=== PATIENT | female | born 1960 | race Caucasian/White ===

== ENCOUNTER → 2016-05-16 | Outpatient (CLI) | payer OTHER ==
[~2016-05-16] MED LIST: /ONDA4TA PO; /QUET25TA PO; /RISE30TA PO; /SENOSTA PO; AMBI12.52 PO; AMBIEN PO; ASPI325T PO; ATEN25TA PO; ATEN50TA2 PO; ATIV0.5T PO; CALC500T49 PO; CETI10TA PO; CLON-412 PO; CLON1PA PO; COLA100C2 PO; COMBINATION CREAM TOP; CYCL10TA PO; DICY20TA11 PO; ESTR0.5T PO; FENT25DI22 TD; FEXO180T58 PO; FLUTISP; FOSA70TA PO; GABA100C PO; HYDR500C PO; HYDREA PO; LINZ290C PO; METH5TAB76 PO; MULTIVIT PO; NABUPOW PO; OMEP20TA7 PO; PERCTAB PO; QUET30TA PO; SAVE50TA PO; SENN15TA2 PO; SERO200T PO; SERO50TA PO; VENL100T PO; [UNRECOGNIZED DRUG - CODE] PO; [UNRECOGNIZED DRUG - CODE] PO; [UNRECOGNIZED DRUG - OTHER] PO
--- NOTE | 2016-05-19 23:32 | ECWPNPC ---
PATIENT NAME: MOO PEDROZA : 1960 GENDER: FEMALE VISIT DATE: 05/16/2016 DISCHARGE DATE: 05/16/16 1005 VISIT LOCKED DATE TIME: PHYSICIAN: CONTRERAS UNGER RESOURCE: CONTRERAS UNGER REASON FOR APPOINTMENT 1. BACK HISTORY OF PRESENT ILLNESS HISTORY OF PRESENT ILLNESS: PAIN THE PATIENT DESCRIBES THE PAIN... 55 YEAR OLD FEMALE PATIENT WITH HISTORY OF CHRONIC BACK PAIN. PATIENT DESCRIBES THE PAIN SHARP, STABBING, SORE AND SHOOTING WITH A PAIN SCORE OF 7-8/10. 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 MRS. PEDROZA HAS TRIED PHYSICAL THERAPY, ICE, HEAT, AND A TENNS UNIT AND HAS NOT FOUND LONG LASTING RELIEF AT THIS TIME. CURRENTLY THE PATIENT IS USING FENTANYL AND NORCO AND REPORTS THAT IT DOES HELP TO TAKE THE EDGE OFF. PATIENT STATES THAT SITTING OR STANDING TOO LONG INCREASES THE PAIN IN HER BACK AND RESTING HELPS TO RELIEVE IT. MRS. PEDROZA WILL RECEIVE A SACROILIAC JOINT INJECTION IN THE NEAR FUTURE DUE TO HAVING APPROVAL. PATIENT DENIES UNEXPLAINABLE WEIGHT LOSS, FEVER, CHILLS, NEW CHANGES ON HER URINARY OR BOWEL CONTROL. FALL RISK SCREENING: SCREENING :NO FALLS IN THE PAST YEAR CURRENT MEDICATIONS TAKING ALENDRONATE SODIUM 70 MG TABLET 1 TABLET ORALLY WEEKLY TAKING ASPIRIN 325 MG TABLET 1 TABLET ORALLY ONCE A DAY TAKING ATENOLOL 25 MG 1 TAB ORAL BID TAKING CALCIUM 500 MG TABLET 1 TABLET WITH MEALS ORALLY DAILY TAKING ZYRTEC 10 MG TABLET 1 TABLET NEEDED ORALLY ONCE A DAY TAKING DOCUSATE SODIUM 100 MG CAPSULE ORALLY BID TAKING ESTRADIOL 0.5 MG TABLET 1 TABLET ORALLY DAILY TAKING FLONASE 1 SPRAY IN EACH NOSTRIL NASALLY DIRECTED TAKING HYDREA 500 MG CAPSULE ORALLY EVERY OTHER DAY TAKING HYDREA 1000 MG CAPSULE ORALLY EVERY 2 DAYS TAKING LINZESS 290 MCG CAPSULE ONE P.O. DAILY TAKING ATIVAN 0.5 0.5MG TABLET BID ORAL DIRECTED TAKING METHYLPHENIDATE HCL 20 MG TABLET ORALLY DAILY IN THE AM TAKING MULTIVITAMIN TABLETS ORALLY DAILY TAKING ZOFRAN 8 MG TABLET 1 TABLET ORALLY EVERY 4 HOURS NEEDED TAKING SEROQUEL 100 100 MG TABLET 250 MGS ORAL AT HS TAKING EFFEXOR 150 MG TABLET 1 TABLET WITH FOOD ORALLY NIGHTLY TAKING FENTANYL 50 MCG/HR PATCH 72 HOUR 1 PATCH TO SKIN TRANSDERMAL 1 PATCH [id number]=KUB TAKING ENDOCET 10-325 MG TABLET 1 TABLET NEEDED ORALLY EVERY 6 HRS PRN MDD4 TAKING CLONIDINE HCL 0.1 MG TABLET 1 ORALLY Q8H PRN NOT-TAKING METHYLPHENIDATE 10 MG TABLET ORALLY ONCE A DAY AFTERNOONS MEDICATION LIST REVIEWED AND RECONCILED WITH THE PATIENT PAST MEDICAL HISTORY BLOOD CANCER BIPOLAR/SOCIAL ANXIETY PTSD BACK PAIN SVT ALLERGIES CODEINE SULFATE: NAUSEA/VOMITING: SIDE EFFECTS STADOL: ITCH: ALLERGY TRAMADOL: EXCESSIVE YAWNING: SIDE EFFECTS NUBAIN: REACTION AT SITE: SIDE EFFECTS HYDROXYZINE HCL: EXCESSIVE YAWNING: SIDE EFFECTS KETOROLAC TROMETHAMINE: EXCESSIVE YAWNING: SIDE EFFECTS LATEX (FOR ALLERGY USE ONLY): RASH: ALLERGY SURGICAL HISTORY PARTIAL HYSTERECTOMY RIGHT ELBOW FX WITH SURGICAL REPAIR SA NODE ABLATION GALL BLADDER REMOVAL BLADDER SUSPENSION HEMORRHOIDECTOMY FAMILY HISTORY NO FAMILY HISTORY DOCUMENTED. SOCIAL HISTORY GENERAL: TOBACCO USE ARE YOU A:NONSMOKER LEARNING BARRIERS / SPECIAL NEEDS ORIENTED TO PLAN OF CARE: PATIENT, PAIN MANAGEMENT PATIENT, ORIENTED TO PLAN OF CARE: PATIENT, PAIN MANAGEMENT PATIENT. NEW PATIENT PAIN DIARY TODAY'S VISITNOTES FROM 0-10, WHAT LEVEL IS YOUR PAIN TODAY?0 PAIN CLINIC PFS, CLERGY, PUBLIC HEALTH REFERRALS PFS REFERRAL NEEDED?NO CLERGY REFERRAL NEEDED?NO PUBLIC HEALTH REFERRAL NEEDED?NO WAS THE PROVIDER NOTIFIED OF ANY PERTINENT INFO?NO PFS REFERRAL NEEDED?NO CLERGY REFERRAL NEEDED?NO PUBLIC HEALTH REFERRAL NEEDED?NO WAS THE PROVIDER NOTIFIED OF ANY PERTINENT INFO?NO HOSPITALIZATION/MAJOR DIAGNOSTIC PROCEDURE KIDNEY STONES REVIEW OF SYSTEMS CONSTITUTIONAL: ANY CHANGE IN YOUR MEDICAL CONDITION? NO . CHILLS NO . FEVER NO . INFECTION: DO YOU HAVE NEW INFECTIONS? NO . DO YOU HAVE HISTORY OF MRSA? NO . MUSCULOSKELETAL: ANY NEW PATTERNS OF PAIN OR NUMBNESS? YES, 1 WEEK AGO SHE HAD EXCUTIATING PAIN IN HER CO[place]YX REGION--LASTED A COUPLE OF DAYS. RESOLVED NOW . GASTROENTEROLOGY: ANY NEW CHANGE IN BOWEL CONTROL? NO . GENITOURINARY: ANY NEW CHANGE IN BLADDER CONTROL? NO . IS THERE A CHANCE YOU COULD BE ? NO . HEMATOLOGY/LYMPH: DO YOU TAKE ANY BLOOD THINNERS? (FOR EXAMPLE- COUMADIN, PLAVIX, AGGRENOX, PLATEL, PRADAXA, OR XARELTO) NO . WHEN WAS YOUR LAST DOSE? DATE: TIME: . NEUROLOGY: HAVE YOU FALLEN IN THE PAST 6 MONTHS? NO . ANY NEW EXTREMITY NUMBNESS OR WEAKNESS? NO . CARDIOLOGY: DO YOU HAVE A PACEMAKER OR DEFIBRILLATOR? NO . RESPIRATORY: HAVE YOU BEEN SICK IN THE PAST WEEK? NO . FEVER NO . FLU LIKE SYMPTOMS? NO . COUGH NO . INTEGUMENTARY: DO YOU HAVE ANY RASHES OR OPEN SORES? NO . ALLERGIC/IMMUNO: ARE YOU ALLERGIC TO SHELLFISH OR IV DYE? NO . ANY NEW ALLERGIES? NO . PSYCHIATRIC: DO YOU HAVE THOUGHTS OF HURTING YOURSELF OR SOMEONE ELSE? NO . ARE YOU ABUSED, NEGLECTED, OR IN AN UNSAFE ENVIRONMENT? NO . ENDOCRINOLOGY: ARE YOU DIABETIC? NO . OTHER: DO YOU NEED ANY PRESCRIPTIONS? NO . IF YES, PLEASE LIST: ____ . ANY NEW PROBLEMS WITH YOUR MEDICATIONS? NO . WHEN DID YOU LAST EAT? ____ . WHEN DID YOU LAST DRINK? ____ . WHAT DID YOU LAST DRINK? ____ . NAME OF PERSON DRIVING YOU HOME? ____ . DO YOU HAVE ANY OTHER QUESTIONS OR CONCERNS YES, HAS 5 FENTANYL PATCHES LEFT . REVIEWED BY: PROVIDER: CONTRERAS UNGER MD . VITAL SIGNS WT 153 LBS, HT 69 IN, BMI 22.59 INDEX, BP 124/83 MM HG, HR 76 /MIN, RR 16 /MIN, TEMP 97.5 F, OXYGEN SAT % 100, REVIEWED BY: [facility]WT. [facility] 05/16/16. EXAMINATION : PATIENT IS ALERT O X 3 AND COOPERATIVE. TENDERNESS IN THE LOWER BACK AND THORACIC AREA. ANTALGIC WALK. RIGHT LEG WEAKER THEN THE LEFT AT EXTENSION AND FLEXION. PENDING LUMBAR AND THORACIC MRI. ASSESSMENTS INTERVERTEBRAL DISC DISORDERS WITH RADICULOPATHY, LUMBAR REGION - M51.16 (PRIMARY) INTERVERTEBRAL DISC DISORDERS WITH RADICULOPATHY, LUMBOSACRAL REGION - M51.17 TREATMENT INTERVERTEBRAL DISC DISORDERS WITH RADICULOPATHY, LUMBAR REGION REFILL FENTANYL PATCH 72 HOUR, 50 MCG/HR, 1 PATCH TO SKIN, TRANSDERMAL, 1 PATCH [id number]=TSP, 30 DAY(S), 10, REFILLS 0 REFILL ENDOCET TABLET, 10-325 MG, 1 TABLET NEEDED, ORALLY, EVERY 6 HRS PRN MDD4, 30 DAY(S), 120, REFILLS 0 NOTES: WE DISCUSSED SEVERAL ISSUES WITH MRS. PEDROZA'S PAIN MANAGEMENT CASE. AT THIS TIME THE PATIENT WILL CONTINUE WITH THE SAME MEDICATION REGIME BEFORE. URINE TOXICOLOGY DONE ON DECEMBER 2015 SHOWS CONSISTENT RESULTS WITH THE PATIENTS MEDICATION LIST. PATIENT DENIES ABUSE OF ANY MEDICATION, DENIES USE OF ILLEGAL SUBSTANCES, AND STATES THAT SHE IS ONLY USING THE MEDICATION FOR PAIN MANAGEMENT. WE DISCUSSED MOVING FORWARD WITH THE DCS BUT I WILL NEED TO SPEAK WITH DR. SIDDIQUI THE PATIENT'S PULLEY MAINTAINER FIRST. I WILL ALSO NEED TO SPEAK WITH DR. BUCK ABOUT THE ABDOMINAL PAIN THE PATIENT HAS BEEN HAVING. I WOULD ALSO LIKE TO SPEAK WITH THE PATIENT'S PROJECT LEADER TO DISCUSS WHY THE PATIENT IS UNABLE TO GET APPROVAL FOR MRI'S. WE ALSO DISCUSSED MOVING FORWARD WITH A SACROILIAC JOINT BLOCK THE PATIENT STATES SHE GETS SIGNIFICANT RELIEF FROM THE INJECTION. WE DISCUSSED THE RISKS, BENEFITS, AND ALTERNATIVES WITH THE INJECTION AND THE PATIENT WOULD LIKE TO PROCEED. INSTRUCTIONS WERE GIVEN, QUESTIONS WERE ANSWERED, PATIENT REPORTS UNDERSTANDING AND AGREES WITH THE PLAN. I, NICOLAS BRYANT, DOCUMENTED THE ABOVE INFORMATION ACTING A SCRIBE FOR DR. UNGER. I HAVE REVIEWED THE ABOVE DOCUMENT, WRITTEN BY NICOLAS REAGAN AND I VERIFY THAT IT IS ACCURATE. PROCEDURES PN WORKMANS' COMP OPINION IN YOUR OPINION, WAS THE INCIDENT THAT THE PATIENT DESCRIBED THE COMPETENT MEDICAL CAUSE OF THIS INJURY/ILLNESS? YES ARE THE PATIENT'S COMPLAINTS CONSISTENT WITH HIS/HER HISTORY OF THE INJURY/ILLNESS? YES IS THE PATIENT'S HISTORY OF THE INJURY/ILLNESS CONSISTENT WITH YOUR OBJECTIVE FINDING? YES WHAT IS THE PERCENTAGE OF TEMPORARY IMPAIRMENT? MODERATE TO MARKED = 66.7% IS THE PATIENT WORKING? NO DOCTOR ON SITE: CONTRERAS PATEL MD PREVENTIVE MEDICINE PAIN CLINIC TEACHING: PROCEDURE TEACHING PRINTED PRE-PROCEDURE INSTRUCTIONS FOR SIJ GIVEN TO PT PER HER REQUEST. PER DR. UNGER PT DID NOT NEED TO STOP HYDREA PRIOR TO THE PROCEDURE.. PROCEDURE CODES FA211 ESTABILISHED PATIENT [facility] FACILITY CHARGE G8427 DOC MEDS VERIFIED W/PT OR RE G8730 PAIN ASSESS POS TOOL F/U PLAN DOC DISPOSITION & COMMUNICATION FOLLOW UP SIJ ELECTRONICALLY SIGNED BY CONTRERAS UNGER MD ON 05/19/2016 AT 09:22 PM EST DISCLAIMER : THIS IS A VISIT SUMMARY EXTRACTED FROM THE [employer] CHART. IT IS NOT A COPY OF THE [employer] PROGRESS NOTE. MTDD
== END ==
LOC: M PAIN 09:00
PROVIDERS: ATTEND Anesthesiology
DX: Z09 Encounter for follow-up examination after completed treatment for conditions other than malignant neoplasm (principal); G89.29 Other chronic pain; M51.16 Intervertebral disc disorders with radiculopathy, lumbar region; M51.17 Intervertebral disc disorders with radiculopathy, lumbosacral region; F43.10 Post-traumatic stress disorder, unspecified; F31.9 Bipolar disorder, unspecified; R26.9 Unspecified abnormalities of gait and mobility; I47.2 Ventricular tachycardia; F40.10 Social phobia, unspecified; Z88.6 Allergy status to analgesic agent; Z88.5 Allergy status to narcotic agent; Z91.040 Latex allergy status; Z88.8 Allergy status to other drugs, medicaments and biological substances; Z79.82 Long term (current) use of aspirin; Z79.899 Other long term (current) drug therapy; Z79.891 Long term (current) use of opiate analgesic; Z85.79 Personal history of other malignant neoplasms of lymphoid, hematopoietic and related tissues

== ENCOUNTER → 2016-06-06 | Outpatient (CLI) | payer OTHER ==
[~2016-06-06] MED LIST changes: +BUPIVACAINE HCL 0.25% 30 ML VIAL As Ordered ONE; +ISOVUE-M 300 61% 15ML VIAL (Q9967) As Ordered ONE; +LIDOCAINE 1% SDV INJ 30 ML VIAL As Ordered ONE; +TRIAMCINOLONE ACETONIDE SUSP 40 MG/ML VIAL (J3301) As Ordered ONE; +diazePAM 5 MG TAB As Ordered ONE; +oxyCODONE 5MG TAB As Ordered ONE
--- NOTE | 2016-06-06 15:07 | REP ---
Partial SI joint series: Five views. History: Sacral iliac joint injection for pain. 14 seconds of fluoroscopy time is reported. Findings: A sequence of five fluoroscopically obtained intraprocedural spot radiographs of the right SI joint document various needle positions and contrast injections associated with right SI joint injection procedures. Signed by Ravinder Uriarte MD 06/06/2016 05:45 P
--- NOTE | 2016-06-13 01:49 | ECWPNPC ---
PATIENT NAME: MOO PEDROZA : 1960 GENDER: FEMALE VISIT DATE: 06/06/2016 DISCHARGE DATE: 06/06/16 1213 VISIT LOCKED DATE TIME: PHYSICIAN: CONTRERAS UNGER RESOURCE: CONTRERAS UNGER REASON FOR APPOINTMENT 1. SIJ HISTORY OF PRESENT ILLNESS HISTORY OF PRESENT ILLNESS: PAIN THE PATIENT DESCRIBES THE PAIN... FALL RISK SCREENING: SCREENING :NO FALLS IN THE PAST YEAR CURRENT MEDICATIONS TAKING ALENDRONATE SODIUM 70 MG TABLET 1 TABLET ORALLY WEEKLY, NOTES: 9 DAYS AGO TAKING ASPIRIN 325 MG TABLET 1 TABLET ORALLY ONCE A DAY, NOTES: 06/05/16 09 TAKING ATENOLOL 25 MG 1 TAB ORAL BID, NOTES: 06/05/16899 TAKING CALCIUM 500 MG TABLET 1 TABLET WITH MEALS ORALLY DAILY, NOTES: 06/05/16899 TAKING ZYRTEC 10 MG TABLET 1 TABLET NEEDED ORALLY ONCE A DAY, NOTES: 06/05/16899 TAKING DOCUSATE SODIUM 100 MG CAPSULE ORALLY BID, NOTES: 06/04/162099 TAKING ESTRADIOL 0.5 MG TABLET 1 TABLET ORALLY DAILY, NOTES: 06/05/162099 TAKING FLONASE 1 SPRAY IN EACH NOSTRIL NASALLY DIRECTED, NOTES: 06/05/16 1300 TAKING HYDREA 500 MG CAPSULE ORALLY EVERY OTHER DAY, NOTES: 06/05/162099 TAKING HYDREA 1000 MG CAPSULE ORALLY EVERY 2 DAYS, NOTES: 06/04/162099 TAKING LINZESS 290 MCG CAPSULE ONE P.O. DAILY, NOTES: 06/05/16 09 TAKING ATIVAN 0.5 0.5MG TABLET BID ORAL DIRECTED, NOTES: 06/05/16 1400 TAKING METHYLPHENIDATE HCL 20 MG TABLET ORALLY DAILY IN THE AM, NOTES: 06/06/16 09 TAKING MULTIVITAMIN TABLETS ORALLY DAILY, NOTES: 06/06/16 0900 TAKING ZOFRAN 8 MG TABLET 1 TABLET ORALLY EVERY 4 HOURS NEEDED, NOTES: 06/05/16 1600 TAKING SEROQUEL 100 100 MG TABLET 250 MGS ORAL AT HS, NOTES: 06/05/16 2100 TAKING EFFEXOR 150 MG TABLET 1 TABLET WITH FOOD ORALLY NIGHTLY, NOTES: 06/05/16 2100 TAKING CLONIDINE HCL 0.1 MG TABLET 1 ORALLY Q8H PRN, NOTES: NONE RECENTLY TAKING ENDOCET 10-325 MG TABLET 1 TABLET NEEDED ORALLY EVERY 6 HRS PRN MDD4, NOTES: 06/05/16 2100 TAKING FENTANYL 50 MCG/HR PATCH 72 HOUR 1 PATCH TO SKIN TRANSDERMAL 1 PATCH [id number]=NPI, NOTES: 06/06/16 0900 NOT-TAKING METHYLPHENIDATE 10 MG TABLET ORALLY ONCE A DAY AFTERNOONS MEDICATION LIST REVIEWED AND RECONCILED WITH THE PATIENT PAST MEDICAL HISTORY BLOOD CANCER BIPOLAR/SOCIAL ANXIETY PTSD BACK PAIN SVT ALLERGIES CODEINE SULFATE: NAUSEA/VOMITING: SIDE EFFECTS STADOL: ITCH: ALLERGY TRAMADOL: EXCESSIVE YAWNING: SIDE EFFECTS NUBAIN: REACTION AT SITE: SIDE EFFECTS HYDROXYZINE HCL: EXCESSIVE YAWNING: SIDE EFFECTS KETOROLAC TROMETHAMINE: EXCESSIVE YAWNING: SIDE EFFECTS LATEX (FOR ALLERGY USE ONLY): RASH: ALLERGY SURGICAL HISTORY PARTIAL HYSTERECTOMY RIGHT ELBOW FX WITH SURGICAL REPAIR SA NODE ABLATION GALL BLADDER REMOVAL BLADDER SUSPENSION HEMORRHOIDECTOMY SOCIAL HISTORY GENERAL: TOBACCO USE ARE YOU A:NONSMOKER LEARNING BARRIERS / SPECIAL NEEDS ORIENTED TO PLAN OF CARE: PATIENT, PAIN MANAGEMENT PATIENT, ORIENTED TO PLAN OF CARE: PATIENT, PAIN MANAGEMENT PATIENT. NEW PATIENT PAIN DIARY TODAY'S VISITNOTES FROM 0-10, WHAT LEVEL IS YOUR PAIN TODAY?0 PAIN CLINIC PFS, CLERGY, PUBLIC HEALTH REFERRALS PFS REFERRAL NEEDED?NO CLERGY REFERRAL NEEDED?NO PUBLIC HEALTH REFERRAL NEEDED?NO WAS THE PROVIDER NOTIFIED OF ANY PERTINENT INFO?NO PFS REFERRAL NEEDED?NO CLERGY REFERRAL NEEDED?NO PUBLIC HEALTH REFERRAL NEEDED?NO WAS THE PROVIDER NOTIFIED OF ANY PERTINENT INFO?NO HOSPITALIZATION/MAJOR DIAGNOSTIC PROCEDURE KIDNEY STONES REVIEW OF SYSTEMS CONSTITUTIONAL: ANY CHANGE IN YOUR MEDICAL CONDITION? NO . CHILLS NO . FEVER NO . INFECTION: DO YOU HAVE NEW INFECTIONS? NO . DO YOU HAVE HISTORY OF MRSA? NO . MUSCULOSKELETAL: ANY NEW PATTERNS OF PAIN OR NUMBNESS? NO . GASTROENTEROLOGY: ANY NEW CHANGE IN BOWEL CONTROL? NO . GENITOURINARY: ANY NEW CHANGE IN BLADDER CONTROL? NO . IS THERE A CHANCE YOU COULD BE ? NO . HEMATOLOGY/LYMPH: DO YOU TAKE ANY BLOOD THINNERS? (FOR EXAMPLE- COUMADIN, PLAVIX, AGGRENOX, PLATEL, PRADAXA, OR XARELTO) NO . WHEN WAS YOUR LAST DOSE? DATE: TIME: . NEUROLOGY: HAVE YOU FALLEN IN THE PAST 6 MONTHS? NO . ANY NEW EXTREMITY NUMBNESS OR WEAKNESS? NO . CARDIOLOGY: DO YOU HAVE A PACEMAKER OR DEFIBRILLATOR? NO . RESPIRATORY: HAVE YOU BEEN SICK IN THE PAST WEEK? NO . FEVER NO . FLU LIKE SYMPTOMS? NO . COUGH NO . INTEGUMENTARY: DO YOU HAVE ANY RASHES OR OPEN SORES? NO . ALLERGIC/IMMUNO: ARE YOU ALLERGIC TO SHELLFISH OR IV DYE? NO . ANY NEW ALLERGIES? NO . PSYCHIATRIC: DO YOU HAVE THOUGHTS OF HURTING YOURSELF OR SOMEONE ELSE? NO . ARE YOU ABUSED, NEGLECTED, OR IN AN UNSAFE ENVIRONMENT? NO . ENDOCRINOLOGY: ARE YOU DIABETIC? NO . OTHER: DO YOU NEED ANY PRESCRIPTIONS? NO . IF YES, PLEASE LIST: ____ . ANY NEW PROBLEMS WITH YOUR MEDICATIONS? NO . WHEN DID YOU LAST EAT? 2099 . WHEN DID YOU LAST DRINK? 2099 . WHAT DID YOU LAST DRINK? CLEAR JUICE . NAME OF PERSON DRIVING YOU HOME? BANDAR BECKWITH . DO YOU HAVE ANY OTHER QUESTIONS OR CONCERNS NO . REVIEWED BY: PROVIDER: . VITAL SIGNS WT 153 LBS, HT 69 IN, BMI 22.59 INDEX, BP 104/62 MM HG, HR 69 /MIN, RR 16 /MIN, TEMP 96 F,6 F, OXYGEN SAT % 100%, NA INITIALS SC 10:20, REVIEWED BY: LS. ASSESSMENTS SACROILIITIS, NOT ELSEWHERE CLASSIFIED - M46.1 (PRIMARY) PROCEDURES PN SI PRE PROCEDURE DIAGNOSIS SACROILIITIS, SACROILIAC JOINT DYSFUNCTION POST PROCEDURE DIAGNOSIS SACROILIITIS, SACROILIAC JOINT DYSFUNCTION PROCEDURE RIGHT SACROILIAC JOINT BLOCK SURGEON DR. CONTRERAS UNGER STEAM DRIER OPERATOR NONE ANESTHESIA LOCAL PRE PROCEDURE NOTE PATIENT WITH HISTORY OF CHRONIC LOW BACK PAIN. I EVALUATED THE PATIENT AND REVIEWED THE CHART. I WENT OVER THE RISKS, ALTERNATIVES, AND BENEFITS ASSOCIATED WITH THIS PROCEDURE. THE PATIENT WOULD LIKE TO PROCEED AND GAVE CONSENT TO PERFORM THE PROCEDURE. THE PATIENT DENIES UNEXPLAINABLE WEIGHT LOSS, FEVER, CHILLS, OR NEW CHANGES IN URINARY OR BOWEL CONTROL DESCRIPTION OF PROCEDURE THE PATIENT WAS BROUGHT TO THE PROCEDURE ROOM AND PLACED IN THE PRONE POSITION. THE LUMBOSACRAL AREA WAS CLEANED WITH CHLORAPREP SOLUTION AND DRAPED ASEPTICALLY. THE PROCEDURE WAS DONE UNDER STERILE CONDITIONS. I CHECKED LATERALITY AND THE LEVEL WHERE THE PROCEDURE WAS GOING TO BE PERFORMED WITH THE PATIENT AND THE SUPPORTING STAFF AT THE MOMENT OF THE TIME OUT IN THE PROCEDURE ROOM. UNDER FLUOROSCOPIC GUIDANCE, TARGET POINT WAS SELECTED AT THE LOWER BORDER OF THE RIGHT SACROILIAC JOINT. TARGET POINT WAS SELECTED AFTER MEDIAL ROTATION AND TILT OF THE MAGNIFIER OF THE C-ARM. LIDOCAINE WAS USED TO NUMB THE SKIN AND SUBCUTANEOUS TISSUE BELOW IT. A SPINAL NEEDLE, 22-GAUGE, WAS ADVANCED UNDER FLUOROSCOPIC GUIDANCE AND FOLLOWING PATIENT FEEDBACK UNTIL THE TARGET AREA WAS TOUCHED. THE POSITION OF THE NEEDLE WAS VERIFIED WITH AP AND LATERAL VIEWS. AFTER PROPER POSITION OF THE NEEDLE WAS ACHIEVED, ISOVUE M DYE 30%, 0.25 ML, WAS INJECTED SHOWING SPREAD OF THE DYE. THEN, A SOLUTION OF 20 MG OF KENALOG WAS INJECTED IN RIGHT JOINT WITH 3 ML OF BUPIVACAINE 0.125%. THERE WAS NO EVIDENCE OF BLOOD, PARESTHESIA OR CEREBROSPINAL FLUID DURING THE PROCEDURE. THE PATIENT WAS SENT TO THE RECOVERY ROOM. THE PATIENT WAS MOVING THE EXTREMITIES AND DOING WELL. THERE WAS NO COMPLICATION DURING THE PROCEDURE. FLUOROSCOPY TIME WAS 14 SECONDS POST PROCEDURE NOTE THE PATIENT WILL BE SEEN IN A FOLLOW UP IN THE NEXT FEW WEEKS. INSTRUCTIONS WERE GIVEN, QUESTIONS WERE ANSWERED, AND THE PATIENT EXPRESSED UNDERSTANDING AND AGREED WITH THE PLAN. I, NICOLAS BRYANT, DOCUMENTED THE ABOVE INFORMATION ACTING A SCRIBE FOR DR. UNGER. I, DR. UNGER, HAVE REVIEWED THE ABOVE DOCUMENT, SCRIBED BY NICOLAS BRYANT, AND I VERIFY THAT IT IS ACCURATE PN WORKMANS' COMP OPINION IN YOUR OPINION, WAS THE INCIDENT THAT THE PATIENT DESCRIBED THE COMPETENT MEDICAL CAUSE OF THIS INJURY/ILLNESS? YES ARE THE PATIENT'S COMPLAINTS CONSISTENT WITH HIS/HER HISTORY OF THE INJURY/ILLNESS? YES IS THE PATIENT'S HISTORY OF THE INJURY/ILLNESS CONSISTENT WITH YOUR OBJECTIVE FINDING? YES WHAT IS THE PERCENTAGE OF TEMPORARY IMPAIRMENT? MODERATE TO MARKED = 66.7% IS THE PATIENT WORKING? NO DOCTOR ON SITE: CONTRERAS PATEL MD DIAGNOSTIC IMAGING [facility] FLUORO GUIDANCE (PAIN)[id number] PROCEDURE CODES 98124 INJECT SACROILIAC JOINT 6045F RADXPS IN END [id number] PXD DISPOSITION & COMMUNICATION FOLLOW UP 3 WEEKS ELECTRONICALLY SIGNED BY CONTRERAS UNGER MD ON 06/10/2016 AT 11:08 AM EDT DISCLAIMER : THIS IS A VISIT SUMMARY EXTRACTED FROM THE [employer] CHART. IT IS NOT A COPY OF THE [employer] PROGRESS NOTE. TALIA
== END ==
LOC: M PAIN 10:10
PROVIDERS: ATTEND Anesthesiology
DX: G89.29 Other chronic pain (principal); M46.1 Sacroiliitis, not elsewhere classified; M53.88 Other specified dorsopathies, sacral and sacrococcygeal region; Z88.5 Allergy status to narcotic agent; Z88.8 Allergy status to other drugs, medicaments and biological substances; Z91.040 Latex allergy status; Z79.82 Long term (current) use of aspirin; Z79.01 Long term (current) use of anticoagulants; Z79.891 Long term (current) use of opiate analgesic; Z79.899 Other long term (current) drug therapy; Z87.81 Personal history of (healed) traumatic fracture
CPT/HCPCS: G0260; J3301; Q9967

== ENCOUNTER → 2016-06-20 | Outpatient (CLI) | payer OTHER ==
[~2016-06-20] MED LIST changes: -BUPIVACAINE HCL 0.25% 30 ML VIAL As Ordered ONE; -ISOVUE-M 300 61% 15ML VIAL (Q9967) As Ordered ONE; -LIDOCAINE 1% SDV INJ 30 ML VIAL As Ordered ONE; -TRIAMCINOLONE ACETONIDE SUSP 40 MG/ML VIAL (J3301) As Ordered ONE; -diazePAM 5 MG TAB As Ordered ONE; -oxyCODONE 5MG TAB As Ordered ONE
--- NOTE | 2016-06-28 01:24 | ECWPNPC ---
PATIENT NAME: MOO PEDROZA : 1960 GENDER: FEMALE VISIT DATE: 06/20/2016 DISCHARGE DATE: 06/20/16 1553 VISIT LOCKED DATE TIME: PHYSICIAN: CONTRERAS UNGER RESOURCE: CONTRERAS UNGER REASON FOR APPOINTMENT 1. W/C BACK PAIN HISTORY OF PRESENT ILLNESS HISTORY OF PRESENT ILLNESS: PAIN THE PATIENT DESCRIBES THE PAIN... 55 YEAR OLD FEMALE PATIENT WITH HISTORY OF CHRONIC BACK PAIN. PATIENT DESCRIBES THE PAIN SHARP, STABBING, SORE AND SHOOTING WITH A PAIN SCORE OF 7-8/10. 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 PATIENT RECEIVED A SACROILIAC JOINT INJECTION ON 06/06/16 AND REPORTS ONLY HAVING ABOUT 3 DAYS OF PAIN RELIEF, MRS. PEDROZA HAS TRIED PHYSICAL THERAPY, ICE, HEAT, AND A TENNS UNIT AND HAS NOT FOUND LONG LASTING RELIEF AT THIS TIME. CURRENTLY THE PATIENT IS USING FENTANYL AND NORCO AND REPORTS THAT IT DOES HELP TO TAKE THE EDGE OFF. PATIENT STATES THAT SITTING OR STANDING TOO LONG INCREASES THE PAIN IN HER BACK AND RESTING HELPS TO RELIEVE IT. MRS. PEDROZA WILL RECEIVE A SACROILIAC JOINT INJECTION IN THE NEAR FUTURE DUE TO HAVING APPROVAL. PATIENT DENIES UNEXPLAINABLE WEIGHT LOSS, FEVER, CHILLS, NEW CHANGES ON HER URINARY OR BOWEL CONTROL. FALL RISK SCREENING: SCREENING :NO FALLS IN THE PAST YEAR CURRENT MEDICATIONS TAKING ALENDRONATE SODIUM 70 MG TABLET 1 TABLET ORALLY WEEKLY, NOTES: 9 DAYS AGO TAKING ASPIRIN 325 MG TABLET 1 TABLET ORALLY ONCE A DAY, NOTES: 06/05/16 09 TAKING ATENOLOL 25 MG 1 TAB ORAL BID, NOTES: 06/05/16 09 TAKING CALCIUM 500 MG TABLET 1 TABLET WITH MEALS ORALLY DAILY, NOTES: 06/05/16 09 TAKING ZYRTEC 10 MG TABLET 1 TABLET NEEDED ORALLY ONCE A DAY, NOTES: 06/05/16 09 TAKING DOCUSATE SODIUM 100 MG CAPSULE ORALLY BID, NOTES: 06/04/16 2100 TAKING ESTRADIOL 0.5 MG TABLET 1 TABLET ORALLY DAILY, NOTES: 06/05/16 2100 TAKING FLONASE 1 SPRAY IN EACH NOSTRIL NASALLY DIRECTED, NOTES: 06/05/16 1300 TAKING HYDREA 500 MG CAPSULE ORALLY EVERY OTHER DAY, NOTES: 06/05/162099 TAKING HYDREA 1000 MG CAPSULE ORALLY EVERY 2 DAYS, NOTES: 06/04/162099 TAKING LINZESS 290 MCG CAPSULE ONE P.O. DAILY, NOTES: 06/05/16 0900 TAKING ATIVAN 0.5 0.5MG TABLET BID ORAL DIRECTED, NOTES: 06/05/16 1400 TAKING METHYLPHENIDATE HCL 20 MG TABLET ORALLY DAILY IN THE AM, NOTES: 06/06/16 0900 TAKING MULTIVITAMIN TABLETS ORALLY DAILY, NOTES: 06/06/16 0900 TAKING ZOFRAN 8 MG TABLET 1 TABLET ORALLY EVERY 4 HOURS NEEDED, NOTES: 06/05/16 1600 TAKING SEROQUEL 100 100 MG TABLET 250 MGS ORAL AT HS, NOTES: 06/05/162099 TAKING EFFEXOR 150 MG TABLET 1 TABLET WITH FOOD ORALLY NIGHTLY, NOTES: 06/05/162099 TAKING CLONIDINE HCL 0.1 MG TABLET 1 ORALLY Q8H PRN, NOTES: NONE RECENTLY TAKING ENDOCET 10-325 MG TABLET 1 TABLET NEEDED ORALLY EVERY 6 HRS PRN MDD4, NOTES: 06/05/162099 TAKING FENTANYL 50 MCG/HR PATCH 72 HOUR 1 PATCH TO SKIN TRANSDERMAL 1 PATCH [id number]=ZQW, NOTES: 06/06/16 0900 NOT-TAKING METHYLPHENIDATE 10 MG TABLET ORALLY ONCE A DAY AFTERNOONS MEDICATION LIST REVIEWED AND RECONCILED WITH THE PATIENT PAST MEDICAL HISTORY BLOOD CANCER BIPOLAR/SOCIAL ANXIETY PTSD BACK PAIN SVT ALLERGIES CODEINE SULFATE: NAUSEA/VOMITING: SIDE EFFECTS STADOL: ITCH: ALLERGY TRAMADOL: EXCESSIVE YAWNING: SIDE EFFECTS NUBAIN: REACTION AT SITE: SIDE EFFECTS HYDROXYZINE HCL: EXCESSIVE YAWNING: SIDE EFFECTS KETOROLAC TROMETHAMINE: EXCESSIVE YAWNING: SIDE EFFECTS LATEX (FOR ALLERGY USE ONLY): RASH: ALLERGY SURGICAL HISTORY PARTIAL HYSTERECTOMY RIGHT ELBOW FX WITH SURGICAL REPAIR SA NODE ABLATION GALL BLADDER REMOVAL BLADDER SUSPENSION HEMORRHOIDECTOMY FAMILY HISTORY NO FAMILY HISTORY DOCUMENTED. SOCIAL HISTORY GENERAL: TOBACCO USE ARE YOU A:NONSMOKER LEARNING BARRIERS / SPECIAL NEEDS ORIENTED TO PLAN OF CARE: PATIENT, PAIN MANAGEMENT PATIENT, ORIENTED TO PLAN OF CARE: PATIENT, PAIN MANAGEMENT PATIENT. NEW PATIENT PAIN DIARY TODAY'S VISITNOTES FROM 0-10, WHAT LEVEL IS YOUR PAIN TODAY?0 PAIN CLINIC PFS, CLERGY, PUBLIC HEALTH REFERRALS PFS REFERRAL NEEDED?NO CLERGY REFERRAL NEEDED?NO PUBLIC HEALTH REFERRAL NEEDED?NO WAS THE PROVIDER NOTIFIED OF ANY PERTINENT INFO?NO PFS REFERRAL NEEDED?NO CLERGY REFERRAL NEEDED?NO PUBLIC HEALTH REFERRAL NEEDED?NO WAS THE PROVIDER NOTIFIED OF ANY PERTINENT INFO?NO HOSPITALIZATION/MAJOR DIAGNOSTIC PROCEDURE KIDNEY STONES REVIEW OF SYSTEMS CONSTITUTIONAL: ANY CHANGE IN YOUR MEDICAL CONDITION? NO . CHILLS NO . FEVER NO . INFECTION: DO YOU HAVE NEW INFECTIONS? NO . DO YOU HAVE HISTORY OF MRSA? NO . MUSCULOSKELETAL: ANY NEW PATTERNS OF PAIN OR NUMBNESS? NO . GASTROENTEROLOGY: ANY NEW CHANGE IN BOWEL CONTROL? NO . GENITOURINARY: ANY NEW CHANGE IN BLADDER CONTROL? NO . IS THERE A CHANCE YOU COULD BE ? NO . HEMATOLOGY/LYMPH: DO YOU TAKE ANY BLOOD THINNERS? (FOR EXAMPLE- COUMADIN, PLAVIX, AGGRENOX, PLATEL, PRADAXA, OR XARELTO) NO . WHEN WAS YOUR LAST DOSE? DATE: TIME: . NEUROLOGY: HAVE YOU FALLEN IN THE PAST 6 MONTHS? NO . ANY NEW EXTREMITY NUMBNESS OR WEAKNESS? NO . CARDIOLOGY: DO YOU HAVE A PACEMAKER OR DEFIBRILLATOR? NO . RESPIRATORY: HAVE YOU BEEN SICK IN THE PAST WEEK? NO . FEVER NO . FLU LIKE SYMPTOMS? NO . COUGH NO . INTEGUMENTARY: DO YOU HAVE ANY RASHES OR OPEN SORES? NO . ALLERGIC/IMMUNO: ARE YOU ALLERGIC TO SHELLFISH OR IV DYE? NO . ANY NEW ALLERGIES? NO . PSYCHIATRIC: DO YOU HAVE THOUGHTS OF HURTING YOURSELF OR SOMEONE ELSE? NO . ARE YOU ABUSED, NEGLECTED, OR IN AN UNSAFE ENVIRONMENT? NO . ENDOCRINOLOGY: ARE YOU DIABETIC? NO . OTHER: DO YOU NEED ANY PRESCRIPTIONS? NO . IF YES, PLEASE LIST: ____ . ANY NEW PROBLEMS WITH YOUR MEDICATIONS? NO . WHEN DID YOU LAST EAT? ____ . WHEN DID YOU LAST DRINK? ____ . WHAT DID YOU LAST DRINK? ____ . NAME OF PERSON DRIVING YOU HOME? ____ . DO YOU HAVE ANY OTHER QUESTIONS OR CONCERNS NO . REVIEWED BY: PROVIDER: CONTRERAS UNGER MD . VITAL SIGNS WT 157.6 LBS, HT 69 IN, BMI 23.27 INDEX, BP 133/91 MM HG, HR 77 /MIN, RR 16 /MIN, TEMP 99.2 F, OXYGEN SAT % 98%, NA INITIALS [id number], REVIEWED BY: HECTOR. EXAMINATION : PATIENT IS ALERT O X 3 AND COOPERATIVE. TENDERNESS IN THE LOWER BACK AND THORACIC AREA. ANTALGIC WALK. RIGHT LEG WEAKER THEN THE LEFT AT EXTENSION AND FLEXION. PENDING LUMBAR AND THORACIC MRI. ASSESSMENTS INTERVERTEBRAL DISC DISORDERS WITH RADICULOPATHY, LUMBAR REGION - M51.16 (PRIMARY) ILIO-LUMBAR LIGAMENT PAIN. TREATMENT INTERVERTEBRAL DISC DISORDERS WITH RADICULOPATHY, LUMBAR REGION REFILL FENTANYL PATCH 72 HOUR, 50 MCG/HR, 1 PATCH TO SKIN, TRANSDERMAL (CODE D CHRONIC PAIN ), 1 PATCH [id number]=OAF, 60 DAYS, 20, REFILLS 0, NOTES: 06/06/16 0900 REFILL ENDOCET TABLET, 10-325 MG, 1 TABLET NEEDED, ORALLY (CHRONIC PAIN CODE D), EVERY 6 HRS PRN MDD4, 60 DAYS, 240, REFILLS 0, NOTES: 06/05/16 2100 START VALIUM TABLET, 10 MG, 1 TABLET NEEDED, ORALLY, PRIOR PROCEDURE, 1 DOSE(S), 1, REFILLS 0 NOTES: WE DISCUSSED SEVERAL ISSUES WITH MRS. PEDROZA'S PAIN MANAGEMENT CASE. AT THIS TIME THE PATIENT WILL CONTINUE WITH THE SAME MEDICATION REGIME BEFORE. PATIENT WILL RECEIVE A VALIUM DUE TO THE ANXIETY AND CLAUSTROPHOBIA WHILE GETTING THE MRI'S DONE. PATIENT DENIES ABUSE OF ANY MEDICATION, DENIES USE OF ILLEGAL SUBSTANCES, AND STATES THAT SHE IS ONLY USING THE MEDICATION FOR PAIN MANAGEMENT. URINE TOXICOLOGY REPORT DONE ON 01/26/16 SHOWS CONSISTENT RESULTS WITH THE PATIENTS MEDICATION LIST. PATIENT WAS ADVISED TO BRING ALL MEDICATIONS TO EVERY VISIT. DUE TO WHERE THE PATIENTS STATES SHE HAS PAIN I WOULD LIKE TO TRY A ILIOLUMBAR LIGAMENT INJECTIONS. WE DISCUSSED THE RISKS, BENENFITS, AND ALTERNATIVES OF THE INJECTION AND THE PATIENT WOULD LIKE TO PROCEED AT THIS TIME. INSTRUCTIONS WERE GIVEN, QUESTIONS WERE ANSWERED, PATIENT REPORTS UNDERSTANDING AND AGREES WITH THE PLAN. I, NICOLAS BRYANT, DOCUMENTED THE ABOVE INFORMATION ACTING A SCRIBE FOR DR. UNGER. I HAVE REVIEWED THE ABOVE DOCUMENT, WRITTEN BY NICOLAS REAGAN AND I VERIFY THAT IT IS ACCURATE. PROCEDURES PN WORKMANS' COMP OPINION IN YOUR OPINION, WAS THE INCIDENT THAT THE PATIENT DESCRIBED THE COMPETENT MEDICAL CAUSE OF THIS INJURY/ILLNESS? YES ARE THE PATIENT'S COMPLAINTS CONSISTENT WITH HIS/HER HISTORY OF THE INJURY/ILLNESS? YES IS THE PATIENT'S HISTORY OF THE INJURY/ILLNESS CONSISTENT WITH YOUR OBJECTIVE FINDING? YES WHAT IS THE PERCENTAGE OF TEMPORARY IMPAIRMENT? MODERATE TO MARKED = 66.7% IS THE PATIENT WORKING? NO DOCTOR ON SITE: CONTRERAS PATEL MD PROCEDURE CODES FA211 ESTABILISHED PATIENT [facility] FACILITY CHARGE G8427 DOC MEDS VERIFIED W/PT OR RE G8730 PAIN ASSESS POS TOOL F/U PLAN DOC DISPOSITION & COMMUNICATION FOLLOW UP 3 WEEKS ELECTRONICALLY SIGNED BY CONTRERAS UNGER MD ON 06/25/2016 AT 06:11 PM EDT DISCLAIMER : THIS IS A VISIT SUMMARY EXTRACTED FROM THE [employer] CHART. IT IS NOT A COPY OF THE [employer] PROGRESS NOTE. MTDD
== END ==
LOC: M PAIN 14:20
PROVIDERS: ATTEND Anesthesiology
DX: Z09 Encounter for follow-up examination after completed treatment for conditions other than malignant neoplasm (principal); G89.29 Other chronic pain; M51.16 Intervertebral disc disorders with radiculopathy, lumbar region; I47.1 Supraventricular tachycardia; F31.9 Bipolar disorder, unspecified; F40.10 Social phobia, unspecified; F43.10 Post-traumatic stress disorder, unspecified; Z88.5 Allergy status to narcotic agent; Z88.8 Allergy status to other drugs, medicaments and biological substances; Z91.040 Latex allergy status; Z79.82 Long term (current) use of aspirin; Z79.891 Long term (current) use of opiate analgesic; Z79.899 Other long term (current) drug therapy; Z85.6 Personal history of leukemia

== ENCOUNTER → 2016-07-10 | Outpatient (CLI) | payer OTHER ==
[~2016-07-10] MED LIST changes: +BUPIVACAINE HCL 0.25% 30 ML VIAL As Ordered ONE; +ISOVUE-M 300 61% 15ML VIAL (Q9967) As Ordered ONE; +LIDOCAINE 1% SDV INJ 30 ML VIAL As Ordered ONE; +MIDAZOLAM INJ 2 MG/2 ML VIAL (J2250) As Ordered ONE; +TRIAMCINOLONE ACETONIDE SUSP 40 MG/ML VIAL (J3301) As Ordered ONE; +fentaNYL 100 MCG/2 ML INJECTION (J3010) As Ordered ONE
--- NOTE | 2016-07-10 15:16 | REP ---
Partial pelvis series: Six views. History: Iliac lumbar ligament injection for pain. 13 seconds of fluoroscopy time is reported. Findings: A sequence of six fluoroscopically obtained procedural spot radiographs of one of the iliac crests documents needle position and contrast injection associated with injection procedure. No laterality markers are seen. Signed by Ravinder Uriarte MD 07/10/2016 03:53 P
--- NOTE | 2016-07-25 02:00 | ECWPNPC ---
PATIENT NAME: MOO PEDRZOA : 1960 GENDER: FEMALE VISIT DATE: 07/10/2016 DISCHARGE DATE: 07/10/16 1207 VISIT LOCKED DATE TIME: PHYSICIAN: CONTRERAS UNGER RESOURCE: CONTRERAS UNGER REASON FOR APPOINTMENT 1. ILIO-LUMBAR LIGAMENT HISTORY OF PRESENT ILLNESS HISTORY OF PRESENT ILLNESS: PAIN THE PATIENT DESCRIBES THE PAIN... FALL RISK SCREENING: SCREENING :NO FALLS IN THE PAST YEAR CURRENT MEDICATIONS TAKING ALENDRONATE SODIUM 70 MG TABLET 1 TABLET ORALLY WEEKLY, NOTES: 07/09/16899 TAKING ASPIRIN 325 MG TABLET 1 TABLET ORALLY ONCE A DAY, NOTES: 07/09/16899 TAKING ATENOLOL 25 MG 1 TAB ORAL BID, NOTES: 07/09/16899 TAKING CALCIUM 500 MG TABLET 1 TABLET WITH MEALS ORALLY DAILY, NOTES: 07/09/16899 TAKING ZYRTEC 10 MG TABLET 1 TABLET NEEDED ORALLY ONCE A DAY, NOTES: 07/09/16899 TAKING DOCUSATE SODIUM 100 MG CAPSULE ORALLY BID, NOTES: 07/09/162099 TAKING ESTRADIOL 0.5 MG TABLET 1 TABLET ORALLY DAILY, NOTES: 07/09/162099 TAKING FLONASE 1 SPRAY IN EACH NOSTRIL NASALLY DIRECTED, NOTES: 07/08/16 1300 TAKING HYDREA 500 MG CAPSULE ORALLY EVERY OTHER DAY, NOTES: 07/09/162099 TAKING HYDREA 1000 MG CAPSULE ORALLY EVERY 2 DAYS, NOTES: 07/09/162099 TAKING LINZESS 290 MCG CAPSULE ONE P.O. DAILY, NOTES: 07/09/16899 TAKING ATIVAN 0.5 0.5MG TABLET BID ORAL DIRECTED, NOTES: 07/09/162099 TAKING METHYLPHENIDATE HCL 20 MG TABLET ORALLY DAILY IN THE AM, NOTES: 07/09/16899 TAKING MULTIVITAMIN TABLETS ORALLY DAILY, NOTES: 07/09/16899 TAKING ZOFRAN 8 MG TABLET 1 TABLET ORALLY EVERY 4 HOURS NEEDED, NOTES: 07/08/16 1600 TAKING SEROQUEL 100 100 MG TABLET 250 MGS ORAL AT HS, NOTES: 07/09/162099 TAKING EFFEXOR 150 MG TABLET 1 TABLET WITH FOOD ORALLY NIGHTLY, NOTES: 07/09/162099 TAKING CLONIDINE HCL 0.1 MG TABLET 1 ORALLY Q8H PRN, NOTES: 10 DAYS AGO TAKING ENDOCET 10-325 MG TABLET 1 TABLET NEEDED ORALLY (CHRONIC PAIN CODE D) EVERY 6 HRS PRN MDD4, NOTES: 07/09/16 1100 TAKING FENTANYL 50 MCG/HR PATCH 72 HOUR 1 PATCH TO SKIN TRANSDERMAL (CODE D CHRONIC PAIN ) 1 PATCH N63D=LXP, NOTES: 07/07/16 NOT-TAKING VALIUM 10 MG TABLET 1 TABLET NEEDED ORALLY PRIOR PROCEDURE NOT-TAKING METHYLPHENIDATE 10 MG TABLET ORALLY ONCE A DAY AFTERNOONS MEDICATION LIST REVIEWED AND RECONCILED WITH THE PATIENT PAST MEDICAL HISTORY BLOOD CANCER BIPOLAR/SOCIAL ANXIETY PTSD BACK PAIN SVT ALLERGIES CODEINE SULFATE: NAUSEA/VOMITING: SIDE EFFECTS STADOL: ITCH: ALLERGY TRAMADOL: EXCESSIVE YAWNING: SIDE EFFECTS NUBAIN: REACTION AT SITE: SIDE EFFECTS HYDROXYZINE HCL: EXCESSIVE YAWNING: SIDE EFFECTS KETOROLAC TROMETHAMINE: EXCESSIVE YAWNING: SIDE EFFECTS LATEX (FOR ALLERGY USE ONLY): RASH: ALLERGY SOCIAL HISTORY GENERAL: PAIN CLINIC PFS, CLERGY, PUBLIC HEALTH REFERRALS CLERGY REFERRAL NEEDED?NO WAS THE PROVIDER NOTIFIED OF ANY PERTINENT INFO?NO PFS REFERRAL NEEDED?NO PUBLIC HEALTH REFERRAL NEEDED?NO PATIENT: ____. REVIEW OF SYSTEMS CONSTITUTIONAL: ANY CHANGE IN YOUR MEDICAL CONDITION? NO . CHILLS NO . FEVER NO . INFECTION: DO YOU HAVE NEW INFECTIONS? NO . DO YOU HAVE HISTORY OF MRSA? NO . MUSCULOSKELETAL: ANY NEW PATTERNS OF PAIN OR NUMBNESS? NO . GASTROENTEROLOGY: ANY NEW CHANGE IN BOWEL CONTROL? NO . GENITOURINARY: ANY NEW CHANGE IN BLADDER CONTROL? NO . IS THERE A CHANCE YOU COULD BE ? NO . HEMATOLOGY/LYMPH: DO YOU TAKE ANY BLOOD THINNERS? (FOR EXAMPLE- COUMADIN, PLAVIX, AGGRENOX, PLATEL, PRADAXA, OR XARELTO) NO . WHEN WAS YOUR LAST DOSE? DATE: TIME: . NEUROLOGY: HAVE YOU FALLEN IN THE PAST 6 MONTHS? NO . ANY NEW EXTREMITY NUMBNESS OR WEAKNESS? NO . CARDIOLOGY: DO YOU HAVE A PACEMAKER OR DEFIBRILLATOR? NO . RESPIRATORY: HAVE YOU BEEN SICK IN THE PAST WEEK? NO . FEVER NO . FLU LIKE SYMPTOMS? NO . COUGH NO . INTEGUMENTARY: DO YOU HAVE ANY RASHES OR OPEN SORES? NO . ALLERGIC/IMMUNO: ARE YOU ALLERGIC TO SHELLFISH OR IV DYE? NO . ANY NEW ALLERGIES? NO . PSYCHIATRIC: DO YOU HAVE THOUGHTS OF HURTING YOURSELF OR SOMEONE ELSE? NO . ARE YOU ABUSED, NEGLECTED, OR IN AN UNSAFE ENVIRONMENT? NO . ENDOCRINOLOGY: ARE YOU DIABETIC? NO . OTHER: DO YOU NEED ANY PRESCRIPTIONS? NO . IF YES, PLEASE LIST: ____ . ANY NEW PROBLEMS WITH YOUR MEDICATIONS? NO . WHEN DID YOU LAST EAT? ____07/09/16 1900 . WHEN DID YOU LAST DRINK? ____07/09/16 2200 . WHAT DID YOU LAST DRINK? ____WATER . NAME OF PERSON DRIVING YOU HOME? ____BANDAR BECKWITH . DO YOU HAVE ANY OTHER QUESTIONS OR CONCERNS YES PT REPORTS CHRONIC CONSTIPATION FROM NARCOTICS, WOULD LIKE SOMETHING FOR IT . REVIEWED BY: PROVIDER: . VITAL SIGNS WT 156 LBS, HT 69 IN, BMI 23.03 INDEX, BP 129/77 MM HG, HR 81 /MIN, RR 16 /MIN, TEMP 98.3 F, OXYGEN SAT % 93%, SAFE IN ENV? (Y/N) YES, NA INITIALS [id number], REVIEWED BY: LAS. DUNBAR SPINAL ENTHESOPATHY, LUMBAR REGION - M46.06 (PRIMARY) PROCEDURES PRE-PROCEDURE DIAGNOSIS: RIGHT ILIO-LUMBAR LIGAMENT INFLAMMATIONPOST-PROCEDURE DIAGNOSIS: RIGHT ILIO-LUMBAR LIGAMENT INJECTION INFLAMMATIONPROCEDURE: RIGHT ILIO-LUMBAR LIGAMENT BLOCK SURGEON: CONTRERAS UNGER MDANESTHESIA: LOCAL WITH IV SEDATIONCOMPLICATIONS: NONEPRE-PROCEDURE NOTE:THE PATIENT IS SUFFERING OF BACK PAIN. I REVIEWED THE CHART AND DISCUSSED THE CASE WITH THE PATIENT. PATIENT WANTS IV SEDATION DUE TO THE DISCOMFORT, PAIN, AND ANXIETY THIS INJECTION WILL CAUSE HER. AFTER DISCUSSING RISK, ALTERNATIVES AND BENEFITS WE HAVE AGREED ON PROCEEDING WITH THE PROCEDURE TODAY WITH IV SEDATION. THE PATIENT AGREES.PROCEDURE NOTE:AFTER REVIEW THE CASE WITH THE PATIENT HE WAS BROUGHT TO THE PROCEDURE ROOM AND PLACED IN THE PRONE POSITION. THE TARGET AREA WAS CLEANED WITH CHLORAPREP SOLUTION AND DRAPED ASEPTICALLY. TARGET WAS SELECTED AT THE SUPERIOR BORDER OF THE RIGHT ILIAC CREST. LIDOCAINE 1% WAS USED LOCAL ANESTHETIC. SPINAL NEEDLE 22 GAUGE WAS ADVANCED UNDER FLUOROSCOPIC GUIDANCE UNTIL THE TARGET WAS REACHED. ISOVUE M DYE 30% 0.25 CC WAS INJECTED SHOWING ADEQUATE SPREAD OF THE DYE. THEN A SOLUTION OF 30 CC OF BUPIVACAINE 0.125% AND KENALOG 40 MG WAS INJECTED. PATIENT RECEIVED VERSED 3 MG AND FENTANYL 150 MCG IV DIVIDED DOSES. FACE TO FACE TIME WAS 17 MINUTES. THE PATIENT TOLERATES THE PROCEDURE WITHOUT COMPLICATIONS AND WAS SENT TO THE RECOVERY ROOM.POST-PROCEDURE NOTE:I WILL SEE THE PATIENT IN A FOLLOW UP IN THE NEXT FEW WEEKS. WE ARE LOOKING FOR LONG LASTING PAIN RELIEVE WITH THIS INTERVENTION. INSTRUCTIONS WERE GIVEN QUESTIONS WERE ANSWERED AND THE PATIENT REPORTS UNDERSTANDING AND AGREES. I, TAWNY VERDUGO, DOCUMENTED THE ABOVE INFORMATION ACTING A SCRIBE FOR DR. UNGER. I HAVE REVIEWED THE ABOVE DOCUMENT, WRITTEN BY TAWNY VERDUGO SCRIBE AND I VERIFY THAT IT IS ACCURATE. DIAGNOSTIC IMAGING [facility]O GUIDANCE (PAIN)[id number] PROCEDURE CODES 99839 MOD SED SAME PHYS/QHP 5/>YRS 16318 INJ TENDON SHEATH/LIGAMENT DISPOSITION & COMMUNICATION FOLLOW UP 3 WEEKS ELECTRONICALLY SIGNED BY CONTERRAS UNGER MD ON 07/23/2016 AT 08:26 PM EDT DISCLAIMER : THIS IS A VISIT SUMMARY EXTRACTED FROM THE [employer] CHART. IT IS NOT A COPY OF THE [employer] PROGRESS NOTE. TALIA
== END ==
LOC: M PAIN 09:00
PROVIDERS: ATTEND Anesthesiology
DX: G89.29 Other chronic pain (principal); M46.06 Spinal enthesopathy, lumbar region; F31.9 Bipolar disorder, unspecified; F40.11 Social phobia, generalized; F43.10 Post-traumatic stress disorder, unspecified; Z88.5 Allergy status to narcotic agent; Z88.8 Allergy status to other drugs, medicaments and biological substances; Z91.040 Latex allergy status; Z79.82 Long term (current) use of aspirin; Z79.891 Long term (current) use of opiate analgesic; Z79.899 Other long term (current) drug therapy
CPT/HCPCS: 20550; 77002; 99152; J2250; J3010; J3301; Q9967

== ENCOUNTER → 2016-07-30 | Outpatient (CLI) | payer OTHER ==
[~2016-07-30] MED LIST changes: -BUPIVACAINE HCL 0.25% 30 ML VIAL As Ordered ONE; -ISOVUE-M 300 61% 15ML VIAL (Q9967) As Ordered ONE; -LIDOCAINE 1% SDV INJ 30 ML VIAL As Ordered ONE; -MIDAZOLAM INJ 2 MG/2 ML VIAL (J2250) As Ordered ONE; -TRIAMCINOLONE ACETONIDE SUSP 40 MG/ML VIAL (J3301) As Ordered ONE; -fentaNYL 100 MCG/2 ML INJECTION (J3010) As Ordered ONE
--- NOTE | 2016-08-07 02:06 | ECWPNPC ---
PATIENT NAME: MOO PEDROZA : 1960 GENDER: FEMALE VISIT DATE: 07/30/2016 DISCHARGE DATE: 07/30/16 1355 VISIT LOCKED DATE TIME: PHYSICIAN: CONTRERAS UNGER RESOURCE: CONTRERAS UNGER REASON FOR APPOINTMENT 1. LOW BACK PAIN W/C HISTORY OF PRESENT ILLNESS HISTORY OF PRESENT ILLNESS: PAIN THE PATIENT DESCRIBES THE PAIN... 56 YEAR OLD FEMALE PATIENT WITH HISTORY OF CHRONIC LOW BACK PAIN. PATIENT DESCRIBES THE PAIN SHARP, STABBING, SORE, SHOOTING, AND HAVING IT ALL THE TIME WITH A CURRENT PAIN SCORE OF 7-8/10. 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 MRS. PEDROZA WAS MOVING A PATIENT AND INJURED HER BACK. PATIENT RECEIVED A ILIOLUMBAR LIGAMENT INJECTION ON 07/10/16 AND REPORTS ONLY HAVING RELIEF FOR 3 DAYS. CURRENTLY THE PATIENT IS USING FENTANYL PATCH AND NORCO WHICH SHE REPORTS KEEPS HER MOBILE AND FUNCTIONAL. PATIENT STATES THAT ANY TYPE OF ACTIVITY INCLUDING SITTING, STANDING, AND WALKING INCREASES THE PAIN IN HER LOWER BACK. PATIENT REPORTS HAVING HER PSYCHOLOGICAL EVALUATION DONE ALONG WITH BOTH MRI'S TO MOVE FORWARD WITH THE DCS. PATIENT DENIES UNEXPLAINABLE WEIGHT LOSS, FEVER, CHILLS, NEW CHANGES ON HER URINARY OR BOWEL CONTROL. FALL RISK SCREENING: SCREENING :NO FALLS IN THE PAST YEAR CURRENT MEDICATIONS TAKING ALENDRONATE SODIUM 70 MG TABLET 1 TABLET ORALLY WEEKLY, NOTES: 07/09/16899 TAKING ASPIRIN 325 MG TABLET 1 TABLET ORALLY ONCE A DAY, NOTES: 07/09/16899 TAKING ATENOLOL 25 MG 1 TAB ORAL BID, NOTES: 07/09/16899 TAKING CALCIUM 500 MG TABLET 1 TABLET WITH MEALS ORALLY DAILY, NOTES: 07/09/16899 TAKING ZYRTEC 10 MG TABLET 1 TABLET NEEDED ORALLY ONCE A DAY, NOTES: 07/09/16899 TAKING DOCUSATE SODIUM 100 MG CAPSULE ORALLY BID, NOTES: 07/09/162099 TAKING ESTRADIOL 0.5 MG TABLET 1 TABLET ORALLY DAILY, NOTES: 07/09/162099 TAKING FLONASE 1 SPRAY IN EACH NOSTRIL NASALLY DIRECTED, NOTES: 07/08/16 1300 TAKING HYDREA 500 MG CAPSULE ORALLY EVERY OTHER DAY, NOTES: 07/09/16 2100 TAKING HYDREA 1000 MG CAPSULE ORALLY EVERY 2 DAYS, NOTES: 07/09/16 2100 TAKING LINZESS 290 MCG CAPSULE ONE P.O. DAILY, NOTES: 07/09/16 0900 TAKING ATIVAN 0.5 0.5MG TABLET BID ORAL DIRECTED, NOTES: 07/09/16 2100 TAKING METHYLPHENIDATE HCL 5 MG TABLET ORALLY BID, NOTES: 07/09/16 0900 TAKING MULTIVITAMIN TABLETS ORALLY DAILY, NOTES: 07/09/16 0900 TAKING ZOFRAN 8 MG TABLET 1 TABLET ORALLY EVERY 4 HOURS NEEDED, NOTES: 07/08/16 1600 TAKING SEROQUEL 100 100 MG TABLET 150 MGS, 50 MG IN AM ORAL BID, NOTES: 07/09/16 2100 TAKING EFFEXOR 150 MG TABLET 1 TABLET WITH FOOD ORALLY NIGHTLY, NOTES: 07/09/162099 TAKING CLONIDINE HCL 0.1 MG TABLET 1 ORALLY Q8H PRN, NOTES: 10 DAYS AGO TAKING ENDOCET 10-325 MG TABLET 1 TABLET NEEDED ORALLY (CHRONIC PAIN CODE D) EVERY 6 HRS PRN MDD4, NOTES: 07/09/16 1100 TAKING FENTANYL 50 MCG/HR PATCH 72 HOUR 1 PATCH TO SKIN TRANSDERMAL (CODE D CHRONIC PAIN ) 1 PATCH [id number], NOTES: 07/07/16 NOT-TAKING VALIUM 10 MG TABLET 1 TABLET NEEDED ORALLY PRIOR PROCEDURE NOT-TAKING METHYLPHENIDATE 10 MG TABLET ORALLY ONCE A DAY AFTERNOONS MEDICATION LIST REVIEWED AND RECONCILED WITH THE PATIENT PAST MEDICAL HISTORY BLOOD CANCER BIPOLAR/SOCIAL ANXIETY PTSD BACK PAIN SVT ALLERGIES CODEINE SULFATE: NAUSEA/VOMITING: SIDE EFFECTS STADOL: ITCH: ALLERGY TRAMADOL: EXCESSIVE YAWNING: SIDE EFFECTS NUBAIN: REACTION AT SITE: SIDE EFFECTS HYDROXYZINE HCL: EXCESSIVE YAWNING: SIDE EFFECTS KETOROLAC TROMETHAMINE: EXCESSIVE YAWNING: SIDE EFFECTS LATEX (FOR ALLERGY USE ONLY): RASH: ALLERGY SURGICAL HISTORY PARTIAL HYSTERECTOMY RIGHT ELBOW FX WITH SURGICAL REPAIR SA NODE ABLATION GALL BLADDER REMOVAL BLADDER SUSPENSION HEMORRHOIDECTOMY FAMILY HISTORY NO FAMILY HISTORY DOCUMENTED. SOCIAL HISTORY GENERAL: PAIN CLINIC PFS, CLERGY, PUBLIC HEALTH REFERRALS CLERGY REFERRAL NEEDED?NO WAS THE PROVIDER NOTIFIED OF ANY PERTINENT INFO?NO PFS REFERRAL NEEDED?NO PUBLIC HEALTH REFERRAL NEEDED?NO PATIENT: ____. HOSPITALIZATION/MAJOR DIAGNOSTIC PROCEDURE KIDNEY STONES REVIEW OF SYSTEMS CONSTITUTIONAL: ANY CHANGE IN YOUR MEDICAL CONDITION? NO . CHILLS NO . FEVER NO . INFECTION: DO YOU HAVE NEW INFECTIONS? NO . DO YOU HAVE HISTORY OF MRSA? NO . MUSCULOSKELETAL: ANY NEW PATTERNS OF PAIN OR NUMBNESS? NO . GASTROENTEROLOGY: ANY NEW CHANGE IN BOWEL CONTROL? NO . GENITOURINARY: ANY NEW CHANGE IN BLADDER CONTROL? NO . IS THERE A CHANCE YOU COULD BE ? NO . HEMATOLOGY/LYMPH: DO YOU TAKE ANY BLOOD THINNERS? (FOR EXAMPLE- COUMADIN, PLAVIX, AGGRENOX, PLATEL, PRADAXA, OR XARELTO) NO . WHEN WAS YOUR LAST DOSE? DATE: TIME: . NEUROLOGY: HAVE YOU FALLEN IN THE PAST 6 MONTHS? NO . ANY NEW EXTREMITY NUMBNESS OR WEAKNESS? NO . CARDIOLOGY: DO YOU HAVE A PACEMAKER OR DEFIBRILLATOR? NO . RESPIRATORY: HAVE YOU BEEN SICK IN THE PAST WEEK? NO . FEVER NO . FLU LIKE SYMPTOMS? NO . COUGH NO . INTEGUMENTARY: DO YOU HAVE ANY RASHES OR OPEN SORES? NO . ALLERGIC/IMMUNO: ARE YOU ALLERGIC TO SHELLFISH OR IV DYE? NO . ANY NEW ALLERGIES? NO . PSYCHIATRIC: DO YOU HAVE THOUGHTS OF HURTING YOURSELF OR SOMEONE ELSE? NO . ARE YOU ABUSED, NEGLECTED, OR IN AN UNSAFE ENVIRONMENT? NO . ENDOCRINOLOGY: ARE YOU DIABETIC? YES . OTHER: DO YOU NEED ANY PRESCRIPTIONS? NO . IF YES, PLEASE LIST: ____ . ANY NEW PROBLEMS WITH YOUR MEDICATIONS? NO . WHEN DID YOU LAST EAT? ____ . WHEN DID YOU LAST DRINK? ____ . WHAT DID YOU LAST DRINK? ____ . NAME OF PERSON DRIVING YOU HOME? ____ . DO YOU HAVE ANY OTHER QUESTIONS OR CONCERNS NO . REVIEWED BY: PROVIDER: CONTRERAS UNGER MD . VITAL SIGNS WT 158.6 LBS, HT 69 IN, BMI 23.42 INDEX, BP 112/69 MM HG, HR 76 /MIN, RR 100 /MIN, TEMP 98.5 F, OXYGEN SAT % 100%, NA INITIALS AW 1300. EXAMINATION : PATIENT IS ALERT O X 3 AND COOPERATIVE. TENDERNESS IN THE LOWER BACK AND THORACIC AREA. ANTALGIC WALK. RIGHT LEG WEAKER THEN THE LEFT AT EXTENSION AND FLEXION. MRI OF THE LUMBAR SPINE DONE ON 06/22/16 SHOWS CANAL STENOSIS AT L3-L4 AND L4-L5 AND A DISC PROTRUSION AT L5-S1. MRI OF THE THORACIC SPINE DONE ON 06/22/16 SHOWS ENOUGH ROOM FOR THE LEADS TO PASS THROUGH. ASSESSMENTS INTERVERTEBRAL DISC DISORDERS WITH RADICULOPATHY, LUMBAR REGION - M51.16 (PRIMARY) INTERVERTEBRAL DISC DISORDERS WITH RADICULOPATHY, LUMBOSACRAL REGION - M51.17 TREATMENT INTERVERTEBRAL DISC DISORDERS WITH RADICULOPATHY, LUMBAR REGION REFILL ENDOCET TABLET, 10-325 MG, 1 TABLET NEEDED, ORALLY (CHRONIC PAIN CODE D), EVERY 6 HRS PRN MDD4, 60 DAYS, 240, REFILLS 0, NOTES: 07/09/16 1100 REFILL FENTANYL PATCH 72 HOUR, 50 MCG/HR, 1 PATCH TO SKIN, TRANSDERMAL (CODE D FOR CHRONIC PAIN ), 1 PATCH [id number], 60 DAYS, 20, REFILLS 0, NOTES: 07/07/16 NOTES: WE DISCUSSED SEVERAL ISSUES WITH MRS. PEDROZA'S PAIN MANAGEMENT CASE. AT THIS TIME THE PATIENT WILL CONTINUE WITH THE SAME MEDICATION MANAGEMENT BEFORE. URINE TOXICOLOGY REPORT DONE ON 01/12/16 SHOWS CONSISTENT RESULTS WITH THE PATIENT'S MEDICATION LIST. AT THIS TIME WE WILL NOT MOVE FORWARD WITH ANY MORE INTERVENTIONS DUE TO THE PATIENT NOT HAVING ADEQUATE RESULTS FROM THE LAST INJECTION. PATIENT WOULD LIKE TO MOVE FORWARD WITH THE DCS. MRS. PEDROZA HAS BOTH MRI'S WHICH SHOW ENOUGH ROOM FOR THE LEADS TO PASS THROUGH AND HAS HAD A PSYCHOLOGICAL EVALUATION. I WOULD LIKE TO SPEAK WITH THE PATIENT'S ONCOLOGIST DR. SIDDIQUI ABOUT THE COAGULOPATHY. I WILL REQUEST AUTHORIZATION FOR THE DCS AT THIS TIME. PATIENT WILL RETURN TO THE CLINIC IN 6 WEEKS AFTER I HAVE SPOKEN WITH THE ONCOLOGIST TO MOVE FORWARD WITH PRE-OP PAPERWORK IF WE RECEIVE CLEARANCE FROM THE PRIMARY WELL THE ONCOLOGIST. INSTRUCTIONS WERE GIVEN, QUESTIONS WERE ANSWERED, PATIENT REPORTS UNDERSTANDING AND AGREES WITH THE PLAN. I, NICOLAS BRYANT, DOCUMENTED THE ABOVE INFORMATION ACTING A SCRIBE FOR DR. UNGER. I HAVE REVIEWED THE ABOVE DOCUMENT, WRITTEN BY NICOLAS REAGAN AND I VERIFY THAT IT IS ACCURATE. PROCEDURE CODES FA211 ESTABILISHED PATIENT [facility] FACILITY CHARGE G8427 DOC MEDS VERIFIED W/PT OR RE G8730 PAIN ASSESS POS TOOL F/U PLAN DOC DISPOSITION & COMMUNICATION FOLLOW UP 6 WEEKS ELECTRONICALLY SIGNED BY CONTRERAS UNGER MD ON 08/06/2016 AT 08:18 PM EDT DISCLAIMER : THIS IS A VISIT SUMMARY EXTRACTED FROM THE [employer] [facility] CHART. IT IS NOT A COPY OF THE [employer] PROGRESS NOTE. MTDD
== END ==
LOC: M PAIN 12:40
PROVIDERS: ATTEND Anesthesiology
DX: G89.29 Other chronic pain (principal); M51.16 Intervertebral disc disorders with radiculopathy, lumbar region; M51.17 Intervertebral disc disorders with radiculopathy, lumbosacral region; F31.9 Bipolar disorder, unspecified; F43.10 Post-traumatic stress disorder, unspecified; Z88.5 Allergy status to narcotic agent; Z88.8 Allergy status to other drugs, medicaments and biological substances; Z91.040 Latex allergy status; E11.9 Type 2 diabetes mellitus without complications; Z79.82 Long term (current) use of aspirin; Z79.891 Long term (current) use of opiate analgesic; Z79.899 Other long term (current) drug therapy

== ENCOUNTER → 2016-09-03 | Outpatient (CLI) | payer OTHER ==
--- NOTE | 2016-09-19 02:12 | ECWPNPC ---
PATIENT NAME: MOO PEDROZA : 1960 GENDER: FEMALE VISIT DATE: 09/03/2016 DISCHARGE DATE: 09/03/16 1403 VISIT LOCKED DATE TIME: PHYSICIAN: CONTRERAS UNGER RESOURCE: CONTRERAS UNGER REASON FOR APPOINTMENT 1. LOW BACK PAIN HISTORY OF PRESENT ILLNESS GENERAL: 56 YEAR OLD FEMALE PATIENT WITH HISTORY OF CHRONIC LOW BACK PAIN. PATIENT DESCRIBES THE PAIN SHARP, STABBING, THROBBING AND HAVING THE PAIN ALL THE TIME WITH A PAIN SCORE OF 7-8/10. 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 PATIENT REPORTS PHYSICAL THERAPY NOT HELPING IN THE PAST WITH PAIN RELIEF. PATIENT REPORTS SHE WOULD LIKE TO MOVE FORWARD WITH THE DCS AT THIS TIME. MRS. PEDROZA STATES THAT ANY TYPE OF ACTIVITY INCLUDING WALKING, STANDING, AND SITTING INCREASES THE PAIN IN HER LOWER BACK. PATIENT DENIES UNEXPLAINABLE WEIGHT LOSS, FEVER, CHILLS, NEW CHANGES ON HER URINARY OR BOWEL CONTROL. HISTORY OF PRESENT ILLNESS: PAIN THE PATIENT DESCRIBES THE PAIN... FALL RISK SCREENING: SCREENING :NO FALLS IN THE PAST YEAR CURRENT MEDICATIONS TAKING ALENDRONATE SODIUM 70 MG TABLET 1 TABLET ORALLY WEEKLY, NOTES: 07/09/16899 TAKING ASPIRIN 325 MG TABLET 1 TABLET ORALLY ONCE A DAY, NOTES: 07/09/16899 TAKING ATENOLOL 25 MG 1 TAB ORAL BID, NOTES: 07/09/16899 TAKING CALCIUM 500 MG TABLET 1 TABLET WITH MEALS ORALLY DAILY, NOTES: 07/09/16899 TAKING ZYRTEC 10 MG TABLET 1 TABLET NEEDED ORALLY ONCE A DAY, NOTES: 07/09/16899 TAKING DOCUSATE SODIUM 100 MG CAPSULE ORALLY BID, NOTES: 07/09/162099 TAKING ESTRADIOL 0.5 MG TABLET 1 TABLET ORALLY DAILY, NOTES: 07/09/162099 TAKING FLONASE 1 SPRAY IN EACH NOSTRIL NASALLY DIRECTED, NOTES: 07/08/16 1300 TAKING HYDREA 500 MG CAPSULE ORALLY EVERY OTHER DAY, NOTES: 07/09/162099 TAKING HYDREA 1000 MG CAPSULE ORALLY EVERY 2 DAYS, NOTES: 07/09/162099 TAKING LINZESS 290 MCG CAPSULE ONE P.O. DAILY, NOTES: 07/09/16899 TAKING ATIVAN 0.5 0.5MG TABLET BID ORAL DIRECTED, NOTES: 07/09/16 2100 TAKING METHYLPHENIDATE HCL 5 MG TABLET ORALLY BID, NOTES: 07/09/16 0900 TAKING MULTIVITAMIN TABLETS ORALLY DAILY, NOTES: 07/09/16 0900 TAKING ZOFRAN 8 MG TABLET 1 TABLET ORALLY EVERY 4 HOURS NEEDED, NOTES: 07/08/16 1600 TAKING SEROQUEL 100 100 MG TABLET 150 MGS, 50 MG IN AM ORAL BID, NOTES: 07/09/16 2100 TAKING EFFEXOR 150 MG TABLET 1 TABLET WITH FOOD ORALLY NIGHTLY, NOTES: 07/09/16 2100 TAKING ENDOCET 10-325 MG TABLET 1 TABLET NEEDED ORALLY (CHRONIC PAIN CODE D) EVERY 6 HRS PRN MDD4, NOTES: 07/09/16 1100 TAKING FENTANYL 50 MCG/HR PATCH 72 HOUR 1 PATCH TO SKIN TRANSDERMAL (CODE D FOR CHRONIC PAIN ) 1 PATCH [id number], NOTES: 07/07/16 TAKING CLONIDINE HCL 0.1 MG TABLET 1 ORALLY Q8H PRN, NOTES: 10 DAYS AGO NOT-TAKING VALIUM 10 MG TABLET 1 TABLET NEEDED ORALLY PRIOR PROCEDURE NOT-TAKING METHYLPHENIDATE 10 MG TABLET ORALLY ONCE A DAY AFTERNOONS MEDICATION LIST REVIEWED AND RECONCILED WITH THE PATIENT PAST MEDICAL HISTORY BLOOD CANCER BIPOLAR/SOCIAL ANXIETY PTSD BACK PAIN SVT ALLERGIES CODEINE SULFATE: NAUSEA/VOMITING: SIDE EFFECTS STADOL: ITCH: ALLERGY TRAMADOL: EXCESSIVE YAWNING: SIDE EFFECTS NUBAIN: REACTION AT SITE: SIDE EFFECTS HYDROXYZINE HCL: EXCESSIVE YAWNING: SIDE EFFECTS KETOROLAC TROMETHAMINE: EXCESSIVE YAWNING: SIDE EFFECTS LATEX (FOR ALLERGY USE ONLY): RASH: ALLERGY REVIEW OF SYSTEMS CONSTITUTIONAL: ANY CHANGE IN YOUR MEDICAL CONDITION? NO . CHILLS NO . FEVER NO . INFECTION: DO YOU HAVE NEW INFECTIONS? NO . DO YOU HAVE HISTORY OF MRSA? NO . MUSCULOSKELETAL: ANY NEW PATTERNS OF PAIN OR NUMBNESS? NO . GASTROENTEROLOGY: ANY NEW CHANGE IN BOWEL CONTROL? NO . GENITOURINARY: ANY NEW CHANGE IN BLADDER CONTROL? NO . IS THERE A CHANCE YOU COULD BE ? NO . HEMATOLOGY/LYMPH: DO YOU TAKE ANY BLOOD THINNERS? (FOR EXAMPLE- COUMADIN, PLAVIX, AGGRENOX, PLATEL, PRADAXA, OR XARELTO) NO . WHEN WAS YOUR LAST DOSE? DATE: TIME: . NEUROLOGY: HAVE YOU FALLEN IN THE PAST 6 MONTHS? NO . ANY NEW EXTREMITY NUMBNESS OR WEAKNESS? NO . CARDIOLOGY: DO YOU HAVE A PACEMAKER OR DEFIBRILLATOR? NO . RESPIRATORY: HAVE YOU BEEN SICK IN THE PAST WEEK? NO . FEVER NO . FLU LIKE SYMPTOMS? NO . COUGH NO . INTEGUMENTARY: DO YOU HAVE ANY RASHES OR OPEN SORES? NO . ALLERGIC/IMMUNO: ARE YOU ALLERGIC TO SHELLFISH OR IV DYE? NO . ANY NEW ALLERGIES? NO . PSYCHIATRIC: DO YOU HAVE THOUGHTS OF HURTING YOURSELF OR SOMEONE ELSE? NO . ARE YOU ABUSED, NEGLECTED, OR IN AN UNSAFE ENVIRONMENT? NO . ENDOCRINOLOGY: ARE YOU DIABETIC? NO . OTHER: DO YOU NEED ANY PRESCRIPTIONS? NO . IF YES, PLEASE LIST: ____ . ANY NEW PROBLEMS WITH YOUR MEDICATIONS? NO . WHEN DID YOU LAST EAT? ____ . WHEN DID YOU LAST DRINK? ____ . WHAT DID YOU LAST DRINK? ____ . NAME OF PERSON DRIVING YOU HOME? ____ . DO YOU HAVE ANY OTHER QUESTIONS OR CONCERNS NO . REVIEWED BY: PROVIDER: . VITAL SIGNS WT 155 LBS, HT 69 IN, BMI 22.89 INDEX, BP 115/69 MM HG, HR 65 /MIN, RR 16 /MIN, TEMP 97.4 F, OXYGEN SAT % 100%, NA INITIALS SC 12 :51, REVIEWED BY: HECTOR. EXAMINATION : PATIENT IS ALERT O X 3 AND COOPERATIVE. TENDERNESS IN THE LOWER BACK AND THORACIC AREA. ANTALGIC WALK. RIGHT LEG WEAKER THEN THE LEFT AT EXTENSION AND FLEXION. MRI OF THE LUMBAR SPINE DONE ON 06/22/16 SHOWS CANAL STENOSIS AT L3-L4 AND L4-L5 AND A DISC PROTRUSION AT L5-S1. ASSESSMENTS INTERVERTEBRAL DISC DISORDERS WITH RADICULOPATHY, LUMBAR REGION - M51.16 (PRIMARY) TREATMENT INTERVERTEBRAL DISC DISORDERS WITH RADICULOPATHY, LUMBAR REGION REFILL FENTANYL PATCH 72 HOUR, 50 MCG/HR, 1 PATCH TO SKIN, TRANSDERMAL, 1 PATCH [id number], 30 DAYS, 10, REFILLS 0, NOTES: 07/07/16 REFILL ENDOCET TABLET, 10-325 MG, 1 TABLET NEEDED, ORALLY, EVERY 6 HRS PRN MDD4, 30 DAY(S), 110, REFILLS 0, NOTES: 07/09/16 1100 NOTES: WE DISCUSSED SEVERAL ISSUES WITH MRS. PEDROZA'S PAIN MANAGEMENT CASE. PATIENT WILL CONTINUE WITH THE SAME MEDICATION REGIME BEFORE. PATIENT IS USING THE ENDOCET AND FENTANYL FOR THE SOMATIC PAIN. PATIENT DENIES ABUSE OF ANY MEDICATION, DENIES USE OF ILLEGAL SUBSTANCES, AND STATES SHE IS ONLY USING THE MEDICATION FOR PAIN MANAGEMENT. URINE TOXICOLOGY REPORT DONE ON 12/2015 SHOWS CONSISTENT RESULTS PATIENT WILL PERFORM ANOTHER URINE TOXICOLOGY SAMPLE TODAY. I SPOKE WITH THE PATIENT'S ONCOLOGIST WHO STATES THE PATIENTS BLOOD PLATETTES ARE A CONCERN DURING THE PROCEDURE. HOWEVER, I WOULD LIKE TO MOVE FORWARD WITH THE TRIAL AT THIS TIME. I WOULD ALSO LIKE TO REFER THE PATIENT TO [facility]. WE DISCUSSED THE RISKS, BENEFITS, AND ALTNERATIVES OF THE DCS AND THE PATIENT WOULD LIKE TO PROCEED AT THIS TIME. INSTRUCTIONS WERE GIVEN, QUESTIONS WERE ANSWERED, PATIENT REPORTS UNDERSTANDING AND AGREES WITH THE PLAN. I, NICOLAS BRYANT, DOCUMENTED THE ABOVE INFORMATION ACTING A SCRIBE FOR DR. UNGER. I HAVE REVIEWED THE ABOVE DOCUMENT, WRITTEN BY NICOLAS REAGAN AND I VERIFY THAT IT IS ACCURATE. PROCEDURES PN WORKMANS' COMP OPINION IN YOUR OPINION, WAS THE INCIDENT THAT THE PATIENT DESCRIBED THE COMPETENT MEDICAL CAUSE OF THIS INJURY/ILLNESS? YES ARE THE PATIENT'S COMPLAINTS CONSISTENT WITH HIS/HER HISTORY OF THE INJURY/ILLNESS? YES IS THE PATIENT'S HISTORY OF THE INJURY/ILLNESS CONSISTENT WITH YOUR OBJECTIVE FINDING? YES WHAT IS THE PERCENTAGE OF TEMPORARY IMPAIRMENT? MODERATE TO MARKED = 66.7% IS THE PATIENT WORKING? NO DOCTOR ON SITE: CONTRERAS PATEL MD PROCEDURE CODES FA211 ESTABILISHED PATIENT [facility] FACILITY CHARGE G8427 DOC MEDS VERIFIED W/PT OR RE G8730 PAIN ASSESS POS TOOL F/U PLAN DOC DISPOSITION & COMMUNICATION FOLLOW UP 3 WEEKS ELECTRONICALLY SIGNED BY CONTRERAS UNGER MD ON 09/17/2016 AT 03:03 PM EDT DISCLAIMER : THIS IS A VISIT SUMMARY EXTRACTED FROM THE [employer] CHART. IT IS NOT A COPY OF THE [employer] PROGRESS NOTE. TALIA
== END ==
LOC: M PAIN 12:40
PROVIDERS: ATTEND Anesthesiology
DX: G89.29 Other chronic pain (principal); M51.16 Intervertebral disc disorders with radiculopathy, lumbar region; F31.9 Bipolar disorder, unspecified; F40.10 Social phobia, unspecified; F43.10 Post-traumatic stress disorder, unspecified; I47.1 Supraventricular tachycardia; Z88.5 Allergy status to narcotic agent; Z88.8 Allergy status to other drugs, medicaments and biological substances; Z91.040 Latex allergy status; Z79.82 Long term (current) use of aspirin; Z79.891 Long term (current) use of opiate analgesic; Z79.899 Other long term (current) drug therapy

== ENCOUNTER → 2016-10-16 | Outpatient (CLI) | payer OTHER ==
--- NOTE | 2016-11-01 01:51 | ECWPNPC ---
PATIENT NAME: MOO PEDROZA : 1960 GENDER: FEMALE VISIT DATE: 10/16/2016 DISCHARGE DATE: 10/16/16 1507 VISIT LOCKED DATE TIME: PHYSICIAN: CONTRERAS UNGER RESOURCE: CONTRERAS UNGER REASON FOR APPOINTMENT 1. LOW BACK W/C HISTORY OF PRESENT ILLNESS HISTORY OF PRESENT ILLNESS: PAIN THE PATIENT DESCRIBES THE PAIN... 56 YEAR OLD FEMALE PATIENT WITH HISTORY OF CHRONIC LOW BACK PAIN. PATIENT DESCRIBES THE PAIN SHARP, STABBING, THROBBING AND HAVING THE PAIN ALL THE TIME WITH A PAIN SCORE OF 7-8/10. 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 PATIENT REPORTS PHYSICAL THERAPY NOT HELPING IN THE PAST WITH PAIN RELIEF. MRS. PEDROZA STATES THAT ANY TYPE OF ACTIVITY INCLUDING WALKING, STANDING, AND SITTING INCREASES THE PAIN IN HER LOWER BACK. CURRENTLY THE PATIENT IS STILL WAITING ON APPROVAL OF THE TRIAL DCS. PATIENT DENIES UNEXPLAINABLE WEIGHT LOSS, FEVER, CHILLS, NEW CHANGES ON HER URINARY OR BOWEL CONTROL. FALL RISK SCREENING: SCREENING :NO FALLS IN THE PAST YEAR CURRENT MEDICATIONS TAKING ALENDRONATE SODIUM 70 MG TABLET 1 TABLET ORALLY WEEKLY TAKING ASPIRIN 325 MG TABLET 1 TABLET ORALLY ONCE A DAY TAKING ATENOLOL 25 MG 1 TAB ORAL BID TAKING CALCIUM 500 MG TABLET 1 TABLET WITH MEALS ORALLY DAILY TAKING ZYRTEC 10 MG TABLET 1 TABLET NEEDED ORALLY ONCE A DAY TAKING DOCUSATE SODIUM 100 MG CAPSULE ORALLY BID TAKING ESTRADIOL 0.5 MG TABLET 1 TABLET ORALLY DAILY TAKING FLONASE 1 SPRAY IN EACH NOSTRIL NASALLY DIRECTED TAKING HYDREA 500 MG CAPSULE ORALLY EVERY OTHER DAY TAKING HYDREA 1000 MG CAPSULE ORALLY EVERY 2 DAYS TAKING LINZESS 290 MCG CAPSULE ONE P.O. DAILY TAKING ATIVAN 0.5 0.5MG TABLET BID ORAL DIRECTED TAKING METHYLPHENIDATE HCL 5 MG TABLET ORALLY BID TAKING MULTIVITAMIN TABLETS ORALLY DAILY TAKING ZOFRAN 8 MG TABLET 1 TABLET ORALLY EVERY 4 HOURS NEEDED TAKING SEROQUEL 100 100 MG TABLET 150 MGS, 50 MG IN AM ORAL BID TAKING EFFEXOR 150 MG TABLET 1 TABLET WITH FOOD ORALLY NIGHTLY TAKING ENDOCET 10-325 MG TABLET 1 TABLET NEEDED ORALLY EVERY 6 HRS PRN MDD4 TAKING FENTANYL 50 MCG/HR PATCH 72 HOUR 1 PATCH TO SKIN TRANSDERMAL 1 PATCH [id number] NOT-TAKING CLONIDINE HCL 0.1 MG TABLET 1 ORALLY Q8H PRN MDD3 NOT-TAKING VALIUM 10 MG TABLET 1 TABLET NEEDED ORALLY PRIOR PROCEDURE NOT-TAKING METHYLPHENIDATE 10 MG TABLET ORALLY ONCE A DAY AFTERNOONS MEDICATION LIST REVIEWED AND RECONCILED WITH THE PATIENT PAST MEDICAL HISTORY BLOOD CANCER BIPOLAR/SOCIAL ANXIETY PTSD BACK PAIN SVT ALLERGIES CODEINE SULFATE: NAUSEA/VOMITING: SIDE EFFECTS STADOL: ITCH: ALLERGY TRAMADOL: EXCESSIVE YAWNING: SIDE EFFECTS NUBAIN: REACTION AT SITE: SIDE EFFECTS HYDROXYZINE HCL: EXCESSIVE YAWNING: SIDE EFFECTS KETOROLAC TROMETHAMINE: EXCESSIVE YAWNING: SIDE EFFECTS LATEX (FOR ALLERGY USE ONLY): RASH: ALLERGY SURGICAL HISTORY PARTIAL HYSTERECTOMY RIGHT ELBOW FX WITH SURGICAL REPAIR SA NODE ABLATION GALL BLADDER REMOVAL BLADDER SUSPENSION HEMORRHOIDECTOMY FAMILY HISTORY NO FAMILY HISTORY DOCUMENTED. SOCIAL HISTORY GENERAL: PAIN CLINIC PFS, CLERGY, PUBLIC HEALTH REFERRALS CLERGY REFERRAL NEEDED?NO WAS THE PROVIDER NOTIFIED OF ANY PERTINENT INFO?NO PFS REFERRAL NEEDED?NO PUBLIC HEALTH REFERRAL NEEDED?NO PATIENT: ____. HOSPITALIZATION/MAJOR DIAGNOSTIC PROCEDURE KIDNEY STONES REVIEW OF SYSTEMS REVIEWED BY: PROVIDER: CONTRERAS UNGER MD . CONSTITUTIONAL: ANY CHANGE IN YOUR MEDICAL CONDITION? NO . CHILLS NO . FEVER NO . INFECTION: DO YOU HAVE NEW INFECTIONS? NO . DO YOU HAVE HISTORY OF MRSA? NO . MUSCULOSKELETAL: ANY NEW PATTERNS OF PAIN OR NUMBNESS? NO . GASTROENTEROLOGY: ANY NEW CHANGE IN BOWEL CONTROL? NO . GENITOURINARY: ANY NEW CHANGE IN BLADDER CONTROL? NO . IS THERE A CHANCE YOU COULD BE ? NO . HEMATOLOGY/LYMPH: DO YOU TAKE ANY BLOOD THINNERS? (FOR EXAMPLE- COUMADIN, PLAVIX, AGGRENOX, PLATEL, PRADAXA, OR XARELTO) NO . WHEN WAS YOUR LAST DOSE? DATE: TIME: . NEUROLOGY: HAVE YOU FALLEN IN THE PAST 6 MONTHS? NO . ANY NEW EXTREMITY NUMBNESS OR WEAKNESS? NO . CARDIOLOGY: DO YOU HAVE A PACEMAKER OR DEFIBRILLATOR? NO . RESPIRATORY: HAVE YOU BEEN SICK IN THE PAST WEEK? NO . FEVER NO . FLU LIKE SYMPTOMS? NO . COUGH NO . INTEGUMENTARY: DO YOU HAVE ANY RASHES OR OPEN SORES? NO . ALLERGIC/IMMUNO: ARE YOU ALLERGIC TO SHELLFISH OR IV DYE? NO . ANY NEW ALLERGIES? NO . PSYCHIATRIC: DO YOU HAVE THOUGHTS OF HURTING YOURSELF OR SOMEONE ELSE? NO . ARE YOU ABUSED, NEGLECTED, OR IN AN UNSAFE ENVIRONMENT? NO . ENDOCRINOLOGY: ARE YOU DIABETIC? NO . OTHER: DO YOU NEED ANY PRESCRIPTIONS? NO . IF YES, PLEASE LIST: ____ . ANY NEW PROBLEMS WITH YOUR MEDICATIONS? NO . WHEN DID YOU LAST EAT? ____ . WHEN DID YOU LAST DRINK? ____ . WHAT DID YOU LAST DRINK? ____ . NAME OF PERSON DRIVING YOU HOME? ____ . DO YOU HAVE ANY OTHER QUESTIONS OR CONCERNS NO . VITAL SIGNS WT 150.0 LBS, HT 69 IN, BMI 22.15 INDEX, BP 135/82 MM HG, HR 70 /MIN, RR 16 /MIN, TEMP 97.4 F, OXYGEN SAT % 100%, SAFE IN ENV? (Y/N) Y, NA INITIALS 1321, REVIEWED BY: HERIBERTO. EXAMINATION : PATIENT IS ALERT O X 3 AND COOPERATIVE. TENDERNESS IN THE LOWER BACK AND THORACIC AREA. ANTALGIC WALK. RIGHT LEG WEAKER THEN THE LEFT AT EXTENSION AND FLEXION. MRI OF THE LUMBAR SPINE DONE ON 06/22/16 SHOWS CANAL STENOSIS AT L3-L4 AND L4-L5 AND A DISC PROTRUSION AT L5-S1. ASSESSMENTS INTERVERTEBRAL DISC DISORDERS WITH RADICULOPATHY, LUMBAR REGION - M51.16 (PRIMARY) TREATMENT INTERVERTEBRAL DISC DISORDERS WITH RADICULOPATHY, LUMBAR REGION REFILL FENTANYL PATCH 72 HOUR, 50 MCG/HR, 1 PATCH TO SKIN, TRANSDERMAL, 1 PATCH [id number], 30 DAYS, 10, REFILLS 0, NOTES: 07/07/16 REFILL ENDOCET TABLET, 10-325 MG, 1 TABLET NEEDED, ORALLY, EVERY 6 HRS PRN MDD4, 30 DAY(S), 110, REFILLS 0, NOTES: 07/09/16 1100 NOTES: FACET JOINT INJECTION MATERIAL WAS PRINTED, REVIEWED AND GIVEN TO PT. CLINICAL NOTES: WE DISCUSSED SEVERAL ISSUES WITH MRS. PEDROZA'S PAIN MANAGEMENT CASE. PATIENT WILL CONTINUE WITH THE SAME MEDICATION REGIME BEFORE. PATIENT IS USING THE ENDOCET AND FENTANYL FOR THE SOMATIC PAIN. PATIENT DENIES ABUSE OF ANY MEDICATION, DENIES USE OF ILLEGAL SUBSTANCES, AND STATES SHE IS ONLY USING THE MEDICATION FOR PAIN MANAGEMENT. URINE TOXICOLOGY REPORT DONE ON 09/03/16 SHOWS CONSISTENT RESULTS WITH THE PATIENTS MEDICATION LIST. PATIENT BROUGHT MEDICATIONS TO TODAY'S VISIT IN THEIR ORIGINAL BOTTLES. PATIENT WOULD LIKE TO PROCEED WITH THE DCS AT THIS TIME AND [facility] INSTRUCTIONS WERE GIVEN, QUESTIONS WERE ANSWERED, PATIENT REPORTS UNDERSTANDING AND AGREES WITH THE PLAN. I, NICOLAS BRYANT, DOCUMENTED THE ABOVE INFORMATION ACTING A SCRIBE FOR DR. UNGER. I HAVE REVIEWED THE ABOVE DOCUMENT, WRITTEN BY NICOLAS REAGAN AND I VERIFY THAT IT IS ACCURATE. OTHERS START TIZANIDINE HCL TABLET, 2 MG, 1 TABLET NEEDED, ORALLY, BEFORE BEDTIME MAY REPEAT IN 4 HRS MDD2, 30 DAY(S), 50, REFILLS 1 PROCEDURES PN WORKMANS' COMP OPINION IN YOUR OPINION, WAS THE INCIDENT THAT THE PATIENT DESCRIBED THE COMPETENT MEDICAL CAUSE OF THIS INJURY/ILLNESS? YES ARE THE PATIENT'S COMPLAINTS CONSISTENT WITH HIS/HER HISTORY OF THE INJURY/ILLNESS? YES IS THE PATIENT'S HISTORY OF THE INJURY/ILLNESS CONSISTENT WITH YOUR OBJECTIVE FINDING? YES WHAT IS THE PERCENTAGE OF TEMPORARY IMPAIRMENT? MODERATE TO MARKED = 66.7% IS THE PATIENT WORKING? NO DOCTOR ON SITE: CONTRERAS PATEL MD PROCEDURE CODES FA211 ESTABILISHED PATIENT [facility] FACILITY CHARGE G8427 DOC MEDS VERIFIED W/PT OR RE G8730 PAIN ASSESS POS TOOL F/U PLAN DOC DISPOSITION & COMMUNICATION FOLLOW UP 3 WEEKS ELECTRONICALLY SIGNED BY CONTRERAS UNGER MD ON 10/29/2016 AT 11:31 AM EDT DISCLAIMER : THIS IS A VISIT SUMMARY EXTRACTED FROM THE [employer] CHART. IT IS NOT A COPY OF THE [employer] PROGRESS NOTE. TALIA
== END ==
LOC: M PAIN 13:20
PROVIDERS: ATTEND Anesthesiology
DX: G89.29 Other chronic pain (principal); M51.16 Intervertebral disc disorders with radiculopathy, lumbar region; F31.9 Bipolar disorder, unspecified; F41.9 Anxiety disorder, unspecified; F43.10 Post-traumatic stress disorder, unspecified; Z88.5 Allergy status to narcotic agent; Z88.8 Allergy status to other drugs, medicaments and biological substances; Z91.040 Latex allergy status; Z79.82 Long term (current) use of aspirin; Z79.891 Long term (current) use of opiate analgesic; Z79.899 Other long term (current) drug therapy

== ENCOUNTER → 2016-12-14 | Outpatient (CLI) | payer OTHER ==
--- NOTE | 2016-12-14 12:12 | REP ---
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 Comparison: 12/24/2014 . Technique: PA and lateral. Findings: The mediastinum and cardiac silhouette are normal. The lung liu are clear and without acute consolidation, effusion, or pneumothorax. The skeletal structures are intact and normal. Impression: 1. No acute cardiopulmonary process. Signed by Panfilo Walters MD 12/14/2016 12:04 P
== END ==
LOC: M WUC 11:46
PROVIDERS: ATTEND Family Medicine Adult Medicine
DX: Z11.1 Encounter for screening for respiratory tuberculosis (principal)

== ENCOUNTER → 2016-12-21 | Outpatient (CLI) | payer OTHER ==
--- NOTE | 2017-01-03 02:05 | ECWPNPC ---
PATIENT NAME: MOO PEDROZA : 1960 GENDER: FEMALE VISIT DATE: 12/21/2016 DISCHARGE DATE: 12/21/16 1249 VISIT LOCKED DATE TIME: PHYSICIAN: CONTRERAS UNGER RESOURCE: CONTRERAS UNGER REASON FOR APPOINTMENT 1. W/C LOW BACK PAIN HISTORY OF PRESENT ILLNESS HISTORY OF PRESENT ILLNESS: PAIN THE PATIENT DESCRIBES THE PAIN... 56 YEAR OLD FEMALE PATIENT WITH HISTORY OF CHRONIC LOW BACK PAIN. PATIENT DESCRIBES THE PAIN SHARP, STABBING, THROBBING AND HAVING THE PAIN ALL THE TIME WITH A PAIN SCORE OF 7-8/10. 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 PATIENT REPORTS PHYSICAL THERAPY NOT HELPING IN THE PAST WITH PAIN RELIEF. MRS. PEDROZA STATES THAT ANY TYPE OF ACTIVITY INCLUDING WALKING, STANDING, AND SITTING INCREASES THE PAIN IN HER LOWER BACK. PATIENT HAS RECEIVED APPROVAL FOR THE DCS TRIAL. PATIENT DENIES UNEXPLAINABLE WEIGHT LOSS, FEVER, CHILLS, NEW CHANGES ON HER URINARY OR BOWEL CONTROL. FALL RISK SCREENING: SCREENING :NO FALLS IN THE PAST YEAR CURRENT MEDICATIONS TAKING ALENDRONATE SODIUM 70 MG TABLET 1 TABLET ORALLY WEEKLY TAKING ASPIRIN 325 MG TABLET 1 TABLET ORALLY ONCE A DAY TAKING ATENOLOL 25 MG 1 TAB ORAL BID TAKING CALCIUM 500 MG TABLET 1 TABLET WITH MEALS ORALLY DAILY TAKING ZYRTEC 10 MG TABLET 1 TABLET NEEDED ORALLY ONCE A DAY TAKING DOCUSATE SODIUM 100 MG CAPSULE ORALLY BID TAKING ESTRADIOL 0.5 MG TABLET 1 TABLET ORALLY DAILY TAKING FLONASE 1 SPRAY IN EACH NOSTRIL NASALLY DIRECTED TAKING HYDREA 500 MG CAPSULE ORALLY EVERY OTHER DAY TAKING HYDREA 1000 MG CAPSULE ORALLY EVERY 2 DAYS TAKING LINZESS 290 MCG CAPSULE ONE P.O. DAILY TAKING ATIVAN 0.5 0.5MG TABLET BID ORAL DIRECTED TAKING METHYLPHENIDATE HCL 5 MG TABLET ORALLY BID TAKING MULTIVITAMIN TABLETS ORALLY DAILY TAKING ZOFRAN 8 MG TABLET 1 TABLET ORALLY EVERY 4 HOURS NEEDED TAKING SEROQUEL 100 100 MG TABLET 50 MG IN AM 200MG HS ORAL BID TAKING EFFEXOR 150 MG TABLET 1 TABLET WITH FOOD ORALLY NIGHTLY TAKING ENDOCET 10-325 MG TABLET 1 TABLET NEEDED ORALLY EVERY 6 HRS PRN MDD4 TAKING FENTANYL 50 MCG/HR PATCH 72 HOUR 1 PATCH TO SKIN TRANSDERMAL 1 PATCH [id number]=FWC NOT-TAKING TIZANIDINE HCL 2 MG TABLET 1 TABLET NEEDED ORALLY BEFORE BEDTIME MAY REPEAT IN 4 HRS MDD2 NOT-TAKING CLONIDINE HCL 0.1 MG TABLET 1 ORALLY Q8H PRN MDD3 NOT-TAKING VALIUM 10 MG TABLET 1 TABLET NEEDED ORALLY PRIOR PROCEDURE NOT-TAKING METHYLPHENIDATE 10 MG TABLET ORALLY ONCE A DAY AFTERNOONS MEDICATION LIST REVIEWED AND RECONCILED WITH THE PATIENT PAST MEDICAL HISTORY BLOOD CANCER BIPOLAR/SOCIAL ANXIETY PTSD BACK PAIN SVT ALLERGIES CODEINE SULFATE: NAUSEA/VOMITING: SIDE EFFECTS STADOL: ITCH: ALLERGY TRAMADOL: EXCESSIVE YAWNING: SIDE EFFECTS NUBAIN: REACTION AT SITE: SIDE EFFECTS HYDROXYZINE HCL: EXCESSIVE YAWNING: SIDE EFFECTS KETOROLAC TROMETHAMINE: EXCESSIVE YAWNING: SIDE EFFECTS LATEX (FOR ALLERGY USE ONLY): RASH: ALLERGY SURGICAL HISTORY PARTIAL HYSTERECTOMY RIGHT ELBOW FX WITH SURGICAL REPAIR SA NODE ABLATION GALL BLADDER REMOVAL BLADDER SUSPENSION HEMORRHOIDECTOMY SOCIAL HISTORY GENERAL: PAIN CLINIC PFS, CLERGY, PUBLIC HEALTH REFERRALS PFS REFERRAL NEEDED?NO CLERGY REFERRAL NEEDED?NO PUBLIC HEALTH REFERRAL NEEDED?NO WAS THE PROVIDER NOTIFIED OF ANY PERTINENT INFO?NO HAS THE PATIENT BEEN EDUCATED REGARDING HIS/HER PLAN OF CARE?YES HAS THE PATIENT BEEN EDUCATED REGARDING PAIN, THE RISK FOR PAIN, THE IMPORTANCE OF EFFECTIVE PAIN MANAGEMENT, AND THE PAIN ASSESSMENT PROCESS?YES PATIENT: ____. HOSPITALIZATION/MAJOR DIAGNOSTIC PROCEDURE KIDNEY STONES REVIEW OF SYSTEMS REVIEWED BY: PROVIDER: CONTRERAS UNGER MD . CONSTITUTIONAL: ANY CHANGE IN YOUR MEDICAL CONDITION? NO . CHILLS NO . FEVER NO . INFECTION: DO YOU HAVE NEW INFECTIONS? NO . DO YOU HAVE HISTORY OF MRSA? NO . MUSCULOSKELETAL: ANY NEW PATTERNS OF PAIN OR NUMBNESS? NO . GASTROENTEROLOGY: ANY NEW CHANGE IN BOWEL CONTROL? NO . GENITOURINARY: ANY NEW CHANGE IN BLADDER CONTROL? NO . IS THERE A CHANCE YOU COULD BE ? NO . HEMATOLOGY/LYMPH: DO YOU TAKE ANY BLOOD THINNERS? (FOR EXAMPLE- COUMADIN, PLAVIX, AGGRENOX, PLATEL, PRADAXA, OR XARELTO) NO . WHEN WAS YOUR LAST DOSE? DATE: TIME: . NEUROLOGY: HAVE YOU FALLEN IN THE PAST 6 MONTHS? NO . ANY NEW EXTREMITY NUMBNESS OR WEAKNESS? NO . CARDIOLOGY: DO YOU HAVE A PACEMAKER OR DEFIBRILLATOR? NO . RESPIRATORY: HAVE YOU BEEN SICK IN THE PAST WEEK? NO . FEVER NO . FLU LIKE SYMPTOMS? NO . COUGH NO . INTEGUMENTARY: DO YOU HAVE ANY RASHES OR OPEN SORES? NO . ALLERGIC/IMMUNO: ARE YOU ALLERGIC TO SHELLFISH OR IV DYE? NO . ANY NEW ALLERGIES? NO . PSYCHIATRIC: DO YOU HAVE THOUGHTS OF HURTING YOURSELF OR SOMEONE ELSE? NO . ARE YOU ABUSED, NEGLECTED, OR IN AN UNSAFE ENVIRONMENT? NO . ENDOCRINOLOGY: ARE YOU DIABETIC? NO . OTHER: DO YOU NEED ANY PRESCRIPTIONS? YES, FENTANYL AND ENDOCET . IF YES, PLEASE LIST: ____ . ANY NEW PROBLEMS WITH YOUR MEDICATIONS? NO . WHEN DID YOU LAST EAT? ____ . WHEN DID YOU LAST DRINK? ____ . WHAT DID YOU LAST DRINK? ____ . NAME OF PERSON DRIVING YOU HOME? ____ . DO YOU HAVE ANY OTHER QUESTIONS OR CONCERNS NO . VITAL SIGNS WT 159 LBS, HT 69 IN, BMI 23.48 INDEX, BP 102/69 MM HG, HR 57 /MIN, RR 16 /MIN, TEMP 97.5 F, OXYGEN SAT % 97%, NA INITIALS SC 11:33, REVIEWED BY: HERIBERTO. EXAMINATION : PATIENT IS ALERT O X 3 AND COOPERATIVE. TENDERNESS IN THE LOWER BACK AND THORACIC AREA. ANTALGIC WALK. RIGHT LEG WEAKER THEN THE LEFT AT EXTENSION AND FLEXION. MRI OF THE LUMBAR SPINE DONE ON 06/22/16 SHOWS CANAL STENOSIS AT L3-L4 AND L4-L5 AND A DISC PROTRUSION AT L5-S1. ASSESSMENTS INTERVERTEBRAL DISC DISORDERS WITH RADICULOPATHY, LUMBAR REGION - M51.16 (PRIMARY) TREATMENT INTERVERTEBRAL DISC DISORDERS WITH RADICULOPATHY, LUMBAR REGION REFILL FENTANYL PATCH 72 HOUR, 50 MCG/HR, 1 PATCH TO SKIN, TRANSDERMAL, 1 PATCH [id number]=MCP, 30 DAYS, 10, REFILLS 0 REFILL ENDOCET TABLET, 10-325 MG, 1 TABLET NEEDED, ORALLY, EVERY 6 HRS PRN MDD4, 30 DAY(S), 110, REFILLS 0 NOTES: WE DISCUSSED SEVERAL ISSUES WITH MRS. PEDROZA'S PAIN MANAGEMENT CASE. PATIENT WILL CONTINUE WITH THE SAME MEDICATION REGIME BEFORE. PATIENT IS USING THE ENDOCET AND FENTANYL FOR THE SOMATIC PAIN. PATIENT DENIES ABUSE OF ANY MEDICATION, DENIES USE OF ILLEGAL SUBSTANCES, AND STATES SHE IS ONLY USING THE MEDICATION FOR PAIN MANAGEMENT. URINE TOXICOLOGY REPORT DONE ON 09/03/16 SHOWS CONSISTENT RESULTS WITH THE PATIENTS MEDICATION LIST. ISTOP WAS REVIEWED [id number]. PATIENT HAS RECEIVED APPROVAL FOR THE DCS TRIAL AND WOULD LIKE TO MOVE FORWARD. WE DISCUSSED REFERRING THE PATIENT DUE TO THE PLATELETS THAT MAY AFFECT THE COAGULATION SYSTEM. PATIENT WILL RETURN TO THE CLINIC IN 3 WEEKS TO DISCUSS WHERE SHE WILL BE REFERRED TO. INSTRUCTIONS WERE GIVEN, QUESTIONS WERE ANSWERED, PATIENT REPORTS UNDERSTANDING AND AGREES WITH THE PLAN. I, NICOLAS BRYANT, DOCUMENTED THE ABOVE INFORMATION ACTING A SCRIBE FOR DR. UNGER. I HAVE REVIEWED THE ABOVE DOCUMENT, WRITTEN BY NICOLAS REAGAN AND I VERIFY THAT IT IS ACCURATE. PROCEDURES PN WORKMANS' COMP OPINION IN YOUR OPINION, WAS THE INCIDENT THAT THE PATIENT DESCRIBED THE COMPETENT MEDICAL CAUSE OF THIS INJURY/ILLNESS? YES ARE THE PATIENT'S COMPLAINTS CONSISTENT WITH HIS/HER HISTORY OF THE INJURY/ILLNESS? YES IS THE PATIENT'S HISTORY OF THE INJURY/ILLNESS CONSISTENT WITH YOUR OBJECTIVE FINDING? YES WHAT IS THE PERCENTAGE OF TEMPORARY IMPAIRMENT? MODERATE TO MARKED = 66.7% IS THE PATIENT WORKING? NO DOCTOR ON SITE: CONTRERAS PATEL MD PROCEDURE CODES FA211 ESTABILISHED PATIENT [facility] FACILITY CHARGE G8427 DOC MEDS VERIFIED W/PT OR RE G8730 PAIN ASSESS POS TOOL F/U PLAN DOC DISPOSITION & COMMUNICATION FOLLOW UP 3 WEEKS ELECTRONICALLY SIGNED BY CONTRERAS UNGER MD ON 12/31/2016 AT 01:30 PM EDT DISCLAIMER : THIS IS A VISIT SUMMARY EXTRACTED FROM THE [employer] CHART. IT IS NOT A COPY OF THE [employer] PROGRESS NOTE. TALIA
== END ==
LOC: M PAIN 11:15
PROVIDERS: ATTEND Anesthesiology
DX: G89.29 Other chronic pain (principal); M51.16 Intervertebral disc disorders with radiculopathy, lumbar region; F31.9 Bipolar disorder, unspecified; F43.10 Post-traumatic stress disorder, unspecified; Z91.040 Latex allergy status; Z88.5 Allergy status to narcotic agent; Z88.8 Allergy status to other drugs, medicaments and biological substances; Z79.82 Long term (current) use of aspirin; Z79.891 Long term (current) use of opiate analgesic; Z79.899 Other long term (current) drug therapy

== ENCOUNTER → 2017-01-16 | Outpatient (CLI) | payer OTHER ==
--- NOTE | 2017-02-13 01:58 | ECWPNPC ---
PATIENT NAME: MOO PEDROZA : 1960 GENDER: FEMALE VISIT DATE: 01/16/2017 DISCHARGE DATE: 01/16/17 1556 VISIT LOCKED DATE TIME: PHYSICIAN: DEVAUGHN CLAYTON RESOURCE: DEVAUGHN CLAYTON REASON FOR APPOINTMENT 1. LOW BACK W/C HISTORY OF PRESENT ILLNESS HISTORY OF PRESENT ILLNESS: HERE FOR F/U AND MANAGEMENT PERSISTENT LBP. THIS IS A WORK RELATED INJURY 2006.PAIN LOCATED RIGHT LOW BACK WITH RADIATION TO RIGHT POSTERIOR THIGH.IN PROCESS FOR DCS TRIAL.AWAITING RECOMMENDATIONS FROM [facility]NELL VELEZ FOR [facility]AL [facility] DUE TO PATIENTS BLOOD DYSCRASIA.DR. UNGER IS AWARE. RATING PAIN 8/10 VAS.CURRENTLY USING FENTANYL 50MCG Q72H AND OXYCODONE 10/325 Q6H PRN MDD4 WITH ONLY MARGINAL IMPROVEMENT IN PAIN. PAIN THE PATIENT DESCRIBES THE PAIN... THE PATIENT DESCRIBES THE PAIN... THE PATIENT DESCRIBES THE PAIN... THE PATIENT DESCRIBES THE PAIN... THE PATIENT DESCRIBES THE PAIN... FALL RISK SCREENING: SCREENING :NO FALLS IN THE PAST YEAR CURRENT MEDICATIONS TAKING TIZANIDINE HCL 2 MG TABLET 1 TABLET NEEDED ORALLY BEFORE BEDTIME MAY REPEAT IN 4 HRS MDD2 TAKING CLONIDINE HCL 0.1 MG TABLET 1 ORALLY Q8H PRN MDD3 NEEDED TAKING METHYLPHENIDATE 10 MG TABLET ORALLY ONCE A DAY AFTERNOONS TAKING ALENDRONATE SODIUM 70 MG TABLET 1 TABLET ORALLY WEEKLY TAKING ASPIRIN 325 MG TABLET 1 TABLET ORALLY ONCE A DAY TAKING ATENOLOL 25 MG 1 TAB ORAL BID TAKING CALCIUM 500 MG TABLET 1 TABLET WITH MEALS ORALLY DAILY TAKING ZYRTEC 10 MG TABLET 1 TABLET NEEDED ORALLY ONCE A DAY TAKING DOCUSATE SODIUM 100 MG CAPSULE ORALLY BID TAKING ESTRADIOL 0.5 MG TABLET 1 TABLET ORALLY DAILY TAKING FLONASE 1 SPRAY IN EACH NOSTRIL NASALLY DIRECTED TAKING HYDREA 500 MG CAPSULE ORALLY EVERY OTHER DAY TAKING HYDREA 1000 MG CAPSULE ORALLY EVERY 2 DAYS TAKING LINZESS 290 MCG CAPSULE ONE P.O. DAILY TAKING ATIVAN 0.5 0.5MG TABLET BID ORAL DIRECTED TAKING MULTIVITAMIN TABLETS 1 TAB ORALLY DAILY TAKING ZOFRAN 8 MG TABLET 1 TABLET ORALLY EVERY 4 HOURS NEEDED TAKING SEROQUEL 100 100 MG TABLET 50 MG IN AM 200MG HS ORAL BID TAKING EFFEXOR 150 MG TABLET 1 TABLET WITH FOOD ORALLY DAILY ALONG WITH 75MG TAKING FENTANYL 50 MCG/HR PATCH 72 HOUR 1 PATCH TO SKIN TRANSDERMAL 1 PATCH [id number] TAKING ENDOCET 10-325 MG TABLET 1 TABLET NEEDED ORALLY EVERY 6 HRS PRN MDD4 NOT-TAKING VALIUM 10 MG TABLET 1 TABLET NEEDED ORALLY PRIOR PROCEDURE NOT-TAKING METHYLPHENIDATE HCL 5 MG TABLET ORALLY BID MEDICATION LIST REVIEWED AND RECONCILED WITH THE PATIENT PAST MEDICAL HISTORY BLOOD CANCER BIPOLAR/SOCIAL ANXIETY PTSD BACK PAIN SVT ALLERGIES CODEINE SULFATE: NAUSEA/VOMITING: SIDE EFFECTS STADOL: ITCH: ALLERGY TRAMADOL: EXCESSIVE YAWNING: SIDE EFFECTS NUBAIN: REACTION AT SITE: SIDE EFFECTS HYDROXYZINE HCL: EXCESSIVE YAWNING: SIDE EFFECTS KETOROLAC TROMETHAMINE: EXCESSIVE YAWNING: SIDE EFFECTS LATEX (FOR ALLERGY USE ONLY): RASH: ALLERGY SOCIAL HISTORY GENERAL: TOBACCO USE ARE YOU A:FORMER SMOKER HOW LONG HAS IT BEEN SINCE YOU LAST SMOKED?> 10 YEARS ALCOHOL SCREENING POINTS0 INTERPRETATIONNEGATIVE RECREATIONAL DRUG USE DRUG USE?NO SIKH [id number] BUDDHISM LANGUAGE LANGUAGES SPOKEN:SWISS LEARNING BARRIERS / SPECIAL NEEDS BARRIERS TO LEARNING?NO HEARING IMPAIRED?NO VISION IMPAIRED?YES COGNITIVELY IMPAIRED?NO READINESS TO LEARN?YES LEARNING PREFERENCES?NO LEARNING CAPABILITIES PRESENT?YES EMOTIONAL BARRIERS?NO SPECIAL DEVICES?NO MANAGER BANKING NEEDED?NO PAIN CLINIC PFS, CLERGY, PUBLIC HEALTH REFERRALS PFS REFERRAL NEEDED?NO CLERGY REFERRAL NEEDED?NO PUBLIC HEALTH REFERRAL NEEDED?NO WAS THE PROVIDER NOTIFIED OF ANY PERTINENT INFO?NO HAS THE PATIENT BEEN EDUCATED REGARDING HIS/HER PLAN OF CARE?YES HAS THE PATIENT BEEN EDUCATED REGARDING PAIN, THE RISK FOR PAIN, THE IMPORTANCE OF EFFECTIVE PAIN MANAGEMENT, AND THE PAIN ASSESSMENT PROCESS?YES PATIENT: ____. ADVANCE DIRECTIVES HEALTH CARE PROXY?NO WOULD YOU LIKE MORE INFORMATION?NO DO YOU HAVE A DNR?NO WOULD YOU LIKE MORE INFORMATION?NO LIVING WILL?NO WOULD YOU LIKE MORE INFORMATION?NO POWER OF SENIOR APPLICATIONS ENGINEER?NO WOULD YOU LIKE MORE INFORMATION?NO REVIEW OF SYSTEMS REVIEWED BY: PROVIDER: DEVAUGHN KEN . CONSTITUTIONAL: ANY CHANGE IN YOUR MEDICAL CONDITION? NO . CHILLS NO . FEVER NO . INFECTION: DO YOU HAVE NEW INFECTIONS? NO . DO YOU HAVE HISTORY OF MRSA? NO . MUSCULOSKELETAL: ANY NEW PATTERNS OF PAIN OR NUMBNESS? NO . GASTROENTEROLOGY: ANY NEW CHANGE IN BOWEL CONTROL? NO . GENITOURINARY: ANY NEW CHANGE IN BLADDER CONTROL? NO . IS THERE A CHANCE YOU COULD BE ? NO . HEMATOLOGY/LYMPH: DO YOU TAKE ANY BLOOD THINNERS? (FOR EXAMPLE- COUMADIN, PLAVIX, AGGRENOX, PLATEL, PRADAXA, OR XARELTO) NO . WHEN WAS YOUR LAST DOSE? DATE: TIME: . NEUROLOGY: HAVE YOU FALLEN IN THE PAST 6 MONTHS? NO . ANY NEW EXTREMITY NUMBNESS OR WEAKNESS? NO . CARDIOLOGY: DO YOU HAVE A PACEMAKER OR DEFIBRILLATOR? NO . RESPIRATORY: HAVE YOU BEEN SICK IN THE PAST WEEK? NO . FEVER NO . FLU LIKE SYMPTOMS? NO . COUGH NO . INTEGUMENTARY: DO YOU HAVE ANY RASHES OR OPEN SORES? NO . ALLERGIC/IMMUNO: ARE YOU ALLERGIC TO SHELLFISH OR IV DYE? NO . ANY NEW ALLERGIES? NO . PSYCHIATRIC: DO YOU HAVE THOUGHTS OF HURTING YOURSELF OR SOMEONE ELSE? NO . ARE YOU ABUSED, NEGLECTED, OR IN AN UNSAFE ENVIRONMENT? NO . ENDOCRINOLOGY: ARE YOU DIABETIC? NO . OTHER: DO YOU NEED ANY PRESCRIPTIONS? YES . IF YES, PLEASE LIST: FENTANYL 50MCG, ENDOCETT AND TYLENOL . ANY NEW PROBLEMS WITH YOUR MEDICATIONS? NO . WHEN DID YOU LAST EAT? ____ . WHEN DID YOU LAST DRINK? ____ . WHAT DID YOU LAST DRINK? ____ . NAME OF PERSON DRIVING YOU HOME? ____ . DO YOU HAVE ANY OTHER QUESTIONS OR CONCERNS NO . VITAL SIGNS WT 168.8 LBS, HT 69 IN, BMI 24.92 INDEX, BP 141/82 MM HG, HR 73 /MIN, RR 16 /MIN, TEMP 97.8 F, OXYGEN SAT % 99%, SAFE IN ENV? (Y/N) YES, REVIEWED BY: ELLEN (DONE AT 1525). EXAMINATION GENERAL EXAMINATION: LUNGS:LUNG SOUNDS ARE CLEAR. HEART:HEART RATE REGULAR. MUSCULOSKELETAL:*, MUSCLE STRENGTH TESTING 5/5 BILATERAL, PALPATION: POSITIVE FOR PAIN OVER L/S SPINE. POSITIVE FOR PAIN OVER L/S PARSPINALS R >L. SPECIFIC POINT TENDERNESS RIGHT SIJ. ASSESSMENTS INTERVERTEBRAL DISC DISORDERS WITH RADICULOPATHY, LUMBAR REGION - M51.16 (PRIMARY) CHRONIC RIGHT-SIDED THORACIC BACK PAIN - M54.6 CHRONIC PRESCRIPTION OPIATE USE - Z79.891 TREATMENT INTERVERTEBRAL DISC DISORDERS WITH RADICULOPATHY, LUMBAR REGION REFILL TIZANIDINE HCL TABLET, 2 MG, 1 TABLET NEEDED, ORALLY, BEFORE BEDTIME MAY REPEAT IN 4 HRS MDD2, 30 DAY(S), 50, REFILLS 1 REFILL FENTANYL PATCH 72 HOUR, 50 MCG/HR, 1 PATCH TO SKIN, TRANSDERMAL, 1 PATCH [id number]=RII, 30 DAYS, 10, REFILLS 0 REFILL ENDOCET TABLET, 10-325 MG, 1 TABLET NEEDED, ORALLY, EVERY 6 HRS PRN MDD4, 30 DAY(S), 110, REFILLS 0 NOTES: ISTOP REGISTRY REVIEWED [id number] AND DEMNOSTRATES COMPLLIANCE. BRINGS IN MEDICATIONS WHICH IS APPROPRIATE FOR WHAT WAS DISPENSED. RECENT URINE TOXICOLOGY REVIEWED. NO UNAUTHORIZED MEDICATIONS. NO ILLICIT SUBSTANCES AND PRESCRIBED MEDICATIONS WERE PRESENT. RISKS AND BENEFITS OF NARCOTIC/OPIOD MEDICATIONS WERE REVIEWED WITH PATIENT - THIS INCLUDES BUT IS NOT LIMITED TO RISK OF DEPENDANCE/DEVELOPMENT OF ADDICTION, MOOD DISTURBANCE AND DEPRESSION, OSTEOPOROSIS, HORMONAL AND LABIDAL CHANGES, RESPIRATORY DEPRESSION AND . PATIENT IS ADVISED NOT TO DRIVE WHILE ON THESE MEDICATIONS,. PROCEDURES PN WORKMANS' COMP OPINION IN YOUR OPINION, WAS THE INCIDENT THAT THE PATIENT DESCRIBED THE COMPETENT MEDICAL CAUSE OF THIS INJURY/ILLNESS? YES ARE THE PATIENT'S COMPLAINTS CONSISTENT WITH HIS/HER HISTORY OF THE INJURY/ILLNESS? YES IS THE PATIENT'S HISTORY OF THE INJURY/ILLNESS CONSISTENT WITH YOUR OBJECTIVE FINDING? YES WHAT IS THE PERCENTAGE OF TEMPORARY IMPAIRMENT? MODERATE TO MARKED = 66.7% IS THE PATIENT WORKING? NO DOCTOR ON SITE: CONTRERAS PATEL MD PROCEDURE CODES FA211 ESTABILISHED PATIENT [facility] FACILITY CHARGE DISPOSITION & COMMUNICATION FOLLOW UP [address] UNGER ELECTRONICALLY SIGNED BY SUELLEN URBINA ON 02/12/2017 AT 07:36 PM EST DISCLAIMER : THIS IS A VISIT SUMMARY EXTRACTED FROM THE [employer] CHART. IT IS NOT A COPY OF THE [employer] PROGRESS NOTE. MTDD
== END ==
LOC: M PAIN 15:30
PROVIDERS: ATTEND Nurse Practitioner Family
DX: M51.16 Intervertebral disc disorders with radiculopathy, lumbar region (principal); Z79.891 Long term (current) use of opiate analgesic; Z79.899 Other long term (current) drug therapy; Z79.82 Long term (current) use of aspirin; Z87.891 Personal history of nicotine dependence; Z88.5 Allergy status to narcotic agent; Z88.8 Allergy status to other drugs, medicaments and biological substances; Z91.040 Latex allergy status

== ENCOUNTER → 2017-03-15 | Outpatient (CLI) | payer OTHER ==
--- NOTE | 2017-03-25 23:47 | ECWPNPC ---
PATIENT NAME: MOO PEDROZA : 1960 GENDER: FEMALE VISIT DATE: 03/15/2017 DISCHARGE DATE: 03/15/17 1229 VISIT LOCKED DATE TIME: PHYSICIAN: CONTRERAS UNGER RESOURCE: CONTRERAS UNGER REASON FOR APPOINTMENT 1. W/C BACK HISTORY OF PRESENT ILLNESS HISTORY OF PRESENT ILLNESS: PAIN THE PATIENT DESCRIBES THE PAIN... 56 YEAR OLD FEMALE PATIENT WITH HISTORY OF CHRONIC LOW BACK PAIN. PATIENT DESCRIBES THE PAIN SHARP, STABBING, THROBBING AND HAVING THE PAIN ALL THE TIME WITH A PAIN SCORE OF 9-10/10. 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 PATIENT REPORTS PHYSICAL THERAPY NOT HELPING IN THE PAST WITH PAIN RELIEF. MRS. PEDROZA STATES THAT ANY TYPE OF ACTIVITY INCLUDING WALKING, STANDING, AND SITTING INCREASES THE PAIN IN HER LOWER BACK. SHE REPORTS SEVERE CONSTIPATION ASSOCIATED WITH THE USE OF OPIOIDS. SHE HAS TRIED COLACE AND OTHER PRODUCTS AND THE CONSTIPATION HAS PERSISTED. PATIENT HAS RECEIVED APPROVAL FOR THE DCS TRIAL. PATIENT DENIES UNEXPLAINABLE WEIGHT LOSS, FEVER, CHILLS, NEW CHANGES ON HER URINARY OR BOWEL CONTROL. FALL RISK SCREENING: SCREENING :NO FALLS IN THE PAST YEAR CURRENT MEDICATIONS TAKING CLONIDINE HCL 0.1 MG TABLET 1 ORALLY Q8H PRN MDD3 NEEDED TAKING METHYLPHENIDATE 10 MG TABLET TAKES 20 MGS ORALLY DAILY TAKING ALENDRONATE SODIUM 70 MG TABLET 1 TABLET ORALLY WEEKLY TAKING ASPIRIN 325 MG TABLET 1 TABLET ORALLY ONCE A DAY TAKING ATENOLOL 25 MG 1 TAB ORAL BID TAKING CALCIUM 500 MG TABLET 1 TABLET WITH MEALS ORALLY DAILY TAKING ZYRTEC 10 MG TABLET 1 TABLET ORALLY ONCE A DAY TAKING DOCUSATE SODIUM 100 MG CAPSULE ORALLY BID TAKING ESTRADIOL 0.5 MG TABLET 1 TABLET ORALLY DAILY TAKING FLONASE 1 SPRAY IN EACH NOSTRIL NASALLY DIRECTED TAKING HYDREA 500 MG CAPSULE ORALLY EVERY OTHER DAY TAKING HYDREA 1000 MG CAPSULE ORALLY EVERY 2 DAYS TAKING LINZESS 290 MCG CAPSULE ONE P.O. DAILY TAKING ATIVAN 0.5 0.5MG TABLET BID ORAL DIRECTED TAKING MULTIVITAMIN TABLETS 1 TAB ORALLY DAILY TAKING ZOFRAN 8 MG TABLET 1 TABLET ORALLY EVERY 4 HOURS NEEDED TAKING SEROQUEL 100 100 MG TABLET 50 MG IN AM & PM 500MG HS ORAL TAKING EFFEXOR 150 MG TABLET 1 TABLET WITH FOOD ORALLY DAILY TAKING TIZANIDINE HCL 2 MG TABLET 1 TABLET NEEDED ORALLY BEFORE BEDTIME MAY REPEAT IN 4 HRS MDD2 TAKING FENTANYL 50 MCG/HR PATCH 72 HOUR 1 PATCH TO SKIN TRANSDERMAL 1 PATCH [id number] TAKING ENDOCET 10-325 MG TABLET 1 TABLET NEEDED ORALLY EVERY 6 HRS PRN MDD4 NOT-TAKING VALIUM 10 MG TABLET 1 TABLET NEEDED ORALLY PRIOR PROCEDURE NOT-TAKING METHYLPHENIDATE HCL 5 MG TABLET ORALLY BID MEDICATION LIST REVIEWED AND RECONCILED WITH THE PATIENT PAST MEDICAL HISTORY BLOOD CANCER BIPOLAR/SOCIAL ANXIETY PTSD BACK PAIN SVT ALLERGIES CODEINE SULFATE: NAUSEA/VOMITING: SIDE EFFECTS STADOL: ITCH: ALLERGY TRAMADOL: EXCESSIVE YAWNING: SIDE EFFECTS NUBAIN: REACTION AT SITE: SIDE EFFECTS HYDROXYZINE HCL: EXCESSIVE YAWNING: SIDE EFFECTS KETOROLAC TROMETHAMINE: EXCESSIVE YAWNING: SIDE EFFECTS LATEX (FOR ALLERGY USE ONLY): RASH: ALLERGY SOCIAL HISTORY GENERAL: TOBACCO USE ARE YOU A:FORMER SMOKER HOW LONG HAS IT BEEN SINCE YOU LAST SMOKED?> 10 YEARS ALCOHOL SCREENING DID YOU HAVE A DRINK CONTAINING ALCOHOL IN THE PAST YEAR?NO POINTS0 INTERPRETATIONNEGATIVE RECREATIONAL DRUG USE DRUG USE?NO CAFFEINE CAFFEINE USE?YES HOW OFTEN AND HOW MUCH? 3-4 CUPS COFFEE/DAY BAPTIST [id number] RASTAFARIAN LANGUAGE LANGUAGES SPOKEN:VENEZUELAN LEARNING BARRIERS / SPECIAL NEEDS BARRIERS TO LEARNING?NO HEARING IMPAIRED?NO VISION IMPAIRED?YES COGNITIVELY IMPAIRED?NO READINESS TO LEARN?YES LEARNING PREFERENCES?NO LEARNING CAPABILITIES PRESENT?YES EMOTIONAL BARRIERS?NO SPECIAL DEVICES?NO DIE TECHNICIAN NEEDED?NO PAIN CLINIC PFS, CLERGY, PUBLIC HEALTH REFERRALS PFS REFERRAL NEEDED?NO CLERGY REFERRAL NEEDED?NO PUBLIC HEALTH REFERRAL NEEDED?NO WAS THE PROVIDER NOTIFIED OF ANY PERTINENT INFO?NO HAS THE PATIENT BEEN EDUCATED REGARDING HIS/HER PLAN OF CARE?YES HAS THE PATIENT BEEN EDUCATED REGARDING PAIN, THE RISK FOR PAIN, THE IMPORTANCE OF EFFECTIVE PAIN MANAGEMENT, AND THE PAIN ASSESSMENT PROCESS?YES REVIEWED BY: 03/15/17 1120 AD. PATIENT: ____. ADVANCE DIRECTIVES HEALTH CARE PROXY?NO WOULD YOU LIKE MORE INFORMATION?NO POWER OF GRAIN LOADER?NO DO YOU HAVE A DNR?NO WOULD YOU LIKE MORE INFORMATION?NO LIVING WILL?NO WOULD YOU LIKE MORE INFORMATION?NO WOULD YOU LIKE MORE INFORMATION?NO DOMESTIC VIOLENCE DO YOU FEEL SAFE IN YOUR ENVIRONMENT?YES REVIEW OF SYSTEMS REVIEWED BY: PROVIDER: CONTRERAS UNGER MD . CONSTITUTIONAL: ANY CHANGE IN YOUR MEDICAL CONDITION? NO . CHILLS NO . FEVER NO . INFECTION: DO YOU HAVE NEW INFECTIONS? NO . DO YOU HAVE HISTORY OF MRSA? NO . MUSCULOSKELETAL: ANY NEW PATTERNS OF PAIN OR NUMBNESS? YES, PAIN FURTHER DOWN RIGHT LEG X 2 MONTHS. STATES IT IS IN THE AREA WHERE SHE HAD THE BONE MARROW ASPIRATION . GASTROENTEROLOGY: ANY NEW CHANGE IN BOWEL CONTROL? YES, SEVERE CONSTIPATION FREQ. DULCOLAX AND SENNA NOT EFFECTIVE. . GENITOURINARY: ANY NEW CHANGE IN BLADDER CONTROL? NO . IS THERE A CHANCE YOU COULD BE ? NO . HEMATOLOGY/LYMPH: DO YOU TAKE ANY BLOOD THINNERS? (FOR EXAMPLE- COUMADIN, PLAVIX, AGGRENOX, PLATEL, PRADAXA, OR XARELTO) NO . WHEN WAS YOUR LAST DOSE? DATE: TIME: . NEUROLOGY: HAVE YOU FALLEN IN THE PAST 6 MONTHS? NO . ANY NEW EXTREMITY NUMBNESS OR WEAKNESS? NO . CARDIOLOGY: DO YOU HAVE A PACEMAKER OR DEFIBRILLATOR? NO . RESPIRATORY: HAVE YOU BEEN SICK IN THE PAST WEEK? NO . FEVER NO . FLU LIKE SYMPTOMS? NO . COUGH NO . INTEGUMENTARY: DO YOU HAVE ANY RASHES OR OPEN SORES? NO . ALLERGIC/IMMUNO: ARE YOU ALLERGIC TO SHELLFISH OR IV DYE? NO . ANY NEW ALLERGIES? NO . PSYCHIATRIC: DO YOU HAVE THOUGHTS OF HURTING YOURSELF OR SOMEONE ELSE? NO . ARE YOU ABUSED, NEGLECTED, OR IN AN UNSAFE ENVIRONMENT? NO . ENDOCRINOLOGY: ARE YOU DIABETIC? NO . OTHER: DO YOU NEED ANY PRESCRIPTIONS? YES . IF YES, PLEASE LIST: CLONIDINE & OXYCODONE . ANY NEW PROBLEMS WITH YOUR MEDICATIONS? NO . WHEN DID YOU LAST EAT? ____ . WHEN DID YOU LAST DRINK? ____ . WHAT DID YOU LAST DRINK? ____ . NAME OF PERSON DRIVING YOU HOME? ____ . DO YOU HAVE ANY OTHER QUESTIONS OR CONCERNS YES, SHE WOULD LIKE TO KNOW WHAT IS GOING ON WITH DCS AND WHY HASN'T INJECTIONS HAVEN'T BEEN APPROVED. WOULD LIKE SOMEHTING FOR CONSTIPATION. . VITAL SIGNS WT 168.4 LBS, HT 69 IN, BMI 24.87 INDEX, BP 115/78 MM HG, HR 72 /MIN, RR 18 /MIN, TEMP 97.2 F, OXYGEN SAT % 97%, SAFE IN ENV? (Y/N) Y, NA INITIALS OK 11:12, REVIEWED BY: ANALI. EXAMINATION : PATIENT IS ALERT O X 3 AND COOPERATIVE. TENDERNESS IN THE LOWER BACK AND THORACIC AREA. ANTALGIC WALK. RIGHT LEG WEAKER THEN THE LEFT AT EXTENSION AND FLEXION. MRI OF THE LUMBAR SPINE DONE ON 06/22/16 SHOWS CANAL STENOSIS AT L3-L4 AND L4-L5 AND A DISC PROTRUSION AT L5-S1. PRESENCE OF TPI AND BANDS OF TISSUE WITH RESTRICTION OF MOVEMENT. ASSESSMENTS INTERVERTEBRAL DISC DISORDERS WITH RADICULOPATHY, LUMBAR REGION - M51.16 (PRIMARY) MYALGIA - M79.1 TREATMENT INTERVERTEBRAL DISC DISORDERS WITH RADICULOPATHY, LUMBAR REGION REFILL FENTANYL PATCH 72 HOUR, 50 MCG/HR, 1 PATCH TO SKIN, TRANSDERMAL, 1 PATCH [id number], 30 DAYS, 10, REFILLS 0 REFILL ENDOCET TABLET, 10-325 MG, 1 TABLET NEEDED, ORALLY, EVERY 6 HRS PRN MDD4, 30 DAYS, 110, REFILLS 0 CLINICAL NOTES: WE DISCUSSED SEVERAL ISSUES WITH MRS. PEDROAZ'S PAIN MANAGEMENT CASE. PATIENT WILL CONTINUE WITH THE SAME MEDICATION REGIME BEFORE. PATIENT IS USING THE ENDOCET AND FENTANYL FOR THE SOMATIC PAIN. PATIENT IS HAVING EXTREME CONSTIPATION FROM HER MEDICATION. PATIENT WILL START MOVANTIK TO HELP WITH THE CONSTIPATION. PATIENT DENIES ABUSE OF ANY MEDICATION, DENIES USE OF ILLEGAL SUBSTANCES, AND STATES SHE IS ONLY USING THE MEDICATION FOR PAIN MANAGEMENT. PATIENT BROUGHT HER MEDS TO HER APPOINTMENT. URINE TOXICOLOGY REPORT DONE ON 09/03/16 SHOWS CONSISTENT RESULTS WITH THE PATIENTS MEDICATION LIST. ISTOP WAS REVIEWED [id number]. PATIENT HAS RECEIVED APPROVAL FOR THE DCS TRIAL AND WOULD LIKE TO MOVE FORWARD. WE DISCUSSED REFERRING THE PATIENT DUE TO THE PLATELETS THAT MAY AFFECT THE COAGULATION SYSTEM. PATIENT WILL BE REFERRED TO [facility] FOR THE DCS. WE DISCUSSED WITH MS. PEDROZA TRIGGER POINT INJECTIONS TO HELP EASE THE PAIN AND DISCOMFORT WHILE SHE IS WAITING FOR THE DCS. PATIENT AGREES TO A TPI AND WILL BE BOOKED AFTER WE RECEIVE APPROVAL. I WAS WITH THE PATIENT FOR OVER 25 MINUTES AND MORE THAN HALF OF THE TIME WAS DEDICATED TO DISCUSSED ISSUES WITH THE PATIENT INCLUDING ALTERNATIVES FOR THE CONSTIPATION, DISCUSSING WHERE TO DO THE SCS TRIAL, DISCUSSING THE CASE WITH REPRESENTATIVES OF [employer] AND THE PATIENT AND THE COORDINATION OF CARE. INSTRUCTIONS WERE GIVEN, QUESTIONS WERE ANSWERED, PATIENT REPORTS UNDERSTANDING AND AGREES WITH THE PLAN. I, BOSSMAN VANCE, DOCUMENTED THE ABOVE INFORMATION ACTING A SCRIBE FOR DR. UNGER. I HAVE REVIEWED THE ABOVE DOCUMENT, WRITTEN BY BOSSMAN VANCE SCRIBBelen AND I VERIFY THAT IT IS ACCURATE. OTHERS START MOVANTIK TABLET, 12.5 MG, 1 TABLET IN THE MORNING, ORALLY, ONCE A DAY, 30 DAY(S), 30, REFILLS 0 PROCEDURES PN WORKMANS' COMP OPINION IN YOUR OPINION, WAS THE INCIDENT THAT THE PATIENT DESCRIBED THE COMPETENT MEDICAL CAUSE OF THIS INJURY/ILLNESS? YES ARE THE PATIENT'S COMPLAINTS CONSISTENT WITH HIS/HER HISTORY OF THE INJURY/ILLNESS? YES IS THE PATIENT'S HISTORY OF THE INJURY/ILLNESS CONSISTENT WITH YOUR OBJECTIVE FINDING? YES WHAT IS THE PERCENTAGE OF TEMPORARY IMPAIRMENT? MODERATE TO MARKED = 66.7% IS THE PATIENT WORKING? NO DOCTOR ON SITE: CONTRERAS PATEL MD PROCEDURE CODES FA211 ESTABILISHED PATIENT [facility] FACILITY CHARGE G8730 PAIN ASSESS POS TOOL F/U PLAN DOC G8427 DOC MEDS VERIFIED W/PT OR RE DISPOSITION & COMMUNICATION FOLLOW UP 6 WEEKS ELECTRONICALLY SIGNED BY CONTRERAS UNGER MD ON 03/25/2017 AT 06:05 PM EST DISCLAIMER : THIS IS A VISIT SUMMARY EXTRACTED FROM THE [employer] CHART. IT IS NOT A COPY OF THE [employer] PROGRESS NOTE. TALIA
== END ==
LOC: M PAIN 11:00
PROVIDERS: ATTEND Anesthesiology
DX: M51.16 Intervertebral disc disorders with radiculopathy, lumbar region (principal); M79.1 Myalgia; G89.29 Other chronic pain; Z79.899 Other long term (current) drug therapy; Z88.5 Allergy status to narcotic agent; Z88.8 Allergy status to other drugs, medicaments and biological substances; Z91.040 Latex allergy status; Z87.891 Personal history of nicotine dependence

== ENCOUNTER → 2017-04-17 | Outpatient (CLI) | payer OTHER ==
[~2017-04-17] MED LIST changes: -/ONDA4TA PO; -/QUET25TA PO; -/RISE30TA PO; -/SENOSTA PO; -AMBI12.52 PO; -AMBIEN PO; -ASPI325T PO; -ATEN25TA PO; -ATEN50TA2 PO; -ATIV0.5T PO; +BUPIVACAINE HCL 0.25% 10 ML VIAL As Ordered; +BUPIVACAINE HCL 0.25% 30 ML VIAL As Ordered; -CALC500T49 PO; -CETI10TA PO; -CLON-412 PO; -CLON1PA PO; -COLA100C2 PO; -COMBINATION CREAM TOP; -CYCL10TA PO; -DICY20TA11 PO; -ESTR0.5T PO; -FENT25DI22 TD; -FEXO180T58 PO; -FLUTISP; -FOSA70TA PO; -GABA100C PO; -HYDR500C PO; -HYDREA PO; -LINZ290C PO; -METH5TAB76 PO; -MULTIVIT PO; -NABUPOW PO; -OMEP20TA7 PO; -PERCTAB PO; -QUET30TA PO; -SAVE50TA PO; -SENN15TA2 PO; -SERO200T PO; -SERO50TA PO; +TRIAMCINOLONE ACETONIDE SUSP 40 MG/ML VIAL (J3301) As Ordered; -VENL100T PO; -[UNRECOGNIZED DRUG - CODE] PO; -[UNRECOGNIZED DRUG - CODE] PO; -[UNRECOGNIZED DRUG - OTHER] PO; +diazePAM 5 MG TAB As Ordered; +oxyCODONE 5MG TAB As Ordered
== END ==
LOC: M PAIN 10:30
DX: G89.29 Other chronic pain (principal); M54.6 Pain in thoracic spine; M54.5 Low back pain; M79.1 Myalgia; F31.9 Bipolar disorder, unspecified; F43.10 Post-traumatic stress disorder, unspecified; F40.10 Social phobia, unspecified; Z88.5 Allergy status to narcotic agent; Z88.8 Allergy status to other drugs, medicaments and biological substances; Z91.040 Latex allergy status; Z87.891 Personal history of nicotine dependence; Z86.79 Personal history of other diseases of the circulatory system; Z79.82 Long term (current) use of aspirin; Z79.891 Long term (current) use of opiate analgesic; Z79.899 Other long term (current) drug therapy
CPT/HCPCS: J3301

== ENCOUNTER → 2017-05-03 | Outpatient (CLI) | payer OTHER | LOC: M PAIN 14:15 | DX: M51.16 Intervertebral disc disorders with radiculopathy, lumbar region (principal); F31.9 Bipolar disorder, unspecified; F43.10 Post-traumatic stress disorder, unspecified; F40.11 Social phobia, generalized; Z79.891 Long term (current) use of opiate analgesic; Z79.899 Other long term (current) drug therapy; Z88.5 Allergy status to narcotic agent; Z88.8 Allergy status to other drugs, medicaments and biological substances; Z91.040 Latex allergy status; Z87.891 Personal history of nicotine dependence | CPT/HCPCS: G0463 ==

== ENCOUNTER → 2017-06-06 | Outpatient (CLI) | payer OTHER | LOC: M PAIN 14:30 | DX: M51.16 Intervertebral disc disorders with radiculopathy, lumbar region (principal); F31.9 Bipolar disorder, unspecified; I47.1 Supraventricular tachycardia; Z79.82 Long term (current) use of aspirin; Z79.891 Long term (current) use of opiate analgesic; Z79.899 Other long term (current) drug therapy; Z88.5 Allergy status to narcotic agent; Z88.8 Allergy status to other drugs, medicaments and biological substances; Z91.040 Latex allergy status; Z87.891 Personal history of nicotine dependence; Z85.6 Personal history of leukemia; Z86.59 Personal history of other mental and behavioral disorders; F43.10 Post-traumatic stress disorder, unspecified | CPT/HCPCS: G0463 ==

== ENCOUNTER → 2017-07-12 | Outpatient (CLI) | payer OTHER | LOC: M PAIN 14:30 | DX: G89.29 Other chronic pain (principal); M51.16 Intervertebral disc disorders with radiculopathy, lumbar region; F31.9 Bipolar disorder, unspecified; F43.10 Post-traumatic stress disorder, unspecified; Z79.82 Long term (current) use of aspirin; Z79.891 Long term (current) use of opiate analgesic; Z79.899 Other long term (current) drug therapy; Z87.891 Personal history of nicotine dependence; Z88.5 Allergy status to narcotic agent; Z88.8 Allergy status to other drugs, medicaments and biological substances; Z91.040 Latex allergy status; Z85.79 Personal history of other malignant neoplasms of lymphoid, hematopoietic and related tissues | CPT/HCPCS: G0463 ==

== ENCOUNTER → 2017-10-11 | Outpatient (CLI) | payer OTHER | LOC: M PAIN 10:15 | DX: M51.16 Intervertebral disc disorders with radiculopathy, lumbar region (principal); C80.1 Malignant (primary) neoplasm, unspecified; F31.9 Bipolar disorder, unspecified; F43.10 Post-traumatic stress disorder, unspecified; I47.1 Supraventricular tachycardia; K58.9 Irritable bowel syndrome, unspecified; Z79.891 Long term (current) use of opiate analgesic; Z79.82 Long term (current) use of aspirin; Z79.899 Other long term (current) drug therapy | CPT/HCPCS: G0463 ==

== ENCOUNTER → 2018-01-03 | Outpatient (CLI) | payer OTHER | LOC: M PAIN 10:30 | DX: M51.16 Intervertebral disc disorders with radiculopathy, lumbar region (principal); G89.29 Other chronic pain; F31.9 Bipolar disorder, unspecified; F43.10 Post-traumatic stress disorder, unspecified; F40.10 Social phobia, unspecified; Z79.82 Long term (current) use of aspirin; Z79.899 Other long term (current) drug therapy; Z88.5 Allergy status to narcotic agent; Z88.8 Allergy status to other drugs, medicaments and biological substances; Z91.040 Latex allergy status; Z87.891 Personal history of nicotine dependence | CPT/HCPCS: G0463 ==

== ENCOUNTER → 2018-03-11 | Outpatient (CLI) | payer OTHER ==
[2018-03-11 12:54] LABS: BASO % 0.7 % (0.0-1.0); EOS # 0.2 10^3/uL (0.0-0.50); EOS % 3.7 % (0.0-3.0); LYMPH # 1.5 10^3/uL (1.5-4.5); LYMPH % 38.2 % (24.0-44.0); MEAN CORPUSCULAR HEMOGLOBIN 34.1 pg (27.0-33.0); MEAN CORPUSCULAR HGB CONC 32.5 g/dl (32.0-36.5); MONO # 0.4 10^3/uL (0.0-0.8); MONO % 9.5 % (0.0-5.0); NEUTROPHILS # 1.9 10^3/uL (1.8-7.7); NEUTROPHILS % 47.9 % (36.0-66.0); PLATELET COUNT, AUTOMATED 387 10^3/uL (150-450); RED BLOOD COUNT 3.81 10^6/uL (4.00-5.40); RED CELL DISTRIBUTION WIDTH 13.1 % (11.5-14.5)
[2018-03-11 13:00] LABS: ALBUMIN 3.9 GM/DL (3.2-5.2); ALBUMIN/GLOBULIN RATIO 1.15 (1.00-1.93); ALKALINE PHOSPHATASE 78 U/L (45-117); ALT/SGPT 16 U/L (12-78); ANION GAP 3 MEQ/L (8-16); AST/SGOT 14 U/L (7-37); BILIRUBIN,TOTAL 0.3 MG/DL (0.2-1.0); BLOOD UREA NITROGEN 13 MG/DL (7-18); CARBON DIOXIDE LEVEL 31 MEQ/L (21-32); CHLORIDE LEVEL 106 MEQ/L (98-107); CREATININE FOR GFR 0.66 MG/DL (0.55-1.30); GLOMERULAR FILTRATION RATE > 60.0 (>51); GLUCOSE, FASTING 92 MG/DL (70-100); POTASSIUM SERUM 4.3 MEQ/L (3.5-5.1); SODIUM LEVEL 140 MEQ/L (136-145); TOTAL PROTEIN 7.3 GM/DL (6.4-8.2)
== END ==
LOC: M WUC 08:49
DX: M54.5 Low back pain (principal)
CPT/HCPCS: 80053

== ENCOUNTER → 2018-04-04 | Outpatient (CLI) | payer OTHER ==
[~2018-04-04] MED LIST changes: +/ONDA4TA PO; +/QUET25TA PO; +/RISE30TA PO; +/SENOSTA PO; +AMBI12.52 PO; +AMBIEN PO; +ASPI325T PO; +ATEN25TA PO; +ATEN50TA2 PO; +ATIV0.5T PO; -BUPIVACAINE HCL 0.25% 10 ML VIAL As Ordered; -BUPIVACAINE HCL 0.25% 30 ML VIAL As Ordered; +CALC500T49 PO; +CETI10CH PO; +CETI10TA PO; +CLON-412 PO; +CLON1PA PO; +COLA100C2 PO; +COMBINATION CREAM TOP; +CYCL10TA PO; +DICY20TA11 PO; +DOCU100C16 PO; +ESTR0.5T PO; +ESTR0.5T3 PO; +FENT25DI22 TD; +FEXO180T58 PO; +FLUTISP; +FOSA70TA PO; +GABA100C PO; +HYDR500C PO; +HYDR500C3 PO; +HYDREA PO; +LINZ290C PO; +LORA0.5T11 PO; +METH5TAB76 PO; +MOVA1TAB2 PO; +MULTCAP PO; +MULTIVIT PO; +NABUPOW PO; +OMEP20TA7 PO; +OXYC10TA3 PO; +PERCTAB PO; +QUET1TAB8 PO; +QUET30TA PO; +QUET5TAB PO; +SAVE50TA PO; +SENN15TA2 PO; +SENO8.6T10 PO; +SERO200T PO; +SERO50TA PO; -TRIAMCINOLONE ACETONIDE SUSP 40 MG/ML VIAL (J3301) As Ordered; +VENL100T PO; +VENL75CA47 PO; +ZOFR8TAB24 PO; +[UNRECOGNIZED DRUG - CODE] PO; +[UNRECOGNIZED DRUG - CODE] PO; +[UNRECOGNIZED DRUG - OTHER] PO; -diazePAM 5 MG TAB As Ordered; -oxyCODONE 5MG TAB As Ordered
--- NOTE | 2018-04-25 01:59 | ECWPNPC ---
PATIENT NAME: MOO PEDROZA : 1960 GENDER: FEMALE VISIT DATE: 04/04/2018 DISCHARGE DATE: 04/04/18 1044 VISIT LOCKED DATE TIME: PHYSICIAN: DEVAUGHN CLAYTON RESOURCE: DEVAUGHN CLAYTON REASON FOR APPOINTMENT 1. W/C BACK HISTORY OF PRESENT ILLNESS HISTORY OF PRESENT ILLNESS: HERE FOR F/U AND MEDICATION MANAGEMENT OF CHRONIC LOW BACK PAIN.THIS IS A WORK RELATED INJURY WITH [employer] 2006. HAD DCS PLACED IN [place] .SHE HAD COMPLICATION OF INFECTION.NOW DCS NOT WORKING AND SHE HAS A SCHEDULED APPOINTMENT FOR ADJUSTMENT.CURRENTLY USING ENDOCET 10/325 Q6H PRN AND FINDS THIS HELPFUL.STATES SHE FEELS BETTER WITHOUT FENTANYL PATCH.RATING PAIN VAS 7/10. PAIN THE PATIENT DESCRIBES THE PAIN... THE PATIENT DESCRIBES THE PAIN... FALL RISK SCREENING: SCREENING :NO FALLS IN THE PAST YEAR CURRENT MEDICATIONS TAKING METHYLPHENIDATE 10 MG TABLET TAKES 20 MGS ORALLY BID TAKING ALENDRONATE SODIUM 70 MG TABLET 1 TABLET ORALLY WEEKLY TAKING ATENOLOL 25 MG 1 TAB ORAL BID TAKING CALCIUM 500 MG TABLET 1 TABLET WITH MEALS ORALLY DAILY TAKING ZYRTEC 10 MG TABLET 1 TABLET ORALLY ONCE A DAY TAKING DOCUSATE SODIUM 100 MG CAPSULE ORALLY TWICE A DAY NEEDED TAKING FLONASE 1 SPRAY IN EACH NOSTRIL NASALLY DIRECTED TAKING HYDREA 1000 MG CAPSULE 1 CAP ORALLY DAILY TAKING LINZESS 290 MCG CAPSULE ONE P.O. DAILY TAKING ATIVAN 0.5 0.5MG TABLET TID ORAL DIRECTED TAKING MULTIVITAMIN TABLETS 1 TAB ORALLY DAILY TAKING SEROQUEL 100 100 MG TABLET 50MG IN AM AND AT HS ORAL DAILY TAKING EFFEXOR 75 MG TABLET 1 TABLET WITH FOOD ORALLY DAILY TAKING ESTRADIOL 0.5 MG TABLET 1 TABLET ORALLY DAILY TAKING ZOFRAN 8 MG TABLET 1 TABLET ORALLY EVERY 4 HOURS NEEDED TAKING PROTONIX 20 MG TABLET DELAYED RELEASE 1 TABLET ORALLY ONCE A DAY TAKING TIZANIDINE HCL 2 MG TABLET 1 TABLET NEEDED ORALLY EVERY 6 HOURS NEEDED MDD 3 TAKING CLONIDINE HCL 0.1 MG TABLET 1 ORALLY Q8H PRN MDD3 NEEDED TAKING MOVANTIK 25 MG TABLET 1 TABLET IN THE MORNING ORALLY ONCE A DAY (WORKERS COMPENSATION) TAKING ENDOCET 10-325 MG TABLET 1 TABLET NEEDED ORALLY EVERY 6 HRS PRN MDD4 NOT-TAKING ASPIRIN 325 MG TABLET 1 TABLET ORALLY ONCE A DAY NOT-TAKING HYDREA 500 MG CAPSULE ORALLY EVERY OTHER DAY NOT-TAKING FENTANYL 12 MCG/HR PATCH 72 HOUR 1 PATCH TO SKIN TRANSDERMAL 1 PATCH [id number] (WORKERS COMPENSATION) NOT-TAKING OXYCODONE-ACETAMINOPHEN 10-325 MG TABLET 1 TABLET NEEDED ORALLY FOR PAIN EVERY 6 HRS MDD4 (WORKERS COMPENSATION) MEDICATION LIST REVIEWED AND RECONCILED WITH THE PATIENT PAST MEDICAL HISTORY BLOOD CANCER BIPOLAR/SOCIAL ANXIETY PTSD BACK PAIN SVT HAMMERTOE IBS GERD ALLERGIES CODEINE SULFATE: NAUSEA/VOMITING: SIDE EFFECTS STADOL: ITCH: ALLERGY TRAMADOL: EXCESSIVE YAWNING: SIDE EFFECTS NUBAIN: REACTION AT SITE: SIDE EFFECTS HYDROXYZINE HCL: EXCESSIVE YAWNING: SIDE EFFECTS KETOROLAC TROMETHAMINE: EXCESSIVE YAWNING: SIDE EFFECTS LATEX (FOR ALLERGY USE ONLY): RASH: ALLERGY SURGICAL HISTORY PARTIAL HYSTERECTOMY RIGHT ELBOW FX WITH SURGICAL REPAIR SA NODE ABLATION GALL BLADDER REMOVAL BLADDER SUSPENSION HEMORRHOIDECTOMY NUMEROUS UTERINE ABLATIONS SOCIAL HISTORY GENERAL: TOBACCO USE ARE YOU A:FORMER SMOKER HOW LONG HAS IT BEEN SINCE YOU LAST SMOKED?> 10 YEARS ALCOHOL SCREENING DID YOU HAVE A DRINK CONTAINING ALCOHOL IN THE PAST YEAR?NO POINTS0 INTERPRETATIONNEGATIVE RECREATIONAL DRUG USE DRUG USE?NO CAFFEINE CAFFEINE USE?YES HOW OFTEN AND HOW MUCH? 3-4 CUPS COFFEE/DAY CONFUCIANIST [id number] JAINISM LANGUAGE LANGUAGES SPOKEN:MOHAWK LEARNING BARRIERS / SPECIAL NEEDS BARRIERS TO LEARNING?NO HEARING IMPAIRED?NO VISION IMPAIRED?YES COGNITIVELY IMPAIRED?NO READINESS TO LEARN?YES LEARNING PREFERENCES?YES :DEMONSTRATION/VERBAL INSTRUCTION LEARNING CAPABILITIES PRESENT?YES EMOTIONAL BARRIERS?NO SPECIAL DEVICES?NO SHANK BONER NEEDED?NO DOMESTIC VIOLENCE DO YOU FEEL SAFE IN YOUR ENVIRONMENT?YES MARITAL STATUS: . PAIN CLINIC PFS, CLERGY, PUBLIC HEALTH REFERRALS PFS REFERRAL NEEDED?NO CLERGY REFERRAL NEEDED?NO PUBLIC HEALTH REFERRAL NEEDED?NO WAS THE PROVIDER NOTIFIED OF ANY PERTINENT INFO? N/A HAS THE PATIENT BEEN EDUCATED REGARDING HIS/HER PLAN OF CARE?YES HAS THE PATIENT BEEN EDUCATED REGARDING PAIN, THE RISK FOR PAIN, THE IMPORTANCE OF EFFECTIVE PAIN MANAGEMENT, AND THE PAIN ASSESSMENT PROCESS?YES ADVANCE DIRECTIVE ADVANCE DIRECTIVE DISCUSSED WITH PATIENT:YES DECLINED 01/03/18 REVIEWED WITH PT. AD. HOSPITALIZATION/MAJOR DIAGNOSTIC PROCEDURE KIDNEY STONES SURGERIES REVIEW OF SYSTEMS REVIEWED BY: PROVIDER: DEVAUGHN KEN . CONSTITUTIONAL: ANY CHANGE IN YOUR MEDICAL CONDITION? NO . CHILLS NO . FEVER NO . INFECTION: DO YOU HAVE NEW INFECTIONS? YES, DCS PLACED 02/05/18 THEN BECAME INFECTED TX'D W ABX AND NOW RESOLVED . DO YOU HAVE HISTORY OF MRSA? NO . MUSCULOSKELETAL: ANY NEW PATTERNS OF PAIN OR NUMBNESS? NO . GASTROENTEROLOGY: ANY NEW CHANGE IN BOWEL CONTROL? NO . GENITOURINARY: ANY NEW CHANGE IN BLADDER CONTROL? NO . IS THERE A CHANCE YOU COULD BE ? NO . HEMATOLOGY/LYMPH: DO YOU TAKE ANY BLOOD THINNERS? (FOR EXAMPLE- COUMADIN, PLAVIX, AGGRENOX, PLATEL, PRADAXA, OR XARELTO) NO . WHEN WAS YOUR LAST DOSE? DATE: TIME: . NEUROLOGY: HAVE YOU FALLEN IN THE PAST 6 MONTHS? YES, FELL 01/2018 SLIPPED ON ICE DENIES INJURIES NEEDING TX . ANY NEW EXTREMITY NUMBNESS OR WEAKNESS? NO . CARDIOLOGY: DO YOU HAVE A PACEMAKER OR DEFIBRILLATOR? YES, DCS . RESPIRATORY: HAVE YOU BEEN SICK IN THE PAST WEEK? NO . FEVER NO . FLU LIKE SYMPTOMS? NO . COUGH NO . INTEGUMENTARY: DO YOU HAVE ANY RASHES OR OPEN SORES? NO . ALLERGIC/IMMUNO: ARE YOU ALLERGIC TO SHELLFISH OR IV DYE? NO . ANY NEW ALLERGIES? NO . PSYCHIATRIC: DO YOU HAVE THOUGHTS OF HURTING YOURSELF OR SOMEONE ELSE? NO . ARE YOU ABUSED, NEGLECTED, OR IN AN UNSAFE ENVIRONMENT? NO . ENDOCRINOLOGY: ARE YOU DIABETIC? NO . OTHER: DO YOU NEED ANY PRESCRIPTIONS? NO . IF YES, PLEASE LIST: ____ . ANY NEW PROBLEMS WITH YOUR MEDICATIONS? NO . WHEN DID YOU LAST EAT? ____ . WHEN DID YOU LAST DRINK? ____ . WHAT DID YOU LAST DRINK? ____ . NAME OF PERSON DRIVING YOU HOME? ____ . DO YOU HAVE ANY OTHER QUESTIONS OR CONCERNS YES, DCS NOT WORKING, GOING TO MEET WITH [place] THIS WEEK . VITAL SIGNS WT 178.2 LBS, HT 69 IN, BMI 26.31 INDEX, BP 123/80 MM HG, HR 83 /MIN, RR 16 /MIN, TEMP 98.4 F, OXYGEN SAT % 98%, NA INITIALS AW 1012, REVIEWED BY: EM. EXAMINATION GENERAL EXAMINATION: GENERAL APPEARANCE:AWAKE,ALERT ,PLEAASANT . PSYCHAFFECT NORMAL . LUNGS:LUNG DAVIS ARE CLEAR TO AUSCULTATION BILATERALLY. GOOD MOVEMENT OF AIR . HEART:S1, S2 IN A REGULAR RATE AND RHYTHM. NO SIGNIFICANT MURMURS, RUBS OR GALLOPS NOTED . ASSESSMENTS INTERVERTEBRAL DISC DISORDERS WITH RADICULOPATHY, LUMBAR REGION - M51.16 (PRIMARY) TREATMENT INTERVERTEBRAL DISC DISORDERS WITH RADICULOPATHY, LUMBAR REGION STOP TIZANIDINE HCL TABLET, 2 MG, 1 TABLET NEEDED, ORALLY, EVERY 6 HOURS NEEDED MDD 3 REFILL ENDOCET TABLET, 10-325 MG, 1 TABLET NEEDED, ORALLY, EVERY 6 HRS PRN MDD4, 30 DAY(S), 110, REFILLS 0 NOTES: ISTOP REGISTRY REVIEWED AND DEMONSTRATES COMPLLIANCE. (REF # [id number] ) BRINGS IN MEDICATIONS WHICH IS APPROPRIATE FOR WHAT WAS DISPENSED. RECENT URINE TOXICOLOGY REVIEWED. NO UNAUTHORIZED MEDICATIONS. NO ILLICIT SUBSTANCES AND PRESCRIBED MEDICATIONS WERE PRESENT. , RISKS AND BENEFITS OF NARCOTIC/OPIOD MEDICATIONS WERE REVIEWED WITH PATIENT - THIS INCLUDES BUT IS NOT LIMITED TO RISK OF DEPENDANCE/DEVELOPMENT OF ADDICTION, MOOD DISTURBANCE AND DEPRESSION, OSTEOPOROSIS, HORMONAL AND LABIDAL CHANGES, RESPIRATORY DEPRESSION AND . PATIENT IS ADVISED NOT TO DRIVE OR DRINK ALCOHOL WHILE ON THESE MEDICATIONS. PROCEDURES PN WORKMANS' COMP OPINION IN YOUR OPINION, WAS THE INCIDENT THAT THE PATIENT DESCRIBED THE COMPETENT MEDICAL CAUSE OF THIS INJURY/ILLNESS? YES ARE THE PATIENT'S COMPLAINTS CONSISTENT WITH HIS/HER HISTORY OF THE INJURY/ILLNESS? YES IS THE PATIENT'S HISTORY OF THE INJURY/ILLNESS CONSISTENT WITH YOUR OBJECTIVE FINDING? YES WHAT IS THE PERCENTAGE OF TEMPORARY IMPAIRMENT? MODERATE TO MARKED = 66.7% IS THE PATIENT WORKING? NO DOCTOR ON SITE: CONTRERAS PATEL MD PROCEDURE CODES FA211 ESTABILISHED PATIENT [facility] CHARGE DISPOSITION & COMMUNICATION FOLLOW UP 2 MONTHS ELECTRONICALLY SIGNED BY SUELLEN PIERRE ON 04/24/2018 AT 01:41 PM EST DISCLAIMER : THIS IS A VISIT SUMMARY EXTRACTED FROM THE [employer] CHART. IT IS NOT A COPY OF THE [employer] PROGRESS NOTE. TALAI
== END ==
LOC: M PAIN 09:45
PROVIDERS: ATTEND Nurse Practitioner Family
DX: M51.16 Intervertebral disc disorders with radiculopathy, lumbar region (principal); G89.29 Other chronic pain; K21.9 Gastro-esophageal reflux disease without esophagitis; F31.9 Bipolar disorder, unspecified; F43.10 Post-traumatic stress disorder, unspecified; F40.11 Social phobia, generalized; Z79.899 Other long term (current) drug therapy; Z88.5 Allergy status to narcotic agent; Z88.8 Allergy status to other drugs, medicaments and biological substances; Z96.9 Presence of functional implant, unspecified; Z91.040 Latex allergy status; Z86.2 Personal history of diseases of the blood and blood-forming organs and certain disorders involving the immune mechanism; Z87.891 Personal history of nicotine dependence

== ENCOUNTER → 2018-07-18 | Outpatient (CLI) | payer OTHER ==
[~2018-07-18] MED LIST changes: -/ONDA4TA PO; -/QUET25TA PO; -/SENOSTA PO; +ASPI-1 PO; +CHEW500C2 PO; -CLON1PA PO; +CLON1PAT PO; +FLUT1SPR2; -FLUTISP; +ONDA-1 PO; +OXYC1TAB30 PO; -PERCTAB PO; +SENO1TAB PO; +SERO1TAB3 PO; +TRUL3TAB PO
--- NOTE | 2018-08-05 00:58 | ECWPNPC ---
PATIENT NAME: MOO PEDROZA : 1960 GENDER: FEMALE VISIT DATE: 07/18/2018 DISCHARGE DATE: 07/18/18 1048 VISIT LOCKED DATE TIME: PHYSICIAN: DEVAUGHN CLAYTON RESOURCE: DEVAUGHN CLAYTON REASON FOR APPOINTMENT 1. W/C BACK HISTORY OF PRESENT ILLNESS HISTORY OF PRESENT ILLNESS: HERE FOR F/U AND MEDICATION MANAGEMENT OF CHRONIC LOW BACK PAIN.THIS IS A WORK RELATED INJURY WITH DOI 2006. HAD DCS PLACED IN [place] .SHE HAD COMPLICATION OF INFECTION.NOW DCS NOT WORKING AND SHE HAS A SCHEDULED APPOINTMENT FOR ADJUSTMENT.CURRENTLY USING ENDOCET 10/325 Q6H PRN AND FINDS THIS HELPFUL BUT IS HAVING SEVERAL EPISODES OF PAIN DESPITE THIS.STATES SHE FEELS BETTER WITHOUT FENTANYL PATCH.RATING PAIN VAS 8/10. PAIN THE PATIENT DESCRIBES THE PAIN... THE PATIENT DESCRIBES THE PAIN... THE PATIENT DESCRIBES THE PAIN... FALL RISK SCREENING: SCREENING :NO FALLS REPORTED IN THE LAST YEAR CURRENT MEDICATIONS TAKING METHYLPHENIDATE 10 MG TABLET TAKES 20 MGS ORALLY BID TAKING ALENDRONATE SODIUM 70 MG TABLET 1 TABLET ORALLY WEEKLY TAKING ATENOLOL 25 MG 1 TAB ORAL BID TAKING CALCIUM 500 MG TABLET 1 TABLET WITH MEALS ORALLY DAILY TAKING ZYRTEC 10 MG TABLET 1 TABLET ORALLY ONCE A DAY TAKING DOCUSATE SODIUM 100 MG CAPSULE ORALLY TWICE A DAY NEEDED TAKING FLONASE 1 SPRAY IN EACH NOSTRIL NASALLY DIRECTED TAKING HYDREA 1000 MG CAPSULE 1 CAP ORALLY DAILY TAKING ATIVAN 0.5 0.5MG TABLET TID ORAL DIRECTED TAKING MULTIVITAMIN TABLETS 1 TAB ORALLY DAILY TAKING SEROQUEL 100 100 MG TABLET 50MG IN AM AND AT HS ORAL DAILY TAKING EFFEXOR 75 MG TABLET 1 TABLET WITH FOOD ORALLY DAILY TAKING ESTRADIOL 0.5 MG TABLET 1 TABLET ORALLY DAILY TAKING ZOFRAN 8 MG TABLET 1 TABLET ORALLY EVERY 4 HOURS NEEDED TAKING PROTONIX 20 MG TABLET DELAYED RELEASE 1 TABLET ORALLY ONCE A DAY TAKING CLONIDINE HCL 0.1 MG TABLET 1 ORALLY Q8H PRN MDD3 NEEDED TAKING MOVANTIK 25 MG TABLET 1 TABLET IN THE MORNING ORALLY ONCE A DAY (WORKERS COMPENSATION) TAKING ENDOCET 10-325 MG TABLET 1 TABLET NEEDED ORALLY EVERY 6 HRS PRN MDD4 TAKING TRULANCE 3 MG TABLET 1 TABLET ORALLY ONCE A DAY NOT-TAKING LINZESS 290 MCG CAPSULE ONE P.O. DAILY NOT-TAKING ASPIRIN 325 MG TABLET 1 TABLET ORALLY ONCE A DAY NOT-TAKING HYDREA 500 MG CAPSULE ORALLY EVERY OTHER DAY NOT-TAKING FENTANYL 12 MCG/HR PATCH 72 HOUR 1 PATCH TO SKIN TRANSDERMAL 1 PATCH [id number] (WORKERS COMPENSATION) NOT-TAKING OXYCODONE-ACETAMINOPHEN 10-325 MG TABLET 1 TABLET NEEDED ORALLY FOR PAIN EVERY 6 HRS MDD4 (WORKERS COMPENSATION) MEDICATION LIST REVIEWED AND RECONCILED WITH THE PATIENT PAST MEDICAL HISTORY BLOOD CANCER BIPOLAR/SOCIAL ANXIETY PTSD BACK PAIN SVT HAMMERTOE IBS GERD ALLERGIES CODEINE SULFATE: NAUSEA/VOMITING - SIDE EFFECTS STADOL: ITCH - ALLERGY TRAMADOL: EXCESSIVE YAWNING - SIDE EFFECTS NUBAIN: REACTION AT SITE - SIDE EFFECTS HYDROXYZINE HCL: EXCESSIVE YAWNING - SIDE EFFECTS KETOROLAC TROMETHAMINE: EXCESSIVE YAWNING - SIDE EFFECTS LATEX (FOR ALLERGY USE ONLY): RASH - ALLERGY SURGICAL HISTORY PARTIAL HYSTERECTOMY RIGHT ELBOW FX WITH SURGICAL REPAIR SA NODE ABLATION GALL BLADDER REMOVAL BLADDER SUSPENSION HEMORRHOIDECTOMY NUMEROUS UTERINE ABLATIONS FAMILY HISTORY FATHER: ALIVE 84 YRS, POSSIBLE PROSTATE CANCER, MULTIPLE SCLEROSIS MOTHER: ALIVE 80 YRS SIBLINGS: ALIVE, BROTHER HAS HIGH CHOLESTEROL 1 BROTHER(S) , 1 SISTER(S) . 7DAUGHTER(S) . OLDER DAUGHTER -MARFANS SYNDROME, DIABETES AGE 10. SOCIAL HISTORY GENERAL: TOBACCO USE ARE YOU A:FORMER SMOKER HOW LONG HAS IT BEEN SINCE YOU LAST SMOKED?> 10 YEARS LATEX QUESTIONNAIRE LATEX ALLERGY : HAVE YOU EVER DEVELOPED ANY TYPE OF REACTION AFTER HANDLING LATEX PRODUCTS SUCH RUBBER GLOVES, CONDOMS, DIAPHRAGMS, BALLOONS, SOCKS, OR UNDERWEAR?YES - PLEASE INDICATE :RUBBER GLOVES LATEX ALLERGY : HAVE YOU EVER DEVELOPED ANY TYPE OF REACTION DURING OR AFTER DENTAL APPOINTMENT, VAGINAL/RECTAL EXAMINATION, SURGICAL PROCEDURE, OR ANY OTHER EXPOSURE?NO LATEX RISK : HAVE YOU EVER HAD ANY DIFFICULTY BREATHING OR HIVES AFTER EATING OR HANDLING ANY FRUITS, OR VEGETABLES; SUCH KIWI, BANANAS, STONE FRUITS, OR CHESTNUTSNO LATEX RISK : DO YOU HAVE A PREVIOUS PERSONAL HISTORY OF MORE THAN NINE SURGERIES, SPINA BIFIDA, OR REPEATED CATHERTIZATIONS? NO LATEX RISK : ARE YOU FREQUENTLY EXPOSED TO LATEX PRODUCTS IN YOUR OCCUPATION?NO DATE ASKED : 07/18/2018 ALCOHOL SCREENING DID YOU HAVE A DRINK CONTAINING ALCOHOL IN THE PAST YEAR?NO POINTS0 INTERPRETATIONNEGATIVE RECREATIONAL DRUG USE DRUG USE?NO CAFFEINE CAFFEINE USE?YES HOW OFTEN AND HOW MUCH? 3-4 CUPS COFFEE/DAY BUDDHIST [id number] RASTAFARIAN LANGUAGE LANGUAGES SPOKEN:TOGOLESE LEARNING BARRIERS / SPECIAL NEEDS BARRIERS TO LEARNING?NO HEARING IMPAIRED?NO VISION IMPAIRED?YES COGNITIVELY IMPAIRED?NO READINESS TO LEARN?YES LEARNING PREFERENCES?YES :DEMONSTRATION/VERBAL INSTRUCTION LEARNING CAPABILITIES PRESENT?YES EMOTIONAL BARRIERS?NO SPECIAL DEVICES?NO JAVA PROGRAMMING PROFESSOR NEEDED?NO DOMESTIC VIOLENCE DO YOU FEEL SAFE IN YOUR ENVIRONMENT?YES MARITAL STATUS: . PAIN CLINIC PFS, CLERGY, PUBLIC HEALTH REFERRALS PFS REFERRAL NEEDED?NO CLERGY REFERRAL NEEDED?NO PUBLIC HEALTH REFERRAL NEEDED?NO WAS THE PROVIDER NOTIFIED OF ANY PERTINENT INFO?YES N/A HAS THE PATIENT BEEN EDUCATED REGARDING HIS/HER PLAN OF CARE?YES HAS THE PATIENT BEEN EDUCATED REGARDING PAIN, THE RISK FOR PAIN, THE IMPORTANCE OF EFFECTIVE PAIN MANAGEMENT, AND THE PAIN ASSESSMENT PROCESS?YES ADVANCE DIRECTIVE ADVANCE DIRECTIVE DISCUSSED WITH PATIENT:YES PT DECLINED ASSISTANCE OR INFORMATION WITH HCP 01/03/18 REVIEWED WITH PT. AD. HOSPITALIZATION/MAJOR DIAGNOSTIC PROCEDURE KIDNEY STONES SURGERIES REVIEW OF SYSTEMS REVIEWED BY: PROVIDER: DEVAUGHN KEN . CONSTITUTIONAL: ANY CHANGE IN YOUR MEDICAL CONDITION? NO . CHILLS NO . FEVER NO . INFECTION: DO YOU HAVE NEW INFECTIONS? NO . DO YOU HAVE HISTORY OF MRSA? NO . MUSCULOSKELETAL: ANY NEW PATTERNS OF PAIN OR NUMBNESS? YES RIGHT SHOULDER, NECK . GASTROENTEROLOGY: ANY NEW CHANGE IN BOWEL CONTROL? NO . GENITOURINARY: ANY NEW CHANGE IN BLADDER CONTROL? NO . IS THERE A CHANCE YOU COULD BE ? NO . HEMATOLOGY/LYMPH: DO YOU TAKE ANY BLOOD THINNERS? (FOR EXAMPLE- COUMADIN, PLAVIX, AGGRENOX, PLATEL, PRADAXA, OR XARELTO) NO . WHEN WAS YOUR LAST DOSE? DATE: TIME: . NEUROLOGY: HAVE YOU FALLEN IN THE PAST 12 MONTHS? YES, PT STATES THAT SHE WAS AT DAUGHTERS HOUSE, SLIPPED ON ICE, NO REPORT TO ED . ANY NEW EXTREMITY NUMBNESS OR WEAKNESS? YES . CARDIOLOGY: DO YOU HAVE A PACEMAKER OR DEFIBRILLATOR? NO . RESPIRATORY: HAVE YOU BEEN SICK IN THE PAST WEEK? NO . FEVER NO . FLU LIKE SYMPTOMS? NO . COUGH NO . INTEGUMENTARY: DO YOU HAVE ANY RASHES OR OPEN SORES? NO . ALLERGIC/IMMUNO: ARE YOU ALLERGIC TO IV DYE? NO . ANY NEW ALLERGIES? NO . PSYCHIATRIC: DO YOU HAVE THOUGHTS OF HURTING YOURSELF OR SOMEONE ELSE? NO . ARE YOU ABUSED, NEGLECTED, OR IN AN UNSAFE ENVIRONMENT? NO . ENDOCRINOLOGY: ARE YOU DIABETIC? NO . OTHER: DO YOU NEED ANY PRESCRIPTIONS? PT STATES THAT SHE IS HAVING BREAK THROUGH PAIN AND FEELS THAT ENDOCET IS NOT WORKING . IF YES, PLEASE LIST: ____ . ANY NEW PROBLEMS WITH YOUR MEDICATIONS? NO . WHEN DID YOU LAST EAT? ____ . WHEN DID YOU LAST DRINK? ____ . WHAT DID YOU LAST DRINK? ____ . NAME OF PERSON DRIVING YOU HOME? ____ . DO YOU HAVE ANY OTHER QUESTIONS OR CONCERNS NO . VITAL SIGNS WT 176 LBS, HT 69 IN, BMI 25.99 INDEX, BP 121/78 MM HG, HR 70 /MIN, RR 16 /MIN, TEMP 98.6 F, OXYGEN SAT % 98%, SAFE IN ENV? (Y/N) Y, REVIEWED BY: DAGO. EXAMINATION GENERAL EXAMINATION: GENERAL APPEARANCE:AWAKE,ALERT ,PLEAASANT . PSYCHAFFECT NORMAL . LUNGS:LUNG DAVIS ARE CLEAR TO AUSCULTATION BILATERALLY. GOOD MOVEMENT OF AIR . HEART:S1, S2 IN A REGULAR RATE AND RHYTHM. NO SIGNIFICANT MURMURS, RUBS OR GALLOPS NOTED . ASSESSMENTS INTERVERTEBRAL DISC DISORDERS WITH RADICULOPATHY, LUMBAR REGION - M51.16 (PRIMARY) TREATMENT INTERVERTEBRAL DISC DISORDERS WITH RADICULOPATHY, LUMBAR REGION REFILL ENDOCET TABLET, 10-325 MG, 1 TABLET NEEDED, ORALLY, EVERY 6 HRS PRN MDD4, 30 DAY(S), 110, REFILLS 0 START TIZANIDINE HCL TABLET, 2 MG, 1 TABLET NEEDED, ORALLY, THREE TIMES A DAY, 30 DAY(S), 45, REFILLS 1 NOTES: ISTOP REGISTRY REVIEWED AND DEMONSTRATES COMPLLIANCE. (REF # [id number] ) BRINGS IN MEDICATIONS WHICH IS APPROPRIATE FOR WHAT WAS DISPENSED. RECENT URINE TOXICOLOGY REVIEWED. NO UNAUTHORIZED MEDICATIONS. NO ILLICIT SUBSTANCES AND PRESCRIBED MEDICATIONS WERE PRESENT. URINE TOX TODAY, RISKS AND BENEFITS OF NARCOTIC/OPIOD MEDICATIONS WERE REVIEWED WITH PATIENT - THIS INCLUDES BUT IS NOT LIMITED TO RISK OF DEPENDANCE/DEVELOPMENT OF ADDICTION, MOOD DISTURBANCE AND DEPRESSION, OSTEOPOROSIS, HORMONAL AND LABIDAL CHANGES, RESPIRATORY DEPRESSION AND . PATIENT IS ADVISED NOT TO DRIVE OR DRINK ALCOHOL WHILE ON THESE MEDICATIONS. PROCEDURES PN WORKMANS' COMP OPINION IN YOUR OPINION, WAS THE INCIDENT THAT THE PATIENT DESCRIBED THE COMPETENT MEDICAL CAUSE OF THIS INJURY/ILLNESS? YES ARE THE PATIENT'S COMPLAINTS CONSISTENT WITH HIS/HER HISTORY OF THE INJURY/ILLNESS? YES IS THE PATIENT'S HISTORY OF THE INJURY/ILLNESS CONSISTENT WITH YOUR OBJECTIVE FINDING? YES WHAT IS THE PERCENTAGE OF TEMPORARY IMPAIRMENT? MODERATE TO MARKED = 66.7% IS THE PATIENT WORKING? YES DOCTOR ON SITE: CONTRERAS PATEL MD PROCEDURE CODES FA211 ESTABILISHED PATIENT [facility] CHARGE DISPOSITION & COMMUNICATION FOLLOW UP 3 MONTHS ELECTRONICALLY SIGNED BY SUELLEN PIERRE ON 08/04/2018 AT 09:08 AM EDT DISCLAIMER : THIS IS A VISIT SUMMARY EXTRACTED FROM THE [employer] CHART. IT IS NOT A COPY OF THE [employer] PROGRESS NOTE. TALIA
== END ==
LOC: M PAIN 09:15
PROVIDERS: ATTEND Nurse Practitioner Family
DX: M51.16 Intervertebral disc disorders with radiculopathy, lumbar region (principal); G89.29 Other chronic pain; Z86.59 Personal history of other mental and behavioral disorders; K21.9 Gastro-esophageal reflux disease without esophagitis; Z87.891 Personal history of nicotine dependence; Z88.5 Allergy status to narcotic agent; Z88.8 Allergy status to other drugs, medicaments and biological substances; Z91.040 Latex allergy status; Z79.891 Long term (current) use of opiate analgesic; Z79.899 Other long term (current) drug therapy

== ENCOUNTER → 2018-10-10 | Outpatient (CLI) | payer OTHER ==
--- NOTE | 2018-10-21 02:54 | ECWPNPC ---
PATIENT NAME: MOO PEDROZA : 1960 GENDER: FEMALE VISIT DATE: 10/10/2018 DISCHARGE DATE: 10/10/18 1100 VISIT LOCKED DATE TIME: PHYSICIAN: DEVAUGHN CLAYTON RESOURCE: DEVAUGHN CLAYTON DISCLAIMER : THIS IS A VISIT SUMMARY EXTRACTED FROM THE [facility] CHART. IT IS NOT A COPY OF THE [employer] [facility] PROGRESS NOTE. TALIA
== END ==
LOC: M PAIN 10:00
PROVIDERS: ATTEND Nurse Practitioner Family
DX: M51.16 Intervertebral disc disorders with radiculopathy, lumbar region (principal); G89.29 Other chronic pain; Z86.59 Personal history of other mental and behavioral disorders; K21.9 Gastro-esophageal reflux disease without esophagitis; Z96.89 Presence of other specified functional implants; Z87.891 Personal history of nicotine dependence; Z88.5 Allergy status to narcotic agent; Z91.040 Latex allergy status; Z79.899 Other long term (current) drug therapy

== ENCOUNTER → 2019-01-23 | Outpatient (CLI) | payer OTHER ==
--- NOTE | 2019-02-07 02:33 | ECWPNPC ---
PATIENT NAME: MOO PEDROZA : 1960 GENDER: FEMALE VISIT DATE: 01/23/2019 DISCHARGE DATE: 01/23/19 1255 VISIT LOCKED DATE TIME: PHYSICIAN: DEVAUGHN CLAYTON RESOURCE: DEVAUGHN CLAYTON REASON FOR APPOINTMENT 1. W/C BACK HISTORY OF PRESENT ILLNESS HISTORY OF PRESENT ILLNESS: HERE FOR F/U AND MEDICATION MANAGEMENT OF CHRONIC LOW BACK PAIN.THIS IS A WORK RELATED INJURY WITH DOI 2006. [facility]FEELS DCS IS NOT WORKING AND IS GOING TO BE SEEN BY [employer] REP. IN NEAR FUTURE.SHE IS HAVING TROUBLE GETTING MEDICATION THROUGH [facility] LATELY.SHE HASNT HAD PERCOCET SINCE LAST FILL IN OCTOBER.SHE HAD COMPLICATION OF INFECTION.NOW DCS NOT WORKING AND SHE HAS A SCHEDULED APPOINTMENT FOR ADJUSTMENT.CURRENTLY USING ENDOCET 10/325 Q6H PRN AND FINDS THIS HELPFUL BUT IS HAVING SEVERAL EPISODES OF PAIN DESPITE THIS.STATES SHE FEELS BETTER WITHOUT FENTANYL PATCH.RATING PAIN VAS 8/10. PAIN THE PATIENT DESCRIBES THE PAIN... THE PATIENT DESCRIBES THE PAIN... THE PATIENT DESCRIBES THE PAIN... THE PATIENT DESCRIBES THE PAIN... THE PATIENT DESCRIBES THE PAIN... FALL RISK SCREENING: SCREENING :NO FALLS REPORTED IN THE LAST YEAR CURRENT MEDICATIONS TAKING METHYLPHENIDATE 10 MG TABLET TAKES 20 MGS ORALLY BID TAKING ALENDRONATE SODIUM 70 MG TABLET 1 TABLET ORALLY WEEKLY TAKING ATENOLOL 25 MG 1 TAB ORAL BID TAKING CALCIUM 500 MG TABLET 1 TABLET WITH MEALS ORALLY DAILY TAKING ZYRTEC 10 MG TABLET 1 TABLET ORALLY ONCE A DAY TAKING DOCUSATE SODIUM 100 MG CAPSULE ORALLY TWICE A DAY NEEDED TAKING FLONASE 1 SPRAY IN EACH NOSTRIL NASALLY DIRECTED TAKING HYDREA 1000 MG CAPSULE 1 CAP ORALLY DAILY TAKING ATIVAN 0.5 0.5MG TABLET TID ORAL DIRECTED TAKING MULTIVITAMIN TABLETS 1 TAB ORALLY DAILY TAKING SEROQUEL 100 100 MG TABLET 50MG IN AM AND AT HS ORAL DAILY TAKING EFFEXOR 75 MG TABLET 1 TABLET WITH FOOD ORALLY DAILY TAKING ESTRADIOL 0.5 MG TABLET 1 TABLET ORALLY DAILY TAKING ZOFRAN 8 MG TABLET 1 TABLET ORALLY EVERY 4 HOURS NEEDED TAKING PROTONIX 20 MG TABLET DELAYED RELEASE 1 TABLET ORALLY ONCE A DAY TAKING TRULANCE 3 MG TABLET 1 TABLET ORALLY ONCE A DAY TAKING TIZANIDINE HCL 6 MG CAPSULE 1 TABLET NEEDED ORALLY THREE TIMES A DAY TAKING MOVANTIK 25 MG TABLET 1 TABLET IN THE MORNING ORALLY ONCE A DAY (WORKERS COMPENSATION) TAKING ENDOCET 10-325 MG TABLET 1 TABLET NEEDED ORALLY EVERY 6 HRS PRN MDD4 NOT-TAKING OXYCODONE-ACETAMINOPHEN 10-325 MG TABLET 1 TABLET NEEDED ORALLY FOR PAIN EVERY 6 HRS MDD4 (WORKERS COMPENSATION) NOT-TAKING CLONIDINE HCL 0.1 MG TABLET 1 ORALLY Q8H PRN MDD3 NEEDED NOT-TAKING LINZESS 290 MCG CAPSULE ONE P.O. DAILY NOT-TAKING ASPIRIN 325 MG TABLET 1 TABLET ORALLY ONCE A DAY NOT-TAKING HYDREA 500 MG CAPSULE ORALLY EVERY OTHER DAY NOT-TAKING FENTANYL 12 MCG/HR PATCH 72 HOUR 1 PATCH TO SKIN TRANSDERMAL 1 PATCH [id number] (WORKERS COMPENSATION) MEDICATION LIST REVIEWED AND RECONCILED WITH THE PATIENT PAST MEDICAL HISTORY BLOOD CANCER BIPOLAR/SOCIAL ANXIETY PTSD BACK PAIN SVT HAMMERTOE IBS GERD ALLERGIES CODEINE SULFATE: NAUSEA/VOMITING - SIDE EFFECTS STADOL: ITCH - ALLERGY TRAMADOL: EXCESSIVE YAWNING - SIDE EFFECTS NUBAIN: REACTION AT SITE - SIDE EFFECTS HYDROXYZINE HCL: EXCESSIVE YAWNING - SIDE EFFECTS KETOROLAC TROMETHAMINE: EXCESSIVE YAWNING - SIDE EFFECTS LATEX (FOR ALLERGY USE ONLY): RASH - ALLERGY SURGICAL HISTORY PARTIAL HYSTERECTOMY RIGHT ELBOW FX WITH SURGICAL REPAIR SA NODE ABLATION GALL BLADDER REMOVAL BLADDER SUSPENSION HEMORRHOIDECTOMY NUMEROUS UTERINE ABLATIONS DORSAL COLUMN STIMULATOR 2017 FAMILY HISTORY FATHER: ALIVE 84 YRS, POSSIBLE PROSTATE CANCER, MULTIPLE SCLEROSIS MOTHER: ALIVE 80 YRS SIBLINGS: ALIVE, BROTHER HAS HIGH CHOLESTEROL 1 BROTHER(S) , 1 SISTER(S) . 7DAUGHTER(S) . OLDER DAUGHTER -MARFANS SYNDROME, DIABETES AGE 10. SOCIAL HISTORY GENERAL: TOBACCO USE ARE YOU A:FORMER SMOKER HOW LONG HAS IT BEEN SINCE YOU LAST SMOKED?> 10 YEARS PAIN CLINIC PFS, CLERGY, PUBLIC HEALTH REFERRALS PFS REFERRAL NEEDED?NO CLERGY REFERRAL NEEDED?NO PUBLIC HEALTH REFERRAL NEEDED?NO WAS THE PROVIDER NOTIFIED OF ANY PERTINENT INFO?YES N/A HAS THE PATIENT BEEN EDUCATED REGARDING HIS/HER PLAN OF CARE?YES HAS THE PATIENT BEEN EDUCATED REGARDING PAIN, THE RISK FOR PAIN, THE IMPORTANCE OF EFFECTIVE PAIN MANAGEMENT, AND THE PAIN ASSESSMENT PROCESS?YES LATEX QUESTIONNAIRE LATEX ALLERGY : HAVE YOU EVER DEVELOPED ANY TYPE OF REACTION AFTER HANDLING LATEX PRODUCTS SUCH RUBBER GLOVES, CONDOMS, DIAPHRAGMS, BALLOONS, SOCKS, OR UNDERWEAR?YES LATEX ALLERGY : HAVE YOU EVER DEVELOPED ANY TYPE OF REACTION DURING OR AFTER DENTAL APPOINTMENT, VAGINAL/RECTAL EXAMINATION, SURGICAL PROCEDURE, OR ANY OTHER EXPOSURE?NO - PLEASE INDICATE :RUBBER GLOVES DATE ASKED : 07/18/2018 LATEX RISK : HAVE YOU EVER HAD ANY DIFFICULTY BREATHING OR HIVES AFTER EATING OR HANDLING ANY FRUITS, OR VEGETABLES; SUCH KIWI, BANANAS, STONE FRUITS, OR CHESTNUTSNO LATEX RISK : DO YOU HAVE A PREVIOUS PERSONAL HISTORY OF MORE THAN NINE SURGERIES, SPINA BIFIDA, OR REPEATED CATHERIZATIONS? NO LATEX RISK : ARE YOU FREQUENTLY EXPOSED TO LATEX PRODUCTS IN YOUR OCCUPATION?NO CAFFEINE CAFFEINE USE?YES HOW OFTEN AND HOW MUCH? 3-4 CUPS COFFEE/DAY ADVANCE DIRECTIVE ADVANCE DIRECTIVE DISCUSSED WITH PATIENT:YES PT DECLINED ASSISTANCE OR INFORMATION WITH HCP TAOIST [id number] CHRISTIAN LANGUAGE LANGUAGES SPOKEN:PAPUA [place] DOMESTIC VIOLENCE DO YOU FEEL SAFE IN YOUR ENVIRONMENT?YES MARITAL STATUS: . ALCOHOL SCREENING DID YOU HAVE A DRINK CONTAINING ALCOHOL IN THE PAST YEAR?NO POINTS0 INTERPRETATIONNEGATIVE RECREATIONAL DRUG USE DRUG USE?NO LEARNING BARRIERS / SPECIAL NEEDS BARRIERS TO LEARNING?NO HEARING IMPAIRED?NO VISION IMPAIRED?YES COGNITIVELY IMPAIRED?NO READINESS TO LEARN?YES LEARNING PREFERENCES?YES :DEMONSTRATION/VERBAL INSTRUCTION LEARNING CAPABILITIES PRESENT?YES EMOTIONAL BARRIERS?NO SPECIAL DEVICES?NO PUBLIC ADDRESS ANNOUNCER NEEDED?NO 01/03/18 REVIEWED WITH PT. AD. HOSPITALIZATION/MAJOR DIAGNOSTIC PROCEDURE KIDNEY STONES SURGERIES REVIEW OF SYSTEMS REVIEWED BY: PROVIDER: DEVAUGHN KEN . CONSTITUTIONAL: ANY CHANGE IN YOUR MEDICAL CONDITION? NO . CHILLS NO . FEVER NO . INFECTION: DO YOU HAVE NEW INFECTIONS? NO . DO YOU HAVE HISTORY OF MRSA? NO . MUSCULOSKELETAL: ANY NEW PATTERNS OF PAIN OR NUMBNESS? NO . GASTROENTEROLOGY: ANY NEW CHANGE IN BOWEL CONTROL? NO . GENITOURINARY: ANY NEW CHANGE IN BLADDER CONTROL? NO . IS THERE A CHANCE YOU COULD BE ? NO . HEMATOLOGY/LYMPH: DO YOU TAKE ANY BLOOD THINNERS? (FOR EXAMPLE- COUMADIN, PLAVIX, AGGRENOX, PLATEL, PRADAXA, OR XARELTO) NO . WHEN WAS YOUR LAST DOSE? DATE: TIME: . NEUROLOGY: HAVE YOU FALLEN IN THE PAST 12 MONTHS? NO . ANY NEW EXTREMITY NUMBNESS OR WEAKNESS? NO . CARDIOLOGY: DO YOU HAVE A PACEMAKER OR DEFIBRILLATOR? YES, DCS NOT WORKING . RESPIRATORY: HAVE YOU BEEN SICK IN THE PAST WEEK? NO . FEVER NO . FLU LIKE SYMPTOMS? NO . COUGH NO . INTEGUMENTARY: DO YOU HAVE ANY RASHES OR OPEN SORES? NO . ALLERGIC/IMMUNO: ARE YOU ALLERGIC TO IV DYE? NO . ANY NEW ALLERGIES? NO . PSYCHIATRIC: DO YOU HAVE THOUGHTS OF HURTING YOURSELF OR SOMEONE ELSE? NO . ARE YOU ABUSED, NEGLECTED, OR IN AN UNSAFE ENVIRONMENT? NO . ENDOCRINOLOGY: ARE YOU DIABETIC? NO . OTHER: DO YOU NEED ANY PRESCRIPTIONS? YES, WORKMANS COMP HASN'T COVERED ENDOCET YET . IF YES, PLEASE LIST: ____ . ANY NEW PROBLEMS WITH YOUR MEDICATIONS? NO . WHEN DID YOU LAST EAT? ____ . WHEN DID YOU LAST DRINK? ____ . WHAT DID YOU LAST DRINK? ____ . NAME OF PERSON DRIVING YOU HOME? ____ . DO YOU HAVE ANY OTHER QUESTIONS OR CONCERNS NO . VITAL SIGNS WT 175 LBS, HT 69 IN, BMI 25.84 INDEX, BP 121/74 MM HG, HR 65 /MIN, RR 16 /MIN, TEMP 96.5 F, OXYGEN SAT % 99%, NA INITIALS SC 11:52, REVIEWED BY: EM. EXAMINATION GENERAL EXAMINATION: GENERALAWAKE,ALERT ,PLEAASANT . PSYCHAFFECT NORMAL . LUNGS:LUNG DAVIS ARE CLEAR TO AUSCULTATION BILATERALLY. GOOD MOVEMENT OF AIR . HEART:S1, S2 IN A REGULAR RATE AND RHYTHM. NO SIGNIFICANT MURMURS, RUBS OR GALLOPS NOTED . ASSESSMENTS INTERVERTEBRAL DISC DISORDERS WITH RADICULOPATHY, LUMBAR REGION - M51.16 (PRIMARY) TREATMENT INTERVERTEBRAL DISC DISORDERS WITH RADICULOPATHY, LUMBAR REGION CONTINUE TIZANIDINE HCL CAPSULE, 6 MG, 1 TABLET NEEDED, ORALLY, THREE TIMES A DAY CONTINUE MOVANTIK TABLET, 25 MG, 1 TABLET IN THE MORNING, ORALLY, ONCE A DAY (WORKERS COMPENSATION) CONTINUE ENDOCET TABLET, 10-325 MG, 1 TABLET NEEDED, ORALLY, EVERY 6 HRS PRN MDD4 NOTES: ISTOP REGISTRY REVIEWED AND DEMONSTRATES COMPLLIANCE. BRINGS IN MEDICATIONS WHICH IS APPROPRIATE FOR WHAT WAS DISPENSED. RECENT URINE TOXICOLOGY REVIEWED. NO UNAUTHORIZED MEDICATIONS. NO ILLICIT SUBSTANCES AND PRESCRIBED MEDICATIONS WERE PRESENT. . PROCEDURES PN WORKMANS' COMP OPINION IN YOUR OPINION, WAS THE INCIDENT THAT THE PATIENT DESCRIBED THE COMPETENT MEDICAL CAUSE OF THIS INJURY/ILLNESS? YES ARE THE PATIENT'S COMPLAINTS CONSISTENT WITH HIS/HER HISTORY OF THE INJURY/ILLNESS? YES IS THE PATIENT'S HISTORY OF THE INJURY/ILLNESS CONSISTENT WITH YOUR OBJECTIVE FINDING? YES WHAT IS THE PERCENTAGE OF TEMPORARY IMPAIRMENT? MODERATE TO MARKED = 66.7% IS THE PATIENT WORKING? YES DOCTOR ON SITE: CONTRERAS PATEL MD PROCEDURE CODES FA211 ESTABILISHED PATIENT [facility] CHARGE DISPOSITION & COMMUNICATION FOLLOW UP 2 MONTHS ELECTRONICALLY SIGNED BY SUELLEN PIERRE ON 02/06/2019 AT 08:43 AM EST DISCLAIMER : THIS IS A VISIT SUMMARY EXTRACTED FROM THE [employer] CHART. IT IS NOT A COPY OF THE [employer] PROGRESS NOTE. TALIA
== END ==
LOC: M PAIN 11:30
PROVIDERS: ATTEND Nurse Practitioner Family
DX: M51.16 Intervertebral disc disorders with radiculopathy, lumbar region (principal); G89.29 Other chronic pain; Z86.59 Personal history of other mental and behavioral disorders; K21.9 Gastro-esophageal reflux disease without esophagitis; Z87.891 Personal history of nicotine dependence; Z88.5 Allergy status to narcotic agent; Z88.8 Allergy status to other drugs, medicaments and biological substances; Z91.040 Latex allergy status; Z96.9 Presence of functional implant, unspecified; Z79.899 Other long term (current) drug therapy

== ENCOUNTER → 2019-03-11 | Outpatient (CLI) | payer OTHER ==
--- NOTE | 2019-03-27 03:13 | ECWPNPC ---
PATIENT NAME: MOO PEDROZA : 1960 GENDER: FEMALE VISIT DATE: 03/11/2019 DISCHARGE DATE: 03/11/19 1537 VISIT LOCKED DATE TIME: PHYSICIAN: DEVAUGHN CLAYTON RESOURCE: DEVAUGHN CLAYTON REASON FOR APPOINTMENT 1. W/C MEDS HISTORY OF PRESENT ILLNESS HISTORY OF PRESENT ILLNESS: HERE FOR F/U AND MEDICATION MANAGEMENT OF CHRONIC LOW BACK PAIN.THIS IS A WORK RELATED INJURY WITH DOI 2006. HAD DCS PLACED IN [place] .FEELS DCS IS NOT WORKING AND IS GOING TO BE SEEN BY [employer] REP. IN NEAR FUTURE.SHE IS HAVING TROUBLE GETTING MEDICATION THROUGH W/C LATELY.NOW DCS NOT WORKING AND SHE HAS APPOINTMENT SCHEDULED TO SEE IF IT CAM BE REMOVED.RECENT ADJUSTMENTS HAVENT BEEN HELPFUL.RATING PAIN VAS 8/10. PAIN THE PATIENT DESCRIBES THE PAIN... FALL RISK SCREENING: SCREENING :NO FALLS REPORTED IN THE LAST YEAR CURRENT MEDICATIONS TAKING METHYLPHENIDATE 10 MG TABLET TAKES 20 MGS ORALLY BID TAKING ALENDRONATE SODIUM 70 MG TABLET 1 TABLET ORALLY WEEKLY TAKING ATENOLOL 25 MG 1 TAB ORAL BID TAKING CALCIUM 500 MG TABLET 1 TABLET WITH MEALS ORALLY DAILY TAKING ZYRTEC 10 MG TABLET 1 TABLET ORALLY ONCE A DAY TAKING DOCUSATE SODIUM 100 MG CAPSULE ORALLY TWICE A DAY NEEDED TAKING FLONASE 1 SPRAY IN EACH NOSTRIL NASALLY DIRECTED TAKING HYDREA 1000 MG CAPSULE 1 CAP ORALLY DAILY TAKING ATIVAN 0.5 0.5MG TABLET TID ORAL DIRECTED TAKING MULTIVITAMIN TABLETS 1 TAB ORALLY DAILY TAKING SEROQUEL 100 100 MG TABLET 50MG IN AM AND AT HS ORAL DAILY TAKING EFFEXOR 75 MG TABLET 1 TABLET WITH FOOD ORALLY DAILY TAKING ESTRADIOL 0.5 MG TABLET 1 TABLET ORALLY DAILY TAKING ZOFRAN 8 MG TABLET 1 TABLET ORALLY EVERY 4 HOURS NEEDED TAKING PROTONIX 20 MG TABLET DELAYED RELEASE 1 TABLET ORALLY ONCE A DAY TAKING TRULANCE 3 MG TABLET 1 TABLET ORALLY ONCE A DAY TAKING TIZANIDINE HCL 6 MG CAPSULE 1 TABLET NEEDED ORALLY THREE TIMES A DAY TAKING MOVANTIK 25 MG TABLET 1 TABLET IN THE MORNING ORALLY ONCE A DAY (WORKERS COMPENSATION) TAKING ENDOCET 10-325 MG TABLET 1 TABLET NEEDED ORALLY EVERY 6 HRS PRN MDD4 TAKING CLONIDINE HCL 0.1 MG TABLET 1 ORALLY Q12H PRN FOR WITHDRAWAL SYMPTOMS NOT-TAKING OXYCODONE-ACETAMINOPHEN 10-325 MG TABLET 1 TABLET NEEDED ORALLY FOR PAIN EVERY 6 HRS MDD4 (WORKERS COMPENSATION) NOT-TAKING LINZESS 290 MCG CAPSULE ONE P.O. DAILY NOT-TAKING ASPIRIN 325 MG TABLET 1 TABLET ORALLY ONCE A DAY NOT-TAKING HYDREA 500 MG CAPSULE ORALLY EVERY OTHER DAY NOT-TAKING FENTANYL 12 MCG/HR PATCH 72 HOUR 1 PATCH TO SKIN TRANSDERMAL 1 PATCH [id number] (WORKERS COMPENSATION) MEDICATION LIST REVIEWED AND RECONCILED WITH THE PATIENT PAST MEDICAL HISTORY BLOOD CANCER BIPOLAR/SOCIAL ANXIETY PTSD BACK PAIN SVT HAMMERTOE IBS GERD ALLERGIES CODEINE SULFATE: NAUSEA/VOMITING - SIDE EFFECTS STADOL: ITCH - ALLERGY TRAMADOL: EXCESSIVE YAWNING - SIDE EFFECTS NUBAIN: REACTION AT SITE - SIDE EFFECTS HYDROXYZINE HCL: EXCESSIVE YAWNING - SIDE EFFECTS KETOROLAC TROMETHAMINE: EXCESSIVE YAWNING - SIDE EFFECTS LATEX (FOR ALLERGY USE ONLY): RASH - ALLERGY SURGICAL HISTORY PARTIAL HYSTERECTOMY RIGHT ELBOW FX WITH SURGICAL REPAIR SA NODE ABLATION GALL BLADDER REMOVAL BLADDER SUSPENSION HEMORRHOIDECTOMY NUMEROUS UTERINE ABLATIONS DORSAL COLUMN STIMULATOR 2017 FAMILY HISTORY FATHER: ALIVE 84 YRS, POSSIBLE PROSTATE CANCER, MULTIPLE SCLEROSIS MOTHER: ALIVE 80 YRS SIBLINGS: ALIVE, BROTHER HAS HIGH CHOLESTEROL 1 BROTHER(S) , 1 SISTER(S) . 7DAUGHTER(S) . OLDER DAUGHTER -MARFANS SYNDROME, DIABETES AGE 10. SOCIAL HISTORY GENERAL: TOBACCO USE ARE YOU A:FORMER SMOKER HOW LONG HAS IT BEEN SINCE YOU LAST SMOKED?> 10 YEARS PAIN CLINIC PFS, CLERGY, PUBLIC HEALTH REFERRALS PFS REFERRAL NEEDED?NO CLERGY REFERRAL NEEDED?NO PUBLIC HEALTH REFERRAL NEEDED?NO WAS THE PROVIDER NOTIFIED OF ANY PERTINENT INFO?YES N/A HAS THE PATIENT BEEN EDUCATED REGARDING HIS/HER PLAN OF CARE?YES HAS THE PATIENT BEEN EDUCATED REGARDING PAIN, THE RISK FOR PAIN, THE IMPORTANCE OF EFFECTIVE PAIN MANAGEMENT, AND THE PAIN ASSESSMENT PROCESS?YES LATEX QUESTIONNAIRE LATEX ALLERGY : HAVE YOU EVER DEVELOPED ANY TYPE OF REACTION AFTER HANDLING LATEX PRODUCTS SUCH RUBBER GLOVES, CONDOMS, DIAPHRAGMS, BALLOONS, SOCKS, OR UNDERWEAR?YES - PLEASE INDICATE :RUBBER GLOVES LATEX ALLERGY : HAVE YOU EVER DEVELOPED ANY TYPE OF REACTION DURING OR AFTER DENTAL APPOINTMENT, VAGINAL/RECTAL EXAMINATION, SURGICAL PROCEDURE, OR ANY OTHER EXPOSURE?NO LATEX RISK : HAVE YOU EVER HAD ANY DIFFICULTY BREATHING OR HIVES AFTER EATING OR HANDLING ANY FRUITS, OR VEGETABLES; SUCH KIWI, BANANAS, STONE FRUITS, OR CHESTNUTSNO LATEX RISK : DO YOU HAVE A PREVIOUS PERSONAL HISTORY OF MORE THAN NINE SURGERIES, SPINA BIFIDA, OR REPEATED CATHERIZATIONS? NO LATEX RISK : ARE YOU FREQUENTLY EXPOSED TO LATEX PRODUCTS IN YOUR OCCUPATION?NO DATE ASKED : 03/11/2019 CAFFEINE CAFFEINE USE?YES HOW OFTEN AND HOW MUCH? 3-4 CUPS COFFEE/DAY ADVANCE DIRECTIVE ADVANCE DIRECTIVE DISCUSSED WITH PATIENT:YES PT DECLINED ASSISTANCE OR INFORMATION WITH HCP CONFUCIANIST [id number] [place] LANGUAGE LANGUAGES SPOKEN:SINGAPOREAN DOMESTIC VIOLENCE DO YOU FEEL SAFE IN YOUR ENVIRONMENT?YES MARITAL STATUS: . ALCOHOL SCREENING DID YOU HAVE A DRINK CONTAINING ALCOHOL IN THE PAST YEAR?NO POINTS0 INTERPRETATIONNEGATIVE RECREATIONAL DRUG USE DRUG USE?NO LEARNING BARRIERS / SPECIAL NEEDS BARRIERS TO LEARNING?NO HEARING IMPAIRED?NO VISION IMPAIRED?YES COGNITIVELY IMPAIRED?NO READINESS TO LEARN?YES LEARNING PREFERENCES?YES :DEMONSTRATION/VERBAL INSTRUCTION LEARNING CAPABILITIES PRESENT?YES EMOTIONAL BARRIERS?NO SPECIAL DEVICES?NO POPULATION HEALTH COACH NEEDED?NO 01/03/18 REVIEWED WITH PT. BRYCEWED WITH PATIENT 03-11-19 DS. HOSPITALIZATION/MAJOR DIAGNOSTIC PROCEDURE KIDNEY STONES SURGERIES ER VISIT FOR BRONCHITIS 01/2019 REVIEW OF SYSTEMS REVIEWED BY: PROVIDER: DEVAUGHN KEN . CONSTITUTIONAL: ANY CHANGE IN YOUR MEDICAL CONDITION? NO . CHILLS NO . FEVER NO . INFECTION: DO YOU HAVE NEW INFECTIONS? NO . DO YOU HAVE HISTORY OF MRSA? NO . MUSCULOSKELETAL: ANY NEW PATTERNS OF PAIN OR NUMBNESS? YES, PT STATES THAT DCS IS NOT WORKING . GASTROENTEROLOGY: ANY NEW CHANGE IN BOWEL CONTROL? YES, PT STATE THAT SHE WILL BE GOING IN FOR COLONOSCOPY AND FEELS THAT IT MAY BE A DIVERTICULITIS. . GENITOURINARY: ANY NEW CHANGE IN BLADDER CONTROL? NO . IS THERE A CHANCE YOU COULD BE ? NO . HEMATOLOGY/LYMPH: DO YOU TAKE ANY BLOOD THINNERS? (FOR EXAMPLE- COUMADIN, PLAVIX, AGGRENOX, PLATEL, PRADAXA, OR XARELTO) NO . WHEN WAS YOUR LAST DOSE? DATE: TIME: . NEUROLOGY: HAVE YOU FALLEN IN THE PAST 12 MONTHS? NO . ANY NEW EXTREMITY NUMBNESS OR WEAKNESS? YES, PT STATES THAT NUMBNESS IS RADIATING DOWN RIGHT LEG. . CARDIOLOGY: DO YOU HAVE A PACEMAKER OR DEFIBRILLATOR? YES, DCS . RESPIRATORY: HAVE YOU BEEN SICK IN THE PAST WEEK? NO . FEVER NO . FLU LIKE SYMPTOMS? NO . COUGH NO . INTEGUMENTARY: DO YOU HAVE ANY RASHES OR OPEN SORES? NO . ALLERGIC/IMMUNO: ARE YOU ALLERGIC TO IV DYE? NO . ANY NEW ALLERGIES? NO . PSYCHIATRIC: DO YOU HAVE THOUGHTS OF HURTING YOURSELF OR SOMEONE ELSE? NO . ARE YOU ABUSED, NEGLECTED, OR IN AN UNSAFE ENVIRONMENT? NO . ENDOCRINOLOGY: ARE YOU DIABETIC? NO . OTHER: DO YOU NEED ANY PRESCRIPTIONS? NO . IF YES, PLEASE LIST: ____ . ANY NEW PROBLEMS WITH YOUR MEDICATIONS? PT STATES THAT SHE IS NOT ABLE TO GET ENDOCET FILLED DUE TO COMP, VERY FRUSTRATED, WOULD LIKE ADVICE FOR ANOTHER ALTERNATIVE FOR RELIEF. PT WOULD LIKE SOMETHING WITHOUT TYLENOL, POSSIBLY SOMETHING EXTENDED RELEASE. . WHEN DID YOU LAST EAT? ____ . WHEN DID YOU LAST DRINK? ____ . WHAT DID YOU LAST DRINK? ____ . NAME OF PERSON DRIVING YOU HOME? ____ . DO YOU HAVE ANY OTHER QUESTIONS OR CONCERNS NO . VITAL SIGNS WT 173.8 LBS, HT 69 IN, BMI 25.66 INDEX, BP 121/77 MM HG, HR 77 /MIN, RR 16 /MIN, TEMP 97.7 F, OXYGEN SAT % 96%, SAFE IN ENV? (Y/N) Y, NA INITIALS AW 1435, REVIEWED BY: DAGO. EXAMINATION GENERAL EXAMINATION: GENERAL AWAKE,ALERT ,PLEASANT . PSYCH AFFECT NORMAL . LUNGS: LUNG DAVIS ARE CLEAR TO AUSCULTATION BILATERALLY. GOOD MOVEMENT OF AIR . HEART: S1, S2 IN A REGULAR RATE AND RHYTHM. NO SIGNIFICANT MURMURS, RUBS OR GALLOPS NOTED . ASSESSMENTS INTERVERTEBRAL DISC DISORDERS WITH RADICULOPATHY, LUMBAR REGION - M51.16 (PRIMARY) TREATMENT INTERVERTEBRAL DISC DISORDERS WITH RADICULOPATHY, LUMBAR REGION REFILL OXYCODONE-ACETAMINOPHEN TABLET, 10-325 MG, 1 TABLET NEEDED, ORALLY FOR PAIN, EVERY 6 HRS MDD4 (WORKERS COMPENSATION), 30 DAY(S), 110, REFILLS 0 NOTES: ISTOP REGISTRY REVIEWED AND DEMONSTRATES COMPLLIANCE. BRINGS IN MEDICATIONS WHICH IS APPROPRIATE FOR WHAT WAS DISPENSED. RECENT URINE TOXICOLOGY REVIEWED. NO UNAUTHORIZED MEDICATIONS. NO ILLICIT SUBSTANCES AND PRESCRIBED MEDICATIONS WERE PRESENT. , RISKS OF NARCOTIC/OPIOD MEDICATIONS INCLUDES BUT IS NOT LIMITED TO RISK OF DEPENDANCE/DEVELOPMENT OF ADDICTION, MOOD DISTURBANCE AND DEPRESSION, OSTEOPOROSIS, HORMONAL AND LABIDAL CHANGES, RESPIRATORY DEPRESSION AND . PATIENT IS ADVISED NOT TO DRIVE OR DRINK ALCOHOL WHILE ON THESE MEDICATIONS. PROCEDURES PN WORKMANS' COMP OPINION IN YOUR OPINION, WAS THE INCIDENT THAT THE PATIENT DESCRIBED THE COMPETENT MEDICAL CAUSE OF THIS INJURY/ILLNESS? YES ARE THE PATIENT'S COMPLAINTS CONSISTENT WITH HIS/HER HISTORY OF THE INJURY/ILLNESS? YES IS THE PATIENT'S HISTORY OF THE INJURY/ILLNESS CONSISTENT WITH YOUR OBJECTIVE FINDING? YES WHAT IS THE PERCENTAGE OF TEMPORARY IMPAIRMENT? MODERATE TO MARKED = 66.7% IS THE PATIENT WORKING? YES DOCTOR ON SITE: CONTRERAS PATEL MD PROCEDURE CODES [id number] ESTABILISHED PATIENT [facility] CHARGE DISPOSITION & COMMUNICATION FOLLOW UP 2 MONTHS (REASON: W/C MED MGMNT) ELECTRONICALLY SIGNED BY SUELLEN PIERRE ON 03/26/2019 AT 10:14 AM EST DISCLAIMER : THIS IS A VISIT SUMMARY EXTRACTED FROM THE ECLINICALWORKS CHART. IT IS NOT A COPY OF THE ECLINICALWORKS PROGRESS NOTE. TALIA
== END ==
LOC: M PAIN 14:30
PROVIDERS: ATTEND Nurse Practitioner Family
DX: M51.16 Intervertebral disc disorders with radiculopathy, lumbar region (principal); G89.29 Other chronic pain; Z86.59 Personal history of other mental and behavioral disorders; K21.9 Gastro-esophageal reflux disease without esophagitis; Z87.891 Personal history of nicotine dependence; Z88.5 Allergy status to narcotic agent; Z88.8 Allergy status to other drugs, medicaments and biological substances; Z91.040 Latex allergy status; Z96.89 Presence of other specified functional implants; Z79.899 Other long term (current) drug therapy

== ENCOUNTER → 2019-05-12 | Outpatient (CLI) | payer OTHER ==
[~2019-05-12] MED LIST changes: -LORA0.5T11 PO; +LORA0.5T5 PO; +QUET100T2 PO; -QUET1TAB8 PO
--- NOTE | 2019-05-26 05:04 | ECWPNPC ---
PATIENT NAME: MOO PEDROZA : 1960 GENDER: FEMALE VISIT DATE: 05/12/2019 DISCHARGE DATE: 05/12/19 1506 VISIT LOCKED DATE TIME: PHYSICIAN: DEVAUGHN CLAYTON RESOURCE: DEVAUGHN CLAYTON REASON FOR APPOINTMENT 1. W/C MED MGMNT ON WAY HISTORY OF PRESENT ILLNESS HISTORY OF PRESENT ILLNESS: HERE FOR F/U AND MEDICATION MANAGEMENT OF CHRONIC LOW BACK PAIN.THIS IS A WORK RELATED INJURY WITH DOI 2006. [facility]FEELS DCS IS NOT WORKING AND IS GOING TO BE SEEN BY SONI MOREAU REAL ESTATE VALUER IN NEAR FUTURE TO SEE IF IT CAN BE REPROGRAMMED.RATING PAIN VAS 8/10.FINDS CURRENT CHRONIC PAIN MEDICATION EFFECTIVE AT REDUCING PAIN AND KEEPING HER COMFORTABLE. PAIN THE PATIENT DESCRIBES THE PAIN... FALL RISK SCREENING: SCREENING :NO FALLS REPORTED IN THE LAST YEAR CURRENT MEDICATIONS TAKING METHYLPHENIDATE 10 MG TABLET TAKES 20 MGS ORALLY BID TAKING ALENDRONATE SODIUM 70 MG TABLET 1 TABLET ORALLY WEEKLY TAKING ATENOLOL 25 MG 1 TAB ORAL BID TAKING CALCIUM 500 MG TABLET 1 TABLET WITH MEALS ORALLY DAILY TAKING ZYRTEC 10 MG TABLET 1 TABLET ORALLY ONCE A DAY TAKING DOCUSATE SODIUM 100 MG CAPSULE ORALLY TWICE A DAY NEEDED TAKING FLONASE 1 SPRAY IN EACH NOSTRIL NASALLY DIRECTED TAKING HYDREA 1000 MG CAPSULE 1 CAP ORALLY DAILY TAKING ATIVAN 0.5 0.5MG TABLET 0.25MG ORAL BID PRN TAKING MULTIVITAMIN TABLETS 1 TAB ORALLY DAILY TAKING SEROQUEL 100 100 MG TABLET 50MG IN AM AND 400MG AT HS ORAL DAILY TAKING EFFEXOR 75 MG TABLET 2 TABLET WITH FOOD ORALLY DAILY TAKING ESTRADIOL 0.5 MG TABLET 1 TABLET ORALLY DAILY TAKING ZOFRAN 8 MG TABLET 1 TABLET ORALLY EVERY 4 HOURS NEEDED TAKING PROTONIX 20 MG TABLET DELAYED RELEASE 1 TABLET ORALLY ONCE A DAY TAKING TRULANCE 3 MG TABLET 1 TABLET ORALLY ONCE A DAY TAKING TIZANIDINE HCL 6 MG CAPSULE 1 TABLET NEEDED ORALLY THREE TIMES A DAY TAKING MOVANTIK 25 MG TABLET 1 TABLET IN THE MORNING ORALLY ONCE A DAY (WORKERS COMPENSATION) TAKING CLONIDINE HCL 0.1 MG TABLET 1 ORALLY Q12H PRN FOR WITHDRAWAL SYMPTOMS TAKING ENDOCET 10-325 MG TABLET 1 TABLET NEEDED ORALLY EVERY 6 HRS PRN MDD4 NOT-TAKING LINZESS 290 MCG CAPSULE ONE P.O. DAILY NOT-TAKING ASPIRIN 325 MG TABLET 1 TABLET ORALLY ONCE A DAY NOT-TAKING HYDREA 500 MG CAPSULE ORALLY EVERY OTHER DAY NOT-TAKING FENTANYL 12 MCG/HR PATCH 72 HOUR 1 PATCH TO SKIN TRANSDERMAL 1 PATCH [id number] (WORKERS COMPENSATION) DISCONTINUED OXYCODONE-ACETAMINOPHEN 10-325 MG TABLET 1 TABLET NEEDED ORALLY FOR PAIN EVERY 6 HRS MDD4 (WORKERS COMPENSATION) MEDICATION LIST REVIEWED AND RECONCILED WITH THE PATIENT PAST MEDICAL HISTORY BLOOD CANCER BIPOLAR/SOCIAL ANXIETY PTSD BACK PAIN SVT HAMMERTOE IBS GERD ALLERGIES CODEINE SULFATE: NAUSEA/VOMITING - SIDE EFFECTS STADOL: ITCH - ALLERGY TRAMADOL: EXCESSIVE YAWNING - SIDE EFFECTS NUBAIN: REACTION AT SITE - SIDE EFFECTS HYDROXYZINE HCL: EXCESSIVE YAWNING - SIDE EFFECTS KETOROLAC TROMETHAMINE: EXCESSIVE YAWNING - SIDE EFFECTS LATEX (FOR ALLERGY USE ONLY): RASH - ALLERGY SURGICAL HISTORY PARTIAL HYSTERECTOMY RIGHT ELBOW FX WITH SURGICAL REPAIR SA NODE ABLATION GALL BLADDER REMOVAL BLADDER SUSPENSION HEMORRHOIDECTOMY NUMEROUS UTERINE ABLATIONS DORSAL COLUMN STIMULATOR 2017 FAMILY HISTORY FATHER: ALIVE 84 YRS, POSSIBLE PROSTATE CANCER, MULTIPLE SCLEROSIS MOTHER: ALIVE 80 YRS SIBLINGS: ALIVE, BROTHER HAS HIGH CHOLESTEROL 1 BROTHER(S) , 1 SISTER(S) . 7DAUGHTER(S) . OLDER DAUGHTER -MARFANS SYNDROME, DIABETES AGE 10. SOCIAL HISTORY GENERAL: TOBACCO USE ARE YOU A:FORMER SMOKER HOW LONG HAS IT BEEN SINCE YOU LAST SMOKED?> 10 YEARS PAIN CLINIC PFS, CLERGY, PUBLIC HEALTH REFERRALS PFS REFERRAL NEEDED?NO CLERGY REFERRAL NEEDED?NO PUBLIC HEALTH REFERRAL NEEDED?NO WAS THE PROVIDER NOTIFIED OF ANY PERTINENT INFO?YES N/A HAS THE PATIENT BEEN EDUCATED REGARDING HIS/HER PLAN OF CARE?YES HAS THE PATIENT BEEN EDUCATED REGARDING PAIN, THE RISK FOR PAIN, THE IMPORTANCE OF EFFECTIVE PAIN MANAGEMENT, AND THE PAIN ASSESSMENT PROCESS?YES LATEX QUESTIONNAIRE LATEX ALLERGY : HAVE YOU EVER DEVELOPED ANY TYPE OF REACTION AFTER HANDLING LATEX PRODUCTS SUCH RUBBER GLOVES, CONDOMS, DIAPHRAGMS, BALLOONS, SOCKS, OR UNDERWEAR?YES LATEX ALLERGY : HAVE YOU EVER DEVELOPED ANY TYPE OF REACTION DURING OR AFTER DENTAL APPOINTMENT, VAGINAL/RECTAL EXAMINATION, SURGICAL PROCEDURE, OR ANY OTHER EXPOSURE?NO - PLEASE INDICATE :RUBBER GLOVES DATE ASKED : 03/11/2019 LATEX RISK : HAVE YOU EVER HAD ANY DIFFICULTY BREATHING OR HIVES AFTER EATING OR HANDLING ANY FRUITS, OR VEGETABLES; SUCH KIWI, BANANAS, STONE FRUITS, OR CHESTNUTSNO LATEX RISK : DO YOU HAVE A PREVIOUS PERSONAL HISTORY OF MORE THAN NINE SURGERIES, SPINA BIFIDA, OR REPEATED CATHERIZATIONS? NO LATEX RISK : ARE YOU FREQUENTLY EXPOSED TO LATEX PRODUCTS IN YOUR OCCUPATION?NO CAFFEINE CAFFEINE USE?YES HOW OFTEN AND HOW MUCH? 3-4 CUPS COFFEE/DAY ADVANCE DIRECTIVE ADVANCE DIRECTIVE DISCUSSED WITH PATIENT:YES PT DECLINED ASSISTANCE OR INFORMATION WITH HCP [id number] [id number] [place]HA[place] LANGUAGE LANGUAGES SPOKEN:SAMI DOMESTIC VIOLENCE DO YOU FEEL SAFE IN YOUR ENVIRONMENT?YES MARITAL STATUS: . 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 ADREVIEWED WITH PATIENT 03-11-19 DS. HOSPITALIZATION/MAJOR DIAGNOSTIC PROCEDURE KIDNEY STONES SURGERIES ER VISIT FOR BRONCHITIS 01/2019 REVIEW OF SYSTEMS REVIEWED BY: PROVIDER: DEVAUGHN KEN . CONSTITUTIONAL: ANY CHANGE IN YOUR MEDICAL CONDITION? NO . CHILLS NO . FEVER NO . INFECTION: DO YOU HAVE NEW INFECTIONS? NO . DO YOU HAVE HISTORY OF MRSA? NO . MUSCULOSKELETAL: ANY NEW PATTERNS OF PAIN OR NUMBNESS? NO . GASTROENTEROLOGY: ANY NEW CHANGE IN BOWEL CONTROL? NO . GENITOURINARY: ANY NEW CHANGE IN BLADDER CONTROL? NO . IS THERE A CHANCE YOU COULD BE ? NO . HEMATOLOGY/LYMPH: DO YOU TAKE ANY BLOOD THINNERS? (FOR EXAMPLE- COUMADIN, PLAVIX, AGGRENOX, PLATEL, PRADAXA, OR XARELTO) NO . WHEN WAS YOUR LAST DOSE? DATE: TIME: . NEUROLOGY: HAVE YOU FALLEN IN THE PAST 12 MONTHS? NO . ANY NEW EXTREMITY NUMBNESS OR WEAKNESS? NO . CARDIOLOGY: DO YOU HAVE A PACEMAKER OR DEFIBRILLATOR? YES, DCS . RESPIRATORY: HAVE YOU BEEN SICK IN THE PAST WEEK? NO . FEVER NO . FLU LIKE SYMPTOMS? NO . COUGH NO . INTEGUMENTARY: DO YOU HAVE ANY RASHES OR OPEN SORES? NO . ALLERGIC/IMMUNO: ARE YOU ALLERGIC TO IV DYE? NO . ANY NEW ALLERGIES? NO . PSYCHIATRIC: DO YOU HAVE THOUGHTS OF HURTING YOURSELF OR SOMEONE ELSE? NO . ARE YOU ABUSED, NEGLECTED, OR IN AN UNSAFE ENVIRONMENT? NO . ENDOCRINOLOGY: ARE YOU DIABETIC? NO . OTHER: DO YOU NEED ANY PRESCRIPTIONS? YES, ENDOCET . IF YES, PLEASE LIST: ____ . ANY NEW PROBLEMS WITH YOUR MEDICATIONS? NO . WHEN DID YOU LAST EAT? ____ . WHEN DID YOU LAST DRINK? ____ . WHAT DID YOU LAST DRINK? ____ . NAME OF PERSON DRIVING YOU HOME? ____ . DO YOU HAVE ANY OTHER QUESTIONS OR CONCERNS DCS GOING TO BE REMOVED-SCARED . VITAL SIGNS WT 175.2 LBS, HT 69 IN, BMI 25.87 INDEX, BP 162/97 MM HG, HR 68 /MIN, RR 16 /MIN, TEMP 97.9 F, OXYGEN SAT % 92%, NA INITIALS AW 1436, REVIEWED BY: EM. EXAMINATION GENERAL EXAMINATION: GENERAL AWAKE,ALERT ,PLEASANT . PSYCH AFFECT NORMAL . LUNGS: LUNG DAVIS ARE CLEAR TO AUSCULTATION BILATERALLY. GOOD MOVEMENT OF AIR . HEART: S1, S2 IN A REGULAR RATE AND RHYTHM. NO SIGNIFICANT MURMURS, RUBS OR GALLOPS NOTED . ASSESSMENTS INTERVERTEBRAL DISC DISORDERS WITH RADICULOPATHY, LUMBAR REGION - M51.16 (PRIMARY) TREATMENT INTERVERTEBRAL DISC DISORDERS WITH RADICULOPATHY, LUMBAR REGION REFILL MOVANTIK TABLET, 25 MG, 1 TABLET IN THE MORNING, ORALLY, ONCE A DAY (WORKERS COMPENSATION), 30 DAYS, 30, REFILLS 5 REFILL ENDOCET TABLET, 10-325 MG, 1 TABLET NEEDED, ORALLY, EVERY 6 HRS PRN MDD4, 30 DAYS, 120, REFILLS 0 PROCEDURES PN WORKMANS' COMP OPINION IN YOUR OPINION, WAS THE INCIDENT THAT THE PATIENT DESCRIBED THE COMPETENT MEDICAL CAUSE OF THIS INJURY/ILLNESS? YES ARE THE PATIENT'S COMPLAINTS CONSISTENT WITH HIS/HER HISTORY OF THE INJURY/ILLNESS? YES IS THE PATIENT'S HISTORY OF THE INJURY/ILLNESS CONSISTENT WITH YOUR OBJECTIVE FINDING? YES WHAT IS THE PERCENTAGE OF TEMPORARY IMPAIRMENT? MODERATE TO MARKED = 66.7% IS THE PATIENT WORKING? YES DOCTOR ON SITE: CONTRERAS PATEL MD DISPOSITION & COMMUNICATION FOLLOW UP 2 MONTHS (REASON: W/C MED MGMNT) ELECTRONICALLY SIGNED BY SUELLEN PIERRE ON 05/25/2019 AT 04:34 PM EST DISCLAIMER : THIS IS A VISIT SUMMARY EXTRACTED FROM THE ECLINICALWORKS CHART. IT IS NOT A COPY OF THE ECLINICALWORKS PROGRESS NOTE. TALIA
== END ==
LOC: M PAIN 14:30
PROVIDERS: ATTEND Nurse Practitioner Family
DX: M51.16 Intervertebral disc disorders with radiculopathy, lumbar region (principal); G89.29 Other chronic pain; Z86.59 Personal history of other mental and behavioral disorders; K21.9 Gastro-esophageal reflux disease without esophagitis; Z87.891 Personal history of nicotine dependence; Z88.5 Allergy status to narcotic agent; Z88.8 Allergy status to other drugs, medicaments and biological substances; Z91.040 Latex allergy status; Z79.899 Other long term (current) drug therapy

== ENCOUNTER → 2019-07-24 | Outpatient (CLI) | payer BC, OTHER ==
[~2019-07-24] MED LIST changes: +CYCL-707 PO; -CYCL10TA PO
--- NOTE | 2019-07-24 13:36 | REP ---
ULTRASOUND ABDOMEN: Real-time sonographic evaluation of abdomen performed. The patient has had a prior cholecystectomy. There is expected prominence of the common bile duct measuring 9 mm. The echotexture of the liver is diffusely coarsened and heterogeneous. No gross liver mass is seen. No gross pancreatic mass is seen, evaluation is limited due to overlying bowel gas. Spleen is normal in size with no intrinsic abnormality, measuring 10.5 x 10.1 x 3.7 cm. Kidneys are normal in size and echotexture with no mass or hydronephrosis. Right kidney measures 10.2 x 6.2 x 5.1 cm and left kidney 10.2 x 5.1 x 6.0 cm. Proximal abdominal aorta is not visualized due to overlying bowel gas. Midabdominal aorta is 1.9 cm in AP dimension and distal abdominal aorta 1.6 cm, normal in caliber. No ascites is seen. IMPRESSION: Somewhat limited exam due to bowel gas. Status post cholecystectomy with expected prominence of the common bile duct measuring 9 mm. Heterogeneous echotexture of the liver with no gross mass. Spleen normal in size. No ascites. Electronically Signed by Gene Young MD 07/24/2019 03:07 P
== END ==
LOC: M RAD 09:04
PROVIDERS: ATTEND Internal Medicine Hematology
DX: D73.9 Disease of spleen, unspecified (principal)

== ENCOUNTER → 2019-08-10 | Outpatient (CLI) | payer OTHER ==
--- NOTE | 2019-08-13 04:27 | ECWPNPC ---
PATIENT NAME: MOO PEDROZA : 1960 GENDER: FEMALE VISIT DATE: 08/10/2019 DISCHARGE DATE: 08/10/19 09 VISIT LOCKED DATE TIME: PHYSICIAN: DEVAUGHN CLAYTON RESOURCE: DEVAUGHN CLAYTON REASON FOR APPOINTMENT 1. W/C MED [facility] [phone] HISTORY OF PRESENT ILLNESS GENERAL: PATIENT IS AGREEABLE TO TELEPHONE VISIT TODAY. THIS IS A FOLLOW-UP AND MEDICINE MANAGEMENT FOR CHRONIC LOW BACK PAIN WITH A HISTORY OF A WORK RELATED INJURY. RATING PAIN LEVEL A 7/10 VAS. FINDS CURRENT CHRONIC PAIN MEDICATION SOMEWHAT HELPFUL AT REDUCING HER PAIN AND KEEPING HER COMFORTABLE. IS SCHEDULED TO HAVE DORSAL COLUMN STIMULATOR REMOVED BY DR. UREÑA IN [place], [place] IN THE NEAR FUTURE. CURRENTLY USING ENDOCET 10/325 EVERY 6 HOURS WHEN NECESSARY FOR PAIN. DENIES ADVERSE EFFECTS. CURRENT MEDICATIONS TAKING ATENOLOL 25 MG 1 TAB ORAL BID TAKING CALCIUM 500 MG TABLET 1 TABLET WITH MEALS ORALLY DAILY TAKING ZYRTEC 10 MG TABLET 1 TABLET ORALLY ONCE A DAY TAKING DOCUSATE SODIUM 100 MG CAPSULE ORALLY TWICE A DAY NEEDED TAKING FLONASE 1 SPRAY IN EACH NOSTRIL NASALLY DIRECTED TAKING HYDREA 1000 MG CAPSULE 1 CAP ORALLY DAILY TAKING ATIVAN 0.5 0.5MG TABLET 0.25MG ORAL BID PRN TAKING MULTIVITAMIN TABLETS 1 TAB ORALLY DAILY TAKING SEROQUEL 100 100 MG TABLET 50MG IN AM AND 400MG AT HS ORAL DAILY TAKING ESTRADIOL 0.5 MG TABLET 1 TABLET ORALLY DAILY TAKING ZOFRAN 8 MG TABLET 1 TABLET ORALLY EVERY 4 HOURS NEEDED TAKING PROTONIX 20 MG TABLET DELAYED RELEASE 1 TABLET ORALLY ONCE A DAY TAKING TRULANCE 3 MG TABLET 1 TABLET ORALLY ONCE A DAY TAKING MOVANTIK 25 MG TABLET 1 TABLET IN THE MORNING ORALLY ONCE A DAY (WORKERS COMPENSATION) TAKING ENDOCET 10-325 MG TABLET 1 TABLET NEEDED ORALLY EVERY 6 HRS PRN MDD4 NOT-TAKING EFFEXOR 75 MG TABLET 2 TABLET WITH FOOD ORALLY DAILY NOT-TAKING CLONIDINE HCL 0.1 MG TABLET 1 ORALLY Q12H PRN FOR WITHDRAWAL SYMPTOMS NOT-TAKING TIZANIDINE HCL 6 MG CAPSULE 1 TABLET NEEDED ORALLY THREE TIMES A DAY NOT-TAKING LINZESS 290 MCG CAPSULE ONE P.O. DAILY NOT-TAKING ASPIRIN 325 MG TABLET 1 TABLET ORALLY ONCE A DAY NOT-TAKING HYDREA 500 MG CAPSULE ORALLY EVERY OTHER DAY NOT-TAKING FENTANYL 12 MCG/HR PATCH 72 HOUR 1 PATCH TO SKIN TRANSDERMAL 1 PATCH [id number] (WORKERS COMPENSATION) UNKNOWN METHYLPHENIDATE 10 MG TABLET TAKES 20 MGS ORALLY BID UNKNOWN ALENDRONATE SODIUM 70 MG TABLET 1 TABLET ORALLY WEEKLY MEDICATION LIST REVIEWED AND RECONCILED WITH THE PATIENT ALLERGIES NO[ALLERGIES VERIFIED] REVIEW OF SYSTEMS FOLLOW-UP ROS: CARDIOLOGY: NO CHEST PAIN, PALPITATIONS, ORTHOPNEA/PND . GASTROENTEROLOGY: FOLLOWING WITH GI SPECIALIST FOR AGGRAVATION IN AN ABDOMINAL PAIN WITH HISTORY OF IRRITABLE BOWEL. COLONOSCOPY IS SCHEDULED . NO GI/, NO DYSURIA, HEMATURIA . ASSESSMENTS INTERVERTEBRAL DISC DISORDERS WITH RADICULOPATHY, LUMBAR REGION - M51.16 (PRIMARY) TREATMENT INTERVERTEBRAL DISC DISORDERS WITH RADICULOPATHY, LUMBAR REGION CONTINUE MOVANTIK TABLET, 25 MG, 1 TABLET IN THE MORNING, ORALLY, ONCE A DAY (WORKERS COMPENSATION) REFILL ENDOCET TABLET, 10-325 MG, 1 TABLET NEEDED, ORALLY, EVERY 6 HRS PRN MDD4, 30 DAYS, 120, REFILLS 0 CONTINUE TIZANIDINE HCL CAPSULE, 6 MG, 1 TABLET NEEDED, ORALLY, THREE TIMES A DAY NOTES: ISTOP REGISTRY REVIEWED AND DEMONSTRATES COMPLLIANCE.RECENT URINE TOXICOLOGY REVIEWED. NO UNAUTHORIZED MEDICATIONS. NO ILLICIT SUBSTANCES AND PRESCRIBED MEDICATIONS WERE PRESENT. URINE TOX AT FOLLOW-UP TOTAL TIME SPENT DURING TELEPHONE VISIT WAS APPROXIMATELY 12 MINUTES. PROCEDURES PN WORKMANS' COMP OPINION IN YOUR OPINION, WAS THE INCIDENT THAT THE PATIENT DESCRIBED THE COMPETENT MEDICAL CAUSE OF THIS INJURY/ILLNESS? YES ARE THE PATIENT'S COMPLAINTS CONSISTENT WITH HIS/HER HISTORY OF THE INJURY/ILLNESS? YES IS THE PATIENT'S HISTORY OF THE INJURY/ILLNESS CONSISTENT WITH YOUR OBJECTIVE FINDING? YES WHAT IS THE PERCENTAGE OF TEMPORARY IMPAIRMENT? MODERATE TO MARKED = 66.7% IS THE PATIENT WORKING? YES DOCTOR ON SITE: [facility] MD DISPOSITION & COMMUNICATION FOLLOW UP 2 MONTHS (REASON: W/C MED MGMNT/URINE TOX) ELECTRONICALLY SIGNED BY SUELLEN PIERRE ON 08/12/2019 AT 09:12 AM EDT DISCLAIMER : THIS IS A VISIT SUMMARY EXTRACTED FROM THE [employer] CHART. IT IS NOT A COPY OF THE [employer] PROGRESS NOTE. TALIA
== END ==
LOC: M PAIN 14:30
PROVIDERS: ATTEND Nurse Practitioner Family
DX: M51.16 Intervertebral disc disorders with radiculopathy, lumbar region (principal); Z79.899 Other long term (current) drug therapy

== ENCOUNTER → 2019-12-11 | Outpatient (CLI) | payer BC ==
[~2019-12-11] MED LIST changes: +EFFE150C2 PO; -MOVA1TAB2 PO; +NALO25TA PO; +ONDA8TAB10 PO; +prozosin
== END ==
LOC: M PAIN 13:45
PROVIDERS: ATTEND Nurse Practitioner Family
DX: Z79.818 Long term (current) use of other agents affecting estrogen receptors and estrogen levels (principal)

== ENCOUNTER → 2019-12-25 | Outpatient (CLI) | payer BC ==
--- NOTE | 2020-01-04 13:26 | DEXA ---
AP SPINE L1 - L4 1.075 -1.0 0.2 LT FEMUR TOTAL 0.814 -1.5 -0.6 LT NECK 0.843 -1.4 -0.2 RT FEMUR TOTAL 0.827 -1.4 -0.5 RT NECK 0.895 -1.0 0.2 TOTAL BODY TOTAL OTHER COMMENTS: There is low bone density of the spine and hips. The density of the spine is increased 6.2% since 02/07/2015. The density of the left hip has decreased 1.7% since 02/07/2015. The density of the right hip has increased 1.2% since 02/07/2015. The increased density of the spine does represent a significant change. The decreased density of the left hip does not represent a significant change. The increased density of the right hip does not represent significant change. FOLLOW-UP: Recommendation for the next bone density exam: 2 years. TALIA
--- NOTE | 2020-01-07 07:57 | REP ---
BILATERAL SCREENING MAMMOGRAM WITH 3D TOMOSYNTHESIS COMPARISON: Mammogram OCHOA Bateman 02/03/2016 and 02/07/2015. HISTORY: No family history of breast cancer. Tyrer-Cuzick lifetime risk of breast cancer 7.4%. TECHNIQUE: Bilateral mammogram performed in the MLO and CC projections with 3D tomosynthesis. FINDINGS: Moderate fibroglandular tissue is seen bilaterally in a fairly symmetrical pattern. Volpara breast density is C. Medially in the right breast somewhat posteriorly, there is a smoothly marginated 4-mm nodular density. This is not seen on the MLO view. Otherwise, I see no mass bilaterally. There are no suspicious clusters of microcalcifications. There are course benign type calcifications bilaterally. IMPRESSION: ACR 0 incomplete. There appears to be a 4-mm nodular density medially in the right breast, only seen on the CC view. This is not seen on the prior studies. Recommend spot compression view of the right breast in the CC projection and a right ML tomographic sequence. Ultrasound may also be necessary. This mammogram was interpreted with the aid of an FDA approved computer-aided detection system. Patient states her last clinical breast exam was over one year ago. Patient letter: 0. MTDD
== END ==
LOC: M WHC 12:30
PROVIDERS: ATTEND Internal Medicine Hematology & Oncology
DX: R92.2 Inconclusive mammogram (principal); Z13.820 Encounter for screening for osteoporosis; N63.10 Unspecified lump in the right breast, unspecified quadrant; M85.851 Other specified disorders of bone density and structure, right thigh; M85.852 Other specified disorders of bone density and structure, left thigh; M85.88 Other specified disorders of bone density and structure, other site

== ENCOUNTER → 2020-01-08 | Outpatient (CLI) | payer OTHER ==
[~2020-01-08] MED LIST changes: -ONDA8TAB10 PO
--- NOTE | 2020-01-13 11:01 | ECWPNPC ---
PATIENT NAME: MOO PEDROZA : 1960 GENDER: FEMALE VISIT DATE: 01/08/2020 DISCHARGE DATE: 01/08/20 1504 VISIT LOCKED DATE TIME: PHYSICIAN: DEVAUGHN CLAYTON RESOURCE: DEVAUGHN CLAYTON REASON FOR APPOINTMENT 1. MED MGMT-DISCUSS INJECTION 2. SHE WOULD LIKE TO BE IN THE FIRST ROOM IF POSSIBLE. HISTORY OF PRESENT ILLNESS GENERAL: HERE FOR FOLLOW-UP OF PERSISTENT MID AND LOW BACK PAIN ON THE RIGHT SIDE. THIS IS A WORK RELATED INJURY. PAIN HAS INCREASED OVER THE PAST 4 MONTHS. HAD DORSAL COLUMN STIMULATOR REMOVED SEVERAL MONTHS AGO DUE TO THE FACT THAT IT WAS NOT HELPING. REVIEWED MRI OF THE LS-SPINE AND DISCUSS TREATMENT OPTIONS. - -. FALL RISK SCREENING: SCREENING :NO FALLS REPORTED IN THE LAST YEAR PAIN SCREENING: PATIENT HAS A COMPLAINT OF ACUTE OR CHRONIC PAIN :YES LOCATION OF PAIN: LOW BACK, NECK INTENSITY OF PAIN (SCALE OF 1 TO 10):8 WHAT DOES YOUR PAIN FEEL LIKE:CONTINOUS, STABBING DURATION:CONTINOUS, AWAKENS FROM SLEEP PAIN IS INCREASED BY:ACTIVITIES PLAN/GOALS/TREATMENT/INTERVENTION/FOLLOW UP:SEE PLAN NURSING NOTE: 01/08/20 1252 SUPERVISOR TELEPHONE CLERKS CALLED DR. CARDENAS'S OFFICE REQUESTING COPY OF CURRENT MRI OF LUMBAR SPINE ;[facility] OFFICE UNABLE TO LOCATE ANY LUMBAR IMAGING ON THIS PATIENT. SHELLEY HENDRICKSON RN, BSN.. -. PAIN CENTER INTAKE QUESTIONS: DO YOU HAVE A HISTORY OF MRSA? :NO DO YOU TAKE A BLOOD THINNERS? :NO DO YOU HAVE ANY BLEEDING DISORDERS? :NO ANY NEW NUMBNESS OR WEAKNESS IN YOUR LEGS OR ARMS? :NO ANY PACEMAKER,DEFIBRILLATOR, OR DORSAL COLUMN STIMULATOR? :NO DO YOU HAVE ANY RASHES OR OPEN SORES? :NO ARE YOU ALLERGIC TO IV DYE? :NO ARE YOU DIABETIC? :NO ANY NEW PROBLEMS WITH YOUR MEDICATIONS? :NO HAVE YOU RECEIVED A VACCINE IN THE PAST 30 DAYS? :YES FLU VACCINE ABOUT 30 DAYS AGO DO YOU PLAN TO RECEIVE A VACCINE IN THE NEXT 21 DAYS? :NO DO YOU NEED ANY PRESCRIPTION? :NO DO YOU TAKE ANY IMMUNOSUPPRESSIVE MEDICATIONS? :YES HYDERA IS THERE A CHANCE YOU COULD BE ? :NO ARE YOU BREAST FEEDING? :NO CURRENT MEDICATIONS TAKING ATENOLOL 25 MG 1 TAB ORAL BID TAKING CALCIUM 500 MG TABLET 1 TABLET WITH MEALS ORALLY DAILY TAKING ZYRTEC 10 MG TABLET 1 TABLET ORALLY ONCE A DAY TAKING DOCUSATE SODIUM 100 MG CAPSULE ORALLY TWICE A DAY NEEDED TAKING FLONASE 1 SPRAY IN EACH NOSTRIL NASALLY DIRECTED TAKING HYDREA 1000 MG CAPSULE 1 CAP ORALLY DAILY TAKING ATIVAN 0.5 0.5MG TABLET 0.25MG ORAL BID PRN TAKING MULTIVITAMIN TABLETS 1 TAB ORALLY DAILY TAKING SEROQUEL 100 100 MG TABLET 50MG IN AM AND 400MG AT HS ORAL DAILY TAKING ESTRADIOL 0.5 MG TABLET 1 TABLET ORALLY DAILY TAKING ZOFRAN 8 MG TABLET 1 TABLET ORALLY EVERY 4 HOURS NEEDED TAKING PROTONIX 20 MG TABLET DELAYED RELEASE 1 TABLET ORALLY ONCE A DAY TAKING TRULANCE 3 MG TABLET 1 TABLET ORALLY ONCE A DAY TAKING MOVANTIK 25 MG TABLET 1 TABLET IN THE MORNING ORALLY ONCE A DAY (WORKERS COMPENSATION) TAKING TIZANIDINE HCL 6 MG CAPSULE 1 TABLET NEEDED ORALLY THREE TIMES A DAY TAKING ENDOCET 10-325 MG TABLET 1 TABLET NEEDED ORALLY EVERY 6 HRS PRN MDD4 TAKING EFFEXOR 75 MG TABLET 2 TABLET WITH FOOD ORALLY DAILY NOT-TAKING CLONIDINE HCL 0.1 MG TABLET 1 ORALLY Q12H PRN FOR WITHDRAWAL SYMPTOMS NOT-TAKING LINZESS 290 MCG CAPSULE ONE P.O. DAILY NOT-TAKING ASPIRIN 325 MG TABLET 1 TABLET ORALLY ONCE A DAY NOT-TAKING HYDREA 500 MG CAPSULE ORALLY EVERY OTHER DAY NOT-TAKING FENTANYL 12 MCG/HR PATCH 72 HOUR 1 PATCH TO SKIN TRANSDERMAL 1 PATCH A94P=UTE2 (WORKERS COMPENSATION) UNKNOWN METHYLPHENIDATE 10 MG TABLET TAKES 20 MGS ORALLY BID UNKNOWN ALENDRONATE SODIUM 70 MG TABLET 1 TABLET ORALLY WEEKLY MEDICATION LIST REVIEWED AND RECONCILED WITH THE PATIENT PAST MEDICAL HISTORY BLOOD CANCER BIPOLAR/SOCIAL ANXIETY PTSD BACK PAIN SVT HAMMERTOE IBS GERD ALLERGIES CODEINE SULFATE: NAUSEA/VOMITING - SIDE EFFECTS STADOL: ITCH - ALLERGY TRAMADOL: EXCESSIVE YAWNING - SIDE EFFECTS NUBAIN: REACTION AT SITE - SIDE EFFECTS HYDROXYZINE HCL: EXCESSIVE YAWNING - SIDE EFFECTS KETOROLAC TROMETHAMINE: EXCESSIVE YAWNING - SIDE EFFECTS LATEX (FOR ALLERGY USE ONLY): RASH - ALLERGY SURGICAL HISTORY PARTIAL HYSTERECTOMY RIGHT ELBOW FX WITH SURGICAL REPAIR SA NODE ABLATION GALL BLADDER REMOVAL BLADDER SUSPENSION HEMORRHOIDECTOMY NUMEROUS UTERINE ABLATIONS DORSAL COLUMN STIMULATOR 2017 FAMILY HISTORY FATHER: ALIVE 84 YRS, POSSIBLE PROSTATE CANCER, MULTIPLE SCLEROSIS MOTHER: ALIVE 80 YRS SIBLINGS: ALIVE, BROTHER HAS HIGH CHOLESTEROL 1 BROTHER(S) , 1 SISTER(S) . 7DAUGHTER(S) . OLDER DAUGHTER -MARFANS SYNDROME, DIABETES AGE 10. SOCIAL HISTORY GENERAL: TOBACCO USE ARE YOU A:FORMER SMOKER HOW LONG HAS IT BEEN SINCE YOU LAST SMOKED?> 10 YEARS LATEX QUESTIONNAIRE LATEX ALLERGY : HAVE YOU EVER DEVELOPED ANY TYPE OF REACTION AFTER HANDLING LATEX PRODUCTS SUCH RUBBER GLOVES, CONDOMS, DIAPHRAGMS, BALLOONS, SOCKS, OR UNDERWEAR?YES LATEX ALLERGY : HAVE YOU EVER DEVELOPED ANY TYPE OF REACTION DURING OR AFTER DENTAL APPOINTMENT, VAGINAL/RECTAL EXAMINATION, SURGICAL PROCEDURE, OR ANY OTHER EXPOSURE?NO - PLEASE INDICATE :RUBBER GLOVES DATE ASKED : 03/11/2019 LATEX RISK : HAVE YOU EVER HAD ANY DIFFICULTY BREATHING OR HIVES AFTER EATING OR HANDLING ANY FRUITS, OR VEGETABLES; SUCH KIWI, BANANAS, STONE FRUITS, OR CHESTNUTSNO LATEX RISK : DO YOU HAVE A PREVIOUS PERSONAL HISTORY OF MORE THAN NINE SURGERIES, SPINA BIFIDA, OR REPEATED CATHERIZATIONS? NO LATEX RISK : ARE YOU FREQUENTLY EXPOSED TO LATEX PRODUCTS IN YOUR OCCUPATION?NO ALCOHOL SCREENING DID YOU HAVE A DRINK CONTAINING ALCOHOL IN THE PAST YEAR?NO POINTS0 INTERPRETATIONNEGATIVE RECREATIONAL DRUG USE DRUG USE?NO CAFFEINE CAFFEINE USE?YES HOW OFTEN AND HOW MUCH? 3-4 CUPS COFFEE/DAY VOODOO [id number] EPISCOPAL LANGUAGE LANGUAGES SPOKEN:AMERICAN LEARNING BARRIERS / SPECIAL NEEDS BARRIERS TO LEARNING?NO HEARING IMPAIRED?NO VISION IMPAIRED?YES COGNITIVELY IMPAIRED?NO READINESS TO LEARN?YES LEARNING PREFERENCES?YES :DEMONSTRATION/VERBAL INSTRUCTION LEARNING CAPABILITIES PRESENT?YES EMOTIONAL BARRIERS?NO SPECIAL DEVICES?NO INSPECTOR PUBLICATIONS NEEDED?NO DOMESTIC VIOLENCE DO YOU FEEL SAFE IN YOUR ENVIRONMENT?YES MARITAL STATUS: . PAIN CLINIC PFS, CLERGY, PUBLIC HEALTH REFERRALS PFS REFERRAL NEEDED?NO CLERGY REFERRAL NEEDED?NO PUBLIC HEALTH REFERRAL NEEDED?NO WAS THE PROVIDER NOTIFIED OF ANY PERTINENT INFO?YES N/A HAS THE PATIENT BEEN EDUCATED REGARDING HIS/HER PLAN OF CARE?YES HAS THE PATIENT BEEN EDUCATED REGARDING PAIN, THE RISK FOR PAIN, THE IMPORTANCE OF EFFECTIVE PAIN MANAGEMENT, AND THE PAIN ASSESSMENT PROCESS?YES ADVANCE DIRECTIVE ADVANCE DIRECTIVE DISCUSSED WITH PATIENT:YES PT DECLINED ASSISTANCE OR INFORMATION WITH HCP 01/03/18 REVIEWED WITH PT. ADREVIEWED WITH PATIENT 03-11-19 DS. HOSPITALIZATION/MAJOR DIAGNOSTIC PROCEDURE KIDNEY STONES SURGERIES ER VISIT FOR BRONCHITIS 01/2019 REVIEW OF SYSTEMS CONSTITUTIONAL: ANY RECENT FEVER NO . CHILLS NO . WEIGHT CHANGE OF UNKNOWN REASONS NO . GASTROENTEROLOGY: NEW UNEXPLAINABLE CHANGES IN BOWEL CONTROL NO . CONSTIPATION NO . GENITOURINARY: ANY NEW CHANGE IN BLADDER CONTROL? NO . NEUROLOGY: NEW ONSET DIZZINESS OR NEUROLOGICAL CHANGES NOT MENTIONED NO . NEW NUMBNESS OR PAIN PATTERNS NOT MENTIONED AND PERTINENT TO TODAY'S VISIT NO . CARDIOLOGY: NEW CHEST PRESSURE NO . NEW CHEST PAIN NO . RESPIRATORY: UNEXPLAINABLE COUGH NO . NEW SHORTNESS OF BREATH NO . VITAL SIGNS WT 174.6 LBS, HT 69 IN, BMI 25.78 INDEX, BP 144/93 MM HG, HR 67 /MIN, RR 18 /MIN, TEMP 97.0 F, OXYGEN SAT % 98%, SAFE IN ENV? (Y/N) Y, NA INITIALS AW 1407, REVIEWED BY: MT. EXAMINATION GENERAL EXAMINATION: LUNGS: LUNG SOUNDS ARE CLEAR . HEART: HEART RATE REGULAR . MUSCULOSKELETAL:*, MUSCLE STRENGTH TESTING 5/5 BILATERAL LOWER EXTREMITIES., ,PALPATION: POSITIVE FOR PAIN OVER L/S SPINE. POSITIVE FOR PAIN OVER L/S PARSPINALS.SPECIFIC POINT TENDERNESS OVER RIGHT L3-4, L4-5 LUMBR FACETS WITH FACET LOADING . DIAGNOSTIC:MRI L/S SPINE -2017. ASSESSMENTS SPONDYLOSIS OF LUMBOSACRAL JOINT - M47.817 (PRIMARY) TREATMENT SPONDYLOSIS OF LUMBOSACRAL JOINT CONTINUE DOCUSATE SODIUM CAPSULE, 100 MG, ORALLY, TWICE A DAY NEEDED CONTINUE MOVANTIK TABLET, 25 MG, 1 TABLET IN THE MORNING, ORALLY, ONCE A DAY (WORKERS COMPENSATION) CONTINUE TIZANIDINE HCL CAPSULE, 6 MG, 1 TABLET NEEDED, ORALLY, THREE TIMES A DAY REFILL ENDOCET TABLET, 10-325 MG, 1 TABLET NEEDED, ORALLY, EVERY 6 HRS PRN MDD4, 30 DAYS, 120, REFILLS 0 NOTES: RIGHT L3-4, L4-5 LUMBAR FACET BLOCK THERAPEUTIC-W/C , ISTOP REGISTRY REVIEWED AND DEMONSTRATES COMPLLIANCE. (REF # ) BRINGS IN MEDICATIONS WHICH IS APPROPRIATE FOR WHAT WAS DISPENSED. RECENT URINE TOXICOLOGY REVIEWED. NO UNAUTHORIZED MEDICATIONS. NO ILLICIT SUBSTANCES AND PRESCRIBED MEDICATIONS WERE PRESENT. , RISKS OF NARCOTIC/OPIOD MEDICATIONS INCLUDES BUT IS NOT LIMITED TO RISK OF DEPENDANCE/DEVELOPMENT OF ADDICTION, MOOD DISTURBANCE AND DEPRESSION, OSTEOPOROSIS, HORMONAL AND LABIDAL CHANGES, RESPIRATORY DEPRESSION AND . PATIENT IS ADVISED NOT TO DRIVE OR DRINK ALCOHOL WHILE ON THESE MEDICATIONS. PROCEDURES PN WORKMANS' COMP OPINION IN YOUR OPINION, WAS THE INCIDENT THAT THE PATIENT DESCRIBED THE COMPETENT MEDICAL CAUSE OF THIS INJURY/ILLNESS? YES ARE THE PATIENT'S COMPLAINTS CONSISTENT WITH HIS/HER HISTORY OF THE INJURY/ILLNESS? YES IS THE PATIENT'S HISTORY OF THE INJURY/ILLNESS CONSISTENT WITH YOUR OBJECTIVE FINDING? YES WHAT IS THE PERCENTAGE OF TEMPORARY IMPAIRMENT? MODERATE TO MARKED = 66.7% IS THE PATIENT WORKING? YES DOCTOR ON SITE: CONTRERAS PATEL MD PREVENTIVE MEDICINE PAIN CLINIC TEACHING: THE PATIENT HAS BEEN EDUCATED REGARDING PAIN, THE RISK FOR PAIN, THE IMPORTANCE OF EFFECTIVE PAIN MANAGEMENT, AND THE PAIN ASSESSMENT PROCESS. : PRE PROCEDURE INSTRUCTIONS DISCUSSED WITH PATIENT FOR THERAPEUTIC FACET BLOCK, PATIENT VERBALIZES UNDERSTANDING. PROCEDURE CODES FA211 ESTABILISHED PATIENT [facility] CHARGE DISPOSITION & COMMUNICATION FOLLOW UP POST PROCEDURE (REASON: RIGHT L3-4, L4-5 LUMBAR FACET BLOCK THERAPEUTIC) ELECTRONICALLY SIGNED BY SUELLEN PIERRE ON 01/13/2020 AT 09:10 AM EDT DISCLAIMER : THIS IS A VISIT SUMMARY EXTRACTED FROM THE [employer] CHART. IT IS NOT A COPY OF THE [employer] PROGRESS NOTE. TALIA
== END ==
LOC: M PAIN 14:15
PROVIDERS: ATTEND Nurse Practitioner Family
DX: M47.817 Spondylosis without myelopathy or radiculopathy, lumbosacral region (principal); K21.9 Gastro-esophageal reflux disease without esophagitis; Z86.59 Personal history of other mental and behavioral disorders; Z87.891 Personal history of nicotine dependence; Z88.5 Allergy status to narcotic agent; Z88.6 Allergy status to analgesic agent; Z88.8 Allergy status to other drugs, medicaments and biological substances; Z91.040 Latex allergy status; Z79.899 Other long term (current) drug therapy

== ENCOUNTER → 2020-03-03 | Outpatient (CLI) | payer BC, OTHER ==
[~2020-03-03] MED LIST changes: +CALC-362 PO; +CALC1TAB63 PO; -CHEW500C2 PO; +LORA1TAB4 PO; +ONDA8TAB10 PO
--- NOTE | 2020-03-04 08:50 | REP ---
INDICATION: R BREAST LUMP. Patient reports a lump in the upper-outer quadrant of the right breast. COMPARISON: Comparison is made with recent mammography December 25, 2019. On my review, which it must be noted is after the ultrasound was performed, I note that the recent mammography of 12/25/2019 was BI-RADS category 0 incomplete with the recommendation for diagnostic right breast mammography and possibly, focused right breast sonography due to a nodular density seen mammographically in the medial aspect of the right breast. This recommended diagnostic imaging does not appear to have been carried out as of this date. Today's sonography was of the upper outer quadrant. The medial aspect of the right breast was not scanned.. TECHNIQUE: Upper-outer quadrant targeted sonography right breast. FINDINGS: Scanning through the area where we are directed to evaluate the palpable lump in the upper-outer quadrant of the right breast demonstrates heterogeneous fibroglandular background echotexture. No cyst, mass, acoustic shadowing or other suspicious finding. Please note comments above: This ultrasound does NOT address the mammographic findings from 12/25/2019. IMPRESSION: BI-RADS category 0 incomplete right breast imaging. Today's sonography of the upper-outer quadrant of the right breast is BI-RADS category 1-. However, as noted above, the recommended diagnostic imaging from the 12/25/2019 screening mammography does not appear to have been carried out. RECOMMENDATION: As referenced and recommended on 12/25/2019. Diagnostic right breast mammography and targeted right breast sonography in the medial aspect of the right breast is recommended. <Electronically signed by Tristan Uriarte > 03/04/20 [id number]
== END ==
LOC: M WHC 15:48
PROVIDERS: ATTEND Student in an Organized Health Care Education/Training Program
DX: N63.11 Unspecified lump in the right breast, upper outer quadrant (principal)

== ENCOUNTER → 2020-04-02 | Outpatient (CLI) | payer OTHER | LOC: M LABSMTC 10:09 | PROVIDERS: ATTEND Anesthesiology | DX: Z20.828 Contact with and (suspected) exposure to other viral communicable diseases (principal) ==

== ENCOUNTER → 2020-04-07 | Outpatient (CLI) | payer OTHER ==
[~2020-04-07] MED LIST changes: +BUPIVACAINE HCL 0.25% 30ML VIAL As Ordered ONE; +ISOVUE-M 300 61% 15ML VIAL As Ordered ONE; +LIDOCAINE 1% SDV 30ML VIAL As Ordered ONE; +NORCO, ANEXSIA 5/325MG TABLET (HYDROcodone/ACETAMINOPHEN) As Ordered ONE; +TRIAMCINOLONE ACETONIDE SUSP 40 MG/ML VIAL (J3301) As Ordered ONE; +diazePAM 5MG TABLET As Ordered ONE
--- NOTE | 2020-04-07 11:05 | REP ---
INDICATION: RIGHT THERAPEUTIC LUMBAR FACET BLOCK L3-L4, L4-L5. COMPARISON: None. TECHNIQUE: Two views. 15.3 seconds of fluoroscopy time is reported. FINDINGS: A sequence of 2 last image hold fluoroscopically obtained spot radiograph(s) of the lumbar spine document(s) needle position(s) and contrast injection associated with injection procedure. IMPRESSION: Procedural imaging. <Electronically signed by Tristan Uriarte > 04/07/20 [id number]
--- NOTE | 2020-04-09 06:46 | ECWPNPC ---
PATIENT NAME: MOO PEDROZA : 1960 GENDER: FEMALE VISIT DATE: 04/07/2020 DISCHARGE DATE: 04/07/20 1123 VISIT LOCKED DATE TIME: PHYSICIAN: CONTRERAS UNGER MD RESOURCE: CONTRERAS UNGER MD REASON FOR APPOINTMENT 1. RIGHT THERAPEUTIC LUMBAR FACET BLOCK L3-L4, L4-L5 HISTORY OF PRESENT ILLNESS GENERAL: -. FALL RISK SCREENING: SCREENING :NO FALLS REPORTED IN THE LAST YEAR PAIN SCREENING: PATIENT HAS A COMPLAINT OF ACUTE OR CHRONIC PAIN :YES LOCATION OF PAIN:LOW BACK RIGHT LOW BACK AND BUTTOCK INTENSITY OF PAIN (SCALE OF 1 TO 10):8 WHAT DOES YOUR PAIN FEEL LIKE:STABBING, THROBBING DURATION:CONTINOUS PAIN IS INCREASED BY:ACTIVITIES, PROLONGED STANDING PAIN IS DECREASED BY:USE OF PAIN MEDICATIONS, SITTING NURSING NOTE: -. PAIN CENTER INTAKE QUESTIONS: DO YOU HAVE A HISTORY OF MRSA? :NO DO YOU TAKE A BLOOD THINNERS? :YES ASPIRIN 81 MG DAILY DO YOU HAVE ANY BLEEDING DISORDERS? :NO ANY NEW NUMBNESS OR WEAKNESS IN YOUR LEGS OR ARMS? :NO ANY PACEMAKER,DEFIBRILLATOR, OR DORSAL COLUMN STIMULATOR? :NO DO YOU HAVE ANY RASHES OR OPEN SORES? :NO ARE YOU ALLERGIC TO IV DYE? :NO ARE YOU DIABETIC? :NO ANY NEW PROBLEMS WITH YOUR MEDICATIONS? :NO HAVE YOU RECEIVED A VACCINE IN THE PAST 30 DAYS? :YES COVID VACCINE 04/04/20 MODERNA DO YOU PLAN TO RECEIVE A VACCINE IN THE NEXT 21 DAYS? :NO DO YOU NEED ANY PRESCRIPTION? :YES MOVANTIK DO YOU TAKE ANY IMMUNOSUPPRESSIVE MEDICATIONS? :NO HYDROXYUREA ANY HISTORY OF SEIZURES? :NO ANY HISTORY OF CARDIAC ISSUES OR EVENTS? :NO DO YOU HAVE SLEEP APNEA? :NO ANY RECENT HEAD INJURY? :NO DO YOU HAVE ANY NEW INFECTIONS? :NO IS THERE A CHANCE YOU COULD BE ? :NO ARE YOU BREAST FEEDING? :NO WHEN DID YOU LAST EAT? : -202004/06/20 WHEN DID YOU LAST DRINK? : -202904/06/20 WHAT DID YOU LAST DRINK? : -N/A NAME OF PERSON DRIVING YOU HOME? : -BANDAR () DO YOU HAVE ANY OTHER QUESTIONS OR CONCERNS? : -NO CURRENT MEDICATIONS TAKING ATENOLOL 25 MG 1 TAB ORAL BID, NOTES: 04/06/20 1900 TAKING CALCIUM 500 MG TABLET 1 TABLET WITH MEALS ORALLY DAILY TAKING ZYRTEC 10 MG TABLET 1 TABLET ORALLY ONCE A DAY TAKING FLONASE 1 SPRAY IN EACH NOSTRIL NASALLY DIRECTED TAKING HYDREA 1000 MG CAPSULE 1 CAP ORALLY DAILY, NOTES: 04/06/201899 TAKING ATIVAN 0.5 0.5MG TABLET 0.25MG ORAL BID PRN, NOTES: 04/06/201899 TAKING MULTIVITAMIN TABLETS 1 TAB ORALLY DAILY TAKING SEROQUEL 100 100 MG TABLET 400MG AT HS ORAL DAILY TAKING ESTRADIOL 0.5 MG TABLET 1 TABLET ORALLY DAILY TAKING ZOFRAN 8 MG TABLET 1 TABLET ORALLY EVERY 4 HOURS NEEDED TAKING PROTONIX 20 MG TABLET DELAYED RELEASE 1 TABLET ORALLY ONCE A DAY TAKING TRULANCE 3 MG TABLET 1 TABLET ORALLY ONCE A DAY TAKING EFFEXOR 75 MG TABLET 2 TABLET WITH FOOD ORALLY DAILY TAKING DOCUSATE SODIUM 100 MG CAPSULE ORALLY TWICE A DAY NEEDED TAKING MOVANTIK 25 MG TABLET 1 TABLET IN THE MORNING ORALLY ONCE A DAY (WORKERS COMPENSATION) TAKING TIZANIDINE HCL 6 MG CAPSULE 1 TABLET NEEDED ORALLY THREE TIMES A DAY TAKING ENDOCET 10-325 MG TABLET 1 TABLET NEEDED ORALLY EVERY 6 HRS PRN MDD4 NOT-TAKING CLONIDINE HCL 0.1 MG TABLET 1 ORALLY Q12H PRN FOR WITHDRAWAL SYMPTOMS NOT-TAKING LINZESS 290 MCG CAPSULE ONE P.O. DAILY NOT-TAKING ASPIRIN 325 MG TABLET 1 TABLET ORALLY ONCE A DAY NOT-TAKING HYDREA 500 MG CAPSULE ORALLY EVERY OTHER DAY NOT-TAKING FENTANYL 12 MCG/HR PATCH 72 HOUR 1 PATCH TO SKIN TRANSDERMAL 1 PATCH [id number] (WORKERS COMPENSATION) UNKNOWN METHYLPHENIDATE 10 MG TABLET TAKES 20 MGS ORALLY BID UNKNOWN ALENDRONATE SODIUM 70 MG TABLET 1 TABLET ORALLY WEEKLY PAST MEDICAL HISTORY BLOOD CANCER BIPOLAR/SOCIAL ANXIETY PTSD BACK PAIN SVT HAMMERTOE IBS GERD ALLERGIES CODEINE SULFATE: NAUSEA/VOMITING - SIDE EFFECTS STADOL: ITCH - ALLERGY TRAMADOL: EXCESSIVE YAWNING - SIDE EFFECTS NUBAIN: REACTION AT SITE - SIDE EFFECTS HYDROXYZINE HCL: EXCESSIVE YAWNING - SIDE EFFECTS KETOROLAC TROMETHAMINE: EXCESSIVE YAWNING - SIDE EFFECTS LATEX (FOR ALLERGY USE ONLY): RASH - ALLERGY SURGICAL HISTORY PARTIAL HYSTERECTOMY RIGHT ELBOW FX WITH SURGICAL REPAIR SA NODE ABLATION GALL BLADDER REMOVAL BLADDER SUSPENSION HEMORRHOIDECTOMY NUMEROUS UTERINE ABLATIONS DORSAL COLUMN STIMULATOR 2017 REMOVAL DORSAL COLUMN STIMULATOR 2019 FAMILY HISTORY FATHER: ALIVE 84 YRS, POSSIBLE PROSTATE CANCER, MULTIPLE SCLEROSIS MOTHER: ALIVE 80 YRS SIBLINGS: ALIVE, BROTHER HAS HIGH CHOLESTEROL 1 BROTHER(S) , 1 SISTER(S) . 7DAUGHTER(S) . OLDER DAUGHTER -MARFANS SYNDROME, DIABETES AGE 10. SOCIAL HISTORY GENERAL: TOBACCO USE ARE YOU A:FORMER SMOKER HOW LONG HAS IT BEEN SINCE YOU LAST SMOKED?> 10 YEARS LATEX QUESTIONNAIRE LATEX ALLERGY : HAVE YOU EVER DEVELOPED ANY TYPE OF REACTION AFTER HANDLING LATEX PRODUCTS SUCH RUBBER GLOVES, CONDOMS, DIAPHRAGMS, BALLOONS, SOCKS, OR UNDERWEAR?YES LATEX ALLERGY : HAVE YOU EVER DEVELOPED ANY TYPE OF REACTION DURING OR AFTER DENTAL APPOINTMENT, VAGINAL/RECTAL EXAMINATION, SURGICAL PROCEDURE, OR ANY OTHER EXPOSURE?NO - PLEASE INDICATE :RUBBER GLOVES DATE ASKED : 03/11/2019 LATEX RISK : HAVE YOU EVER HAD ANY DIFFICULTY BREATHING OR HIVES AFTER EATING OR HANDLING ANY FRUITS, OR VEGETABLES; SUCH KIWI, BANANAS, STONE FRUITS, OR CHESTNUTSNO LATEX RISK : DO YOU HAVE A PREVIOUS PERSONAL HISTORY OF MORE THAN NINE SURGERIES, SPINA BIFIDA, OR REPEATED CATHERIZATIONS? NO LATEX RISK : ARE YOU FREQUENTLY EXPOSED TO LATEX PRODUCTS IN YOUR OCCUPATION?NO ALCOHOL SCREENING DID YOU HAVE A DRINK CONTAINING ALCOHOL IN THE PAST YEAR?NO POINTS0 INTERPRETATIONNEGATIVE RECREATIONAL DRUG USE DRUG USE?NO CAFFEINE CAFFEINE USE?YES HOW OFTEN AND HOW MUCH? 3-4 CUPS COFFEE/DAY YAZIDISM [id number] CHRISTIANITY LANGUAGE LANGUAGES SPOKEN:PASHTO LEARNING BARRIERS / SPECIAL NEEDS BARRIERS TO LEARNING?NO HEARING IMPAIRED?YES DECREASED HEARING RIGHT EAR VISION IMPAIRED?YES :CORRECTIVE LENSES COGNITIVELY IMPAIRED?NO READINESS TO LEARN?YES LEARNING PREFERENCES?YES :DEMONSTRATION/VERBAL INSTRUCTION LEARNING CAPABILITIES PRESENT?YES EMOTIONAL BARRIERS?NO SPECIAL DEVICES?NO MH TEACHER NEEDED?NO DOMESTIC VIOLENCE DO YOU FEEL SAFE IN YOUR ENVIRONMENT?YES MARITAL STATUS: . PAIN CLINIC PFS, CLERGY, PUBLIC HEALTH REFERRALS PFS REFERRAL NEEDED?NO CLERGY REFERRAL NEEDED?NO PUBLIC HEALTH REFERRAL NEEDED?NO WAS THE PROVIDER NOTIFIED OF ANY PERTINENT INFO?YES N/A HAS THE PATIENT BEEN EDUCATED REGARDING HIS/HER PLAN OF CARE?YES HAS THE PATIENT BEEN EDUCATED REGARDING PAIN, THE RISK FOR PAIN, THE IMPORTANCE OF EFFECTIVE PAIN MANAGEMENT, AND THE PAIN ASSESSMENT PROCESS?YES ADVANCE DIRECTIVE ADVANCE DIRECTIVE DISCUSSED WITH PATIENT:YES PT DECLINED ASSISTANCE OR INFORMATION WITH HCP 01/03/18 REVIEWED WITH PT. BRYCEWED WITH PATIENT 03-11-19 DS. HOSPITALIZATION/MAJOR DIAGNOSTIC PROCEDURE KIDNEY STONES SURGERIES ER VISIT FOR BRONCHITIS 01/2019 VITAL SIGNS WT 176 LBS, HT 69 IN, BMI 25.99 INDEX, BP 112/74 MM HG, HR 94 /MIN, RR 18 /MIN, TEMP 97.4 F, OXYGEN SAT % 99%, SAFE IN ENV? (Y/N) YES, NA INITIALS SC 09:03REVIEWED AT APPROXIMATELY 0915. Delmy DUNN RN 04/07/20 1141. EXAMINATION GENERAL EXAMINATION: THE PATIENT IS ALERT, ORIENTED TIMES THREE AND COOPERATIVE. LUNGS ARE CLEAR TO AUSCULTATION. HEART SHOWS REGULAR RHYTHM, NO MURMURS AND NO GALLOPS. ASSESSMENTS SPONDYLOSIS WITHOUT MYELOPATHY OR RADICULOPATHY, LUMBAR REGION - M47.816 (PRIMARY) TREATMENT SPONDYLOSIS WITHOUT MYELOPATHY OR RADICULOPATHY, LUMBAR REGION [facility] FACET BLOCK (PAIN)[id number] MEDICATION: NORCO TABLET 5MG/325MG ORALLY (HYDROCODONE/ACETAMINOPHEN)MARIBELL SILVERMAN 04/07/2020 09:10:30 AM - GIVE 2 TABS CODIE DUNN RN 04/07/2020 9:34:32 AM > LOT [id number]. EXP 05/2021. DONOVAN HURTADO 04/07/2020 9:36:17 AM > VERIFIED CODIE DUNN RN 04/07/2020 9:42:09 AM > ADMINISTERED AT 0939. MEDICATION: VALIUM TAB 10MG ORALLY (DIAZEPAM)CODIE DUNN RN 04/07/2020 9:35:49 AM > LOT [id number]. EXPIRES 10/19. DONOVAN HURTADO 04/07/2020 9:36:34 AM > VERIFIED CODIE DUNN RN 04/07/2020 9:42:30 AM > ADMINISTERED AT 0939. PROCEDURES PAIN NURSING RECORD PROCEDURE IN ROOM 1005, PHYSICIAN IN ROOM 1038, START 1044, FINISH 1047, PHYSICIAN OUT OF ROOM 1049, OUT OF ROOM 1055, ECG NORMAL SINUS, PATIENT SHIELDED YES, SAFETY STRAP YES, PREP CHLOROPREP Neel HURTADO RN, Delmy DUNN RN, DRESSING TEGADERM LOC: CODIE DUNN RN 04/07/2020 10:07:32 AM > , 1. ALERT, ORIENTED SPINACI,CODIE A, RN 04/07/2020 10:12:23 AM > 2. DROWSY, RESPONDS APPROPRIATELY, SPINACI,CODIE A, RN 04/07/2020 10:27:28 AM > , 2. DROWSY, RESPONDS APPROPRIATELY SPINACI,CODIE A, RN 04/07/2020 10:42:25 AM > , 2. DROWSY, RESPONDS APPROPRIATELY SPINACI,CODIE A, RN 04/07/2020 10:55:17 AM > , 1. ALERT, ORIENTED SPINACI,CODIE A, RN 04/07/2020 11:10:37 AM > , 1. ALERT, ORIENTED RESP: SPINACI,CODIE A, RN 04/07/2020 10:07:58 AM > , 1. REGULAR, NO DYSPNEA SPINACI,CODIE A, RN 04/07/2020 10:12:08 AM > 1. REGULAR, NO DYSPNEA, SPINACI,CODIE A, RN 04/07/2020 10:27:16 AM > , 1. REGULAR, NO DYSPNEA SPINACI,CODIE A, RN 04/07/2020 10:42:50 AM > , 1. REGULAR, NO DYSPNEA SPINACI,CODIE A, RN 04/07/2020 10:55:36 AM > , 1. REGULAR, NO DYSPNEA SPINACI,CODIE A, RN 04/07/2020 11:10:05 AM > , 1. REGULAR, NO DYSPNEA COLOR: SPINACI,CODIE A, RN 04/07/2020 10:07:18 AM > , 1. PINK SPINACI,CODIE A, RN 04/07/2020 10:12:47 AM > 1. PINK, SPINACI,CODIE A, RN 04/07/2020 10:27:53 AM > , 1. PINK SPINACI,CODIE A, RN 04/07/2020 10:42:49 AM > , 1. PINK SPINACI,CODIE A, RN 04/07/2020 10:55:20 AM > , 1. PINK SPINACI,CODIE A, RN 04/07/2020 11:10:19 AM > , 1. PINK SKIN: SPINACI,CODIE A, RN 04/07/2020 10:07:31 AM > , 1. WARM, DRY SPINACI,CODIE A, RN 04/07/2020 10:12:21 AM > , 1. WARM, DRY CODIE DUNN RN 04/07/2020 10:27:05 AM > , 1. WARM, DRY CAMRYNBREANNECODIE, RN 04/07/2020 10:42:39 AM > , 1. WARM, DRY CODIE DUNN, RN 04/07/2020 10:55:41 AM > , 1. WARM, DRY CODIE DUNN, RN 04/07/2020 11:10:34 AM > , 1. WARM, DRY POSITION: CODIE DUNN RN 04/07/2020 10:07:46 AM > , 1. PRONE CODIE DUNN RN 04/07/2020 11:10:27 AM > , 5. SITTING VITALS: CODIE DUNN RN 04/07/2020 10:07:23 AM > 60-16 97% 117/70 CODIE DUNN, RN 04/07/2020 10:12:44 AM > 60-16 97% 117/70 CODIE DUNN, RN 04/07/2020 10:27:22 AM > 59-16 96% 117/70 CODIE DUNN, RN 04/07/2020 10:42:28 AM > 59-16 97% 117/69 CODIE DUNN, RN 04/07/2020 10:55:09 AM > 61-16 97% 114/68 CODIE DUNN, RN 04/07/2020 11:10:38 AM > 72-16 97% 111/71 NOTES CODIE DUNN RN 04/07/2020 9:39:56 AM > INSTRUCTED REGARDING POTENTIAL DROWSINESS AND DIZZINESS AFTER MEDICATIONS. SIDE RAILS UP. CALL FIGUEROA PLACED IN REACH. INSTRUCTED TO CALL IF NEEDS TO GET OOB. DISCHARGE: POST PAIN 1, DRESSING SITE DRY AND INTACT, IV N/A, GAIT STEADY, TEACHING COMPLETED, PATIENT ACKNOWLEDGES UNDERSTANDING YES, PATIENT DISCHARGED AT 1120 PN WORKMANS' COMP OPINION IN YOUR OPINION, WAS THE INCIDENT THAT THE PATIENT DESCRIBED THE COMPETENT MEDICAL CAUSE OF THIS INJURY/ILLNESS? YES ARE THE PATIENT'S COMPLAINTS CONSISTENT WITH HIS/HER HISTORY OF THE INJURY/ILLNESS? YES IS THE PATIENT'S HISTORY OF THE INJURY/ILLNESS CONSISTENT WITH YOUR OBJECTIVE FINDING? YES WHAT IS THE PERCENTAGE OF TEMPORARY IMPAIRMENT? MODERATE TO MARKED = 66.7% . IS THE PATIENT WORKING? NO . DOCTOR ON SITE: CONTRERAS PATEL MD PN LUMBAR FACET BLOCK THERAPEUTIC PRE PROCEDURE DIAGNOSIS LUMBAR SPONDYLOSIS POST PROCEDURE DIAGNOSIS LUMBAR SPONDYLOSIS PROCEDURE RIGHT L3-L4 AND RIGHT L4-L5 LUMBAR FACET THERAPEUTIC BLOCK SURGEON DR. CONTRERAS UNGER DIRECTOR OF RECRUITMENT NONE ANESTHESIA LOCAL PRE PROCEDURE NOTE THE PATIENT HAS A HISTORY OF CHRONIC LOW BACK PAIN. I EVALUATED THE PATIENT AND REVIEWED THE CHART. I WENT OVER THE RISKS, ALTERNATIVES, AND BENEFITS ASSOCIATED WITH THIS PROCEDURE. THE PATIENT WOULD LIKE TO PROCEED AND GIVES CONSENT TO PERFORM THE PROCEDURE. THE PATIENT DENIES UNEXPLAINABLE WEIGHT LOSS, FEVER, CHILLS, OR NEW CHANGES IN URINARY OR BOWEL CONTROL. THE PATIENT IS COVID-19 NEGATIVE DESCRIPTION OF PROCEDURE THE PATIENT WAS BROUGHT TO THE PROCEDURE ROOM AND PLACED IN THE PRONE POSITION. THE LUMBOSACRAL AREA WAS CLEANED WITH CHLORAPREP SOLUTION AND DRAPED ASEPTICALLY. THE PROCEDURE WAS DONE UNDER STERILE CONDITIONS. A TIMEOUT WAS PERFORMED WHERE LATERALITY AND THE SITE OF THE PROCEDURE WERE CHECKED AND CONFIRMED WITH EVERYONE IN THE ROOM. UNDER FLUOROSCOPIC GUIDANCE, THE TARGET POINT WAS SELECTED AT THE RIGHT L3-L4 AND RIGHT L4-L5 FACET JOINTS. TARGET POINT WAS SELECTED AFTER LATERAL ROTATION AND TILT OF THE MAGNIFIER OF THE C-ARM. I CONFIRMED AGAIN WITH EVERYONE IN THE ROOM THE LATERALITY AND SITE OF THE TARGET AT 1042. LIDOCAINE 0.5% WAS USED TO NUMB THE SKIN AND THE SUBCUTANEOUS TISSUE BELOW IT. SPINAL NEEDLES, 22-GAUGE, WERE ADVANCED UNDER FLUOROSCOPIC GUIDANCE AND FOLLOWING PATIENT FEEDBACK UNTIL THE TARGETS WERE TOUCHED. THE POSITION OF THE NEEDLES WAS VERIFIED WITH AP AND LATERAL VIEWS. AFTER PROPER POSITION OF THE NEEDLES WAS ACHIEVED, ISOVUE-M DYE 30%, 0.1 ML, WAS INJECTED SHOWING ADEQUATE SPREAD OF THE DYE. KENALOG 20 MG WAS INJECTED AT EACH SITE. THEN, A SOLUTION OF 1.0 ML OF BUPIVACAINE 0.125% OF WAS USED TO FLUSH EACH SITE. THE MEDICATION WAS VERIFIED WITH THE NURSE. THERE WAS NO EVIDENCE OF BLOOD, PARESTHESIA OR CEREBROSPINAL FLUID DURING THE PROCEDURE. THE PATIENT WAS SENT TO THE RECOVERY ROOM. THE PATIENT WAS MOVING THE EXTREMITIES AND DOING WELL. THERE WERE NO COMPLICATIONS DURING THE PROCEDURE. ESTIMATED BLOOD LOSS WAS LESS THAN 5 ML. FLUOROSCOPY TIME WAS 15 SECONDS POST PROCEDURE NOTE THE PATIENT WILL BE SEEN IN A FOLLOW UP IN THE NEXT FEW WEEKS. I AM LOOKING FOR LONG LASTING RELIEF FOR THE PATIENT WITH THIS INTERVENTION. INSTRUCTIONS WERE GIVEN, QUESTIONS WERE ANSWERED, AND THE PATIENT EXPRESSED UNDERSTANDING AND AGREES WITH THE PLAN. I, MARIBELL SILVERMAN, DOCUMENTED THE ABOVE INFORMATION ACTING A SCRIBE FOR DR. UNGER. I HAVE REVIEWED THE ABOVE DOCUMENT, WRITTEN BY MARIBELL SILVERMAN, HISTORY TUTOR, AND I VERIFY THAT IT IS ACCURATE PROCEDURE CODES 70324 INJ PARAVERT F JNT L/S 1 LEV, MODIFIERS: [place] [id number] INJ PARAVERT F JNT L/S 2 LEV, MODIFIERS: RT DISPOSITION & COMMUNICATION FOLLOW UP FOLLOW UP WITH CONCRETE CRUSHER LOADER OPERATOR (REASON: POST RIGHT THERAPEUTIC LUMBAR FACET BLOCK L3-L4, L4-L5) ELECTRONICALLY SIGNED BY CONTRERAS UNGER MD, MD ON 04/08/2020 AT 12:49 PM EST DISCLAIMER : THIS IS A VISIT SUMMARY EXTRACTED FROM THE [employer] CHART. IT IS NOT A COPY OF THE [employer] PROGRESS NOTE. MTDD
== END ==
LOC: M PAIN 09:00
PROVIDERS: ATTEND Anesthesiology
DX: M47.816 Spondylosis without myelopathy or radiculopathy, lumbar region (principal); F31.9 Bipolar disorder, unspecified; F43.10 Post-traumatic stress disorder, unspecified; K58.9 Irritable bowel syndrome, unspecified; K21.9 Gastro-esophageal reflux disease without esophagitis; Z87.891 Personal history of nicotine dependence; Z79.899 Other long term (current) drug therapy; Z88.5 Allergy status to narcotic agent; Z88.8 Allergy status to other drugs, medicaments and biological substances; Z91.040 Latex allergy status
CPT/HCPCS: 64493; 64494; J3301; Q9967

== ENCOUNTER → 2020-04-08 | Outpatient (CLI) | payer BC, OTHER ==
[~2020-04-08] MED LIST changes: -BUPIVACAINE HCL 0.25% 30ML VIAL As Ordered ONE; -ISOVUE-M 300 61% 15ML VIAL As Ordered ONE; -LIDOCAINE 1% SDV 30ML VIAL As Ordered ONE; -NORCO, ANEXSIA 5/325MG TABLET (HYDROcodone/ACETAMINOPHEN) As Ordered ONE; -TRIAMCINOLONE ACETONIDE SUSP 40 MG/ML VIAL (J3301) As Ordered ONE; -diazePAM 5MG TABLET As Ordered ONE
--- NOTE | 2020-04-08 10:27 | REP ---
INDICATION: ADDITIONAL VIEW RT BREAST; KEN SCR MAMMO; ADDITIONAL VIEWS RT BREAST. COMPARISON: Mammogram 12/25/2019 TECHNIQUE: Spot compression views right breast performed as well as a right mL tomographic sequence. Focused right breast ultrasound performed medially. FINDINGS: There is a persistent 4 mm smoothly marginated nodule in the medial right breast, again only seen in the CC projection. It is approximately 4-5 cm from the nipple. Real-time sonographic evaluation of right breast performed medially. At 4 o'clock a hyperechoic nodule has a maximum diameter of 5 mm likely representing a benign lobule containing fat. No other cystic or solid nodule is seen. IMPRESSION: BIRADS/ACR category 3, probably benign. Persistent 4 mm smoothly marginated nodule medially in the right breast unchanged since the prior mammogram 12/25/2019. It is only seen in the CC projection. By ultrasound a 5 mm hyperechoic nodule at 4 o'clock likely represents a benign fat containing lobule. I doubt that the nodule on the mammogram corresponds to the hyperechoic nodule by ultrasound. Recommend six-month follow-up mammogram and ultrasound of the right breast. This mammogram was interpreted with the aid of an FDA-approved computer-aided detection system. The patient letter being requested is M3. RECOMMENDATION: Recommend six-month follow-up mammogram and ultrasound right breast. <Electronically signed by Gene Young > 04/08/20 [id number]
== END ==
LOC: M WHC 07:56
PROVIDERS: ATTEND Internal Medicine Hematology & Oncology
DX: R92.2 Inconclusive mammogram (principal)

== ENCOUNTER → 2020-04-29 | Outpatient (CLI) | payer OTHER ==
[~2020-04-29] MED LIST changes: +PLEC3TAB PO; -TRUL3TAB PO
--- NOTE | 2020-05-03 00:12 | ECWPNPC ---
PATIENT NAME: MOO PEDROZA : 1960 GENDER: FEMALE VISIT DATE: 04/29/2020 DISCHARGE DATE: 04/29/20 1530 VISIT LOCKED DATE TIME: PHYSICIAN: DEVAUGHN CLAYTON RESOURCE: DEVAUGHN CLAYTON REASON FOR APPOINTMENT 1. POST RIGHT THERAPEUTIC LUMBAR FACET BLOCK L3-L4, L4-L5 HISTORY OF PRESENT ILLNESS GENERAL: THIS IS A POST PROCEDURE FOLLOW-UP. HAD RIGHT L3-4, L4-5 LUMBAR THERAPEUTIC FACET BLOCK ON 04/07/2020. REPORTING MARKED REDUCTION IN PAIN FOR 2-3 WEEKS THEN PAIN GRADUALLY RETURNED TO BASELINE. REVIEWED MRI OF THE LS-SPINE. DISCUSSED RADIOFREQUENCY AND DIAGNOSTIC WORKUP. PATIENT WOULD LIKE TO HAVE LONGER PERIODS OF PAIN CONTROL IN THE RIGHT LOW BACK AND WOULD LIKE TO PURSUE RADIOFREQUENCY. -. FALL RISK SCREENING: SCREENING :NO FALLS REPORTED IN THE LAST YEAR PAIN SCREENING: PATIENT HAS A COMPLAINT OF ACUTE OR CHRONIC PAIN :YES LOCATION OF PAIN:LOW BACK, LEG(S) INTENSITY OF PAIN (SCALE OF 1 TO 10):7 WHAT DOES YOUR PAIN FEEL LIKE:SHARP, STABBING DURATION:CONTINOUS, CONSTANT PAIN IS INCREASED BY:ACTIVITIES PAIN IS DECREASED BY:USE OF PAIN MEDICATIONS TREATMENT/MEDICATIONS USED TO MANAGE PAIN:OPIOIDS LEVEL OF RELIEF FROM PAIN TREATMENTS IN THE PAST:25% PAIN HAS INTERFERED WITH THE FOLLOWING:BATHING/DRESSING, WALKING ABILITY, HOUSEWORK, SLEEP, TRANSPORTATION, TOILETING NURSING NOTE: PT C/O MIGRAINES, WANTS TO DISCUSS Wilberto CANTOR. PAIN CENTER INTAKE QUESTIONS: DO YOU HAVE A HISTORY OF MRSA? :NO DO YOU TAKE A BLOOD THINNERS? :NO DO YOU HAVE ANY BLEEDING DISORDERS? :NO ANY NEW NUMBNESS OR WEAKNESS IN YOUR LEGS OR ARMS? :NO ANY PACEMAKER,DEFIBRILLATOR, OR DORSAL COLUMN STIMULATOR? :NO DO YOU HAVE ANY RASHES OR OPEN SORES? :NO ARE YOU ALLERGIC TO IV DYE? :NO ARE YOU DIABETIC? :NO ANY NEW PROBLEMS WITH YOUR MEDICATIONS? :NO HAVE YOU RECEIVED A VACCINE IN THE PAST 30 DAYS? :YES IF SO WHAT VACCINE AND WHEN? COVID VACCINE 03/29/20, DO YOU PLAN TO RECEIVE A VACCINE IN THE NEXT 21 DAYS? :YES IF SO WHAT VACCINE AND WHEN? COVID VACCINE 05/03/20 DO YOU NEED ANY PRESCRIPTION? :YES MOVANTIK, TRULANCE, TIZANIDINE, ENDOCET DO YOU TAKE ANY IMMUNOSUPPRESSIVE MEDICATIONS? :NO IS THERE A CHANCE YOU COULD BE ? :NO ARE YOU BREAST FEEDING? :NO CURRENT MEDICATIONS TAKING ENDOCET 10-325 MG TABLET 1 TABLET NEEDED ORALLY EVERY 6 HRS PRN MDD4 TAKING ATENOLOL 25 MG 1 TAB ORAL BID TAKING CALCIUM 500 MG TABLET 1 TABLET WITH MEALS ORALLY DAILY TAKING ZYRTEC 10 MG TABLET 1 TABLET ORALLY ONCE A DAY TAKING FLONASE 1 SPRAY IN EACH NOSTRIL NASALLY DIRECTED TAKING HYDREA 1000 MG CAPSULE 1 CAP ORALLY DAILY TAKING ATIVAN 0.5 0.5MG TABLET 0.25MG ORAL BID PRN TAKING MULTIVITAMIN TABLETS 1 TAB ORALLY DAILY TAKING SEROQUEL 100 100 MG TABLET 400MG AT HS ORAL DAILY TAKING ESTRADIOL 0.5 MG TABLET 1 TABLET ORALLY DAILY TAKING ZOFRAN 8 MG TABLET 1 TABLET ORALLY EVERY 4 HOURS NEEDED TAKING PROTONIX 20 MG TABLET DELAYED RELEASE 1 TABLET ORALLY ONCE A DAY TAKING TRULANCE 3 MG TABLET 1 TABLET ORALLY ONCE A DAY TAKING EFFEXOR 75 MG TABLET 2 TABLET WITH FOOD ORALLY DAILY TAKING TIZANIDINE HCL 6 MG CAPSULE 1 TABLET NEEDED ORALLY THREE TIMES A DAY TAKING MOVANTIK 25 MG TABLET 1 TABLET IN THE MORNING ORALLY ONCE A DAY (WORKERS COMPENSATION) TAKING DOCUSATE SODIUM 100 MG CAPSULE 1 CAPSULE NEEDED ORALLY TWICE A DAY NEEDED TAKING CLONIDINE HCL 0.1 MG TABLET 1 ORALLY Q12H PRN FOR WITHDRAWAL SYMPTOMS TAKING ASPIRIN 325 MG TABLET 1 TABLET ORALLY ONCE A DAY TAKING METHYLPHENIDATE 10 MG TABLET TAKES 20 MGS ORALLY BID TAKING ALENDRONATE SODIUM 70 MG TABLET 1 TABLET ORALLY WEEKLY NOT-TAKING LINZESS 290 MCG CAPSULE ONE P.O. DAILY NOT-TAKING HYDREA 500 MG CAPSULE ORALLY EVERY OTHER DAY NOT-TAKING FENTANYL 12 MCG/HR PATCH 72 HOUR 1 PATCH TO SKIN TRANSDERMAL 1 PATCH [id number] (WORKERS COMPENSATION) MEDICATION LIST REVIEWED AND RECONCILED WITH THE PATIENT PAST MEDICAL HISTORY BLOOD CANCER BIPOLAR/SOCIAL ANXIETY PTSD BACK PAIN SVT HAMMERTOE IBS GERD ALLERGIES CODEINE SULFATE: NAUSEA/VOMITING - SIDE EFFECTS STADOL: ITCH - ALLERGY TRAMADOL: EXCESSIVE YAWNING - SIDE EFFECTS NUBAIN: REACTION AT SITE - SIDE EFFECTS HYDROXYZINE HCL: EXCESSIVE YAWNING - SIDE EFFECTS KETOROLAC TROMETHAMINE: EXCESSIVE YAWNING - SIDE EFFECTS LATEX (FOR ALLERGY USE ONLY): RASH - ALLERGY SOCIAL HISTORY GENERAL: TOBACCO USE ARE YOU A:FORMER SMOKER HOW LONG HAS IT BEEN SINCE YOU LAST SMOKED?> 10 YEARS LATEX QUESTIONNAIRE LATEX ALLERGY : HAVE YOU EVER DEVELOPED ANY TYPE OF REACTION AFTER HANDLING LATEX PRODUCTS SUCH RUBBER GLOVES, CONDOMS, DIAPHRAGMS, BALLOONS, SOCKS, OR UNDERWEAR?YES LATEX ALLERGY : HAVE YOU EVER DEVELOPED ANY TYPE OF REACTION DURING OR AFTER DENTAL APPOINTMENT, VAGINAL/RECTAL EXAMINATION, SURGICAL PROCEDURE, OR ANY OTHER EXPOSURE?NO - PLEASE INDICATE :RUBBER GLOVES DATE ASKED : 03/11/2019 LATEX RISK : HAVE YOU EVER HAD ANY DIFFICULTY BREATHING OR HIVES AFTER EATING OR HANDLING ANY FRUITS, OR VEGETABLES; SUCH KIWI, BANANAS, STONE FRUITS, OR CHESTNUTSNO LATEX RISK : DO YOU HAVE A PREVIOUS PERSONAL HISTORY OF MORE THAN NINE SURGERIES, SPINA BIFIDA, OR REPEATED CATHERIZATIONS? NO LATEX RISK : ARE YOU FREQUENTLY EXPOSED TO LATEX PRODUCTS IN YOUR OCCUPATION?NO ALCOHOL SCREENING DID YOU HAVE A DRINK CONTAINING ALCOHOL IN THE PAST YEAR?NO POINTS0 INTERPRETATIONNEGATIVE RECREATIONAL DRUG USE DRUG USE?NO CAFFEINE CAFFEINE USE?YES HOW OFTEN AND HOW MUCH? 3-4 CUPS COFFEE/DAY PRESYBETERIAN [id number] MANDAEISM LANGUAGE LANGUAGES SPOKEN:INDONESIAN LEARNING BARRIERS / SPECIAL NEEDS BARRIERS TO LEARNING?NO HEARING IMPAIRED?YES DECREASED HEARING RIGHT EAR VISION IMPAIRED?YES COGNITIVELY IMPAIRED?NO :CORRECTIVE LENSES READINESS TO LEARN?YES LEARNING PREFERENCES?YES :DEMONSTRATION/VERBAL INSTRUCTION LEARNING CAPABILITIES PRESENT?YES EMOTIONAL BARRIERS?NO SPECIAL DEVICES?NO CURRICULUM FACILITATOR NEEDED?NO DOMESTIC VIOLENCE DO YOU FEEL SAFE IN YOUR ENVIRONMENT?YES MARITAL STATUS: . - PFS REFERRAL NEEDED?NO CLERGY REFERRAL NEEDED?NO PUBLIC HEALTH REFERRAL NEEDED?NO WAS THE PROVIDER NOTIFIED OF ANY PERTINENT INFO?YES N/A HAS THE PATIENT BEEN EDUCATED REGARDING HIS/HER PLAN OF CARE?YES HAS THE PATIENT BEEN EDUCATED REGARDING PAIN, THE RISK FOR PAIN, THE IMPORTANCE OF EFFECTIVE PAIN MANAGEMENT, AND THE PAIN ASSESSMENT PROCESS?YES ADVANCE DIRECTIVE ADVANCE DIRECTIVE DISCUSSED WITH PATIENT:YES PT DECLINED ASSISTANCE OR INFORMATION WITH HCP 01/03/18 REVIEWED WITH PTTha AQUINO WITH PATIENT 03-11-19 DS. REVIEW OF SYSTEMS CONSTITUTIONAL: ANY RECENT FEVER NO . CHILLS NO . WEIGHT CHANGE OF UNKNOWN REASONS NO . GASTROENTEROLOGY: NEW UNEXPLAINABLE CHANGES IN BOWEL CONTROL NO . CONSTIPATION NO . GENITOURINARY: ANY NEW CHANGE IN BLADDER CONTROL? NO . NEUROLOGY: NEW ONSET DIZZINESS OR NEUROLOGICAL CHANGES NOT MENTIONED NO . NEW NUMBNESS OR PAIN PATTERNS NOT MENTIONED AND PERTINENT TO TODAY'S VISIT NO . CARDIOLOGY: NEW CHEST PRESSURE NO . NEW CHEST PAIN NO . RESPIRATORY: UNEXPLAINABLE COUGH NO . NEW SHORTNESS OF BREATH NO . VITAL SIGNS WT 173 LBS, HT 69 IN, BMI 25.54 INDEX, BP 159/83 MM HG, HR 63 /MIN, RR 16 /MIN, TEMP 97.2 F, OXYGEN SAT % 98, SAFE IN ENV? (Y/N) Y, REVIEWED BY: EM. EXAMINATION GENERAL EXAMINATION: LUNGS: LUNG SOUNDS ARE CLEAR . HEART: HEART RATE REGULAR . MUSCULOSKELETAL:*, MUSCLE STRENGTH TESTING 5/5 BILATERAL LOWER EXTREMITIES., ,PALPATION: POSITIVE FOR PAIN OVER L/S SPINE. POSITIVE FOR PAIN OVER L/S PARSPINALS.SPECIFIC POINT TENDERNESS OVER RIGHT L3-4, L4-5 LUMBR FACETS WITH FACET LOADING . DIAGNOSTIC:MRI L/S SPINE -2017. ASSESSMENTS SPONDYLOSIS OF LUMBOSACRAL JOINT - M47.817 (PRIMARY) OTHER CHRONIC PAIN - G89.29 TREATMENT SPONDYLOSIS OF LUMBOSACRAL JOINT PAIN PROCEDURE LOGDATE OF PROCEDURE04/07/20PROCEDURE:LUMBAR FACET BLOCK THERAPEUTIC BLOCK L3-L4, L4-S0LGHTHC OF PRE SEDATENORCO 5/325, VALIUM 10MGRESULT:GREATER THAN 80% REDUCTION IN PAIN FOR 3 WEEKS IN PAIN GRADUALLY RETURNED TO BASELINE NOTES: RIGHT LUMBAR FACET BLOCK DIAGNOSTIC L3-4, T9-3-[id number]'S COMP. CLINICAL NOTES: 04/29/2020 PREPROCEDURE AND PROCEDURE INFORMATION INFORMATION PROVIDED. PATIENT VERBALIZED UNDERSTANDING. WILBERTO TIERNEY MA. OTHER CHRONIC PAIN PAIN PROCEDURE LOGDATE OF PROCEDURE04/07/20PROCEDURE:LUMBAR FACET BLOCK THERAPEUTIC BLOCK L3-L4, L4-[id number] OF PRE SEDATENORCO 5/325, VALIUM 10MGRESULT:GREATER THAN 80% REDUCTION IN PAIN FOR 3 WEEKS IN PAIN GRADUALLY RETURNED TO BASELINE PROCEDURES PN [employer]S' COMP OPINION IN YOUR OPINION, WAS THE INCIDENT THAT THE PATIENT DESCRIBED THE COMPETENT MEDICAL CAUSE OF THIS INJURY/ILLNESS? YES ARE THE PATIENT'S COMPLAINTS CONSISTENT WITH HIS/HER HISTORY OF THE INJURY/ILLNESS? YES IS THE PATIENT'S HISTORY OF THE INJURY/ILLNESS CONSISTENT WITH YOUR OBJECTIVE FINDING? YES WHAT IS THE PERCENTAGE OF TEMPORARY IMPAIRMENT? MODERATE TO MARKED = 66.7% IS THE PATIENT WORKING? YES DOCTOR ON SITE: CONTRERAS PATEL MD DISPOSITION & COMMUNICATION FOLLOW UP POST PROCEDURE (REASON: RIGHT LUMBAR FACET BLOCK DIAGNOSTIC L3-4, H4-9-EXLIHDT'S COMP) ELECTRONICALLY SIGNED BY SUELLEN PIERRE ON 05/02/2020 AT 01:28 PM EST DISCLAIMER : THIS IS A VISIT SUMMARY EXTRACTED FROM THE [employer] CHART. IT IS NOT A COPY OF THE [employer] PROGRESS NOTE. TALIA
== END ==
LOC: M PAIN 14:15
PROVIDERS: ATTEND Nurse Practitioner Family
DX: G89.29 Other chronic pain (principal); M47.817 Spondylosis without myelopathy or radiculopathy, lumbosacral region; F31.9 Bipolar disorder, unspecified; F43.10 Post-traumatic stress disorder, unspecified; F40.10 Social phobia, unspecified; K58.9 Irritable bowel syndrome, unspecified; K21.9 Gastro-esophageal reflux disease without esophagitis; Z87.891 Personal history of nicotine dependence; Z79.82 Long term (current) use of aspirin; Z79.899 Other long term (current) drug therapy; Z88.5 Allergy status to narcotic agent; Z88.8 Allergy status to other drugs, medicaments and biological substances; Z91.040 Latex allergy status

== ENCOUNTER → 2020-05-11 | Outpatient (CLI) | payer SELFPAY ==
[~2020-05-11] MED LIST changes: +QUET50TA3 PO; -QUET5TAB PO
== END ==
LOC: M LABSMTC 14:09
PROVIDERS: ATTEND Anesthesiology
DX: Z01.812 Encounter for preprocedural laboratory examination (principal); Z20.822 Contact with and (suspected) exposure to COVID-19

== ENCOUNTER → 2020-05-16 | Outpatient (CLI) | payer OTHER, BC ==
[~2020-05-16] MED LIST changes: +BUPIVACAINE HCL 0.25% 30ML VIAL As Ordered ONE; +ISOVUE-M 300 61% 15ML VIAL As Ordered ONE; +LIDOCAINE 1% SDV 30ML VIAL As Ordered ONE
--- NOTE | 2020-05-16 10:16 | REP ---
INDICATION: PAIN. COMPARISON: None. TECHNIQUE: Intraoperative fluoroscopic imaging using portable C-arm technique. FINDINGS: Images demonstrate catheter and contrast overlying lumbar facet joints. Total fluoroscopic time 24 seconds IMPRESSION: Status post lumbar facet block. <Electronically signed by Panfilo Walters > 05/16/20 1012
--- NOTE | 2020-05-25 02:05 | ECWPNPC ---
PATIENT NAME: MOO PEDROZA : 1960 GENDER: FEMALE VISIT DATE: 05/16/2020 DISCHARGE DATE: 05/16/20 1036 VISIT LOCKED DATE TIME: PHYSICIAN: CONTRERAS UNGER MD RESOURCE: CONTRERAS UNGER MD REASON FOR APPOINTMENT 1. RIGHT DIAGNOSTIC LUMBAR FACET BLOCK L3-L4, L4-L5 #1 HISTORY OF PRESENT ILLNESS GENERAL: -. FALL RISK SCREENING: SCREENING :NO FALLS REPORTED IN THE LAST YEAR PAIN SCREENING: PATIENT HAS A COMPLAINT OF ACUTE OR CHRONIC PAIN :YES LOCATION OF PAIN: LOW BACK, RIGHT SIDE INTO RIGHT BUTTOCK INTENSITY OF PAIN (SCALE OF 1 TO 10):8 WHAT DOES YOUR PAIN FEEL LIKE:ACHING, SHARP, STABBING, TENDER, THROBBING, SORE, SHOOTING DURATION:CONTINOUS, AWAKENS FROM SLEEP PAIN IS INCREASED BY:ACTIVITIES, PROLONGED STANDING PAIN IS DECREASED BY:USE OF PAIN MEDICATIONS TREATMENT/MEDICATIONS USED TO MANAGE PAIN:OPIOIDS PLAN/GOALS/TREATMENT/INTERVENTION/FOLLOW UP:SEE PLAN NURSING NOTE: -. PAIN CENTER INTAKE QUESTIONS: DO YOU HAVE A HISTORY OF MRSA? :NO DO YOU TAKE A BLOOD THINNERS? :NO DO YOU HAVE ANY BLEEDING DISORDERS? :NO ANY NEW NUMBNESS OR WEAKNESS IN YOUR LEGS OR ARMS? :NO ANY PACEMAKER,DEFIBRILLATOR, OR DORSAL COLUMN STIMULATOR? :NO DO YOU HAVE ANY RASHES OR OPEN SORES? :NO ARE YOU ALLERGIC TO IV DYE? :NO ARE YOU DIABETIC? :NO ANY NEW PROBLEMS WITH YOUR MEDICATIONS? :NO HAVE YOU RECEIVED A VACCINE IN THE PAST 30 DAYS? :YES COVID VACCINE 04/04/20 MODERNA DO YOU PLAN TO RECEIVE A VACCINE IN THE NEXT 21 DAYS? :NO DO YOU NEED ANY PRESCRIPTION? :NO DO YOU TAKE ANY IMMUNOSUPPRESSIVE MEDICATIONS? :NO HYDROXYUREA ANY HISTORY OF SEIZURES? :NO ANY HISTORY OF CARDIAC ISSUES OR EVENTS? :YES REMOTE H/O VTACH, NO EPISODES SINCE CARDIAC ABLATION IN 2003. DO YOU HAVE SLEEP APNEA? :NO ANY RECENT HEAD INJURY? :NO DO YOU HAVE ANY NEW INFECTIONS? :NO IS THERE A CHANCE YOU COULD BE ? :NO ARE YOU BREAST FEEDING? :NO WHEN DID YOU LAST EAT? : 05/15/201999 WHEN DID YOU LAST DRINK? : 05/15/202299 WHAT DID YOU LAST DRINK? : -N/A NAME OF PERSON DRIVING YOU HOME? : BANDAR () DO YOU HAVE ANY OTHER QUESTIONS OR CONCERNS? : -NO CURRENT MEDICATIONS TAKING ENDOCET 10-325 MG TABLET 1 TABLET NEEDED ORALLY EVERY 6 HRS PRN MDD4, NOTES: 05/15 1999 TAKING ATENOLOL 25 MG 1 TAB ORAL BID, NOTES: 05/15 1999 TAKING CALCIUM 500 MG TABLET 1 TABLET WITH MEALS ORALLY DAILY TAKING ZYRTEC 10 MG TABLET 1 TABLET ORALLY ONCE A DAY TAKING FLONASE 1 SPRAY IN EACH NOSTRIL NASALLY DIRECTED TAKING HYDREA 1000 MG CAPSULE 1 CAP ORALLY DAILY, NOTES: 05/15 1999 TAKING ATIVAN 0.5 0.5MG TABLET 0.25MG ORAL BID PRN, NOTES: 05/15 1799 TAKING MULTIVITAMIN TABLETS 1 TAB ORALLY DAILY TAKING SEROQUEL 100 100 MG TABLET 400MG AT HS ORAL DAILY TAKING ESTRADIOL 0.5 MG TABLET 1 TABLET ORALLY DAILY TAKING ZOFRAN 8 MG TABLET 1 TABLET ORALLY EVERY 4 HOURS NEEDED TAKING PROTONIX 20 MG TABLET DELAYED RELEASE 1 TABLET ORALLY ONCE A DAY TAKING TRULANCE 3 MG TABLET 1 TABLET ORALLY ONCE A DAY, NOTES: 05/15 0800 TAKING EFFEXOR 75 MG TABLET 2 TABLET WITH FOOD ORALLY DAILY TAKING TIZANIDINE HCL 6 MG CAPSULE 1 TABLET NEEDED ORALLY THREE TIMES A DAY TAKING MOVANTIK 25 MG TABLET 1 TABLET IN THE MORNING ORALLY ONCE A DAY (WORKERS COMPENSATION) TAKING DOCUSATE SODIUM 100 MG CAPSULE 1 CAPSULE NEEDED ORALLY TWICE A DAY NEEDED TAKING ASPIRIN 325 MG TABLET 1 TABLET ORALLY ONCE A DAY TAKING METHYLPHENIDATE 10 MG TABLET TAKES 20 MGS ORALLY BID TAKING ALENDRONATE SODIUM 70 MG TABLET 1 TABLET ORALLY WEEKLY, NOTES: LAST WEEK NOT-TAKING CLONIDINE HCL 0.1 MG TABLET 1 ORALLY Q12H PRN FOR WITHDRAWAL SYMPTOMS NOT-TAKING LINZESS 290 MCG CAPSULE ONE P.O. DAILY NOT-TAKING HYDREA 500 MG CAPSULE ORALLY EVERY OTHER DAY NOT-TAKING FENTANYL 12 MCG/HR PATCH 72 HOUR 1 PATCH TO SKIN TRANSDERMAL 1 PATCH [id number] (WORKERS COMPENSATION) MEDICATION LIST REVIEWED AND RECONCILED WITH THE PATIENT PAST MEDICAL HISTORY BLOOD CANCER BIPOLAR/SOCIAL ANXIETY PTSD BACK PAIN SVT HAMMERTOE IBS GERD ALLERGIES CODEINE SULFATE: NAUSEA/VOMITING - SIDE EFFECTS STADOL: ITCH - ALLERGY TRAMADOL: EXCESSIVE YAWNING - SIDE EFFECTS NUBAIN: REACTION AT SITE - SIDE EFFECTS HYDROXYZINE HCL: EXCESSIVE YAWNING - SIDE EFFECTS KETOROLAC TROMETHAMINE: EXCESSIVE YAWNING - SIDE EFFECTS LATEX (FOR ALLERGY USE ONLY): RASH - ALLERGY SOCIAL HISTORY GENERAL: TOBACCO USE ARE YOU A:FORMER SMOKER HOW LONG HAS IT BEEN SINCE YOU LAST SMOKED?> 10 YEARS LATEX QUESTIONNAIRE LATEX ALLERGY : HAVE YOU EVER DEVELOPED ANY TYPE OF REACTION AFTER HANDLING LATEX PRODUCTS SUCH RUBBER GLOVES, CONDOMS, DIAPHRAGMS, BALLOONS, SOCKS, OR UNDERWEAR?YES KNOWN ALLERGY, DOCUMENTATED. - PLEASE INDICATE :RUBBER GLOVES LATEX ALLERGY : HAVE YOU EVER DEVELOPED ANY TYPE OF REACTION DURING OR AFTER DENTAL APPOINTMENT, VAGINAL/RECTAL EXAMINATION, SURGICAL PROCEDURE, OR ANY OTHER EXPOSURE?NO LATEX RISK : HAVE YOU EVER HAD ANY DIFFICULTY BREATHING OR HIVES AFTER EATING OR HANDLING ANY FRUITS, OR VEGETABLES; SUCH KIWI, BANANAS, STONE FRUITS, OR CHESTNUTSNO LATEX RISK : DO YOU HAVE A PREVIOUS PERSONAL HISTORY OF MORE THAN NINE SURGERIES, SPINA BIFIDA, OR REPEATED CATHERIZATIONS? NO LATEX RISK : ARE YOU FREQUENTLY EXPOSED TO LATEX PRODUCTS IN YOUR OCCUPATION?NO DATE ASKED : 05/13/2020 ALCOHOL SCREENING DID YOU HAVE A DRINK CONTAINING ALCOHOL IN THE PAST YEAR?NO POINTS0 INTERPRETATIONNEGATIVE RECREATIONAL DRUG USE DRUG USE?NO CAFFEINE CAFFEINE USE?YES HOW OFTEN AND HOW MUCH? 3-4 CUPS COFFEE/DAY ANABAPTIST [id number] AMISH LANGUAGE LANGUAGES SPOKEN:BULGARIAN LEARNING BARRIERS / SPECIAL NEEDS BARRIERS TO LEARNING?NO HEARING IMPAIRED?YES DECREASED HEARING RIGHT EAR VISION IMPAIRED?YES COGNITIVELY IMPAIRED?NO :CORRECTIVE LENSES READINESS TO LEARN?YES LEARNING PREFERENCES?YES :DEMONSTRATION/VERBAL INSTRUCTION LEARNING CAPABILITIES PRESENT?YES EMOTIONAL BARRIERS?NO SPECIAL DEVICES?NO GENETIC PHYSICIAN NEEDED?NO DOMESTIC VIOLENCE DO YOU FEEL SAFE IN YOUR ENVIRONMENT?YES MARITAL STATUS: . - PFS REFERRAL NEEDED?NO CLERGY REFERRAL NEEDED?NO PUBLIC HEALTH REFERRAL NEEDED?NO WAS THE PROVIDER NOTIFIED OF ANY PERTINENT INFO?YES N/A HAS THE PATIENT BEEN EDUCATED REGARDING HIS/HER PLAN OF CARE?YES HAS THE PATIENT BEEN EDUCATED REGARDING PAIN, THE RISK FOR PAIN, THE IMPORTANCE OF EFFECTIVE PAIN MANAGEMENT, AND THE PAIN ASSESSMENT PROCESS?YES ADVANCE DIRECTIVE ADVANCE DIRECTIVE DISCUSSED WITH PATIENT:YES PT DECLINED ASSISTANCE OR INFORMATION WITH HCP 01/03/18 REVIEWED WITH PT. MILES WITH PATIENT 03-11-19 DS. VITAL SIGNS WT 171.6 LBS, HT 69 IN, BMI 25.34 INDEX, BP 111/67 MM HG, HR 67 /MIN, RR 18 /MIN, TEMP 98.2 F, OXYGEN SAT % 97%, SAFE IN ENV? (Y/N) YES, NA INITIALS SC 08:45, REVIEWED BY: MADHAVI Mcmahan, CHANNELING MACHINE RUNNER. EXAMINATION GENERAL EXAMINATION: THE PATIENT IS ALERT, ORIENTED TIMES THREE AND COOPERATIVE. LUNGS ARE CLEAR TO AUSCULTATION. HEART SHOWS REGULAR RHYTHM, NO MURMURS AND NO GALLOPS. 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 BEENA CHANNELING MACHINE RUNNER. PROCEDURES PAIN NURSING RECORD PROCEDURE IN ROOM 0925, PHYSICIAN IN ROOM 1001, START 1006, FINISH 1009, PHYSICIAN OUT OF ROOM 1010, OUT OF ROOM 1017, ECG NORMAL SINUS SINUS ARRHYTHMIA, SINUS PAUSE, ONE EVENT OF COUPLET PVCS., PATIENT SHIELDED YES, SAFETY STRAP YES, PREP CHLOROPREP Aly HENDRICKSON CHANNELING MACHINE RUNNER, DRESSING TEGADERM DR. UNGER LOC: SHELLEY HENDRICKSON 05/16/2020 9:25:13 AM > 1. ALERT, ORIENTED, LOC REMAINED AT BASELINE THROUGHOUT THE PROCEDURE RESP: SHELLEY HENDRICKSON 05/16/2020 9:25:13 AM > 1. REGULAR, NO DYSPNEA COLOR: SHELLEY HENDRICKSON 05/16/2020 9:25:13 AM > 1. PINK SKIN: SHELLEY HENDRICKSON 05/16/2020 9:25:13 AM > 1. WARM, DRY POSITION: SHELLEY HENDRICKSON 05/16/2020 9:25:13 AM > 1. PRONE VITALS: SHELLEY HENDRICKSON 05/16/2020 9:46:16 AM > 120/72, 61, 99% RA. SHELLEY HENDRICKSON 05/16/2020 9:29:12 AM > 110/58, 59, 98% RA. SHELLEY HENDRICKSON 05/16/2020 9:45:06 AM > 113/68, 54, 98% RA. SHELLEY HENDRICKSON 05/16/2020 10:01:15 AM > 111/70, 57, 97% RA. SHELLEY HENDRICKSON 05/16/2020 10:25:36 AM > POST PROCEDURE 110/63, 64, 92% RA. COMPLETION OF PROCEDURE APPOINTMENT: POST PAIN 04/10, DRESSING SITE DRY AND INTACT, IV N/A, GAIT STEADY, TEACHING COMPLETED, PATIENT ACKNOWLEDGES UNDERSTANDING YES, PROCEDURE APPOINTMENT COMPLETED AT BY: Aly HENDRICKSON RN AT 1033. PN WORKMANS' COMP OPINION IN YOUR OPINION, WAS THE INCIDENT THAT THE PATIENT DESCRIBED THE COMPETENT MEDICAL CAUSE OF THIS INJURY/ILLNESS? YES ARE THE PATIENT'S COMPLAINTS CONSISTENT WITH HIS/HER HISTORY OF THE INJURY/ILLNESS? YES IS THE PATIENT'S HISTORY OF THE INJURY/ILLNESS CONSISTENT WITH YOUR OBJECTIVE FINDING? YES WHAT IS THE PERCENTAGE OF TEMPORARY IMPAIRMENT? MODERATE TO MARKED = 66.7% . IS THE PATIENT WORKING? NO . DOCTOR ON SITE: MD MIGUELANGEL BURRIS LUMBAR FACET BLOCK DIAGNOSTIC PRE PROCEDURE DIAGNOSIS LUMBAR SPONDYLOSIS POST PROCEDURE DIAGNOSIS LUMBAR SPONDYLOSIS PROCEDURE RIGHT L3-L4 AND RIGHT L4-L5 FACET BLOCK DIAGNOSTIC NUMBER [address] CONTRERAS UNGER WELFARE ADMINISTRATOR NONE ANESTHESIA LOCAL PRE PROCEDURE NOTE THE PATIENT WITH HISTORY OF CHRONIC LOW BACK PAIN. I EVALUATED THE PATIENT AND REVIEWED THE CHART. I WENT OVER THE RISKS, ALTERNATIVES, AND BENEFITS ASSOCIATED WITH THIS PROCEDURE. THE PATIENT WOULD LIKE TO PROCEED AND GAVE CONSENT TO PERFORM THE PROCEDURE. AGREED WITH THE PATIENT, WE ARE DOING THIS PROCEDURE TO DETERMINE IF THE PATIENT IS A CANDIDATE FOR A RADIOFREQUENCY ABLATION OF THE FACETS JOINTS. THE PATIENT DENIES UNEXPLAINABLE WEIGHT LOSS, FEVER, CHILLS, OR NEW CHANGES IN URINARY OR BOWEL CONTROL. THE PATIENT IS COVID-19 NEGATIVE DESCRIPTION OF PROCEDURE THE PATIENT WAS BROUGHT TO THE PROCEDURE ROOM AND PLACED IN THE PRONE POSITION. THE LUMBOSACRAL AREA WAS CLEANED WITH CHLORAPREP SOLUTION AND DRAPED ASEPTICALLY. THE PROCEDURE WAS DONE UNDER STERILE CONDITIONS. A TIMEOUT WAS PERFORMED WHERE THE CONSENTED SITE WAS VERIFIED WITH EVERYONE IN THE ROOM. UNDER FLUOROSCOPIC GUIDANCE, TARGETS WERE SELECTED AT THE INTERSECTION OF THE RIGHT TRANSVERSE PROCESS OF L3, L4 AND L5 WITH ITS RESPECTIVE SUPERIOR ARTICULAR PROCESS WITH A TARGET OF THE MEDIAN BRANCHES OF L2, L3 AND L4. I CONFIRMED AGAIN THE SITE OF THE TARGET. LIDOCAINE WAS USED TO NUMB THE SKIN AND THE SUBCUTANEOUS TISSUE BELOW IT. SPINAL NEEDLE, 22-GAUGE, WAS ADVANCED UNDER FLUOROSCOPIC GUIDANCE AND FOLLOWING PATIENT FEEDBACK UNTIL THE TARGETS WERE REACHED. POSITION OF THE NEEDLES WAS VERIFIED WITH AP AND LATERAL VIEWS. AFTER PROPER POSITION OF THE NEEDLES WAS ACHIEVED, ISOVUE-M DYE 30%, 0.1 ML, WAS INJECTED AT EACH SITE SHOWING ADEQUATE SPREAD OF THE DYE. THEN, A SOLUTION OF 0.4 ML OF BUPIVACAINE 0.25% WAS INJECTED AT EACH SITE. THE MEDICATIONS WERE VERIFIED WITH THE NURSE. THERE WAS NO EVIDENCE OF BLOOD, PARESTHESIA OR CEREBROSPINAL FLUID DURING THE PROCEDURE. THE PATIENT WAS SENT TO THE RECOVERY ROOM. THE PATIENT WAS MOVING THE EXTREMITIES AND DOING WELL. THERE WERE NO COMPLICATIONS DURING THE PROCEDURE. ESTIMATED BLOOD LOSS WAS LESS THAN 5 ML. FLUOROSCOPY TIME WAS 24 SECONDS POST PROCEDURE NOTE THE PATIENT WILL DOCUMENT THE PAIN LEVEL AND RESPONSE TO THIS PROCEDURE PER PAIN DIARY. THE PATIENT WILL BE SEEN IN A FOLLOW UP IN THE NEXT FEW WEEKS. FURTHER DETERMINATION FOR THE PATIENT'S CASE WILL BE DONE AT THE NEXT VISIT. INSTRUCTIONS WERE GIVEN, QUESTIONS WERE ANSWERED, AND THE PATIENT EXPRESSED UNDERSTANDING AND AGREED WITH THE PLAN. I, MARIBELL SILVERMAN, DOCUMENTED THE ABOVE INFORMATION ACTING A SCRIBE FOR DR. UNGER. I HAVE REVIEWED THE ABOVE DOCUMENT, WRITTEN BY MARIBELL SILVERMAN, MACHINE SHOP APPRENTICE, AND I VERIFY THAT IT IS ACCURATE PROCEDURE CODES 55531 INJ PARAVERT F JNT L/S 1 LEV, MODIFIERS: [place] [address] INJ PARAVERT F JNT L/S 2 LEV, MODIFIERS: RT DISPOSITION & COMMUNICATION FOLLOW UP FOLLOW UP WITH TECHNOLOGY COACH (REASON: POST RIGHT DIAGNOSTIC LUMBAR FACET BLOCK L3-L4, L4-L5 #1) ELECTRONICALLY SIGNED BY CONTRERAS UNGER MD, MD ON 05/24/2020 AT 01:12 PM EST DISCLAIMER : THIS IS A VISIT SUMMARY EXTRACTED FROM THE [employer] CHART. IT IS NOT A COPY OF THE [employer] PROGRESS NOTE. TALIA
== END ==
LOC: M PAIN 08:30
PROVIDERS: ATTEND Anesthesiology
DX: M47.816 Spondylosis without myelopathy or radiculopathy, lumbar region (principal); M47.817 Spondylosis without myelopathy or radiculopathy, lumbosacral region; K21.9 Gastro-esophageal reflux disease without esophagitis; Z86.59 Personal history of other mental and behavioral disorders; Z87.891 Personal history of nicotine dependence; Z88.5 Allergy status to narcotic agent; Z88.8 Allergy status to other drugs, medicaments and biological substances; Z91.040 Latex allergy status; Z79.82 Long term (current) use of aspirin; Z79.899 Other long term (current) drug therapy
CPT/HCPCS: 64493; 64494; Q9967

== ENCOUNTER → 2020-06-10 | Outpatient (CLI) | payer OTHER, BC ==
[~2020-06-10] MED LIST changes: -BUPIVACAINE HCL 0.25% 30ML VIAL As Ordered ONE; -ISOVUE-M 300 61% 15ML VIAL As Ordered ONE; -LIDOCAINE 1% SDV 30ML VIAL As Ordered ONE
--- NOTE | 2020-06-11 03:35 | ECWPNPC ---
PATIENT NAME: MOO PEDROZA : 1960 GENDER: FEMALE VISIT DATE: 06/10/2020 DISCHARGE DATE: 06/10/20 0000 VISIT LOCKED DATE TIME: PHYSICIAN: DEVAUGHN CLAYTON RESOURCE: DEVAUGHN CLAYTON REASON FOR APPOINTMENT 1. POST RIGHT DIAGNOSTIC LUMBAR FACET BLOCK L3-L4, L4-L5 HISTORY OF PRESENT ILLNESS DEPRESSION SCREENING: PHQ-2 (2015 EDITION) LITTLE INTEREST OR PLEASURE IN DOING THINGS?NOT AT ALL FEELING DOWN, DEPRESSED, OR HOPELESS?NOT AT ALL TOTAL SCORE0 GENERAL: HERE FOR POST PROCEDURE FOLLOW-UP. HAD RIGHT L3-4, L4-5 DIAGNOSTIC LUMBAR FACET BLOCK #1 ON 05/16/2020. REPORTS GREATER THAN 80% REDUCTION IN PAIN FOR 2 WEEKS AND THEN PAIN ABRUPTLY RETURNED TO BASELINE. DISCUSSED RADIOFREQUENCY PROCEDURE. THIS IS A WORK RELATED INJURY. WE WILL REQUEST DIAGNOSTIC TEST #2 OF THE RIGHT L3-4 L4-5 LUMBAR FACETS FROM WORKMANS COMPENSATION. -. FALL RISK SCREENING: SCREENING : NO FALLS REPORTED IN THE LAST YEAR. PAIN SCREENING: PATIENT HAS A COMPLAINT OF ACUTE OR CHRONIC PAIN :YES LOCATION OF PAIN:MID BACK, LOW BACK INTENSITY OF PAIN (SCALE OF 1 TO 10):6 WHAT DOES YOUR PAIN FEEL LIKE:TENDER, THROBBING, SHOOTING DURATION:CONTINOUS, CONSTANT, ALL DAY PAIN IS INCREASED BY:ACTIVITIES, PROLONGED STANDING ANYTHING TOO LONG PAIN IS DECREASED BY:USE OF PAIN MEDICATIONS NURSING NOTE: -. PAIN CENTER INTAKE QUESTIONS: DO YOU HAVE A HISTORY OF MRSA? :NO DO YOU TAKE A BLOOD THINNERS? :NO DO YOU HAVE ANY BLEEDING DISORDERS? :NO ANY NEW NUMBNESS OR WEAKNESS IN YOUR LEGS OR ARMS? :YES RIGHT HIP ANY PACEMAKER,DEFIBRILLATOR, OR DORSAL COLUMN STIMULATOR? :NO DO YOU HAVE ANY RASHES OR OPEN SORES? :NO ARE YOU ALLERGIC TO IV DYE? :NO ARE YOU DIABETIC? :NO ANY NEW PROBLEMS WITH YOUR MEDICATIONS? :NO HAVE YOU RECEIVED A VACCINE IN THE PAST 30 DAYS? :NO DO YOU PLAN TO RECEIVE A VACCINE IN THE NEXT 21 DAYS? :NO DO YOU NEED ANY PRESCRIPTION? :NO DO YOU TAKE ANY IMMUNOSUPPRESSIVE MEDICATIONS? :NO IS THERE A CHANCE YOU COULD BE ? :NO ARE YOU BREAST FEEDING? :NO CURRENT MEDICATIONS TAKING ENDOCET 10-325 MG TABLET 1 TABLET NEEDED ORALLY EVERY 6 HRS PRN MDD4 TAKING ATENOLOL 25 MG 1 TAB ORAL BID TAKING CALCIUM 500 MG TABLET 1 TABLET WITH MEALS ORALLY DAILY TAKING ZYRTEC 10 MG TABLET 1 TABLET ORALLY ONCE A DAY TAKING FLONASE 1 SPRAY IN EACH NOSTRIL NASALLY DIRECTED TAKING HYDREA 1000 MG CAPSULE 1 CAP ORALLY DAILY TAKING ATIVAN 0.5 0.5MG TABLET 0.25MG ORAL BID PRN TAKING MULTIVITAMIN TABLETS 1 TAB ORALLY DAILY TAKING SEROQUEL 100 100 MG TABLET 400MG AT HS ORAL DAILY TAKING ESTRADIOL 0.5 MG TABLET 1 TABLET ORALLY DAILY TAKING ZOFRAN 8 MG TABLET 1 TABLET ORALLY EVERY 4 HOURS NEEDED TAKING PROTONIX 20 MG TABLET DELAYED RELEASE 1 TABLET ORALLY ONCE A DAY TAKING TRULANCE 3 MG TABLET 1 TABLET ORALLY ONCE A DAY TAKING EFFEXOR 75 MG TABLET 2 TABLET WITH FOOD ORALLY 150MG DAILY TAKING TIZANIDINE HCL 6 MG CAPSULE 1 TABLET NEEDED ORALLY THREE TIMES A DAY TAKING MOVANTIK 25 MG TABLET 1 TABLET IN THE MORNING ORALLY ONCE A DAY (WORKERS COMPENSATION) TAKING DOCUSATE SODIUM 100 MG CAPSULE 1 CAPSULE NEEDED ORALLY TWICE A DAY NEEDED TAKING ASPIRIN 325 MG TABLET 1 TABLET ORALLY ONCE A DAY TAKING METHYLPHENIDATE 10 MG TABLET TAKES 20 MGS ORALLY BID TAKING ALENDRONATE SODIUM 70 MG TABLET 1 TABLET ORALLY WEEKLY NOT-TAKING CLONIDINE HCL 0.1 MG TABLET 1 ORALLY Q12H PRN FOR WITHDRAWAL SYMPTOMS NOT-TAKING LINZESS 290 MCG CAPSULE ONE P.O. DAILY NOT-TAKING HYDREA 500 MG CAPSULE ORALLY EVERY OTHER DAY NOT-TAKING FENTANYL 12 MCG/HR PATCH 72 HOUR 1 PATCH TO SKIN TRANSDERMAL 1 PATCH A90H=RPD1 (WORKERS COMPENSATION) MEDICATION LIST REVIEWED AND RECONCILED WITH THE PATIENT PAST MEDICAL HISTORY BLOOD CANCER BIPOLAR/SOCIAL ANXIETY PTSD BACK PAIN SVT HAMMERTOE IBS GERD ALLERGIES CODEINE SULFATE: NAUSEA/VOMITING - SIDE EFFECTS STADOL: ITCH - ALLERGY TRAMADOL: EXCESSIVE YAWNING - SIDE EFFECTS NUBAIN: REACTION AT SITE - SIDE EFFECTS HYDROXYZINE HCL: EXCESSIVE YAWNING - SIDE EFFECTS KETOROLAC TROMETHAMINE: EXCESSIVE YAWNING - SIDE EFFECTS LATEX (FOR ALLERGY USE ONLY): RASH - ALLERGY SOCIAL HISTORY GENERAL: TOBACCO USE ARE YOU A:FORMER SMOKER HOW LONG HAS IT BEEN SINCE YOU LAST SMOKED?> 10 YEARS LATEX QUESTIONNAIRE LATEX ALLERGY : HAVE YOU EVER DEVELOPED ANY TYPE OF REACTION AFTER HANDLING LATEX PRODUCTS SUCH RUBBER GLOVES, CONDOMS, DIAPHRAGMS, BALLOONS, SOCKS, OR UNDERWEAR?YES KNOWN ALLERGY, DOCUMENTATED. - PLEASE INDICATE :RUBBER GLOVES LATEX ALLERGY : HAVE YOU EVER DEVELOPED ANY TYPE OF REACTION DURING OR AFTER DENTAL APPOINTMENT, VAGINAL/RECTAL EXAMINATION, SURGICAL PROCEDURE, OR ANY OTHER EXPOSURE?NO LATEX RISK : HAVE YOU EVER HAD ANY DIFFICULTY BREATHING OR HIVES AFTER EATING OR HANDLING ANY FRUITS, OR VEGETABLES; SUCH KIWI, BANANAS, STONE FRUITS, OR CHESTNUTSNO LATEX RISK : DO YOU HAVE A PREVIOUS PERSONAL HISTORY OF MORE THAN NINE SURGERIES, SPINA BIFIDA, OR REPEATED CATHERIZATIONS? NO LATEX RISK : ARE YOU FREQUENTLY EXPOSED TO LATEX PRODUCTS IN YOUR OCCUPATION?NO DATE ASKED : 06/10/2020 ALCOHOL USE: NO. ALCOHOL SCREENING DID YOU HAVE A DRINK CONTAINING ALCOHOL IN THE PAST YEAR?NO POINTS0 INTERPRETATIONNEGATIVE RECREATIONAL DRUG USE DRUG USE?NO CAFFEINE CAFFEINE USE?YES HOW OFTEN AND HOW MUCH? 3-4 CUPS COFFEE/DAY HINDU [id number] JAIN LANGUAGE LANGUAGES SPOKEN:MOZAMBICAN LEARNING BARRIERS / SPECIAL NEEDS CHANGE FROM LAST VISIT?NO BARRIERS TO LEARNING?NO HEARING IMPAIRED?YES DECREASED HEARING RIGHT EAR VISION IMPAIRED?YES :CORRECTIVE LENSES COGNITIVELY IMPAIRED?NO READINESS TO LEARN?YES LEARNING PREFERENCES?YES :DEMONSTRATION/VERBAL INSTRUCTION LEARNING CAPABILITIES PRESENT?YES EMOTIONAL BARRIERS?NO SPECIAL DEVICES?NO LINUX VM[employer] ADMINISTRATOR NEEDED?NO DOMESTIC VIOLENCE DO YOU FEEL SAFE IN YOUR ENVIRONMENT?YES MARITAL STATUS: . - PFS REFERRAL NEEDED?NO CLERGY REFERRAL NEEDED?NO PUBLIC HEALTH REFERRAL NEEDED?NO WAS THE PROVIDER NOTIFIED OF ANY PERTINENT INFO?YES N/A HAS THE PATIENT BEEN EDUCATED REGARDING HIS/HER PLAN OF CARE?YES HAS THE PATIENT BEEN EDUCATED REGARDING PAIN, THE RISK FOR PAIN, THE IMPORTANCE OF EFFECTIVE PAIN MANAGEMENT, AND THE PAIN ASSESSMENT PROCESS?YES ADVANCE DIRECTIVE ADVANCE DIRECTIVE DISCUSSED WITH PATIENT:YES PT DECLINED ASSISTANCE OR INFORMATION WITH HCP 01/03/18 REVIEWED WITH PT. MILES WITH PATIENT 03-11-19 DS. REVIEW OF SYSTEMS CONSTITUTIONAL: ANY RECENT FEVER NO . CHILLS NO . WEIGHT CHANGE OF UNKNOWN REASONS NO . GASTROENTEROLOGY: NEW UNEXPLAINABLE CHANGES IN BOWEL CONTROL NO . CONSTIPATION NO . GENITOURINARY: ANY NEW CHANGE IN BLADDER CONTROL? NO . NEUROLOGY: NEW ONSET DIZZINESS OR NEUROLOGICAL CHANGES NOT MENTIONED NO . NEW NUMBNESS OR PAIN PATTERNS NOT MENTIONED AND PERTINENT TO TODAY'S VISIT NO . CARDIOLOGY: NEW CHEST PRESSURE NO . PATIENT DENIES NO . RESPIRATORY: UNEXPLAINABLE COUGH NO . NEW SHORTNESS OF BREATH NO . VITAL SIGNS WT 171.6 LBS, HT 69 IN, BMI 25.34 INDEX, BP 161/87 MM HG, HR 93 /MIN, RR 18 /MIN, TEMP 97.2 F, OXYGEN SAT % 98%, SAFE IN ENV? (Y/N) YES, NA INITIALS AW 0924T.RUSTAM WHALEN. EXAMINATION GENERAL EXAMINATION: LUNGS: LUNG SOUNDS ARE CLEAR . HEART: HEART RATE REGULAR . MUSCULOSKELETAL:*, MUSCLE STRENGTH TESTING 5/5 BILATERAL LOWER EXTREMITIES., ,PALPATION: POSITIVE FOR PAIN OVER L/S SPINE. POSITIVE FOR PAIN OVER L/S PARSPINALS.SPECIFIC POINT TENDERNESS OVER RIGHT L3-4, L4-5 LUMBR FACETS WITH FACET LOADING . DIAGNOSTIC:MRI L/S SPINE -2017. ASSESSMENTS SPONDYLOSIS WITHOUT MYELOPATHY OR RADICULOPATHY, LUMBAR REGION - M47.816 (PRIMARY) OTHER CHRONIC PAIN - G89.29 TREATMENT SPONDYLOSIS WITHOUT MYELOPATHY OR RADICULOPATHY, LUMBAR REGION REFILL ENDOCET TABLET, 10-325 MG, 1 TABLET NEEDED, ORALLY, EVERY 6 HRS PRN MDD4, 30 DAYS, 120, REFILLS 0 NOTES: RIGHT DIAGNOSTIC LUMBAR FACET BLOCK L3-4,L4-5 PRINTED AND REVIEWED PRE PROCEDURE WITH PATIENT SantiRUSTAM WHALEN , ISTOP REGISTRY REVIEWED AND DEMONSTRATES COMPLLIANCE. FORGOT TO BRING IN MEDICATION RECENT URINE TOXICOLOGY REVIEWED. NO UNAUTHORIZED MEDICATIONS. NO ILLICIT SUBSTANCES AND PRESCRIBED MEDICATIONS WERE PRESENT. , RISKS OF NARCOTIC/OPIOD MEDICATIONS INCLUDES BUT IS NOT LIMITED TO RISK OF DEPENDANCE/DEVELOPMENT OF ADDICTION, MOOD DISTURBANCE AND DEPRESSION, OSTEOPOROSIS, HORMONAL AND LABIDAL CHANGES, RESPIRATORY DEPRESSION AND . PATIENT IS ADVISED NOT TO DRIVE OR DRINK ALCOHOL WHILE ON THESE MEDICATIONS. OTHER CHRONIC PAIN PAIN PROCEDURE LOGDATE OF PROCEDURE1PROCEDURE:RIGHT DIAGNOSTIC LUMBAR FACET BLOCK L3-L4,L4-L5 #1AMOUNT OF PRE SEDATE0/0RESULT:GREATER THAN 80% REDUCTION IN PAIN FOR APPROXIMATELY 2 WEEKS POST PROCEDURE THEN PAIN ABRUPTLY RETURNED TO BASELINE PROCEDURES PN WORKMANS' COMP OPINION IN YOUR OPINION, WAS THE INCIDENT THAT THE PATIENT DESCRIBED THE COMPETENT MEDICAL CAUSE OF THIS INJURY/ILLNESS? YES ARE THE PATIENT'S COMPLAINTS CONSISTENT WITH HIS/HER HISTORY OF THE INJURY/ILLNESS? YES IS THE PATIENT'S HISTORY OF THE INJURY/ILLNESS CONSISTENT WITH YOUR OBJECTIVE FINDING? YES WHAT IS THE PERCENTAGE OF TEMPORARY IMPAIRMENT? MODERATE TO MARKED = 66.7% IS THE PATIENT WORKING? YES DOCTOR ON SITE: CONTRERAS PATEL MD PROCEDURE CODES FA211 ESTABILISHED PATIENT [facility] FACILITY CHARGE DISPOSITION & COMMUNICATION FOLLOW UP POST PROCEDURE (REASON: RIGHT DIAGNOSTIC LUMBAR FACET BLOCK L3-4,L4-5 WORKMANS COMP REQUEST) ELECTRONICALLY SIGNED BY SUELLEN PIERRE ON 06/10/2020 AT 12:46 PM EST DISCLAIMER : THIS IS A VISIT SUMMARY EXTRACTED FROM THE [employer] CHART. IT IS NOT A COPY OF THE [email or web address] PROGRESS NOTE. TALIA
== END ==
LOC: M PAIN 09:15
PROVIDERS: ATTEND Nurse Practitioner Family
DX: M47.816 Spondylosis without myelopathy or radiculopathy, lumbar region (principal); G89.29 Other chronic pain; K21.9 Gastro-esophageal reflux disease without esophagitis; Z86.59 Personal history of other mental and behavioral disorders; Z87.891 Personal history of nicotine dependence; Z88.5 Allergy status to narcotic agent; Z88.6 Allergy status to analgesic agent; Z88.8 Allergy status to other drugs, medicaments and biological substances; Z91.040 Latex allergy status; Z79.82 Long term (current) use of aspirin; Z79.899 Other long term (current) drug therapy

== ENCOUNTER → 2020-06-13 | Outpatient (CLI) | payer BC, OTHER ==
--- NOTE | 2020-06-14 23:39 | ECWPNPC ---
PATIENT NAME: MOO PEDROZA : 1960 GENDER: FEMALE VISIT DATE: 06/13/2020 DISCHARGE DATE: 06/13/20 0854 VISIT LOCKED DATE TIME: PHYSICIAN: DEVAUGHN CLAYTON RESOURCE: DEVAUGHN CLAYTON REASON FOR APPOINTMENT 1. MIGRAINE/NEW BODY PART HISTORY OF PRESENT ILLNESS DEPRESSION SCREENING: PHQ-2 (2015 EDITION) LITTLE INTEREST OR PLEASURE IN DOING THINGS?NOT AT ALL FEELING DOWN, DEPRESSED, OR HOPELESS?NOT AT ALL TOTAL SCORE0 GENERAL: 60-YEAR-OLD FEMALE HERE PER REFERRAL OF [facility] FOR EVALUATION OF MIGRAINE HEADACHES. STATES HEADACHES BEGAN ABOUT A YEAR AND A HALF AGO. REPORTING 2-3 MIGRAINE HEADACHES PER MONTH. HEADACHES LAST FOR 24 HOURS. HAS TO CALL INTO WORK SICK WHEN SHE HAS A MIGRAINE. REPORTS PHOTO PHOBIA AND NAUSEA. HAS NOT TRIED ANY MEDICATIONS PREVENTATIVE OR ABORTIVE. HEADACHE PAIN IS LOCATED IN THE FRONTAL REGION. - - -. FALL RISK SCREENING: SCREENING : NO FALLS REPORTED IN THE LAST YEAR , : NO FALLS REPORTED IN THE LAST YEAR. PAIN SCREENING: PATIENT HAS A COMPLAINT OF ACUTE OR CHRONIC PAIN :YES LOCATION OF PAIN:HEAD INTENSITY OF PAIN (SCALE OF 1 TO 10):8 WHAT DOES YOUR PAIN FEEL LIKE:ACHING, THROBBING DURATION:CONTINOUS, CONSTANT, ALL DAY PAIN IS INCREASED BY:ACTIVITIES PAIN IS DECREASED BY:OTHERS DARK ROOM NURSING NOTE: - - -. PAIN CENTER INTAKE QUESTIONS: DO YOU HAVE A HISTORY OF MRSA? :NO DO YOU TAKE A BLOOD THINNERS? :NO DO YOU HAVE ANY BLEEDING DISORDERS? :NO ANY NEW NUMBNESS OR WEAKNESS IN YOUR LEGS OR ARMS? :NO ANY PACEMAKER,DEFIBRILLATOR, OR DORSAL COLUMN STIMULATOR? :NO DO YOU HAVE ANY RASHES OR OPEN SORES? :NO ARE YOU ALLERGIC TO IV DYE? :NO ARE YOU DIABETIC? :NO ANY NEW PROBLEMS WITH YOUR MEDICATIONS? :NO HAVE YOU RECEIVED A VACCINE IN THE PAST 30 DAYS? :NO DO YOU PLAN TO RECEIVE A VACCINE IN THE NEXT 21 DAYS? :NO DO YOU NEED ANY PRESCRIPTION? :NO DO YOU TAKE ANY IMMUNOSUPPRESSIVE MEDICATIONS? :YES HYDREA CURRENT MEDICATIONS TAKING ATENOLOL 25 MG 1 TAB ORAL BID TAKING CALCIUM 500 MG TABLET 1 TABLET WITH MEALS ORALLY DAILY TAKING ZYRTEC 10 MG TABLET 1 TABLET ORALLY ONCE A DAY TAKING FLONASE 1 SPRAY IN EACH NOSTRIL NASALLY DIRECTED TAKING HYDREA 1000 MG CAPSULE 1 CAP ORALLY DAILY TAKING ATIVAN 0.5 0.5MG TABLET 0.25MG ORAL BID PRN TAKING MULTIVITAMIN TABLETS 1 TAB ORALLY DAILY TAKING SEROQUEL 100 100 MG TABLET 400MG AT HS ORAL DAILY TAKING ESTRADIOL 0.5 MG TABLET 1 TABLET ORALLY DAILY TAKING ZOFRAN 8 MG TABLET 1 TABLET ORALLY EVERY 4 HOURS NEEDED TAKING PROTONIX 20 MG TABLET DELAYED RELEASE 1 TABLET ORALLY ONCE A DAY TAKING TRULANCE 3 MG TABLET 1 TABLET ORALLY ONCE A DAY TAKING EFFEXOR 75 MG TABLET 2 TABLET WITH FOOD ORALLY 150MG DAILY TAKING TIZANIDINE HCL 6 MG CAPSULE 1 TABLET NEEDED ORALLY THREE TIMES A DAY TAKING MOVANTIK 25 MG TABLET 1 TABLET IN THE MORNING ORALLY ONCE A DAY (WORKERS COMPENSATION) TAKING DOCUSATE SODIUM 100 MG CAPSULE 1 CAPSULE NEEDED ORALLY TWICE A DAY NEEDED TAKING ASPIRIN 325 MG TABLET 1 TABLET ORALLY ONCE A DAY TAKING METHYLPHENIDATE 10 MG TABLET TAKES 20 MGS ORALLY BID TAKING ALENDRONATE SODIUM 70 MG TABLET 1 TABLET ORALLY WEEKLY TAKING ENDOCET 10-325 MG TABLET 1 TABLET NEEDED ORALLY EVERY 6 HRS PRN MDD4 NOT-TAKING CLONIDINE HCL 0.1 MG TABLET 1 ORALLY Q12H PRN FOR WITHDRAWAL SYMPTOMS NOT-TAKING LINZESS 290 MCG CAPSULE ONE P.O. DAILY NOT-TAKING HYDREA 500 MG CAPSULE ORALLY EVERY OTHER DAY NOT-TAKING FENTANYL 12 MCG/HR PATCH 72 HOUR 1 PATCH TO SKIN TRANSDERMAL 1 PATCH [id number] (WORKERS COMPENSATION) MEDICATION LIST REVIEWED AND RECONCILED WITH THE PATIENT PAST MEDICAL HISTORY BLOOD CANCER BIPOLAR/SOCIAL ANXIETY PTSD BACK PAIN SVT HAMMERTOE IBS GERD MIRGRANE ALLERGIES CODEINE SULFATE: NAUSEA/VOMITING - SIDE EFFECTS STADOL: ITCH - ALLERGY TRAMADOL: EXCESSIVE YAWNING - SIDE EFFECTS NUBAIN: REACTION AT SITE - SIDE EFFECTS HYDROXYZINE HCL: EXCESSIVE YAWNING - SIDE EFFECTS KETOROLAC TROMETHAMINE: EXCESSIVE YAWNING - SIDE EFFECTS LATEX (FOR ALLERGY USE ONLY): RASH - ALLERGY SOCIAL HISTORY GENERAL: TOBACCO USE ARE YOU A:FORMER SMOKER HOW LONG HAS IT BEEN SINCE YOU LAST SMOKED?> 10 YEARS LATEX QUESTIONNAIRE LATEX ALLERGY : HAVE YOU EVER DEVELOPED ANY TYPE OF REACTION AFTER HANDLING LATEX PRODUCTS SUCH RUBBER GLOVES, CONDOMS, DIAPHRAGMS, BALLOONS, SOCKS, OR UNDERWEAR?YES KNOWN ALLERGY, DOCUMENTATED. LATEX ALLERGY : HAVE YOU EVER DEVELOPED ANY TYPE OF REACTION DURING OR AFTER DENTAL APPOINTMENT, VAGINAL/RECTAL EXAMINATION, SURGICAL PROCEDURE, OR ANY OTHER EXPOSURE?NO - PLEASE INDICATE :RUBBER GLOVES DATE ASKED : 06/10/2020 LATEX RISK : HAVE YOU EVER HAD ANY DIFFICULTY BREATHING OR HIVES AFTER EATING OR HANDLING ANY FRUITS, OR VEGETABLES; SUCH KIWI, BANANAS, STONE FRUITS, OR CHESTNUTSNO LATEX RISK : DO YOU HAVE A PREVIOUS PERSONAL HISTORY OF MORE THAN NINE SURGERIES, SPINA BIFIDA, OR REPEATED CATHERIZATIONS? NO LATEX RISK : ARE YOU FREQUENTLY EXPOSED TO LATEX PRODUCTS IN YOUR OCCUPATION?NO ALCOHOL USE: NO. ALCOHOL SCREENING DID YOU HAVE A DRINK CONTAINING ALCOHOL IN THE PAST YEAR?NO POINTS0 INTERPRETATIONNEGATIVE RECREATIONAL DRUG USE DRUG USE?NO CAFFEINE CAFFEINE USE?YES HOW OFTEN AND HOW MUCH? 3-4 CUPS COFFEE/DAY RESTORATIONISM [id number] NONDENOMINATIONAL LANGUAGE LANGUAGES SPOKEN:[place]ISTANI LEARNING BARRIERS / SPECIAL NEEDS CHANGE FROM LAST VISIT?NO BARRIERS TO LEARNING?NO HEARING IMPAIRED?YES DECREASED HEARING RIGHT EAR VISION IMPAIRED?YES COGNITIVELY IMPAIRED?NO :CORRECTIVE LENSES READINESS TO LEARN?YES LEARNING PREFERENCES?YES :DEMONSTRATION/VERBAL INSTRUCTION LEARNING CAPABILITIES PRESENT?YES EMOTIONAL BARRIERS?NO SPECIAL DEVICES?NO SPECK DYER NEEDED?NO DOMESTIC VIOLENCE DO YOU FEEL SAFE IN YOUR ENVIRONMENT?YES MARITAL STATUS: . - PFS REFERRAL NEEDED?NO CLERGY REFERRAL NEEDED?NO PUBLIC HEALTH REFERRAL NEEDED?NO WAS THE PROVIDER NOTIFIED OF ANY PERTINENT INFO?YES N/A HAS THE PATIENT BEEN EDUCATED REGARDING HIS/HER PLAN OF CARE?YES HAS THE PATIENT BEEN EDUCATED REGARDING PAIN, THE RISK FOR PAIN, THE IMPORTANCE OF EFFECTIVE PAIN MANAGEMENT, AND THE PAIN ASSESSMENT PROCESS?YES ADVANCE DIRECTIVE ADVANCE DIRECTIVE DISCUSSED WITH PATIENT:YES PT DECLINED ASSISTANCE OR INFORMATION WITH HCP 01/03/18 REVIEWED WITH PT. IAND WITH PATIENT 03-11-19 DS. REVIEW OF SYSTEMS CONSTITUTIONAL: ANY RECENT FEVER NO . CHILLS NO . WEIGHT CHANGE OF UNKNOWN REASONS NO . GASTROENTEROLOGY: NEW UNEXPLAINABLE CHANGES IN BOWEL CONTROL NO . CONSTIPATION NO . GENITOURINARY: ANY NEW CHANGE IN BLADDER CONTROL? NO . NEUROLOGY: NEW ONSET DIZZINESS OR NEUROLOGICAL CHANGES NOT MENTIONED NO . NEW NUMBNESS OR PAIN PATTERNS NOT MENTIONED AND PERTINENT TO TODAY'S VISIT NO . CARDIOLOGY: NEW CHEST PRESSURE NO . PATIENT DENIES NO . RESPIRATORY: UNEXPLAINABLE COUGH NO . NEW SHORTNESS OF BREATH NO . VITAL SIGNS WT 170.8 LBS, HT 69 IN, BMI 25.22 INDEX, BP 110/62 MM HG, HR 77 /MIN, RR 18 /MIN, TEMP 96.3 F, OXYGEN SAT % 100%, SAFE IN ENV? (Y/N) YES, NA INITIALS [place] 08:20T.RUSTAM WHALEN. EXAMINATION GENERAL EXAMINATION: GENERALNO ACUTE DISTRESS, WELL NOURISHED AND HYDRATED. PSYCHAPPROPRIATE MOOD AND AFFECT . FACE:UNREMARKABLE. NECK:NO LYMPHADENOPATHY, SUPPLE. LUNGS:CLEAR TO AUSCULTATION BILATERALLY, NO WHEEZES, RHONCHI, RALES. HEART:NO MURMURS, REGULAR RATE AND RHYTHM. NEUROLOGIC EXAM: CN'S II-XII GROSSLY INTACT.NEGATIVE ROMBERG TEST. ASSESSMENTS MIGRAINE SYNDROME - G43.909 (PRIMARY) TREATMENT MIGRAINE SYNDROME START TOPAMAX TABLET, 25 MG, 1 TABLET, ORALLY, BID, 30 DAY(S), 60 TABLET, REFILLS 1 NOTES: HERE TODAY UNDER PRIVATE INSURANCE FOR CHRONIC MIGRAINE HEADACHE. WE WILL START TOPAMAX 25 MG AT NIGHTTIME FOR 10 DAYS THEN INCREASE TO MORNING AND NIGHT. FOLLOW-UP IS SCHEDULED IN 2 MONTHS. PROCEDURE CODES FA211 ESTABILISHED PATIENT [facility] CHARGE DISPOSITION & COMMUNICATION FOLLOW UP 2 MONTHS (REASON: MIGRAINE BC/BC-EVALUATE TOPAMAX) ELECTRONICALLY SIGNED BY SUELLEN PIERRE ON 06/14/2020 AT 08:40 AM EDT DISCLAIMER : THIS IS A VISIT SUMMARY EXTRACTED FROM THE [facility] CHART. IT IS NOT A COPY OF THE [facility] PROGRESS NOTE. TALIA
== END ==
LOC: M PAIN 08:15
PROVIDERS: ATTEND Nurse Practitioner Family
DX: G43.909 Migraine, unspecified, not intractable, without status migrainosus (principal); K21.9 Gastro-esophageal reflux disease without esophagitis; Z86.59 Personal history of other mental and behavioral disorders; Z87.891 Personal history of nicotine dependence; Z88.5 Allergy status to narcotic agent; Z88.6 Allergy status to analgesic agent; Z88.8 Allergy status to other drugs, medicaments and biological substances; Z91.040 Latex allergy status; Z79.82 Long term (current) use of aspirin; Z79.899 Other long term (current) drug therapy

== ENCOUNTER → 2020-06-24 | Outpatient (CLI) | payer BC, OTHER ==
[~2020-06-24] MED LIST changes: +MULT-90 PO
== END ==
LOC: M LABSMTC 09:31
PROVIDERS: ATTEND Anesthesiology
DX: Z20.822 Contact with and (suspected) exposure to COVID-19 (principal)

== ENCOUNTER → 2020-06-29 | Outpatient (CLI) | payer OTHER ==
[~2020-06-29] MED LIST changes: +BUPIVACAINE HCL 0.25% 30ML VIAL As Ordered ONE; +ISOVUE-M 300 61% 15ML VIAL As Ordered ONE; +LIDOCAINE 1% SDV 30ML VIAL As Ordered ONE
--- NOTE | 2020-06-29 17:44 | REP ---
INDICATION: RIGHT DIAGNOSTIC LUMBAR FACET BLOCK. COMPARISON: 05/16/2020. TECHNIQUE: Single C-arm view lower lumbar spine. FINDINGS: Logan are seen along the right lower lumbar facet joints and a small amount of contrast is injected. IMPRESSION: 16 seconds fluoroscopy time utilized. <Electronically signed by Gene Young > 06/29/20 [id number]
--- NOTE | 2020-07-01 02:24 | ECWPNPC ---
PATIENT NAME: MOO PEDROZA : 1960 GENDER: FEMALE VISIT DATE: 06/29/2020 DISCHARGE DATE: 06/29/20 1025 VISIT LOCKED DATE TIME: PHYSICIAN: CONTRERAS UNGER MD RESOURCE: CONTRERAS UNGER MD REASON FOR APPOINTMENT 1. W/C RIGHT DIAGNOSTIC LUMBAR FACET BLOCK L3-4,L4-L5 HISTORY OF PRESENT ILLNESS GENERAL: -. FALL RISK SCREENING: SCREENING : NO FALLS REPORTED IN THE LAST YEAR. PAIN SCREENING: PATIENT HAS A COMPLAINT OF ACUTE OR CHRONIC PAIN :YES LOCATION OF PAIN:LOW BACK, RIGHT HIP RIGHT LEG INTENSITY OF PAIN (SCALE OF 1 TO 10):8 WHAT DOES YOUR PAIN FEEL LIKE:ACHING, CONTINOUS, THROBBING, SHOOTING DURATION:CONTINOUS, CONSTANT, STEADY, ALL DAY PAIN IS INCREASED BY:PROLONGED STANDING, OTHERS PROLONGED WALKING, MOVEMENT PAIN IS DECREASED BY:USE OF PAIN MEDICATIONS, OTHERS HEAT, HOT BATH NURSING NOTE: -. PAIN CENTER INTAKE QUESTIONS: DO YOU HAVE A HISTORY OF MRSA? :NO DO YOU TAKE A BLOOD THINNERS? :NO DO YOU HAVE ANY BLEEDING DISORDERS? :NO ANY NEW NUMBNESS OR WEAKNESS IN YOUR LEGS OR ARMS? :NO ANY PACEMAKER,DEFIBRILLATOR, OR DORSAL COLUMN STIMULATOR? :NO DO YOU HAVE ANY RASHES OR OPEN SORES? :NO ARE YOU ALLERGIC TO IV DYE? :NO ARE YOU DIABETIC? :NO ANY NEW PROBLEMS WITH YOUR MEDICATIONS? :NO HAVE YOU RECEIVED A VACCINE IN THE PAST 30 DAYS? :NO DO YOU PLAN TO RECEIVE A VACCINE IN THE NEXT 21 DAYS? :NO DO YOU TAKE ANY IMMUNOSUPPRESSIVE MEDICATIONS? :YES HYDROXYUREA ANY HISTORY OF SEIZURES? :NO ANY HISTORY OF CARDIAC ISSUES OR EVENTS? :YES ABLATION IN 2006 DUE TO ABNORMAL HEART RHYTHM DO YOU HAVE ANY KIDNEY OR LIVER DISEASE? :YES HX OF KIDNEY STONES DO YOU HAVE SLEEP APNEA? :NO ANY RECENT HEAD INJURY? :NO DO YOU HAVE ANY NEW INFECTIONS? :NO IS THERE A CHANCE YOU COULD BE ? :NO ARE YOU BREAST FEEDING? :NO WHEN DID YOU LAST EAT? : 06/28/20201999 WHEN DID YOU LAST DRINK? : 0300 WHAT DID YOU LAST DRINK? : BLACK COFFEE NAME OF PERSON DRIVING YOU HOME? : DO YOU HAVE ANY OTHER QUESTIONS OR CONCERNS? : - CURRENT MEDICATIONS TAKING ATENOLOL 25 MG 1 TAB ORAL BID, NOTES: 06/28/201999 TAKING CALCIUM 500 MG TABLET 1 TABLET WITH MEALS ORALLY DAILY TAKING ZYRTEC 10 MG TABLET 1 TABLET ORALLY ONCE A DAY TAKING FLONASE 1 SPRAY IN EACH NOSTRIL NASALLY DIRECTED TAKING HYDREA 1000 MG CAPSULE 1 CAP ORALLY DAILY, NOTES: 06/28/201999 TAKING ATIVAN 0.5 0.5MG TABLET 0.25MG ORAL BID PRN TAKING MULTIVITAMIN TABLETS 1 TAB ORALLY DAILY TAKING SEROQUEL 100 100 MG TABLET 400MG AT HS ORAL DAILY TAKING ESTRADIOL 0.5 MG TABLET 1 TABLET ORALLY DAILY TAKING ZOFRAN 8 MG TABLET 1 TABLET ORALLY EVERY 4 HOURS NEEDED TAKING PROTONIX 20 MG TABLET DELAYED RELEASE 1 TABLET ORALLY ONCE A DAY TAKING TRULANCE 3 MG TABLET 1 TABLET ORALLY ONCE A DAY TAKING EFFEXOR 75 MG TABLET 2 TABLET WITH FOOD ORALLY 150MG DAILY, NOTES: 06/28/20 AM TAKING TIZANIDINE HCL 6 MG CAPSULE 1 TABLET NEEDED ORALLY THREE TIMES A DAY, NOTES: COUPLE DAYS AGO TAKING MOVANTIK 25 MG TABLET 1 TABLET IN THE MORNING ORALLY ONCE A DAY (WORKERS COMPENSATION) TAKING DOCUSATE SODIUM 100 MG CAPSULE 1 CAPSULE NEEDED ORALLY TWICE A DAY NEEDED TAKING ASPIRIN 325 MG TABLET 1 TABLET ORALLY ONCE A DAY TAKING METHYLPHENIDATE 10 MG TABLET TAKES 20 MGS ORALLY BID TAKING ALENDRONATE SODIUM 70 MG TABLET 1 TABLET ORALLY WEEKLY TAKING ENDOCET 10-325 MG TABLET 1 TABLET NEEDED ORALLY EVERY 6 HRS PRN MDD4, NOTES: 06/28/201999 TAKING TOPAMAX 25 MG TABLET 1 TABLET ORALLY BID NOT-TAKING CLONIDINE HCL 0.1 MG TABLET 1 ORALLY Q12H PRN FOR WITHDRAWAL SYMPTOMS NOT-TAKING LINZESS 290 MCG CAPSULE ONE P.O. 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 ALLERGIES CODEINE SULFATE: NAUSEA/VOMITING - SIDE EFFECTS STADOL: ITCH - ALLERGY TRAMADOL: EXCESSIVE YAWNING - SIDE EFFECTS NUBAIN: REACTION AT SITE - SIDE EFFECTS HYDROXYZINE HCL: EXCESSIVE YAWNING - SIDE EFFECTS KETOROLAC TROMETHAMINE: EXCESSIVE YAWNING - SIDE EFFECTS LATEX (FOR ALLERGY USE ONLY): RASH - ALLERGY SOCIAL HISTORY GENERAL: TOBACCO USE ARE YOU A:FORMER SMOKER HOW LONG HAS IT BEEN SINCE YOU LAST SMOKED?> 10 YEARS LATEX QUESTIONNAIRE LATEX ALLERGY : HAVE YOU EVER DEVELOPED ANY TYPE OF REACTION AFTER HANDLING LATEX PRODUCTS SUCH RUBBER GLOVES, CONDOMS, DIAPHRAGMS, BALLOONS, SOCKS, OR UNDERWEAR?YES KNOWN ALLERGY, DOCUMENTATED. - PLEASE INDICATE :RUBBER GLOVES LATEX ALLERGY : HAVE YOU EVER DEVELOPED ANY TYPE OF REACTION DURING OR AFTER DENTAL APPOINTMENT, VAGINAL/RECTAL EXAMINATION, SURGICAL PROCEDURE, OR ANY OTHER EXPOSURE?NO LATEX RISK : HAVE YOU EVER HAD ANY DIFFICULTY BREATHING OR HIVES AFTER EATING OR HANDLING ANY FRUITS, OR VEGETABLES; SUCH KIWI, BANANAS, STONE FRUITS, OR CHESTNUTSNO LATEX RISK : DO YOU HAVE A PREVIOUS PERSONAL HISTORY OF MORE THAN NINE SURGERIES, SPINA BIFIDA, OR REPEATED CATHERIZATIONS? NO LATEX RISK : ARE YOU FREQUENTLY EXPOSED TO LATEX PRODUCTS IN YOUR OCCUPATION?NO DATE ASKED : 06/10/2020 ALCOHOL USE: NO. ALCOHOL SCREENING DID YOU HAVE A DRINK CONTAINING ALCOHOL IN THE PAST YEAR?NO POINTS0 INTERPRETATIONNEGATIVE RECREATIONAL DRUG USE DRUG USE?NO CAFFEINE CAFFEINE USE?YES HOW OFTEN AND HOW MUCH? 3-4 CUPS COFFEE/DAY [employer] [id number] HOLINESS LANGUAGE LANGUAGES SPOKEN:UZBEK LEARNING BARRIERS / SPECIAL NEEDS CHANGE FROM LAST VISIT?NO BARRIERS TO LEARNING?NO HEARING IMPAIRED?YES DECREASED HEARING RIGHT EAR VISION IMPAIRED?YES :CORRECTIVE LENSES COGNITIVELY IMPAIRED?NO READINESS TO LEARN?YES LEARNING PREFERENCES?YES :DEMONSTRATION/VERBAL INSTRUCTION LEARNING CAPABILITIES PRESENT?YES EMOTIONAL BARRIERS?NO SPECIAL DEVICES?NO HEALTH DATA ANALYST NEEDED?NO MARITAL STATUS: . - PFS REFERRAL NEEDED?NO CLERGY REFERRAL NEEDED?NO PUBLIC HEALTH REFERRAL NEEDED?NO WAS THE PROVIDER NOTIFIED OF ANY PERTINENT INFO?YES N/A HAS THE PATIENT BEEN EDUCATED REGARDING HIS/HER PLAN OF CARE?YES HAS THE PATIENT BEEN EDUCATED REGARDING PAIN, THE RISK FOR PAIN, THE IMPORTANCE OF EFFECTIVE PAIN MANAGEMENT, AND THE PAIN ASSESSMENT PROCESS?YES ADVANCE DIRECTIVE ADVANCE DIRECTIVE DISCUSSED WITH PATIENT:YES PT DECLINED ASSISTANCE OR INFORMATION WITH HCP VITAL SIGNS WT 173 LBS, HT 69 IN, BMI 25.54 INDEX, BP 115/73 MM HG, HR 71 /MIN, RR 18 /MIN, TEMP 97.9 F, OXYGEN SAT % 98%, SAFE IN ENV? (Y/N) YES, NA INITIALS [place] 09:17, REVIEWED BY: Lisa BARBOSA RN. EXAMINATION GENERAL EXAMINATION: A HISTORY AND PHYSICAL EXAM ON THE PATIENT WAS DONE ON 06/10/2020 (DATE OF ORIGINAL ASSESSMENT) IN PREPARATION OF SURGERY/PROCEDURE. I HAVE NOW REASSESSED THIS PATIENT'S HEALTH STATUS AND PERFORMED AN UPDATED EXAM TODAY. ALL CHANGES IN THE PATIENT'S HISTORY, PHYSICAL EXAM, PRE-EXISTING CONDITONS, AND INDICATIONS/CONTRAINDICATIONS TO THE PLANNED PROCEDURE AND ANESTHESIA ARE DOCUMENTED AND EVALUATED BELOW. I ATTEST TO THE ADEQUACY AND APPROPRIATENESS OF MY ASSESSMENT, AND CONFIRM THE NECESSITY FOR THE PLANNED PROCEDURE. THE PATIENT IS ALERT, ORIENTED TIMES THREE AND COOPERATIVE. LUNGS ARE CLEAR TO AUSCULTATION. HEART SHOWS REGULAR RHYTHM, NO MURMURS AND NO GALLOPS. ASSESSMENTS SPONDYLOSIS WITHOUT MYELOPATHY OR RADICULOPATHY, LUMBAR REGION - M47.816 (PRIMARY) TREATMENT SPONDYLOSIS WITHOUT MYELOPATHY OR RADICULOPATHY, LUMBAR REGION [facility] FACET BLOCK (PAIN)[id number] COMPLETION OF PROCEDURAL VISIT WHEN MEETS CRITERIAALONZO BARBOSA 06/29/2020 10:24:48 AM > CRITERIA MET. OTHERS NOTES: 06/28/20 1500 , NO ANSWER, VM HAS NOT BEEN SET UP. THE WIRELESSCUSTOMER YOU ARE TRYING TO REACH IS NOT AVAILABLE. Aly HENDRICKSON RN BSN. PROCEDURES PAIN NURSING RECORD PROCEDURE IN ROOM 0941, PHYSICIAN IN ROOM 1000, START 1004, FINISH 1008, PHYSICIAN OUT OF ROOM 1009, OUT OF ROOM 1014, ECG OTHER SINUS MAX, PATIENT SHIELDED YES, SAFETY STRAP YES, PREP CHLOROPREP Lisa BARBOSA RN, DRESSING TEGADERM DR. UNGER LOC: ALONZO BARBOSA [place] 06/29/2020 10:05:28 AM > , 1. ALERT, ORIENTED RESP: ALONZO BARBOSA [place] 06/29/2020 10:05:32 AM > , 1. REGULAR, NO DYSPNEA COLOR: ALONZO BARBOSA [place] 06/29/2020 10:05:34 AM > , 1. PINK SKIN: ALONZO BARBOSA [place] 06/29/2020 10:05:37 AM > , 1. WARM, DRY POSITION: ALONZO BARBOSA [place] 06/29/2020 10:05:41 AM > , 1. PRONE VITALS: FAMILIAALONZO [place] 06/29/2020 9:44:54 AM > 111/62, 52, 16, 98% ALONZO BARBOSA 06/29/2020 9:57:20 AM > 114/59, 56, 16, 98% ALOZNO BARBOSA 06/29/2020 10:10:31 AM > 111/63, 52, 16, 97% ALONZO BARBOSA 06/29/2020 10:21:04 AM > 121/70, 59, 16, 97% COMPLETION OF PROCEDURE APPOINTMENT: POST PAIN 2, DRESSING SITE DRY AND INTACT, IV N/A, GAIT STEADY, TEACHING COMPLETED, PATIENT ACKNOWLEDGES UNDERSTANDING YES, PROCEDURE APPOINTMENT COMPLETED AT 1025 BY: Lisa BARBOSA RN PN WORKMANS' COMP OPINION IN YOUR OPINION, WAS THE INCIDENT THAT THE PATIENT DESCRIBED THE COMPETENT MEDICAL CAUSE OF THIS INJURY/ILLNESS? YES ARE THE PATIENT'S COMPLAINTS CONSISTENT WITH HIS/HER HISTORY OF THE INJURY/ILLNESS? YES IS THE PATIENT'S HISTORY OF THE INJURY/ILLNESS CONSISTENT WITH YOUR OBJECTIVE FINDING? YES WHAT IS THE PERCENTAGE OF TEMPORARY IMPAIRMENT? MODERATE TO MARKED = 66.7% . IS THE PATIENT WORKING? YES DOCTOR ON SITE: CONTRERAS PATEL MD PN LUMBAR FACET BLOCK DIAGNOSTIC PRE PROCEDURE DIAGNOSIS LUMBAR SPONDYLOSIS POST PROCEDURE DIAGNOSIS LUMBAR SPONDYLOSIS PROCEDURE RIGHT L3-L4 AND RIGHT L4-L5 FACET BLOCK DIAGNOSTIC NUMBER [address] CONTRERAS UNGER MEDICAL CLAIMS PROCESSOR NONE ANESTHESIA LOCAL PRE PROCEDURE NOTE THE PATIENT WITH HISTORY OF CHRONIC LOW BACK PAIN. I EVALUATED THE PATIENT AND REVIEWED THE CHART. I WENT OVER THE RISKS, ALTERNATIVES, AND BENEFITS ASSOCIATED WITH THIS PROCEDURE. THE PATIENT WOULD LIKE TO PROCEED AND GAVE CONSENT TO PERFORM THE PROCEDURE. AGREED WITH THE PATIENT, WE ARE DOING THIS PROCEDURE TO DETERMINE IF THE PATIENT IS A CANDIDATE FOR A RADIOFREQUENCY ABLATION OF THE FACETS JOINTS. THE PATIENT DENIES UNEXPLAINABLE WEIGHT LOSS, FEVER, CHILLS, OR NEW CHANGES IN URINARY OR BOWEL CONTROL. THE PATIENT IS COVID-19 NEGATIVE DESCRIPTION OF PROCEDURE THE PATIENT WAS BROUGHT TO THE PROCEDURE ROOM AND PLACED IN THE PRONE POSITION. THE LUMBOSACRAL AREA WAS CLEANED WITH CHLORAPREP SOLUTION AND DRAPED ASEPTICALLY. THE PROCEDURE WAS DONE UNDER STERILE CONDITIONS. A TIMEOUT WAS PERFORMED WHERE THE CONSENTED SITE WAS VERIFIED WITH EVERYONE IN THE ROOM. UNDER FLUOROSCOPIC GUIDANCE, TARGETS WERE SELECTED AT THE INTERSECTION OF THE RIGHT TRANSVERSE PROCESS OF L3, L4 AND L5 WITH ITS RESPECTIVE SUPERIOR ARTICULAR PROCESS WITH A TARGET OF THE MEDIAN BRANCHES OF L2, L3 AND L4. I CONFIRMED AGAIN THE SITE OF TARGET. LIDOCAINE WAS USED TO NUMB THE SKIN AND THE SUBCUTANEOUS TISSUE BELOW IT. SPINAL NEEDLE, 22-GAUGE, WAS ADVANCED UNDER FLUOROSCOPIC GUIDANCE AND FOLLOWING PATIENT FEEDBACK UNTIL THE TARGETS WERE REACHED. POSITION OF THE NEEDLES WAS VERIFIED WITH AP AND LATERAL VIEWS. AFTER PROPER POSITION OF THE NEEDLES WAS ACHIEVED, ISOVUE-M DYE 30%, 0.1 ML, WAS INJECTED AT EACH SITE SHOWING ADEQUATE SPREAD OF THE DYE. THEN, A SOLUTION OF 0.4 ML OF BUPIVACAINE 0.25% WAS INJECTED AT EACH SITE. THE MEDICATIONS WERE VERIFIED WITH THE NURSE. THERE WAS NO EVIDENCE OF BLOOD, PARESTHESIA OR CEREBROSPINAL FLUID DURING THE PROCEDURE. THE PATIENT WAS SENT TO THE RECOVERY ROOM. THE PATIENT WAS MOVING THE EXTREMITIES AND DOING WELL. THERE WERE NO COMPLICATIONS DURING THE PROCEDURE. ESTIMATED BLOOD LOSS WAS LESS THAN 5 ML. FLUOROSCOPY TIME WAS 16 SECONDS POST PROCEDURE NOTE THE PATIENT WILL DOCUMENT THE PAIN LEVEL AND RESPONSE TO THIS PROCEDURE PER PAIN DIARY. THE PATIENT WILL BE SEEN IN A FOLLOW UP IN THE NEXT FEW WEEKS. FURTHER DETERMINATION FOR THE PATIENT'S CASE WILL BE DONE AT THE NEXT VISIT. INSTRUCTIONS WERE GIVEN, QUESTIONS WERE ANSWERED, AND THE PATIENT EXPRESSED UNDERSTANDING AND AGREED WITH THE PLAN. I, MARIBELL SILVERMAN, DOCUMENTED THE ABOVE INFORMATION ACTING A SCRIBE FOR DR. UNGER. I HAVE REVIEWED THE ABOVE DOCUMENT, WRITTEN BY MARIBELL SILVERMAN, [employer], AND I VERIFY THAT IT IS ACCURATE PROCEDURE CODES 75742 INJ PARAVERT F JNT L/S 1 LEV, MODIFIERS: RT [id number] INJ PARAVERT F JNT L/S 2 LEV, MODIFIERS: RT DISPOSITION & COMMUNICATION FOLLOW UP FOLLOW UP WITH STONEMASON SUPERVISOR (REASON: POST RIGHT DIAGNOSTIC LUMBAR FACET BLOCK L3-L4, L4-L5) ELECTRONICALLY SIGNED BY CONTRERAS UNGER MD, MD ON 06/30/2020 AT 03:24 PM EDT DISCLAIMER : THIS IS A VISIT SUMMARY EXTRACTED FROM THE [facility] CHART. IT IS NOT A COPY OF THE [facility] PROGRESS NOTE. MTDD
== END ==
LOC: M PAIN 09:00
PROVIDERS: ATTEND Anesthesiology
DX: M47.816 Spondylosis without myelopathy or radiculopathy, lumbar region (principal); K21.9 Gastro-esophageal reflux disease without esophagitis; G43.909 Migraine, unspecified, not intractable, without status migrainosus; Z86.59 Personal history of other mental and behavioral disorders; Z87.891 Personal history of nicotine dependence; Z88.5 Allergy status to narcotic agent; Z88.6 Allergy status to analgesic agent; Z88.8 Allergy status to other drugs, medicaments and biological substances; Z91.040 Latex allergy status; Z79.82 Long term (current) use of aspirin; Z79.899 Other long term (current) drug therapy
CPT/HCPCS: 64493; 64494; Q9967

== ENCOUNTER → 2020-07-08 | Outpatient (CLI) | payer OTHER ==
[~2020-07-08] MED LIST changes: -BUPIVACAINE HCL 0.25% 30ML VIAL As Ordered ONE; -ISOVUE-M 300 61% 15ML VIAL As Ordered ONE; -LIDOCAINE 1% SDV 30ML VIAL As Ordered ONE
--- NOTE | 2020-07-10 23:16 | ECWPNPC ---
PATIENT NAME: MOO PEDROZA : 1960 GENDER: FEMALE VISIT DATE: 07/08/2020 DISCHARGE DATE: 07/08/20 1205 VISIT LOCKED DATE TIME: PHYSICIAN: DEVAUGHN CLAYTON RESOURCE: DEVAUGHN CLAYTON REASON FOR APPOINTMENT 1. W/C RIGHT DIAGNOSTIC LUMBAR FACET BLOCK L3-4,L4-L5 HISTORY OF PRESENT ILLNESS GENERAL: HERE FOR POST PROCEDURE FOLLOW-UP. HAD RIGHT DIAGNOSTIC LUMBAR FACET BLOCK L3-4, L4-5 #2 ON 06/29/2020. REPORTING NO PAIN FOR APPROXIMATELY 8 HOURS POSTPROCEDURE THEN PAIN ABRUPTLY RETURNED TO BASELINE. DISCUSSED RADIOFREQUENCY PROCEDURE.THIS IS CHRONIC LOW BACK PAIN FROM A WORK RELATED INJURY. -. FALL RISK SCREENING: SCREENING : NO FALLS REPORTED IN THE LAST YEAR. PAIN SCREENING: PATIENT HAS A COMPLAINT OF ACUTE OR CHRONIC PAIN :YES LOCATION OF PAIN:LOW BACK INTENSITY OF PAIN (SCALE OF 1 TO 10):8 WHAT DOES YOUR PAIN FEEL LIKE:ACHING, SHARP, THROBBING DURATION:INTERMITTENT PAIN IS INCREASED BY:ACTIVITIES PAIN IS DECREASED BY:USE OF PAIN MEDICATIONS NURSING NOTE: -. PAIN CENTER INTAKE QUESTIONS: DO YOU HAVE A HISTORY OF MRSA? :NO DO YOU TAKE A BLOOD THINNERS? :NO DO YOU HAVE ANY BLEEDING DISORDERS? :NO ANY NEW NUMBNESS OR WEAKNESS IN YOUR LEGS OR ARMS? :NO ANY PACEMAKER,DEFIBRILLATOR, OR DORSAL COLUMN STIMULATOR? :NO DO YOU HAVE ANY RASHES OR OPEN SORES? :NO ARE YOU ALLERGIC TO IV DYE? :NO ARE YOU DIABETIC? :NO ANY NEW PROBLEMS WITH YOUR MEDICATIONS? :NO HAVE YOU RECEIVED A VACCINE IN THE PAST 30 DAYS? :NO DO YOU PLAN TO RECEIVE A VACCINE IN THE NEXT 21 DAYS? :NO DO YOU NEED ANY PRESCRIPTION? :NO DO YOU TAKE ANY IMMUNOSUPPRESSIVE MEDICATIONS? :NO CURRENT MEDICATIONS TAKING ATENOLOL 25 MG 1 TAB ORAL BID TAKING CALCIUM 500 MG TABLET 1 TABLET WITH MEALS ORALLY DAILY TAKING ZYRTEC 10 MG TABLET 1 TABLET ORALLY ONCE A DAY TAKING FLONASE 1 SPRAY IN EACH NOSTRIL NASALLY DIRECTED TAKING HYDREA 1000 MG CAPSULE 1 CAP ORALLY DAILY TAKING ATIVAN 0.5 0.5MG TABLET 0.25MG ORAL BID PRN TAKING MULTIVITAMIN TABLETS 1 TAB ORALLY DAILY TAKING SEROQUEL 100 100 MG TABLET 400MG AT HS ORAL DAILY TAKING ESTRADIOL 0.5 MG TABLET 1 TABLET ORALLY DAILY TAKING ZOFRAN 8 MG TABLET 1 TABLET ORALLY EVERY 4 HOURS NEEDED TAKING PROTONIX 20 MG TABLET DELAYED RELEASE 1 TABLET ORALLY ONCE A DAY TAKING TRULANCE 3 MG TABLET 1 TABLET ORALLY ONCE A DAY TAKING EFFEXOR 75 MG TABLET 2 TABLET WITH FOOD ORALLY 150MG DAILY TAKING TIZANIDINE HCL 6 MG CAPSULE 1 TABLET NEEDED ORALLY THREE TIMES A DAY, NOTES: COUPLE DAYS AGO TAKING MOVANTIK 25 MG TABLET 1 TABLET IN THE MORNING ORALLY ONCE A DAY (WORKERS COMPENSATION) TAKING DOCUSATE SODIUM 100 MG CAPSULE 1 CAPSULE NEEDED ORALLY TWICE A DAY NEEDED TAKING ASPIRIN 325 MG TABLET 1 TABLET ORALLY ONCE A DAY TAKING METHYLPHENIDATE 10 MG TABLET TAKES 20 MGS ORALLY BID TAKING ALENDRONATE SODIUM 70 MG TABLET 1 TABLET ORALLY WEEKLY TAKING ENDOCET 10-325 MG TABLET 1 TABLET NEEDED ORALLY EVERY 6 HRS PRN MDD4 TAKING TOPAMAX 25 MG TABLET 1 TABLET ORALLY BID NOT-TAKING CLONIDINE HCL 0.1 MG TABLET 1 ORALLY Q12H PRN FOR WITHDRAWAL SYMPTOMS NOT-TAKING LINZESS 290 MCG CAPSULE ONE P.O. DAILY NOT-TAKING HYDREA 500 MG CAPSULE ORALLY EVERY OTHER DAY NOT-TAKING FENTANYL 12 MCG/HR PATCH 72 HOUR 1 PATCH TO SKIN TRANSDERMAL 1 PATCH [id number] (WORKERS COMPENSATION) MEDICATION LIST REVIEWED AND RECONCILED WITH THE PATIENT PAST MEDICAL HISTORY BLOOD CANCER BIPOLAR/SOCIAL ANXIETY PTSD BACK PAIN SVT HAMMERTOE IBS GERD MIRGRANE ALLERGIES CODEINE SULFATE: NAUSEA/VOMITING - SIDE EFFECTS STADOL: ITCH - ALLERGY TRAMADOL: EXCESSIVE YAWNING - SIDE EFFECTS NUBAIN: REACTION AT SITE - SIDE EFFECTS HYDROXYZINE HCL: EXCESSIVE YAWNING - SIDE EFFECTS KETOROLAC TROMETHAMINE: EXCESSIVE YAWNING - SIDE EFFECTS LATEX (FOR ALLERGY USE ONLY): RASH - ALLERGY SOCIAL HISTORY GENERAL: TOBACCO USE ARE YOU A:FORMER SMOKER HOW LONG HAS IT BEEN SINCE YOU LAST SMOKED?> 10 YEARS LATEX QUESTIONNAIRE LATEX ALLERGY : HAVE YOU EVER DEVELOPED ANY TYPE OF REACTION AFTER HANDLING LATEX PRODUCTS SUCH RUBBER GLOVES, CONDOMS, DIAPHRAGMS, BALLOONS, SOCKS, OR UNDERWEAR?YES KNOWN ALLERGY, DOCUMENTATED. - PLEASE INDICATE :RUBBER GLOVES LATEX ALLERGY : HAVE YOU EVER DEVELOPED ANY TYPE OF REACTION DURING OR AFTER DENTAL APPOINTMENT, VAGINAL/RECTAL EXAMINATION, SURGICAL PROCEDURE, OR ANY OTHER EXPOSURE?NO LATEX RISK : HAVE YOU EVER HAD ANY DIFFICULTY BREATHING OR HIVES AFTER EATING OR HANDLING ANY FRUITS, OR VEGETABLES; SUCH KIWI, BANANAS, STONE FRUITS, OR CHESTNUTSNO LATEX RISK : DO YOU HAVE A PREVIOUS PERSONAL HISTORY OF MORE THAN NINE SURGERIES, SPINA BIFIDA, OR REPEATED CATHERIZATIONS? NO LATEX RISK : ARE YOU FREQUENTLY EXPOSED TO LATEX PRODUCTS IN YOUR OCCUPATION?NO DATE ASKED : 07/08/2020 ALCOHOL USE: NO. ALCOHOL SCREENING DID YOU HAVE A DRINK CONTAINING ALCOHOL IN THE PAST YEAR?NO POINTS0 INTERPRETATIONNEGATIVE RECREATIONAL DRUG USE DRUG USE?NO CAFFEINE CAFFEINE USE?YES HOW OFTEN AND HOW MUCH? 3-4 CUPS COFFEE/DAY LUTHERAN [id number] PENTECOSTALISM LANGUAGE LANGUAGES SPOKEN:[place] LEARNING BARRIERS / SPECIAL NEEDS CHANGE FROM LAST VISIT?NO BARRIERS TO LEARNING?NO HEARING IMPAIRED?YES DECREASED HEARING RIGHT EAR VISION IMPAIRED?YES :CORRECTIVE LENSES COGNITIVELY IMPAIRED?NO READINESS TO LEARN?YES LEARNING PREFERENCES?YES :DEMONSTRATION/VERBAL INSTRUCTION LEARNING CAPABILITIES PRESENT?YES EMOTIONAL BARRIERS?NO SPECIAL DEVICES?NO HYDRODYNAMICIST NEEDED?NO MARITAL STATUS: . - PFS REFERRAL NEEDED?NO CLERGY REFERRAL NEEDED?NO PUBLIC HEALTH REFERRAL NEEDED?NO WAS THE PROVIDER NOTIFIED OF ANY PERTINENT INFO?YES N/A HAS THE PATIENT BEEN EDUCATED REGARDING HIS/HER PLAN OF CARE?YES HAS THE PATIENT BEEN EDUCATED REGARDING PAIN, THE RISK FOR PAIN, THE IMPORTANCE OF EFFECTIVE PAIN MANAGEMENT, AND THE PAIN ASSESSMENT PROCESS?YES ADVANCE DIRECTIVE ADVANCE DIRECTIVE DISCUSSED WITH PATIENT:YES PT DECLINED ASSISTANCE OR INFORMATION WITH HCP REVIEW OF SYSTEMS CONSTITUTIONAL: ANY RECENT FEVER NO . CHILLS NO . WEIGHT CHANGE OF UNKNOWN REASONS NO . GASTROENTEROLOGY: NEW UNEXPLAINABLE CHANGES IN BOWEL CONTROL NO . CONSTIPATION NO . GENITOURINARY: ANY NEW CHANGE IN BLADDER CONTROL? NO . NEUROLOGY: NEW ONSET DIZZINESS OR NEUROLOGICAL CHANGES NOT MENTIONED NO . NEW NUMBNESS OR PAIN PATTERNS NOT MENTIONED AND PERTINENT TO TODAY'S VISIT NO . CARDIOLOGY: NEW CHEST PRESSURE NO . PATIENT DENIES NO . RESPIRATORY: UNEXPLAINABLE COUGH NO . NEW SHORTNESS OF BREATH NO . VITAL SIGNS WT 173 LBS, HT 69 IN, BMI 25.54 INDEX, BP 151/83 MM HG, HR 83 /MIN, RR 18 /MIN, TEMP 97.1 F, OXYGEN SAT % 99%, SAFE IN ENV? (Y/N) YES, NA INITIALS CA 11:03T.RUSTAM WHALEN. EXAMINATION GENERAL EXAMINATION: LUNGS: LUNG SOUNDS ARE CLEAR . HEART: HEART RATE REGULAR . MUSCULOSKELETAL:*, MUSCLE STRENGTH TESTING 5/5 BILATERAL LOWER EXTREMITIES., ,PALPATION: POSITIVE FOR PAIN OVER L/S SPINE. POSITIVE FOR PAIN OVER L/S PARSPINALS.SPECIFIC POINT TENDERNESS OVER RIGHT L3-4, L4-5 LUMBR FACETS WITH FACET LOADING . DIAGNOSTIC:MRI L/S SPINE -2017. ASSESSMENTS SPONDYLOSIS WITHOUT MYELOPATHY OR RADICULOPATHY, LUMBAR REGION - M47.816 (PRIMARY) OTHER CHRONIC PAIN - G89.29 CHRONIC PRESCRIPTION OPIATE USE - Z79.899 TREATMENT SPONDYLOSIS WITHOUT MYELOPATHY OR RADICULOPATHY, LUMBAR REGION CONTINUE ENDOCET TABLET, 10-325 MG, 1 TABLET NEEDED, ORALLY, EVERY 6 HRS PRN MDD4 CONTINUE TOPAMAX TABLET, 25 MG, 1 TABLET, ORALLY, BID LAB: URINE TEST GROUP MARY EASTON 07/08/2020 11:58:10 AM > LAST DOSE: OXYCODONE 07/07/2020 @7AM MEDICATION: NORCO TABLET 5MG/325MG ORALLY (HYDROCODONE/ACETAMINOPHEN) (ORDERED FOR 07/15/2020) MEDICATION: VALIUM TAB 10MG ORALLY (DIAZEPAM) (ORDERED FOR 07/15/2020) NOTES: RIGHT LUMBAR COOL RADIOFREQUENCY L3-4,L4-5 PRINTED AND REVIEWED PRE PROCEDURE WITH PATIENT. ELSIE WHALEN. OTHER CHRONIC PAIN PAIN PROCEDURE LOGDATE OF PROCEDURE1PROCEDURE:RIGHT DIAGNOSTIC LUMBAR FACET BLOCK #2 L3-L4,L4-[id number] OF PRE SEDATE0/0RESULT:GREATER THAN 80% REDUCTION IN PAIN FOR 8 HRS PROCEDURES PN WORKMANS' COMP OPINION IN YOUR OPINION, WAS THE INCIDENT THAT THE PATIENT DESCRIBED THE COMPETENT MEDICAL CAUSE OF THIS INJURY/ILLNESS? YES ARE THE PATIENT'S COMPLAINTS CONSISTENT WITH HIS/HER HISTORY OF THE INJURY/ILLNESS? YES IS THE PATIENT'S HISTORY OF THE INJURY/ILLNESS CONSISTENT WITH YOUR OBJECTIVE FINDING? YES WHAT IS THE PERCENTAGE OF TEMPORARY IMPAIRMENT? MODERATE TO MARKED = 66.7% IS THE PATIENT WORKING? YES DOCTOR ON SITE: CONTRERAS PATEL MD PROCEDURE CODES FA211 ESTABILISHED PATIENT [facility] FACILITY CHARGE DISPOSITION & COMMUNICATION FOLLOW UP POST PROCEDURE (REASON: RIGHT LUMBAR COOL RADIOFREQUENCY L3-4,L4-5) ELECTRONICALLY SIGNED BY SUELLEN PIERRE ON 07/10/2020 AT 03:00 PM EDT DISCLAIMER : THIS IS A VISIT SUMMARY EXTRACTED FROM THE [employer] CHART. IT IS NOT A COPY OF THE [employer] PROGRESS NOTE. TALIA
== END ==
LOC: M PAIN 11:00
PROVIDERS: ATTEND Nurse Practitioner Family
DX: M47.816 Spondylosis without myelopathy or radiculopathy, lumbar region (principal); G89.29 Other chronic pain; K21.9 Gastro-esophageal reflux disease without esophagitis; G43.909 Migraine, unspecified, not intractable, without status migrainosus; Z86.59 Personal history of other mental and behavioral disorders; Z87.891 Personal history of nicotine dependence; Z88.5 Allergy status to narcotic agent; Z88.6 Allergy status to analgesic agent; Z88.8 Allergy status to other drugs, medicaments and biological substances; Z91.040 Latex allergy status; Z79.82 Long term (current) use of aspirin; Z79.899 Other long term (current) drug therapy

== ENCOUNTER → 2020-07-29 | Outpatient (CLI) | payer OTHER ==
--- NOTE | 2020-07-29 11:11 | REP ---
INDICATION: TRIGGER FINGER. COMPARISON: None TECHNIQUE: Four views of the left hand FINDINGS: Multiple views show the joint spaces to be symmetric and well maintained. There is no evidence of acute fracture or destructive osseous lesion. IMPRESSION: As above <Electronically signed by Keyshawn Walsh > 07/29/20 1101
== END ==
LOC: M SOG 10:00
PROVIDERS: ATTEND Orthopaedic Surgery Sports Medicine
DX: M65.332 Trigger finger, left middle finger (principal)

== ENCOUNTER → 2020-08-06 | Outpatient (CLI) | payer OTHER | LOC: M LABSMTC 08:23 | PROVIDERS: ATTEND Anesthesiology | DX: Z20.828 Contact with and (suspected) exposure to other viral communicable diseases (principal); Z11.59 Encounter for screening for other viral diseases ==

== ENCOUNTER → 2020-08-11 | Outpatient (CLI) | payer OTHER ==
[~2020-08-11] MED LIST changes: +BUPIVACAINE HCL 0.25% 30ML VIAL As Ordered ONE; +LIDOCAINE 1% SDV 30ML VIAL As Ordered ONE; +ONDANSETRON 4 MG ORAL DISINTEGRATING TAB As Ordered ONE; +dexameTHASONE 10MG/1ML VIAL PRES.FREE (J1100 PER 1MG) As Ordered ONE; +diazePAM 5MG TABLET As Ordered ONE; +diphenhydrAMINE 25MG CAP As Ordered ONE; +oxyCODONE 5MG TAB As Ordered ONE
--- NOTE | 2020-08-11 17:19 | REP ---
INDICATION: RIGHT LUMBAR COOL RADIOFREQUENCY. COMPARISON: None. TECHNIQUE: Multiple C-arm views lower lumbar spine. FINDINGS: [place] are seen overlying the lower lumbar spine. IMPRESSION: 43 seconds fluoroscopy time utilized. <Electronically signed by Gene Young > 08/11/20 1080
--- NOTE | 2020-08-13 02:07 | ECWPNPC ---
PATIENT NAME: MOO PEDROZA : 1960 GENDER: FEMALE VISIT DATE: 08/11/2020 DISCHARGE DATE: 08/11/201736 VISIT LOCKED DATE TIME: PHYSICIAN: CONTRERAS UNGER MD RESOURCE: CONTRERAS UNGER MD REASON FOR APPOINTMENT 1. RIGHT LUMBAR COOL RADIOFREQUENCY L3-L4,L4-L5 HISTORY OF PRESENT ILLNESS GENERAL: -. FALL RISK SCREENING: SCREENING : NO FALLS REPORTED IN THE LAST YEAR. PAIN SCREENING: PATIENT HAS A COMPLAINT OF ACUTE OR CHRONIC PAIN :YES LOCATION OF PAIN:LOW BACK, RIGHT HIP, LEG(S) INTENSITY OF PAIN (SCALE OF 1 TO 10):8 WHAT DOES YOUR PAIN FEEL LIKE:ACHING, STABBING, SHOOTING DURATION:CONTINOUS, CONSTANT, ALL DAY PAIN IS INCREASED BY:ACTIVITIES, PROLONGED STANDING, OTHERS PROLONGED SITTING PAIN IS DECREASED BY:USE OF PAIN MEDICATIONS, OTHERS HEAT, ICE, REST NURSING NOTE: -. PAIN CENTER INTAKE QUESTIONS: DO YOU HAVE A HISTORY OF MRSA? :NO DO YOU TAKE A BLOOD THINNERS? :NO DO YOU HAVE ANY BLEEDING DISORDERS? :NO ANY NEW NUMBNESS OR WEAKNESS IN YOUR LEGS OR ARMS? :NO ANY PACEMAKER,DEFIBRILLATOR, OR DORSAL COLUMN STIMULATOR? :NO DO YOU HAVE ANY RASHES OR OPEN SORES? :NO ARE YOU ALLERGIC TO IV DYE? :NO ARE YOU DIABETIC? :NO ANY NEW PROBLEMS WITH YOUR MEDICATIONS? :NO HAVE YOU RECEIVED A VACCINE IN THE PAST 30 DAYS? :NO DO YOU PLAN TO RECEIVE A VACCINE IN THE NEXT 21 DAYS? :NO DO YOU TAKE ANY IMMUNOSUPPRESSIVE MEDICATIONS? :NO ANY HISTORY OF SEIZURES? :NO ANY HISTORY OF CARDIAC ISSUES OR EVENTS? :YES PAST HISTORY OF V-TACH, ABLATION IN 2003 DO YOU HAVE ANY KIDNEY OR LIVER DISEASE? :NO DO YOU HAVE SLEEP APNEA? :NO ANY RECENT HEAD INJURY? :NO DO YOU HAVE ANY NEW INFECTIONS? :NO IS THERE A CHANCE YOU COULD BE ? :NO ARE YOU BREAST FEEDING? :NO WHEN DID YOU LAST EAT? : 0800 WHEN DID YOU LAST DRINK? : 0830 WHAT DID YOU LAST DRINK? : WATER NAME OF PERSON DRIVING YOU HOME? : BANDAR - DO YOU HAVE ANY OTHER QUESTIONS OR CONCERNS? : - CURRENT MEDICATIONS TAKING ATENOLOL 25 MG 1 TAB ORAL BID, NOTES: 0800 TAKING CALCIUM 500 MG TABLET 1 TABLET WITH MEALS ORALLY DAILY TAKING ZYRTEC 10 MG TABLET 1 TABLET ORALLY ONCE A DAY TAKING FLONASE 1 SPRAY IN EACH NOSTRIL NASALLY DIRECTED TAKING HYDREA 1000 MG CAPSULE 1 CAP ORALLY DAILY, NOTES: 08/10/20 PM TAKING ATIVAN 0.5 0.5MG TABLET 0.25MG ORAL BID PRN, NOTES: 08/10/20 1700 TAKING MULTIVITAMIN TABLETS 1 TAB ORALLY DAILY TAKING SEROQUEL 100 100 MG TABLET 400MG AT HS ORAL DAILY TAKING ESTRADIOL 0.5 MG TABLET 1 TABLET ORALLY DAILY TAKING ZOFRAN 8 MG TABLET 1 TABLET ORALLY EVERY 4 HOURS NEEDED TAKING PROTONIX 20 MG TABLET DELAYED RELEASE 1 TABLET ORALLY ONCE A DAY TAKING TRULANCE 3 MG TABLET 1 TABLET ORALLY ONCE A DAY TAKING EFFEXOR 75 MG TABLET 2 TABLET WITH FOOD ORALLY 150MG DAILY TAKING TIZANIDINE HCL 6 MG CAPSULE 1 TABLET NEEDED ORALLY THREE TIMES A DAY, NOTES: COUPLE DAYS AGO TAKING MOVANTIK 25 MG TABLET 1 TABLET IN THE MORNING ORALLY ONCE A DAY (WORKERS COMPENSATION) TAKING DOCUSATE SODIUM 100 MG CAPSULE 1 CAPSULE NEEDED ORALLY TWICE A DAY NEEDED TAKING ASPIRIN 325 MG TABLET 1 TABLET ORALLY ONCE A DAY TAKING METHYLPHENIDATE 10 MG TABLET TAKES 20 MGS ORALLY BID TAKING ALENDRONATE SODIUM 70 MG TABLET 1 TABLET ORALLY WEEKLY TAKING ENDOCET 10-325 MG TABLET 1 TABLET NEEDED ORALLY EVERY 6 HRS PRN MDD4, NOTES: 08/10/20 1700 TAKING TOPAMAX 25 MG TABLET 1 TABLET ORALLY BID NOT-TAKING CLONIDINE HCL 0.1 MG TABLET 1 ORALLY Q12H PRN FOR WITHDRAWAL SYMPTOMS NOT-TAKING LINZESS 290 MCG CAPSULE ONE P.O. DAILY NOT-TAKING HYDREA 500 MG CAPSULE ORALLY EVERY OTHER DAY NOT-TAKING FENTANYL 12 MCG/HR PATCH 72 HOUR 1 PATCH TO SKIN TRANSDERMAL 1 PATCH [id number] (WORKERS COMPENSATION) MEDICATION LIST REVIEWED AND RECONCILED WITH THE PATIENT PAST MEDICAL HISTORY BLOOD CANCER BIPOLAR/SOCIAL ANXIETY PTSD BACK PAIN SVT HAMMERTOE IBS GERD MIRGRANE ALLERGIES CODEINE SULFATE: NAUSEA/VOMITING - SIDE EFFECTS STADOL: ITCH - ALLERGY TRAMADOL: EXCESSIVE YAWNING - SIDE EFFECTS NUBAIN: REACTION AT SITE - SIDE EFFECTS HYDROXYZINE HCL: EXCESSIVE YAWNING - SIDE EFFECTS KETOROLAC TROMETHAMINE: EXCESSIVE YAWNING - SIDE EFFECTS LATEX (FOR ALLERGY USE ONLY): RASH - ALLERGY SOCIAL HISTORY GENERAL: TOBACCO USE ARE YOU A:FORMER SMOKER HOW LONG HAS IT BEEN SINCE YOU LAST SMOKED?> 10 YEARS LATEX QUESTIONNAIRE LATEX ALLERGY : HAVE YOU EVER DEVELOPED ANY TYPE OF REACTION AFTER HANDLING LATEX PRODUCTS SUCH RUBBER GLOVES, CONDOMS, DIAPHRAGMS, BALLOONS, SOCKS, OR UNDERWEAR?YES KNOWN ALLERGY, DOCUMENTATED. - PLEASE INDICATE :RUBBER GLOVES LATEX ALLERGY : HAVE YOU EVER DEVELOPED ANY TYPE OF REACTION DURING OR AFTER DENTAL APPOINTMENT, VAGINAL/RECTAL EXAMINATION, SURGICAL PROCEDURE, OR ANY OTHER EXPOSURE?NO LATEX RISK : HAVE YOU EVER HAD ANY DIFFICULTY BREATHING OR HIVES AFTER EATING OR HANDLING ANY FRUITS, OR VEGETABLES; SUCH KIWI, BANANAS, STONE FRUITS, OR CHESTNUTSNO LATEX RISK : DO YOU HAVE A PREVIOUS PERSONAL HISTORY OF MORE THAN NINE SURGERIES, SPINA BIFIDA, OR REPEATED CATHERIZATIONS? NO LATEX RISK : ARE YOU FREQUENTLY EXPOSED TO LATEX PRODUCTS IN YOUR OCCUPATION?NO DATE ASKED : 07/08/2020 ALCOHOL USE: NO. ALCOHOL SCREENING DID YOU HAVE A DRINK CONTAINING ALCOHOL IN THE PAST YEAR?NO POINTS0 INTERPRETATIONNEGATIVE RECREATIONAL DRUG USE DRUG USE?NO CAFFEINE CAFFEINE USE?YES HOW OFTEN AND HOW MUCH? 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 - PFS REFERRAL NEEDED?NO CLERGY REFERRAL NEEDED?NO PUBLIC HEALTH REFERRAL NEEDED?NO WAS THE PROVIDER NOTIFIED OF ANY PERTINENT INFO?YES N/A HAS THE PATIENT BEEN EDUCATED REGARDING HIS/HER PLAN OF CARE?YES HAS THE PATIENT BEEN EDUCATED REGARDING PAIN, THE RISK FOR PAIN, THE IMPORTANCE OF EFFECTIVE PAIN MANAGEMENT, AND THE PAIN ASSESSMENT PROCESS?YES ADVANCE DIRECTIVE ADVANCE DIRECTIVE DISCUSSED WITH PATIENT:YES PT DECLINED ASSISTANCE OR INFORMATION WITH HCP VITAL SIGNS WT 170.8 LBS, HT 69 IN, BMI 25.22 INDEX, BP 117/77 MM HG, HR 66 /MIN, RR 18 /MIN, TEMP 98.0 F, OXYGEN SAT % 100%, SAFE IN ENV? (Y/N) YES, NA INITIALS SC 14:22, REVIEWED BY: Lisa BARBOSA RN. EXAMINATION GENERAL EXAMINATION: THE PATIENT IS ALERT, ORIENTED TIMES THREE AND COOPERATIVE. LUNGS ARE CLEAR TO AUSCULTATION. HEART SHOWS REGULAR RHYTHM, NO MURMURS AND NO GALLOPS. 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 MEDICATION: OXYCODONE HCL TAB 10MG ORALLYGISELLAMAGUE BARBA 08/11/2020 2:53:53 PM > VERIFIED ALONZO BARBOSA [place] 08/11/2020 2:58:22 PM > ADMINISTERED. COMPLETION OF PROCEDURAL VISIT WHEN MEETS CRITERIAMELIAALONZO FRANCOIS [place] 08/11/2020 5:27:42 PM > CRITERIA MET. MED: PAIN ZOFRAN ODT TAB 4MG DISSOLVE ON TONGUE ONDANSETRONMONMAGUE BARBA 08/11/2020 2:54:32 PM > VERIFIED ALONZO BARBOSA 08/11/2020 2:57:12 PM > ADMINISITERED. MED: PAIN BENADRYL TAB 25MG ORALLY DIPHENHYDRAMINEMAGUE THURMAN 08/11/2020 2:54:51 PM > VERIFIED ALONZO BARBOSA 08/11/2020 2:58:38 PM > ADMINISTERED. PROCEDURES PAIN NURSING RECORD PROCEDURE IN ROOM 1603, PHYSICIAN IN ROOM 1627, START 1631, FINISH 1657, PHYSICIAN OUT OF ROOM 1700, OUT OF ROOM 1712, ECG OTHER SINUS MAX, PATIENT SHIELDED YES, SAFETY STRAP YES, PREP CHLOROPREP Gabriella TREVIÑO RN, DRESSING TEGADERM Lisa BARBOSA RN LOC: NATADEOLAALONZO [place] 08/11/2020 4:33:08 PM > , 1. ALERT, ORIENTED RESP: ALONZO BARBOSA [place] 08/11/2020 4:33:13 PM > , 1. REGULAR, NO DYSPNEA COLOR: FAMILIAALONZO [place] 08/11/2020 4:33:16 PM > , 1. PINK SKIN: NATADEOLAALONZO [place] 08/11/2020 4:33:21 PM > , 1. WARM, DRY POSITION: ALONZO BARBOSA 08/11/2020 4:33:26 PM > , 1. PRONE VITALS: DI KHALIL 08/11/2020 3:13:38 PM > HR 57 02 99% BP 129/77 DI KHALIL 08/11/2020 3:29:28 PM > HR60 02 98% BP 115/68 DI KHALIL 08/11/2020 3:43:04 PM >HR 64 02 97% BP 120/71 ALONZO BARBOSA 08/11/2020 4:09:28 PM > 123/70, 62, 16, 100% SYLVERALONZO L 08/11/2020 4:12:54 PM > 121/79, 58, 16, 98% SYLADEOLA,ALONZO L 08/11/2020 4:27:00 PM > 121/77, 62, 16, 99% SYLALONZO MIR L 08/11/2020 4:44:31 PM > 125/81, 59, 16, 97% SYLALONZO MIR L 08/11/2020 4:58:55 PM > 123/80, 59, 16, 98% SYLVERALONZO L 08/11/2020 5:09:05 PM > 136/84, 63, 16, 100% SYLALONZO MIR L 08/11/2020 5:20:58 PM > 140/86, 67, 18, 100% COMPLETION OF PROCEDURE APPOINTMENT: POST PAIN 0, DRESSING SITE DRY AND INTACT, IV N/A, GAIT STEADY, TEACHING COMPLETED, PATIENT ACKNOWLEDGES UNDERSTANDING YES, PROCEDURE APPOINTMENT COMPLETED AT 1728 BY: Lisa BARBOSA RN PN RADIOFREQUENCY DATE OF PROCEDURE 08/11/2020 THERMO LESION RADIOFREQUENCY > 80 DEGREES : COOL - AVANOS SYSTEM SET AT 60* WITH TISSUE TARGET TEMP > 80* OR MORE. STRAIGHT NEEDLE SIDE: : RIGHT LEVELS: : L3-L4, L4-L5 NEEDLE/CATHETER/GAUGE: : 17 CANULA LENGTH: : 100 MM ACTIVE TIP: : 4 MM GROUNDING PAD PLACED ON AFFECTED SIDE (MUSCULAR AREA): : LUMBAR (POSTERIOR UPPER THIGH) 1 ST LEVEL: : L2, INITAL POSTIVE SENSORY RESPONE (50 HZ) OTHER 0.4, MOTOR RESPONSE (2 HZ-UP TO 3 VOLTS) 3.0, PRE-LOCAL IMPEDENCE READING OHMS 290, POST-LOCAL IMPEDENCE READING OHMS 250, DURING RF IMPEDENCE READING OHMS 196, LESION PARAMETERS: COOLIEF SECONDS: 150 2 ND LEVEL: : L3, INITIAL POSITIVE SENSORY RESPONSE (50 HZ) OTHER 0.2, MOTOR RESPONSE (2 HZ- UP TO 3 VOLTS) 3.0, PRE-LOCAL IMPEDENCE READING OHMS 354, POST-LOCAL IMEPEDENCE READING OHMS 299, DURING RF IMPEDENCE READING OHMS 253, LESION PARAMETERS: COOLIEF SECONDS: [address] LEVEL: : L4, INITIAL POSITIVE SENSORY RESPONSE (50 HZ) OTHER 0.4, MOTOR RESPONSE (2HZ- UP TO 3 VOLTS) 3.0, PRE- LOCAL IMPEDENCE READING OHMS 452, POST-LOCAL IMPEDENCE READING OHMS 253, DURING RF IMPEDENCE READING OHMS 255, LESION PARAMETERS: COOLIEF SECONDS: 150 PRE PROCEDURE DIAGNOSES 1. LUMBAR SPONDYLOSIS. 2. LUMBOSACRAL SPONDYLOSIS POST PROCEDURE DIAGNOSES 1. LUMBAR SPONDYLOSIS. 2. LUMBOSACRAL SPONDYLOSIS PROCEDURE RIGHT L3-L4 AND RIGHT L4-L5 LUMBAR FACET RADIOFREQUENCY SURGEON DR. CONTRERAS UNGER ROPING MACHINE TENDER NONE ANESTHESIA LOCAL PRE PROCEDURE REPORT THE PATIENT HAS HISTORY OF CHRONIC LOW BACK PAIN. I EVALUATED THE PATIENT AND REVIEWED THE CHART. I WENT OVER THE RISKS, ALTERNATIVES, AND BENEFITS ASSOCIATED WITH THIS PROCEDURE. THE PATIENT WOULD LIKE TO PROCEED AND GAVE CONSENT TO PERFORM THE PROCEDURE. THE PATIENT DENIES UNEXPLAINABLE WEIGHT LOSS, FEVER, CHILLS OR NEW CHANGES IN URINARY OR BOWEL CONTROL. THE PATIENT IS COVID-19 NEGATIVE DESCRIPTION OF PROCEDURE THE PATIENT WAS BROUGHT TO THE PROCEDURE ROOM AND PLACED IN THE PRONE POSITION. A TIMEOUT WAS PERFORMED WHERE THE CONSENTED SITE WAS VERIFIED WITH EVERYONE IN THE ROOM. THE LUMBOSACRAL AREA WAS CLEANED WITH CHLORAPREP SOLUTION AND DRAPED ASEPTICALLY. THE PROCEDURE WAS DONE UNDER STERILE CONDITIONS. UNDER FLUOROSCOPIC GUIDANCE, TARGETS WERE SELECTED AT THE INTERSECTION OF THE RIGHT TRANSVERSE PROCESS OF L3, L4 AND L5 WITH ITS RESPECTIVE SUPERIOR ARTICULAR PROCESS. I CONFIRMED AGAIN THE SITE OF TARGET. LIDOCAINE WAS USED TO NUMB THE SKIN AND THE SUBCUTANEOUS TISSUE BELOW IT. RADIOFREQUENCY CANNULAS, 17-GAUGE, 100 MM LONG WITH 4 MM ACTIVE TIP, WERE ADVANCED UNDER FLUOROSCOPIC GUIDANCE AND FOLLOWING PATIENT FEEDBACK UNTIL THE TARGET AREA WAS REACHED. POSITION OF THE CANNULA WAS VERIFIED WITH AP AND LATERAL VIEWS. AFTER PROPER POSITION OF THE CANNULA WAS ACHIEVED, WE WORKED WITH THE RIGHT SELECTED MEDIAN BRANCHES OF L2, L3 AND L4. WE MEASURED THE CORRESPONDING IMPEDANCES AND MOTOR RESPONSES INDICATED IN THE RADIOFREQUENCY WORK SHEET. POSITION OF THE CANNULA WAS VERIFIED AGAIN WITH AP AND LATERAL VIEWS. LIDOCAINE 1%, 2 ML, WAS INJECTED AT EACH LEVEL. RADIOFREQUENCY WAS DONE AT EACH LEVEL USING THE [employer] SYSTEM-- COOLED RF-- WITH A SETTING AT THE MACHINE OF 60 DEGREES WITH A TARGET TISSUE TEMPERATURE OF 80 TO 90 DEGREES FOR A MINIMUM OF 150 SECONDS. AFTER RADIOFREQUENCY WAS DONE, THE PATIENT RECEIVED BUPIVACAINE 0.125%,1 ML, WITH DEXAMETHASONE 3 MG AT EACH SITE. THERE WAS NO EVIDENCE OF BLOOD, PARESTHESIA OR CEREBROSPINAL FLUID DURING THE PROCEDURE. THE PATIENT WAS SENT TO THE RECOVERY ROOMS. THE PATIENT WAS MOVING THE EXTREMITIES AND DOING WELL. EBL LESS THAN 5 ML. THERE WERE NO COMPLICATIONS DURING THE PROCEDURE. FLUOROSCOPY TIME WAS 42 SECONDS POST PROCEDURE NOTE THE PATIENT WILL BE SEEN IN A FOLLOW UP IN THE NEXT FEW WEEKS. INSTRUCTIONS WERE GIVEN, QUESTIONS WERE ANSWERED, AND THE PATIENT EXPRESSED UNDERSTANDING AND AGREES WITH THE PLAN. . I, MARIBELL SILVERMAN, DOCUMENTED THE ABOVE INFORMATION ACTING A SCRIBE FOR DR. UNGER. I HAVE REVIEWED THE ABOVE DOCUMENT, WRITTEN BY MERARY PATEL, AND I VERIFY THAT IT IS ACCURATE PN WORKMANS' COMP OPINION IN YOUR OPINION, WAS THE INCIDENT THAT THE PATIENT DESCRIBED THE COMPETENT MEDICAL CAUSE OF THIS INJURY/ILLNESS? YES ARE THE PATIENT'S COMPLAINTS CONSISTENT WITH HIS/HER HISTORY OF THE INJURY/ILLNESS? YES IS THE PATIENT'S HISTORY OF THE INJURY/ILLNESS CONSISTENT WITH YOUR OBJECTIVE FINDING? YES WHAT IS THE PERCENTAGE OF TEMPORARY IMPAIRMENT? MODERATE TO MARKED = 66.7% IS THE PATIENT WORKING? YES DOCTOR ON SITE: CONTRERAS PATEL MD PROCEDURE CODES 65124 DESTROY LUMB/SAC FACET JNT, [place]: [place] [address] DESTROY L/S FACET JNT ADDL, MODIFIERS: RT DISPOSITION & COMMUNICATION FOLLOW UP FOLLOW UP WITH USER SUPPORT ANALYST SUPERVISOR (REASON: POST RIGHT LUMBAR COOL RADIOFREQUENCY L3-L4, L4-L5) ELECTRONICALLY SIGNED BY CONTRERAS UNGER MD, MD ON 08/12/2020 AT 04:56 PM EDT DISCLAIMER : THIS IS A VISIT SUMMARY EXTRACTED FROM THE Who@ CHART. IT IS NOT A COPY OF THE Who@ PROGRESS NOTE. MTDD
== END ==
LOC: M PAIN 14:00
PROVIDERS: ATTEND Anesthesiology
DX: M47.816 Spondylosis without myelopathy or radiculopathy, lumbar region (principal); M47.817 Spondylosis without myelopathy or radiculopathy, lumbosacral region; K21.9 Gastro-esophageal reflux disease without esophagitis; G43.909 Migraine, unspecified, not intractable, without status migrainosus; Z86.59 Personal history of other mental and behavioral disorders; Z87.891 Personal history of nicotine dependence; Z88.5 Allergy status to narcotic agent; Z88.6 Allergy status to analgesic agent; Z88.8 Allergy status to other drugs, medicaments and biological substances; Z91.040 Latex allergy status; Z79.82 Long term (current) use of aspirin; Z79.899 Other long term (current) drug therapy
CPT/HCPCS: 64635; 64636; J1100; Q0162

== ENCOUNTER → 2020-09-05 | Outpatient (CLI) | payer BC ==
[~2020-09-05] MED LIST changes: -BUPIVACAINE HCL 0.25% 30ML VIAL As Ordered ONE; -LIDOCAINE 1% SDV 30ML VIAL As Ordered ONE; +ONDA8TAB8 SL; -ONDANSETRON 4 MG ORAL DISINTEGRATING TAB As Ordered ONE; +TOPA1TAB PO; -dexameTHASONE 10MG/1ML VIAL PRES.FREE (J1100 PER 1MG) As Ordered ONE; -diazePAM 5MG TABLET As Ordered ONE; -diphenhydrAMINE 25MG CAP As Ordered ONE; -oxyCODONE 5MG TAB As Ordered ONE
--- NOTE | 2020-09-09 00:33 | ECWPNPC ---
PATIENT NAME: MOO PEDROZA : 1960 GENDER: FEMALE VISIT DATE: 09/05/2020 DISCHARGE DATE: 09/05/20 1529 VISIT LOCKED DATE TIME: PHYSICIAN: DEVAUGHN CLAYTON RESOURCE: DEVAUGHN CLAYTON REASON FOR APPOINTMENT 1. [employer] MIGRAINE/NEW BODY PART HISTORY OF PRESENT ILLNESS GENERAL: HERE FOR FOLLOW-UP OF CHRONIC MIGRAINE HEADACHE. STARTED ON TOPAMAX 25 MG DAILY AT HER LAST VISIT. PATIENT IS REPORTING LESS FREQUENT AND INTENSE MIGRAINE HEADACHES SINCE STARTING THIS. SHE IS AWARE THAT SHE CAN TAKE 1 TABLET TWICE DAILY TO SEE IF THIS IS MORE HELPFUL. -. FALL RISK SCREENING: SCREENING : NO FALLS REPORTED IN THE LAST YEAR. PAIN SCREENING: PATIENT HAS A COMPLAINT OF ACUTE OR CHRONIC PAIN :YES LOCATION OF PAIN:HEAD INTENSITY OF PAIN (SCALE OF 1 TO 10):0 WHAT DOES YOUR PAIN FEEL LIKE:INTERMITTENT DURATION:INTERMITTENT PAIN IS INCREASED BY:ACTIVITIES, OTHERS LIGHT AND NOSE PAIN IS DECREASED BY:OTHERS RELAXING NURSING NOTE: -. PAIN CENTER INTAKE QUESTIONS: DO YOU HAVE A HISTORY OF MRSA? :NO DO YOU TAKE A BLOOD THINNERS? :NO DO YOU HAVE ANY BLEEDING DISORDERS? :NO ANY NEW NUMBNESS OR WEAKNESS IN YOUR LEGS OR ARMS? :NO MOSTLY IN THE RIGHT LEG ANY PACEMAKER,DEFIBRILLATOR, OR DORSAL COLUMN STIMULATOR? :NO DO YOU HAVE ANY RASHES OR OPEN SORES? :NO ARE YOU ALLERGIC TO IV DYE? :NO ARE YOU DIABETIC? :NO ANY NEW PROBLEMS WITH YOUR MEDICATIONS? :NO HAVE YOU RECEIVED A VACCINE IN THE PAST 30 DAYS? :NO DO YOU PLAN TO RECEIVE A VACCINE IN THE NEXT 21 DAYS? :NO DO YOU NEED ANY PRESCRIPTION? :NO DO YOU TAKE ANY IMMUNOSUPPRESSIVE MEDICATIONS? :NO CURRENT MEDICATIONS TAKING ATENOLOL 25 MG 1 TAB ORAL BID TAKING CALCIUM 500 MG TABLET 1 TABLET WITH MEALS ORALLY DAILY TAKING ZYRTEC 10 MG TABLET 1 TABLET ORALLY ONCE A DAY TAKING FLONASE 1 SPRAY IN EACH NOSTRIL NASALLY DIRECTED TAKING HYDREA 1000 MG CAPSULE 1 CAP ORALLY DAILY TAKING ATIVAN 0.5 0.5MG TABLET 0.25MG ORAL BID PRN TAKING MULTIVITAMIN TABLETS 1 TAB ORALLY DAILY TAKING SEROQUEL 100 100 MG TABLET 400MG AT HS ORAL DAILY TAKING ESTRADIOL 0.5 MG TABLET 1 TABLET ORALLY DAILY TAKING ZOFRAN 8 MG TABLET 1 TABLET ORALLY EVERY 4 HOURS NEEDED TAKING PROTONIX 20 MG TABLET DELAYED RELEASE 1 TABLET ORALLY ONCE A DAY TAKING TRULANCE 3 MG TABLET 1 TABLET ORALLY ONCE A DAY TAKING EFFEXOR 75 MG TABLET 2 TABLET WITH FOOD ORALLY 150MG DAILY TAKING TIZANIDINE HCL 6 MG CAPSULE 1 TABLET NEEDED ORALLY THREE TIMES A DAY, NOTES: COUPLE DAYS AGO TAKING MOVANTIK 25 MG TABLET 1 TABLET IN THE MORNING ORALLY ONCE A DAY (WORKERS COMPENSATION) TAKING DOCUSATE SODIUM 100 MG CAPSULE 1 CAPSULE NEEDED ORALLY TWICE A DAY NEEDED TAKING ASPIRIN 325 MG TABLET 1 TABLET ORALLY ONCE A DAY TAKING METHYLPHENIDATE 10 MG TABLET TAKES 20 MGS ORALLY BID TAKING ALENDRONATE SODIUM 70 MG TABLET 1 TABLET ORALLY WEEKLY TAKING ENDOCET 10-325 MG TABLET 1 TABLET NEEDED ORALLY EVERY 6 HRS PRN MDD4 TAKING TOPAMAX 25 MG TABLET 1 TABLET ORALLY BID NOT-TAKING CLONIDINE HCL 0.1 MG TABLET 1 ORALLY Q12H PRN FOR WITHDRAWAL SYMPTOMS NOT-TAKING LINZESS 290 MCG CAPSULE ONE P.O. DAILY NOT-TAKING HYDREA 500 MG CAPSULE ORALLY EVERY OTHER DAY NOT-TAKING FENTANYL 12 MCG/HR PATCH 72 HOUR 1 PATCH TO SKIN TRANSDERMAL 1 PATCH [id number] (WORKERS COMPENSATION) MEDICATION LIST REVIEWED AND RECONCILED WITH THE PATIENT PAST MEDICAL HISTORY BLOOD CANCER BIPOLAR/SOCIAL ANXIETY PTSD BACK PAIN SVT HAMMERTOE IBS GERD MIRGRANE ALLERGIES CODEINE SULFATE: NAUSEA/VOMITING - SIDE EFFECTS STADOL: ITCH - ALLERGY TRAMADOL: EXCESSIVE YAWNING - SIDE EFFECTS NUBAIN: REACTION AT SITE - SIDE EFFECTS HYDROXYZINE HCL: EXCESSIVE YAWNING - SIDE EFFECTS KETOROLAC TROMETHAMINE: EXCESSIVE YAWNING - SIDE EFFECTS LATEX (FOR ALLERGY USE ONLY): RASH - ALLERGY SOCIAL HISTORY GENERAL: TOBACCO USE ARE YOU A:FORMER SMOKER HOW LONG HAS IT BEEN SINCE YOU LAST SMOKED?> 10 YEARS LATEX QUESTIONNAIRE LATEX ALLERGY : HAVE YOU EVER DEVELOPED ANY TYPE OF REACTION AFTER HANDLING LATEX PRODUCTS SUCH RUBBER GLOVES, CONDOMS, DIAPHRAGMS, BALLOONS, SOCKS, OR UNDERWEAR?YES KNOWN ALLERGY, DOCUMENTATED. - PLEASE INDICATE :RUBBER GLOVES LATEX ALLERGY : HAVE YOU EVER DEVELOPED ANY TYPE OF REACTION DURING OR AFTER DENTAL APPOINTMENT, VAGINAL/RECTAL EXAMINATION, SURGICAL PROCEDURE, OR ANY OTHER EXPOSURE?NO LATEX RISK : HAVE YOU EVER HAD ANY DIFFICULTY BREATHING OR HIVES AFTER EATING OR HANDLING ANY FRUITS, OR VEGETABLES; SUCH KIWI, BANANAS, STONE FRUITS, OR CHESTNUTSNO LATEX RISK : DO YOU HAVE A PREVIOUS PERSONAL HISTORY OF MORE THAN NINE SURGERIES, SPINA BIFIDA, OR REPEATED CATHERIZATIONS? NO LATEX RISK : ARE YOU FREQUENTLY EXPOSED TO LATEX PRODUCTS IN YOUR OCCUPATION?NO DATE ASKED : 09/05/2020 ALCOHOL USE: NO. ALCOHOL SCREENING DID YOU HAVE A DRINK CONTAINING ALCOHOL IN THE PAST YEAR?NO POINTS0 INTERPRETATIONNEGATIVE RECREATIONAL DRUG USE DRUG USE?NO CAFFEINE CAFFEINE USE?YES HOW OFTEN AND HOW MUCH? 3-4 CUPS COFFEE/DAY TEMPLE [id number] SIKHISM LANGUAGE LANGUAGES SPOKEN:BHUTANESE LEARNING BARRIERS / SPECIAL NEEDS CHANGE FROM LAST VISIT?NO BARRIERS TO LEARNING?NO HEARING IMPAIRED?YES DECREASED HEARING RIGHT EAR VISION IMPAIRED?YES :CORRECTIVE LENSES COGNITIVELY IMPAIRED?NO READINESS TO LEARN?YES LEARNING PREFERENCES?YES :DEMONSTRATION/VERBAL INSTRUCTION LEARNING CAPABILITIES PRESENT?YES EMOTIONAL BARRIERS?NO SPECIAL DEVICES?NO BAND STRAIGHTENER NEEDED?NO MARITAL STATUS: . - PFS REFERRAL NEEDED?NO CLERGY REFERRAL NEEDED?NO PUBLIC HEALTH REFERRAL NEEDED?NO WAS THE PROVIDER NOTIFIED OF ANY PERTINENT INFO?YES N/A HAS THE PATIENT BEEN EDUCATED REGARDING HIS/HER PLAN OF CARE?YES HAS THE PATIENT BEEN EDUCATED REGARDING PAIN, THE RISK FOR PAIN, THE IMPORTANCE OF EFFECTIVE PAIN MANAGEMENT, AND THE PAIN ASSESSMENT PROCESS?YES ADVANCE DIRECTIVE ADVANCE DIRECTIVE DISCUSSED WITH PATIENT:YES PT DECLINED ASSISTANCE OR INFORMATION WITH HCP REVIEW OF SYSTEMS CONSTITUTIONAL: ANY RECENT FEVER NO . CHILLS NO . WEIGHT CHANGE OF UNKNOWN REASONS NO . GASTROENTEROLOGY: NEW UNEXPLAINABLE CHANGES IN BOWEL CONTROL NO . CONSTIPATION NO . GENITOURINARY: ANY NEW CHANGE IN BLADDER CONTROL? NO . NEUROLOGY: NEW ONSET DIZZINESS OR NEUROLOGICAL CHANGES NOT MENTIONED NO . NEW NUMBNESS OR PAIN PATTERNS NOT MENTIONED AND PERTINENT TO TODAY'S VISIT NO . CARDIOLOGY: NEW CHEST PRESSURE NO . PATIENT DENIES NO . RESPIRATORY: UNEXPLAINABLE COUGH NO . NEW SHORTNESS OF BREATH NO . VITAL SIGNS WT 169.6 LBS, HT 69 IN, BMI 25.04 INDEX, BP 148/72 MM HG, HR 107 /MIN, RR 18 /MIN, TEMP 98.3 F, OXYGEN SAT % 95%, SAFE IN ENV? (Y/N) YES, NA INITIALS AW 1447T.RUSTAM WHALEN. EXAMINATION GENERAL EXAMINATION: GENERALAWAKE,ALERT ,PLEASANT . PSYCHAFFECT NORMAL . LUNGS:LUNG DAVIS ARE CLEAR TO AUSCULTATION BILATERALLY. GOOD MOVEMENT OF AIR . HEART:S1, S2 IN A REGULAR RATE AND RHYTHM. NO SIGNIFICANT MURMURS, RUBS OR GALLOPS NOTED . ASSESSMENTS MIGRAINE SYNDROME - G43.909 (PRIMARY) OTHER CHRONIC PAIN - G89.29 TREATMENT MIGRAINE SYNDROME CONTINUE TOPAMAX TABLET, 25 MG, 1 TABLET, ORALLY, BID DISPOSITION & COMMUNICATION FOLLOW UP 3 MONTHS (REASON: PRIVATE INSURANCE/MIGRAINE HEADACHES) ELECTRONICALLY SIGNED BY SUELLEN PIERRE ON 09/08/2020 AT 08:48 AM EDT DISCLAIMER : THIS IS A VISIT SUMMARY EXTRACTED FROM THE [employer] CHART. IT IS NOT A COPY OF THE [employer] PROGRESS NOTE. PHUONGD
== END ==
LOC: M PAIN 14:45
PROVIDERS: ATTEND Nurse Practitioner Family
DX: G43.909 Migraine, unspecified, not intractable, without status migrainosus (principal); G89.29 Other chronic pain; K21.9 Gastro-esophageal reflux disease without esophagitis; Z86.59 Personal history of other mental and behavioral disorders; Z87.891 Personal history of nicotine dependence; Z88.5 Allergy status to narcotic agent; Z88.6 Allergy status to analgesic agent; Z88.8 Allergy status to other drugs, medicaments and biological substances; Z91.040 Latex allergy status; Z79.82 Long term (current) use of aspirin; Z79.899 Other long term (current) drug therapy

== ENCOUNTER → 2020-09-09 | Outpatient (CLI) | payer OTHER, BC ==
--- NOTE | 2020-09-15 01:35 | ECWPNPC ---
PATIENT NAME: MOO PEDROZA : 1960 GENDER: FEMALE VISIT DATE: 09/09/2020 DISCHARGE DATE: 09/09/20 1449 VISIT LOCKED DATE TIME: PHYSICIAN: DEVAUGHN CLAYTON RESOURCE: DEVAUGHN CLAYTON REASON FOR APPOINTMENT 1. POST RIGHT LUMBAR COOL RADIOFREQUENCY L3-L4, L4-L5 HISTORY OF PRESENT ILLNESS GENERAL: HERE FOR POST PROCEDURE F/U.HAD RIGHT LUMBAR COOL RADIOFREQUENCY L3-4,L4-5.DOING WELL POST PROCEDURE.ABLE TO TOLERATE ACTIVITIES WITH LESS PAIN. -. FALL RISK SCREENING: SCREENING : NO FALLS REPORTED IN THE LAST YEAR. PAIN SCREENING: PATIENT HAS A COMPLAINT OF ACUTE OR CHRONIC PAIN :YES LOCATION OF PAIN:LOW BACK, RIGHT HIP INTENSITY OF PAIN (SCALE OF 1 TO 10):7 WHAT DOES YOUR PAIN FEEL LIKE:SHARP, STABBING, THROBBING, SHOOTING DURATION:CONTINOUS, CONSTANT PAIN IS INCREASED BY:ACTIVITIES PAIN IS DECREASED BY:USE OF PAIN MEDICATIONS NURSING NOTE: -. PAIN CENTER INTAKE QUESTIONS: DO YOU HAVE A HISTORY OF MRSA? :NO DO YOU TAKE A BLOOD THINNERS? :NO DO YOU HAVE ANY BLEEDING DISORDERS? :NO ANY NEW NUMBNESS OR WEAKNESS IN YOUR LEGS OR ARMS? :NO MOSTLY IN THE RIGHT LEG ANY PACEMAKER,DEFIBRILLATOR, OR DORSAL COLUMN STIMULATOR? :NO DO YOU HAVE ANY RASHES OR OPEN SORES? :NO ARE YOU ALLERGIC TO IV DYE? :NO ARE YOU DIABETIC? :NO ANY NEW PROBLEMS WITH YOUR MEDICATIONS? :NO HAVE YOU RECEIVED A VACCINE IN THE PAST 30 DAYS? :YES IF SO WHAT VACCINE AND WHEN? #1 SHINGLES VACCINE 09/06/20 DO YOU PLAN TO RECEIVE A VACCINE IN THE NEXT 21 DAYS? :NO DO YOU NEED ANY PRESCRIPTION? :NO DO YOU TAKE ANY IMMUNOSUPPRESSIVE MEDICATIONS? :NO CURRENT MEDICATIONS TAKING ATENOLOL 25 MG 1 TAB ORAL BID TAKING CALCIUM 500 MG TABLET 1 TABLET WITH MEALS ORALLY DAILY TAKING ZYRTEC 10 MG TABLET 1 TABLET ORALLY ONCE A DAY TAKING FLONASE 1 SPRAY IN EACH NOSTRIL NASALLY DIRECTED TAKING HYDREA 1000 MG CAPSULE 1 CAP ORALLY DAILY TAKING ATIVAN 0.5 0.5MG TABLET 0.25MG ORAL BID PRN TAKING MULTIVITAMIN TABLETS 1 TAB ORALLY DAILY TAKING SEROQUEL 100 100 MG TABLET 400MG AT HS ORAL DAILY TAKING ESTRADIOL 0.5 MG TABLET 1 TABLET ORALLY DAILY TAKING ZOFRAN 8 MG TABLET 1 TABLET ORALLY EVERY 4 HOURS NEEDED TAKING PROTONIX 20 MG TABLET DELAYED RELEASE 1 TABLET ORALLY ONCE A DAY TAKING TRULANCE 3 MG TABLET 1 TABLET ORALLY ONCE A DAY TAKING EFFEXOR 75 MG TABLET 2 TABLET WITH FOOD ORALLY 150MG DAILY TAKING TIZANIDINE HCL 6 MG CAPSULE 1 TABLET NEEDED ORALLY THREE TIMES A DAY, NOTES: COUPLE DAYS AGO TAKING MOVANTIK 25 MG TABLET 1 TABLET IN THE MORNING ORALLY ONCE A DAY (WORKERS COMPENSATION) TAKING DOCUSATE SODIUM 100 MG CAPSULE 1 CAPSULE NEEDED ORALLY TWICE A DAY NEEDED TAKING ASPIRIN 325 MG TABLET 1 TABLET ORALLY ONCE A DAY TAKING METHYLPHENIDATE 10 MG TABLET TAKES 20 MGS ORALLY BID TAKING ALENDRONATE SODIUM 70 MG TABLET 1 TABLET ORALLY WEEKLY TAKING ENDOCET 10-325 MG TABLET 1 TABLET NEEDED ORALLY EVERY 6 HRS PRN MDD4 TAKING TOPAMAX 25 MG TABLET 1 TABLET ORALLY BID NOT-TAKING CLONIDINE HCL 0.1 MG TABLET 1 ORALLY Q12H PRN FOR WITHDRAWAL SYMPTOMS NOT-TAKING LINZESS 290 MCG CAPSULE ONE P.O. DAILY NOT-TAKING HYDREA 500 MG CAPSULE ORALLY EVERY OTHER DAY NOT-TAKING FENTANYL 12 MCG/HR PATCH 72 HOUR 1 PATCH TO SKIN TRANSDERMAL 1 PATCH [id number] (WORKERS COMPENSATION) MEDICATION LIST REVIEWED AND RECONCILED WITH THE PATIENT PAST MEDICAL HISTORY BLOOD CANCER BIPOLAR/SOCIAL ANXIETY PTSD BACK PAIN SVT HAMMERTOE IBS GERD MIRGRANE ALLERGIES CODEINE SULFATE: NAUSEA/VOMITING - SIDE EFFECTS STADOL: ITCH - ALLERGY TRAMADOL: EXCESSIVE YAWNING - SIDE EFFECTS NUBAIN: REACTION AT SITE - SIDE EFFECTS HYDROXYZINE HCL: EXCESSIVE YAWNING - SIDE EFFECTS KETOROLAC TROMETHAMINE: EXCESSIVE YAWNING - SIDE EFFECTS LATEX (FOR ALLERGY USE ONLY): RASH - ALLERGY SOCIAL HISTORY GENERAL: TOBACCO USE ARE YOU A:FORMER SMOKER HOW LONG HAS IT BEEN SINCE YOU LAST SMOKED?> 10 YEARS LATEX QUESTIONNAIRE LATEX ALLERGY : HAVE YOU EVER DEVELOPED ANY TYPE OF REACTION AFTER HANDLING LATEX PRODUCTS SUCH RUBBER GLOVES, CONDOMS, DIAPHRAGMS, BALLOONS, SOCKS, OR UNDERWEAR?YES KNOWN ALLERGY, DOCUMENTATED. LATEX ALLERGY : HAVE YOU EVER DEVELOPED ANY TYPE OF REACTION DURING OR AFTER DENTAL APPOINTMENT, VAGINAL/RECTAL EXAMINATION, SURGICAL PROCEDURE, OR ANY OTHER EXPOSURE?NO - PLEASE INDICATE :RUBBER GLOVES DATE ASKED : 09/05/2020 LATEX RISK : HAVE YOU EVER HAD ANY DIFFICULTY BREATHING OR HIVES AFTER EATING OR HANDLING ANY FRUITS, OR VEGETABLES; SUCH KIWI, BANANAS, STONE FRUITS, OR CHESTNUTSNO LATEX RISK : DO YOU HAVE A PREVIOUS PERSONAL HISTORY OF MORE THAN NINE SURGERIES, SPINA BIFIDA, OR REPEATED CATHERIZATIONS? NO LATEX RISK : ARE YOU FREQUENTLY EXPOSED TO LATEX PRODUCTS IN YOUR OCCUPATION?NO ALCOHOL USE: NO. ALCOHOL SCREENING DID YOU HAVE A DRINK CONTAINING ALCOHOL IN THE PAST YEAR?NO POINTS0 INTERPRETATIONNEGATIVE RECREATIONAL DRUG USE DRUG USE?NO CAFFEINE CAFFEINE USE?YES HOW OFTEN AND HOW MUCH? 3-4 CUPS COFFEE/DAY [employer]RIAN [id number] SAMARITAN LANGUAGE LANGUAGES SPOKEN:GUATEMALAN LEARNING BARRIERS / SPECIAL NEEDS CHANGE FROM LAST VISIT?NO BARRIERS TO LEARNING?NO HEARING IMPAIRED?YES DECREASED HEARING RIGHT EAR VISION IMPAIRED?YES COGNITIVELY IMPAIRED?NO :CORRECTIVE LENSES READINESS TO LEARN?YES LEARNING PREFERENCES?YES :DEMONSTRATION/VERBAL INSTRUCTION LEARNING CAPABILITIES PRESENT?YES EMOTIONAL BARRIERS?NO SPECIAL DEVICES?NO MARKETING TRAFFIC MANAGER NEEDED?NO MARITAL STATUS: . - PFS REFERRAL NEEDED?NO CLERGY REFERRAL NEEDED?NO PUBLIC HEALTH REFERRAL NEEDED?NO WAS THE PROVIDER NOTIFIED OF ANY PERTINENT INFO?YES N/A HAS THE PATIENT BEEN EDUCATED REGARDING HIS/HER PLAN OF CARE?YES HAS THE PATIENT BEEN EDUCATED REGARDING PAIN, THE RISK FOR PAIN, THE IMPORTANCE OF EFFECTIVE PAIN MANAGEMENT, AND THE PAIN ASSESSMENT PROCESS?YES ADVANCE DIRECTIVE ADVANCE DIRECTIVE DISCUSSED WITH PATIENT:YES PT DECLINED ASSISTANCE OR INFORMATION WITH HCP REVIEW OF SYSTEMS CONSTITUTIONAL: ANY RECENT FEVER NO . CHILLS NO . WEIGHT CHANGE OF UNKNOWN REASONS NO . GASTROENTEROLOGY: NEW UNEXPLAINABLE CHANGES IN BOWEL CONTROL NO . CONSTIPATION NO . GENITOURINARY: ANY NEW CHANGE IN BLADDER CONTROL? NO . NEUROLOGY: NEW ONSET DIZZINESS OR NEUROLOGICAL CHANGES NOT MENTIONED NO . NEW NUMBNESS OR PAIN PATTERNS NOT MENTIONED AND PERTINENT TO TODAY'S VISIT NO . CARDIOLOGY: NEW CHEST PRESSURE NO . PATIENT DENIES NO . RESPIRATORY: UNEXPLAINABLE COUGH NO . NEW SHORTNESS OF BREATH NO . VITAL SIGNS WT 168 LBS, HT 69 IN, BMI 24.81 INDEX, BP 127/81 MM HG, HR 72 /MIN, RR 16 /MIN, TEMP 97.3 F, OXYGEN SAT % 100, SAFE IN ENV? (Y/N) Y, REVIEWED BY: EM. EXAMINATION GENERAL EXAMINATION: GENERALAWAKE,ALERT ,PLEASANT . PSYCHAFFECT NORMAL . LUNGS:LUNG DAVIS ARE CLEAR TO AUSCULTATION BILATERALLY. GOOD MOVEMENT OF AIR . HEART:S1, S2 IN A REGULAR RATE AND RHYTHM. NO SIGNIFICANT MURMURS, RUBS OR GALLOPS NOTED . ASSESSMENTS OTHER CHRONIC PAIN - G89.29 (PRIMARY) SPONDYLOSIS WITHOUT MYELOPATHY OR RADICULOPATHY, LUMBAR REGION - M47.816 TREATMENT OTHER CHRONIC PAIN PAIN PROCEDURE LOGDATE OF PROCEDURE1PROCEDURE:RIGHT LUMBAR COOL RADIOFREQUENCY L3-L4,L4-C1TIWOVW OF PRE SEDATEVALIUM 10MG, OXYCODONE 10MG, ZOFRAN 4MG, BENADRYL 25MGRESULT:>80 REDUCTION IN PAIN AND IMPROVED ACTIVITY TOLERANCE CONTINUES TODAY PROCEDURES PN WORKMANS' COMP OPINION IN YOUR OPINION, WAS THE INCIDENT THAT THE PATIENT DESCRIBED THE COMPETENT MEDICAL CAUSE OF THIS INJURY/ILLNESS? YES ARE THE PATIENT'S COMPLAINTS CONSISTENT WITH HIS/HER HISTORY OF THE INJURY/ILLNESS? YES IS THE PATIENT'S HISTORY OF THE INJURY/ILLNESS CONSISTENT WITH YOUR OBJECTIVE FINDING? YES WHAT IS THE PERCENTAGE OF TEMPORARY IMPAIRMENT? MODERATE TO MARKED = 66.7% IS THE PATIENT WORKING? YES DOCTOR ON SITE: CONTRERAS PATEL MD PROCEDURE CODES FA211 ESTABILISHED PATIENT [facility] CHARGE DISPOSITION & COMMUNICATION FOLLOW UP 3 MONTHS (REASON: COOL RF 08/11/20) ELECTRONICALLY SIGNED BY SUELLEN PIERRE ON 09/14/2020 AT 09:46 AM EDT DISCLAIMER : THIS IS A VISIT SUMMARY EXTRACTED FROM THE [employer] CHART. IT IS NOT A COPY OF THE [employer] PROGRESS NOTE. TALIA
== END ==
LOC: M PAIN 14:15
PROVIDERS: ATTEND Nurse Practitioner Family
DX: G89.29 Other chronic pain (principal); M47.816 Spondylosis without myelopathy or radiculopathy, lumbar region; K21.9 Gastro-esophageal reflux disease without esophagitis; G43.909 Migraine, unspecified, not intractable, without status migrainosus; Z86.59 Personal history of other mental and behavioral disorders; Z87.891 Personal history of nicotine dependence; Z88.5 Allergy status to narcotic agent; Z88.6 Allergy status to analgesic agent; Z88.8 Allergy status to other drugs, medicaments and biological substances; Z91.040 Latex allergy status; Z79.82 Long term (current) use of aspirin; Z79.899 Other long term (current) drug therapy

== ENCOUNTER → 2020-10-07 | Outpatient (CLI) | payer BC ==
[~2020-10-07] MED LIST changes: +ONDA-84 PO; -ONDA8TAB10 PO; +PANT40TA29 PO; -QUET50TA3 PO; +QUET50TA4 PO
== END ==
LOC: M WHC 11:02
PROVIDERS: ATTEND Internal Medicine Hematology & Oncology
DX: N63.10 Unspecified lump in the right breast, unspecified quadrant (principal)

== ENCOUNTER → 2020-12-09 | Outpatient (CLI) | payer OTHER, BC ==
[~2020-12-09] MED LIST changes: -ONDA-84 PO; +ONDA8TAB10 PO; -PANT40TA29 PO
== END ==
LOC: M PAIN 13:30
PROVIDERS: ATTEND Anesthesiology
DX: M79.18 Myalgia, other site (principal); K21.9 Gastro-esophageal reflux disease without esophagitis; G43.909 Migraine, unspecified, not intractable, without status migrainosus; Z86.59 Personal history of other mental and behavioral disorders; Z87.891 Personal history of nicotine dependence; Z88.5 Allergy status to narcotic agent; Z88.6 Allergy status to analgesic agent; Z88.8 Allergy status to other drugs, medicaments and biological substances; Z91.040 Latex allergy status; Z79.82 Long term (current) use of aspirin; Z79.891 Long term (current) use of opiate analgesic; Z79.899 Other long term (current) drug therapy

== ENCOUNTER → 2021-01-25 | Outpatient (CLI) | payer OTHER, BC ==
[~2021-01-25] MED LIST changes: +PANT40TA29 PO
== END ==
LOC: M LABSMTC 10:09
PROVIDERS: ATTEND Anesthesiology
DX: Z01.812 Encounter for preprocedural laboratory examination (principal); Z20.822 Contact with and (suspected) exposure to COVID-19

== ENCOUNTER → 2021-01-26 | Outpatient (CLI) | payer BC, MEDICAID | LOC: M LABSMTC 10:20 | PROVIDERS: ATTEND Anesthesiology | DX: Z01.812 Encounter for preprocedural laboratory examination (principal); Z20.822 Contact with and (suspected) exposure to COVID-19 ==

== ENCOUNTER → 2021-01-30 | Outpatient (CLI) | payer OTHER, BC ==
[~2021-01-30] MED LIST changes: +BUPIVACAINE HCL 0.25% 10ML VIAL As Ordered ONE; +BUPIVACAINE HCL 0.25% 30ML VIAL As Ordered ONE; +TRIAMCINOLONE ACETONIDE SUSP 40 MG/ML VIAL (J3301) As Ordered ONE; +diazePAM 5MG TABLET As Ordered ONE; +diphenhydrAMINE 25MG CAP As Ordered ONE; +oxyCODONE 5MG TAB As Ordered ONE
== END ==
LOC: M PAIN 08:30
PROVIDERS: ATTEND Anesthesiology
DX: M79.10 Myalgia, unspecified site (principal); K21.9 Gastro-esophageal reflux disease without esophagitis; G43.909 Migraine, unspecified, not intractable, without status migrainosus; Z86.59 Personal history of other mental and behavioral disorders; Z87.891 Personal history of nicotine dependence; Z88.5 Allergy status to narcotic agent; Z88.6 Allergy status to analgesic agent; Z88.8 Allergy status to other drugs, medicaments and biological substances; Z91.040 Latex allergy status; Z79.82 Long term (current) use of aspirin; Z79.899 Other long term (current) drug therapy
CPT/HCPCS: 20552; J3301

== ENCOUNTER 2021-01-31 12:13 | Day surgery (SDC) | payer BC, MEDICAID ==
[~2021-01-31] VITALS: Ht 175.3 cm; Wt 71.7 kg
[~2021-01-31 12:13] MED LIST changes: -BUPIVACAINE HCL 0.25% 10ML VIAL As Ordered ONE; -BUPIVACAINE HCL 0.25% 30ML VIAL As Ordered ONE; +NS 1,000 ML IV ONE; -TRIAMCINOLONE ACETONIDE SUSP 40 MG/ML VIAL (J3301) As Ordered ONE; -diazePAM 5MG TABLET As Ordered ONE; -diphenhydrAMINE 25MG CAP As Ordered ONE; -oxyCODONE 5MG TAB As Ordered ONE
--- OUTSIDE RECORDS SUMMARY | 2021-01-31 12:18 | CCD | Continuity of Care Document ---
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 Acquired hallux rigidus Valdo Hammond DPM Onset: 10/12/19 18 Social History Type Date Description Comments Sex Unknown ETOH Use Denies alcohol use Tobacco Use Start: Unknown Patient has never smoked Allergies and adverse reactions Active Allergies Criticality Reaction | Severity Comments Date Codeine Unable to assess criticality 10/11/2017 Butorphanol Unable to assess criticality 10/11/2017 Nalbuphine Unable to assess criticality 10/11/2017 Hydroxyzine Unable to assess criticality 10/11/2017 Latex Unable to assess criticality 10/11/2017 Medications Active Medications SIG Qnty Indications Ordering Provide r Date Urea 40% Cream a pply twice a day to callus 85units Valdo Hammond DPM 01/16/2021 Alendronate Sodium 70mg Tablets Unknown Fentanyl 25mcg/HR Patches 72HR Tobi Trevino M.D. Tizanidine HCL 2mg Tablets Tobi Trevino M.D. Biscolax 10mg Suppository Unknown Ondansetron 4mg Tablets Dispers Body, ABRASIVE WHEEL MOLDER Maria Luisa Metoprolol Tartrate 50mg Tablets Unknown Ibuprofen 800mg Tablets Unknown Chlorhexidine Gluconate 0.12% Solution Unknown Lorazepam 1mg Tablets Body, ABRASIVE WHEEL MOLDER Maria Luisa Azithromycin 250mg Tablets Unknown Mucinex 600mg Tablets ER 12HR Unknown Drysol 20% Solution ap ply to feet daily 60ml Valdo Hammond, DPM Fluticasone Propionate 50mcg/Act Suspension Body, ABRASIVE WHEEL MOLDER Maria Luisa Clonazepam 0.5mg Tablets Unknown Oxycodone-Acetaminophen 10-325mg T ablets Tobi Trevino M.D. Fentanyl 50mcg/HR Patches 72HR Tobi Trevino M.D. Cetirizine HCL 10mg Tablets Unknown Fluvirin 0.5ml Margaret Peraza M.D. Quetiapine Fumarate 300mg Tablets Unknown Methylphenidate HCL 10mg Tablets Unknown [place] 0.65% Solution Body, [facility] Maria Luisa Yuvafem 10mcg Tablets Unknown Quetiapine Fumarate 200mg Tablets Unknown Methylphenidate HCL 5mg Tablets Unknown Movantik 25mg Tablets Take 1 Tablet By Mouth In The Morning Once A Day Workers Compensation Unknown Dok 100mg Capsules Unknown Docusate Sodium & Senna Stimulant Laxati ve/Stool Softener 8.6-50mg Tablets Body, ABRASIVE WHEEL MOLDER Maria Luisa Oxybutynin Chloride 5mg Tablets Body, [facility] Maria Luisa Quetiapine Fumarate 400mg Tablets Unknown Gavilyte-G 236gm Solution Rec Unknown Calcium + D3 [id number] Tablets Unknown Linzess 290mcg Capsules Unknown Venlafaxine HCL ER 75mg Caps ER 24 HR Take 1 Capsule By Mouth Once A Day as Directed Unknow n Venlafaxine HCL ER 37.5mg Caps ER 24HR 1 Capsule By Mouth Daily Unknown 0 Methylphenidate HCL 20mg Tablets Take 1 Tablet By Mouth Twice A Day Maximum Daily Dose 2 Tablets Unknown Lorazepam 0.5mg Tablets Take 1 Tablet By Mouth Three Times A Day Maximum Daily Dose 3 Tablet Unknown Quetiapine Fumarate 50mg Tablets Unknown Clindamycin Phosphate 1% Gel CRISTINA Can, Dom Tretinoin 0.05% Cream NEYMAR Can, Dom Estradiol 0.5mg Tablets Take 1 Tablet By Mouth Once A Day Unknown Ondansetron 8mg Tablets Dispers Alejo Vickers M.D. Pantoprazole Sodium 40mg Tablets D R Take 1 Tablet By Mouth Once A Day Unknown Quetiapine Fumarate 100mg Tablets Unknown Hydroxyurea 500mg Capsules Alejo Vickers M.D. Neomycin/Polymyxin/Dexamethasone 3.5-52180-9.1 Suspension Instill 1 Drop Into Right Eye Four Times A Day as Directed Unknown Loratadine 10mg Tablets Body, [employer] WHEEL MOLDER Maria Luisa Venlafaxine HCL ER 150mg Caps ER 24HR Unknown Immunizations Description No Information Available Vital Signs Date Vital Result Comment 01/16/2021 2:42pm Height 69 inches 5'9" Weight 165.00 lb BP Systolic 108 mmHg BP Diastolic 72 mmHg Heart Rate 72 /min BMI (Body Mass Index) 24.4 kg/m2 10/11/2017 8:53am Height 69 inches 5'9" Weight 167.00 lb BP Systolic 122 mmHg BP Diastolic 60 mmHg Heart Rate 60 /min BMI (Body Mass Index) 24.7 kg/m2 Results Description No Information Available Procedures Description No Information Available Medical Devices Description No Information Available Encounters Description No Information Available Assessments Description No Information Available Plan of Treatment Future Appointment(s):* 02/13/2021 3:15 pm - Valdo Hammond DPM at [facility] Functional Status Description No Information Available Mental Status Description No Information Available Referrals Description No Information Available
--- OUTSIDE RECORDS SUMMARY | 2021-01-31 12:18 | CCD | Continuity of Care Document ---
Author Author Marcela HAMMOND DPM Organization Unknown Address [address] [place] [address], [facility] [address] [place] [address] Phone [phone] Problems Active Problems Provider Date Acquired deformity [...] Suppository Unknown Ondansetron 4mg Tablets Dispers Body, DIRECTOR OF TESTING Maria Luisa Metoprolol Tartrate 50mg Tablets Unknown Ibuprofen 800mg Tablets Unknown Chlorhexidine Gluconate 0.12% Solution Unknown Lorazepam 1mg Tablets Body, DIRECTOR OF TESTING Maria Luisa Azithromycin 250mg Tablets Unknown Mucinex 600mg Tablets ER 12HR Unknown Drysol 20% Solution ap ply to feet daily 60ml Valdo Hammond, DPM Fluticasone Propionate 50mcg/Act Suspension Body, DIRECTOR OF TESTING Maria Luisa Clonazepam 0.5mg Tablets Unknown Oxycodone-Acetaminophen 10-325mg T ablets Tobi Trevino M.D. Fentanyl 50mcg/HR Patches 72HR Tobi Trevino M.D. Cetirizine HCL 10mg Tablets Unknown Fluvirin 0.5ml Margaret Peraza M.D. Quetiapine Fumarate 300mg Tablets Unknown Methylphenidate HCL 10mg Tablets Unknown [place] 0.65% Solution Body, [facility] Maria Luisa Yuvafem 10mcg Tablets Unknown Quetiapine Fumarate 200mg Tablets Unknown Methylphenidate HCL 5mg Tablets Unknown Movantik 25mg Tablets Take 1 Tablet By Mouth In The Morning Once A Day Workers Compensation Unknown Dok 100mg Capsules Unknown Docusate Sodium & Senna Stimulant Laxati ve/Stool Softener 8.6-50mg Tablets Body, DIRECTOR OF TESTING Maria Luisa Oxybutynin Chloride 5mg Tablets Body, [facility] Maria Luisa Quetiapine Fumarate 400mg Tablets Unknown Gavilyte-G 236gm Solution Rec Unknown Calcium + D3 [id number] Tablets Unknown Linzess 290mcg Capsules Unknown Venlafaxine [...] Hydroxyurea 500mg Capsules Alejo Vickers M.D. Neomycin/Polymyxin/Dexamethasone 3.5-44420-6.1 Suspension Instill 1 Drop Into Right Eye Four Times A Day as Directed Unknown Loratadine 10mg Tablets Body, DIRECTOR OF TESTING Maria Luisa Venlafaxine HCL ER 150mg Caps [...] 3:15 pm - Valdo Hammond DPM at [facility] [place] Functional Status Description No Information Available Mental Status Description No Information Available Referrals Description No Information Available
--- OUTSIDE RECORDS SUMMARY | 2021-01-31 12:18 | CCD ---
Author Author [facility] Organization [facility] Address Unknown Phone Unavailable Care Team Providers Care Supervisor Waterproofing Name Role Phone Tobi Trevino Unavailable PROBLEMS Type Condition ICD9-CM Code SDV11-HE Code Onset Dates Condition S tatus W/U Status Risk SNOMED Code Notes Problem Chronic midline low back pain with right-sided sciatica M54.41 Active confirmed 830997696 Problem Chronic prescription opiate use Z79.899 Active confirmed 755910485 Problem Chronic bilateral low back pain, with sciatica p resence unspecified M54.5 Active confirmed 552304892 Problem Sacroiliitis, not elsewhere classified M46.1 A ctive confirmed 04174052 Problem Other chronic pain G89.29 Active confirmed 8 3623532 Problem Chronic bilateral thoracic back pain M54.6 Act matthew confirmed [id number] Problem Myalgia M79.1 Active confirmed 36600861 Problem Chronic right-sided thoracic back pain M54.6 A ctive confirmed 740947256 Problem Other specified enthesopathies of right lower li mb, excluding foot M76.891 Active confirmed 624864625 Problem Spondylosis without myelopathy or radiculopathy, lumbosacral region M47.817 Active confirmed 05966806 Problem Intervertebral disc disorders with radiculopathy , lumbar region M51.16 Active confirmed [id number] Problem Migraine syndrome G43.909 Active confirmed 3 0799119 Problem Intervertebral disc disorders with radiculopathy , lumbosacral region M51.17 Active confirmed 2978443 Problem Spinal enthesopathy, lumbar region M46.06 Activ e confirmed 11123397 Problem Chronic prescription opiate use Z79.891 Active confirmed 082942996 Problem Spondylosis of lumbosacral joint M47.817 Active confirmed 203842754 Problem Spondylosis without myelopathy or radiculopathy, lumbar region M47.816 Active confirmed 839282529 ALLERGIES Allergen (clinical drug ingredient) Drug/Non Drug Allergy do cumented on EMR Reaction Allergy Type Onset Date Status Latex Latex Rash Drug Allergy Active Nubain reaction at site Drug Allergy Active tramadol Tramadol(ND Code:[address]-19) excessive yawning Drug Al lergy Active codeine Codeine Sulfate(ND Code:[address]-75) Nausea/Vomiting Dr ug Allergy Active Stadol itch Drug Allergy Active hydroxyzine HydrOXYzine HCl([facility] Code:[address]-70) excessiv e yawning Drug Allergy Active ketorolac Ketorolac Tromethamine(ND Code:[address]-57) e xcessive yawning Drug Allergy Active ENCOUNTERS from 1960 to 2021-01-26 Encounter Location Date Provider Diagnosis [facility] [address] Floor [phone] [place] [address] Dec, Tobiselina BillyTrevino Spondylosis without myelopathy or radiculopathy, lumbar region M47.816 IMMUNIZATIONS No Information SOCIAL HISTORY Tobacco Use: Social History Observation Description Date Details (start date - stop date) Former Smoker Sex Assigned At : Social History Observation Description Sex Assigned At Unknown Language: Question Answer Notes Languages spoken: Kyrgyz Roman Catholic: Question Answer Notes Roman Catholic 21 Anabaptist Alcohol Screening: Question Answer Notes Did you have a drink containing alcohol in the past year? No Points 0 Interpretation Negative Tobacco Use: Question Answer Notes Are you a: former smoker How long has it been since you last smoked? > 10 years REASON FOR REFERRAL No Information VITAL SIGNS No information MEDICATIONS Medication SIG (Take, Route, Frequency, Duration) Notes Start Da te End Date Status linzess 290 mcg one p.o. daily Not-T aking Methylphenidate 10 mg takes 20 mgs orally bid Active Calcium 500 mg 1 tablet with meals Orally daily Active Alendronate Sodium 70 MG 1 tablet Orally weekly Active cloNIDine HCl 0.1 MG 1 Orally q12h prn for withdrawal symptoms f or 5 day(s) Apr, Not-Taking atenolol 25 mg 1 tab Oral bid Active Aspirin 325 MG 1 tablet Orally Once a day Active Movantik 25 mg 1 tablet in the morning Oral ly Once a day (Workers Compensation) for 30 Days Mar, Active fentaNYL 12 MCG/HR 1 patch to skin Transdermal 1 patch [id number] (Workers Compensation) for 15 days Jun, Not-Ta pelon Hydrea 1000 mg 1 cap Orally Daily Ac tive Estradiol 0.5 MG 1 tablet Orally daily Active Flonase 1 spray in each nostril Nasally as directed Active Topamax 25 MG 1 tablet Orally bid for 30 Days May, Active Multivitamin 1 tab Orally daily Acti ve Hydrea 500 mg Orally every other day Not-Taking Docusate Sodium 100 mg 1 capsule as needed Orally t wice a day as needed for 30 Days Active Endocet 10-325 MG 1 tablet as needed Orally every 6 hrs prn mdd4 for 15 days Dec, Active Seroquel 100 100 mg 400mg at hs oral Daily Active ZyrTEC 10 MG 1 tablet Orally Once a day Active Ativan 0.5 0.5mg 0.25mg oral BID PRN Active Zofran 8 MG 1 tablet Orally every 4 hours as needed Active Trulance 3 MG 1 tablet Orally Once a day for 30 day(s) Active Protonix 20 MG 1 tablet Orally Once a day Active Effexor 75 MG 2 tablet with food Orally 150mg daily Active tiZANidine HCl 6 MG 1 tablet as needed Orally Three times a day COUPLE DAYS AGO Jun, Active PROCEDURES No Information RESULTS No Results REASON FOR VISIT ENDOCET MEDICAL (GENERAL) HISTORY Type Description Date Medical History Blood cancer Medical History Bipolar/Social anxiety Medical History PTSD Medical History Back pain Medical History SVT Medical History Hammertoe Medical History IBS Medical History GERD Medical History mirgrane Surgical History partial hysterectomy Surgical History right elbow fx with surgical repair Surgical History SA node ablation Surgical History Surgical History gall bladder removal Surgical History bladder suspension Surgical History hemorrhoidectomy Surgical History Numerous uterine ablations Surgical History dorsal column stimulator 2017 Surgical History removal dorsal column stimulator 2019 Hospitalization History Kidney stones Hospitalization History surgeries Hospitalization History ER VISIT FOR BRONCHITIS 01/2019 Goals Section No Information Health Concerns No Information MEDICAL EQUIPMENT No Information MENTAL STATUS No Information FUNCTIONAL STATUS No Information ASSESSMENTS Encounter Date Diagnosis Assessment Notes Treatment Notes Treatm ent Clinical Notes Dec, Spondylosis without myelopat hy or radiculopathy, lumbar region (ICD-10 - M47.816) PLAN OF TREATMENT Medication Medication Name Sig Start Date Stop Date Endocet 10-325 MG 1 tablet as needed Orally every 6 hrs pr n mdd4 for 15 days Dec, Next Appt Details Provider Name:Tobi Trevino, 2021-01-30 08:30:00 AM, [address] [place] [address], , [place], [address], Provider Name:Chelo Swift, 2021-01 09:00:00 AM, [address] [place] [address], , [place], [address], Provider Name:Tobi Trevino, 2021-03-03 09:15:00 AM, [address] [place] [address], , [place], [address], Insurance Providers Payer Name Payer Address Payer Phone Insured Name Patient Relati onship to Insured Coverage Start Date Coverage End Date BCBS OF [facility] [phone] [id number] [facility] [id number] [employer] [address] [place] [id number] [phone] M[employer] 2006
--- OUTSIDE RECORDS SUMMARY | 2021-01-31 12:18 | CCD | Continuity of Care Document ---
Author Author Marcela HAMMOND DPM Organization Unknown Address [address] [place] [address], [facility] [address] [place] [address] Phone [phone] Problems Active Problems Provider Date Acquired deformity [...] Suppository Unknown Ondansetron 4mg Tablets Dispers Body, SOFTWARE DESIGN ANALYST Maria Luisa Metoprolol Tartrate 50mg Tablets Unknown Ibuprofen 800mg Tablets Unknown Chlorhexidine Gluconate 0.12% Solution Unknown Lorazepam 1mg Tablets Body, SOFTWARE DESIGN ANALYST Maria Luisa Azithromycin 250mg Tablets Unknown Mucinex 600mg Tablets ER 12HR Unknown Drysol 20% Solution ap ply to feet daily 60ml Valdo Hammond, DPM Fluticasone Propionate 50mcg/Act Suspension Body, SOFTWARE DESIGN ANALYST Maria Luisa Clonazepam 0.5mg Tablets Unknown Oxycodone-Acetaminophen 10-325mg T ablets Tobi Trevino M.D. Fentanyl 50mcg/HR Patches 72HR Tobi Trevino M.D. Cetirizine HCL 10mg Tablets Unknown Fluvirin 0.5ml Margaret Peraza M.D. Quetiapine Fumarate 300mg Tablets Unknown Methylphenidate HCL 10mg Tablets Unknown Kuna 0.65% Solution Body, [facility] Maria Luisa Yuvafem 10mcg Tablets Unknown Quetiapine Fumarate 200mg Tablets Unknown Methylphenidate HCL 5mg Tablets Unknown Movantik 25mg Tablets Take 1 Tablet By Mouth In The Morning Once A Day Workers Compensation Unknown Dok 100mg Capsules Unknown Docusate Sodium & Senna Stimulant Laxati ve/Stool Softener 8.6-50mg Tablets Body, SOFTWARE DESIGN ANALYST Maria Luisa Oxybutynin Chloride 5mg Tablets Body, [facility] Maria Luisa Quetiapine Fumarate 400mg Tablets Unknown Gavilyte-G 236gm Solution Rec Unknown Calcium + D3 [id number] Tablets Unknown Linzess 290mcg Capsules Unknown Venlafaxine [...] Hydroxyurea 500mg Capsules Alejo Vickers M.D. Neomycin/Polymyxin/Dexamethasone 3.5-04233-1.1 Suspension Instill 1 Drop Into Right Eye Four Times A Day as Directed Unknown Loratadine 10mg Tablets Body, SOFTWARE DESIGN ANALYST Maria Luisa Venlafaxine HCL ER 150mg Caps ER 24HR Unknown Medications Administered in Office Medication SIG Qnty Indications Ordering Provider Date Inject Triamcinolone Acetonide 10 ML, ND C 4923-5239-65 Injection Valdo hair DPM 01/16/2021 Inject Dexamthosone Phosphate 53289-518- 30 Injection Valdo Hammond DPM 021 Immunizations Description No Information Available Vital Signs [...] kg/m2 Results Description No Information Available Procedures Date Code Description Status 01/16/2021 31969 Office/Outpatient New Low [facility] 30 -44 Minutes Completed 01/16/2021 50252 Inject/Drain Joint/Bursa Interme diate Completed Medical Devices Description No Information Available Encounters Type Date Location Provider Dx Diagnosis Office Visit 01/16/2021 3:30p [facility] Valdo Hammond DPM M20.5x2 Other deformities of toe(s) (acquired), left foot M79.675 Pain in left toe(s) M72.2 Plantar fascial fibromatosis Assessments Date Code Description Provider 01/16/2021 M20.5x2 Other deformities of toe(s) (acq uired), left foot Valdo Hammond DPM 01/16/2021 M79.675 Pain in left toe(s) Valdo jenkins DPM 01/16/2021 M72.2 Plantar fascial fibromatosis And sarah Hammond DPM Plan of Treatment Future Appointment(s):* 02/13/2021 3:15 pm - Valdo Hammond DPM at [facility] Functional Status Description No Information Available Mental Status Description No Information Available Referrals Description No Information Available
--- OUTSIDE RECORDS SUMMARY | 2021-01-31 12:19 | CCD | Continuity of Care Document ---
Author Marcela Connor M.D. Organization Unknown Address [address] [place] [address], [address] [place] [address] Phone [phone] Care Team Providers Care Buttoner Name Role Phone AUTM Unavailable Joon Gayle M.D. AUTM [phone] No PCP AUTM Unavailable AUTM Unavailable Problems Description No Information Available Social History Type Date Description Comments Sex Unknown ETOH Use Denies alcohol use Tobacco Use Start: Unknown Denies Smoking Recreational Drug Use Denies Drug Use Allergies and adverse reactions Active Allergies Criticality Reaction | Severity Comments Date Codeine Unable to assess criticality 07/29/2020 Ketorolac Tromethamine Unable to assess criticality 07/29/2020 Tramadol Unable to assess criticality 07/29/2020 Nalbuphine Unable to assess criticality 07/29/2020 Hydroxyzine Unable to assess criticality 12/22/2020 Butorphanol Unable to assess criticality 12/22/2020 Ketorolac Unable to assess criticality 12/22/2020 Latex Unable to assess criticality 12/22/2020 Medications Active Medications SIG Qnty Indications Ordering Provide r Date Clenpiq 10-3.5-12mg-GM -GM/160ML S olution follow pre-procedure instructions. start day before procedure. (if not covered by insurance please fill gavilyte script). 320ml Keven Eden M.D. 01/13/[address] take 4 tablets together as per bowel preparation instructions. 4tabs Rey Eden M.D. 01/13/2021 Sutab [id number] Tablets follow the instruction provided. drink plenty of clear liquids. (if not covered by insurance, give clenpiq/ call gi clinic) 24tabs Ray Eden M.D. 01/13/2021 Movantik 25mg Tablets 1t/d Unknown Docusate Sodium 100mg Capsules 1c/bid Unknown Endocet 10-325mg Tablets 1t/q 6h prn Unknown Topamax 25mg Tablets 1t/bid Unknown Alendronate Sodium 70mg Tablets 1t/wkly Unknown Methylphenidate HCL 10mg Tablets 2t/d Unknown Aspirin 325mg Tablets 1t/d Unknown Tizanidine HCL 6mg Capsules 1t/tid prn Unknown Effexor XR 75mg Caps ER 24HR 2t/d Unknown Protonix 20mg Tablets DR 1t/d Unknown Zofran 8mg Tablets 1t/q4h Unknown Estradiol 0.5mg Tablets 1t/d Unknown Seroquel 100mg Tablets 4t/qhs Unknown Multivitamin Tablets 1t/d Unknown Ativan 0.5mg Tablets 1t/bid Unknown Flonase Allergy Relief 50mcg/Act Suspension use as directed Unknown Zyrtec Allergy 10mg Tablets 1 t/d Unknown Calcium 500MG 1t/d Unknown Atenolol 25mg Tablets 1t/bid Unknown Immunizations Description No Information Available Vital Signs Date Vital Result Comment 12/22/2020 3:32pm BP Systolic 146 mmHg BP Diastolic 76 mmHg Height 69 inches 5'9" Weight 165.00 lb BMI (Body Mass Index) 24.4 kg/m2 [place] [facility] Weight 145 lb Weight 74.844 kg BSA (Body Surface Area) 1.90 m2 07/29/2020 9:33am BP Systolic 141 mmHg BP Diastolic 82 mmHg Heart Rate 72 /min O2 % BldC Oximetry 99 % Respiratory Rate 16 /min Body Temperature 98.2 F Height 69.5 inches 5'9.50" Weight 175.00 lb BMI (Body Mass Index) 25.5 kg/m2 [place] Body Weight 145 lb Weight 79.380 kg BSA (Body Surface Area) 1.96 m2 Results Description No Information Available Procedures Date Code Description Status 12/22/2020 33099 Office/Outpatient New Moderate M DM 45-59 Minutes Completed 12/16/202043979 Inject Tendon/Ligament Completed 07/29/2020 87851 Office/Outpatient New Low MDM 30 -44 Minutes Completed 07/29/202027875 Inject Tendon/Ligament Completed Medical Devices Description No Information Available Encounters Type Date Location Provider Dx Diagnosis Office Visit 12/22/2020 2:50p [facility] ctice Rey Eden M.D. R10.30 Lower abdominal pain, unspec ified K63.5 Polyp of colon Z12.11 Encounter for screening for malignant neoplasm of colon K64.8 Other hemorrhoids Office Visit 07/29/2020 10:30a [facility] Orthoped[facility] Joaquin Salazar MD M65.332 Trigger finger, left middle finger Assessments Date Code Description Provider 12/22/2020 R10.30 Lower abdominal pain, unspecifie d Rey Eden M.D. 12/22/2020 K63.5 Polyp of colon Rey Silva ala, M.D. 12/22/2020 Z12.11 Encounter for screening for marlyn gnant neoplasm of colon Rey Eden M.D. 12/22/2020 K64.8 Other hemorrhoids Rey taveras M.D. 12/16/2020 M65.332 Trigger finger, left middle fing er Joaquin Salazar MD 07/29/2020 M65.332 Trigger finger, left middle fing er Joaquin Salazar MD Plan of Treatment Future Appointment(s):* 01/31/2021 8:35 am - Rey Eden M.D. at [facility] Functional Status Description No Information Available Mental Status Description No Information Available Referrals Description No Information Available
--- OUTSIDE RECORDS SUMMARY | 2021-01-31 12:19 | CCD | Continuity of Care Document ---
Author Author Marcela NOLASCO MD Organization Unknown Address [address] [place] [address] , [facility] [address] [place] [address] Phone [phone] Care Team Providers Care Die Assembler Name Role Phone AUTM Unavailable Joon Gayle M.D. AUTM [phone] No PCP AUTM Unavailable AUTM Unavailable Problems Description No Information Available Social History Type Date Description Comments Sex Unknown ETOH Use Denies alcohol use Tobacco Use Start: Unknown Denies Smoking Recreational Drug Use Denies Drug Use Allergies, Adverse Reactions, Alerts Active Allergies Criticality Reaction | Severity Comments [...] SIG Qnty Indications Ordering Provide r Date Protonix 20mg Tablets DR 1t/d Unknown Movantik 25mg Tablets 1t/d Unknown Docusate Sodium 100mg Capsules 1c/bid Unknown Endocet 10-325mg Tablets 1t/q 6h prn Unknown Topamax 25mg Tablets 1t/bid Unknown Alendronate Sodium 70mg Tablets 1t/wkly Unknown Methylphenidate HCL 10mg Tablets 2t/d Unknown Aspirin 325mg Tablets 1t/d Unknown Tizanidine HCL 6mg Capsules 1t/tid prn Unknown Effexor XR 75mg Caps ER 24HR 2t/d Unknown Atenolol 25mg Tablets 1t/bid Unknown Zofran 8mg Tablets 1t/q4h Unknown Estradiol 0.5mg Tablets 1t/d Unknown Seroquel 100mg Tablets 4t/qhs Unknown Multivitamin Tablets 1t/d Unknown Ativan 0.5mg Tablets 1t/bid Unknown Flonase Allergy Relief 50mcg/Act Suspension use as directed Unknown Zyrtec Allergy 10mg Tablets 1 t/d Unknown Calcium 500MG 1t/d Unknown Immunizations Description No Information Available Vital Signs Date Vital Result Comment 12/22/2020 3:32pm BP Systolic 146 mmHg BP Diastolic 76 mmHg Height 69 inches 5'9" Weight 165.00 lb BMI (Body Mass Index) 24.4 kg/m2 [place] Body Weight 145 lb Weight 74.844 kg BSA (Body Surface Area) 1.90 m2 07/29/2020 9:33am BP Systolic 141 mmHg BP Diastolic 82 mmHg Heart Rate 72 /min O2 % BldC Oximetry 99 % Respiratory Rate 16 /min Body Temperature 98.2 F Height 69.5 inches 5'9.50" Weight 175.00 lb BMI (Body Mass Index) 25.5 kg/m2 [place] Body Weight 145 lb Weight 79.380 kg BSA (Body Surface Area) 1.96 m2 Results Description No Information Available Procedures Date Code Description Status 12/16/2020 25784 Inject Tendon/Ligament Completed 07/29/2020 63325 Office/Outpatient New Low [facility] 30 -44 Minutes Completed 07/29/202081153 Inject Tendon/Ligament Completed Medical Devices Description No Information Available Encounters Type Date Location Provider Dx Diagnosis Office Visit 07/29/2020 10:30a [facility] Joaquin Nolasco MD M65.332 Trigger finger, left middle finger Assessments Date Code Description Provider 12/16/2020 M65.332 Trigger finger, left middle fing er Joaquin Nolasco MD 07/29/2020 M65.332 Trigger finger, left middle fing er Joaquin Nolasco MD Plan of Treatment No Information Available Functional Status Description No Information Available Mental Status Description No Information Available Referrals Description No Information Available
--- OUTSIDE RECORDS SUMMARY | 2021-01-31 12:19 | CCD ---
Author Author [facility] Organization [facility] Address Unknown Phone Unavailable Care Team Providers Care Electrical Calibrator Name Role Phone Tobi Trevino Unavailable PROBLEMS Type Condition ICD9-CM Code MOC33-HJ Code Onset Dates Condition S tatus W/U Status Risk SNOMED Code Notes Problem Chronic midline low back pain with right-sided sciatica M54.41 Active confirmed 375774114 Problem Chronic prescription opiate use Z79.899 Active confirmed 946528273 Problem Chronic bilateral low back pain, with sciatica p resence unspecified M54.5 Active confirmed 808869216 Problem Sacroiliitis, not elsewhere classified M46.1 A ctive confirmed 72425055 Problem Other chronic pain G89.29 Active confirmed 8 2259388 Problem Chronic bilateral thoracic back pain M54.6 Act matthew confirmed [id number] Problem Myalgia M79.1 Active confirmed 82417696 Problem Chronic right-sided thoracic back pain M54.6 A ctive confirmed 128895397 Problem Other specified enthesopathies of right lower li mb, excluding foot M76.891 Active confirmed 673589884 Problem Spondylosis without myelopathy or radiculopathy, lumbosacral region M47.817 Active confirmed 23667363 Problem Intervertebral disc disorders with radiculopathy , lumbar region M51.16 Active confirmed 272769680683226 Problem Migraine syndrome G43.909 Active confirmed 3 9266836 Problem Intervertebral disc disorders with radiculopathy , lumbosacral region M51.17 Active confirmed 9902111 Problem Spinal enthesopathy, lumbar region M46.06 Activ e confirmed 44019643 Problem Chronic prescription opiate use Z79.891 Active confirmed 452956717 Problem Spondylosis of lumbosacral joint M47.817 Active confirmed 157474052 Problem Spondylosis without myelopathy or radiculopathy, lumbar region M47.816 Active confirmed 464858036 ALLERGIES Allergen (clinical drug ingredient) Drug/Non Drug Allergy do cumented on EMR Reaction Allergy Type Onset Date Status Latex (for allergy use only) Rash Drug Allergy Active Nubain reaction at site Drug Allergy Active tramadol Tramadol(ND Code:[address]-62) excessive yawning Drug Al lergy Active codeine Codeine Sulfate(ND Code:[address]-74) Nausea/Vomiting Dr ug Allergy Active Stadol itch Drug Allergy Active hydroxyzine HydrOXYzine HCl(ND Code:[address]-78) excessiv e yawning Drug Allergy Active ketorolac Ketorolac Tromethamine(ND Code:[address]-59) e xcessive yawning Drug Allergy Active ENCOUNTERS from 1960 to 2020-12-11 Encounter Location Date Provider Diagnosis [facility] [address] [phone] [place] [address] Nov, Tobi Trevino Myalgia M79.10 and M yofascial pain syndrome M79.18 IMMUNIZATIONS No Information SOCIAL HISTORY Tobacco Use: Social History Observation Description Date Details (start date - stop date) Former Smoker Sex Assigned At : Social History Observation Description Sex Assigned At Unknown Language: Question Answer Notes Languages spoken: Rwandan Confucianist: Question Answer Notes Confucianist 21 Quaker Alcohol Screening: Question Answer Notes Did you have a drink containing alcohol in the past year? No Points 0 Interpretation Negative Tobacco Use: Question Answer Notes Are you a: former smoker How long has it been since you last smoked? > 10 years REASON FOR REFERRAL No Information VITAL SIGNS Weight 166.6 lbs Nov, Weight-kg 75.57 kg Nov, Height 69 in Nov, BMI 24.60 kg/m2 Nov, Heart Rate 63 /min Nov, Respiratory Rate 18 /min Nov, Temperature 98.0 degrees Fahrenheit Nov, Oximetry 99% Nov, Blood pressure systolic 119 mm Hg Nov, Blood pressure diastolic 69 mm Hg 10 Nov, 2020 MEDICATIONS Medication SIG (Take, Route, Frequency, Duration) [...] 1 patch to skin Transdermal 1 patch [id number] (Workers Compensation) for 15 days Jun, Not-Ta pelon Hydrea 1000 mg 1 cap Orally Daily Ac tive Estradiol 0.5 MG 1 tablet Orally daily Active Flonase 1 spray in each nostril Nasally as directed Active Endocet 10-325 MG 1 tablet as needed Orally every 6 hrs prn mdd4 for 30 days Oct, Active Multivitamin 1 tab Orally daily Acti ve Hydrea 500 mg Orally every other day Not-Taking Docusate Sodium 100 mg 1 capsule as needed Orally t wice a day as needed for 30 Days Active Topamax 25 MG 1 tablet Orally bid for 30 Days May, Active Seroquel 100 100 mg 400mg at [...] Information RESULTS No Results REASON FOR VISIT COOL RF 08/11/20 MEDICAL (GENERAL) HISTORY Type Description Date Medical [...] Notes Treatment Notes Treatm ent Clinical Notes Nov, Myalgia (ICD-10 - M79.10) I discussed alternatives with Ms. Pedroza. I will request auth for trigger point injections right mid back and right low back to try to release those trigger points and tightness. We had a conversation about the medications. She will start reducing them after the injections. The patient reports understanding and agrees with the plan. IViviana, documented the above information acting as a scribe for Dr. Trevino. I have reviewed the above document, written by brenda Garzon, and I verify that it is accurate. Nov, Myofascial pain syndrome (ICD-10 - M79.18) Nov, Other Trigger point in jection material was printed and given to patient. Pre procedure instructions printed and reviewed with patient. Patient verbalizes understanding of pre procedure instructions reviewed. 12/09/2020 Nolan Higgins RN PLAN OF TREATMENT Treatment Notes Assessment Notes Clinical Notes Myalgia I discussed alternat vipin with Ms. Pedroza. I will request auth for trigger point injections right mid back and right low back to try to release those trigger points and tightness. We had a conversation about the medications. She will start reducing them after the injections. The patient reports understanding and agrees with the plan. Viviana Thomas, documented the above information acting as a scribe for Dr. Trevino. I have reviewed the above document, written by brenda Garzonibe, and I verify that it is accurate. Future Test Test Name Order Date Med: Pain Benadryl Tab 25mg Orally Diphenhydramine 37191 Medication: Pain Valium Tab 10mg Orally (Diazepam) 10 Medication: Pain Oxycodone HCL Tab 10mg Orally [id number] 0 Next Appt Details Request auth for trigger point injection s right mid back and right low back Reason:Request auth for trigger point injections right mid back and right low back Provider Name:Tobi Trevino, 2021-01-20 11:15:00 AM, [address], , [place], [address], Follow Up:Request auth for trigger point injections right mid back and right low backRequest auth for trigger point injections right mid back and right low back Insurance Providers Payer Name Payer Address Payer Phone Insured Name Patient Relati onship to Insured Coverage Start Date Coverage End Date [facility] [address] [place] [id number] MOO PEDROZA 2006 BCBS OF [facility] [id number] [facility] [id number] MOO PEDROZA self
--- OUTSIDE RECORDS SUMMARY | 2021-01-31 12:19 | CCD ---
Continuity of Care Document (CCD) Created on: 12/22/2020 Marcela Roland External Reference #: [id number] : [id number] Sex: Female Author Marcela Connor M.D. Organization Unknown Address [address] [place] [address], [address] [place] [address] Phone [phone] Care Team Providers Care Splitter Machine Name Role Phone AUTM Unavailable Joon Gayle M.D. AUTM [phone] No PCP AUTM Unavailable AUTM Unavailable Problems [...] SIG Qnty Indications Ordering Provide r Date Trulance 3mg Tablets 1t/d Unknown Movantik 25mg Tablets 1t/d Unknown Docusate Sodium 100mg Capsules 1c/bid Unknown Endocet 10-325mg Tablets 1t/q 6h prn Unknown Topamax 25mg Tablets 1t/bid Unknown Alendronate Sodium 70mg Tablets 1t/wkly Unknown Methylphenidate HCL 10mg Tablets 2t/d Unknown Aspirin 325mg Tablets 1t/d Unknown Tizanidine HCL 6mg Capsules 1t/tid prn Unknown Effexor XR 75mg Caps ER 24HR 2t/d Unknown Atenolol 25mg Tablets 1t/bid Unknown Protonix 20mg Tablets DR 1t/d Unknown Zofran 8mg Tablets 1t/q4h Unknown Estradiol 0.5mg Tablets 1t/d Unknown Seroquel 100mg Tablets 4t/qhs Unknown Multivitamin Tablets 1t/d Unknown Ativan 0.5mg Tablets 1t/bid Unknown Flonase Allergy Relief 50mcg/Act Suspension use as directed Unknown Zyrtec Allergy 10mg Tablets 1 t/d Unknown Calcium 500MG 1t/d Unknown Immunizations Description No Information Available Vital Signs Date Vital Result Comment 07/29/2020 9:33am BP Systolic 141 mmHg BP Diastolic 82 mmHg Heart Rate 72 /min O2 % BldC Oximetry 99 % Respiratory Rate 16 /min Body Temperature 98.2 F Height 69.5 inches 5'9.50" Weight 175.00 lb BMI (Body Mass Index) 25.5 kg/m2 [place] Body Weight 145 lb Weight 79.380 kg BSA (Body Surface Area) 1.96 m2 Results Description No Information Available Procedures Date Code Description Status 12/16/2020 19474 Office/Outpatient Established Mo d MDM 30-39 Min Completed 12/16/2020 59588 Inject Tendon/Ligament Completed 07/29/2020 01030 Office/Outpatient New Low MDM 30 -44 Minutes Completed 07/29/2020 20858 Inject Tendon/Ligament Completed Medical Devices Description No Information Available Encounters Type Date Location Provider Dx Diagnosis Office Visit 12/16/2020 2:00p [facility] Joaquin Salazar MD M65.332 Trigger finger, left middle finger Office Visit 07/29/2020 10:30a [facility] Joaquin Salazar MD M65.332 Trigger finger, left middle finger Assessments Date Code Description Provider 12/16/2020 M65.332 Trigger finger, left middle fing er Joaquin Salazar MD 07/29/2020 M65.332 Trigger finger, left middle fing er Joaquin Salazar MD Plan of Treatment No Information Available Functional Status Description No Information Available Mental Status Description No Information Available Referrals Description No Information Available
--- OUTSIDE RECORDS SUMMARY | 2021-01-31 12:19 | CCD ---
Author Author [facility] Organization [facility] Address Unknown Phone Unavailable Care Team Providers Care Lock Up Worker Name Role Phone Tobi Trevino Unavailable PROBLEMS Type Condition ICD9-CM Code NMY69-ME Code Onset Dates Condition S tatus W/U Status Risk SNOMED Code Notes Problem Chronic midline low back pain with right-sided sciatica M54.41 Active confirmed 699111553 Problem Chronic prescription opiate use Z79.899 Active confirmed 876756527 Problem Chronic bilateral low back pain, with sciatica p resence unspecified M54.5 Active confirmed 395252190 Problem Sacroiliitis, not elsewhere classified M46.1 A ctive confirmed 84763524 Problem Other chronic pain G89.29 Active confirmed 8 7563332 Problem Chronic bilateral thoracic back pain M54.6 Act matthew confirmed 460018796965564 Problem Myalgia M79.1 Active confirmed 33146932 Problem Chronic right-sided thoracic back pain M54.6 A ctive confirmed 661319080 Problem Other specified enthesopathies of right lower li mb, excluding foot M76.891 Active confirmed 293423138 Problem Spondylosis without myelopathy or radiculopathy, lumbosacral region M47.817 Active confirmed 14467729 Problem Intervertebral disc disorders with radiculopathy , lumbar region M51.16 Active confirmed 967989081831192 Problem Migraine syndrome G43.909 Active confirmed 3 1206998 Problem Intervertebral disc disorders with radiculopathy , lumbosacral region M51.17 Active confirmed 4596295 Problem Spinal enthesopathy, lumbar region M46.06 Activ e confirmed 16986349 Problem Chronic prescription opiate use Z79.891 Active confirmed 914201819 Problem Spondylosis of lumbosacral joint M47.817 Active confirmed 750612252 Problem Spondylosis without myelopathy or radiculopathy, lumbar region M47.816 Active confirmed 498243603 ALLERGIES Allergen (clinical drug ingredient) Drug/Non Drug Allergy do cumented on EMR Reaction Allergy Type Onset Date Status Latex (for allergy use only) Rash Drug Allergy Active Nubain reaction at site Drug Allergy Active tramadol Tramadol(ND Code:[address]-14) excessive yawning Drug Al lergy Active codeine Codeine Sulfate(ND Code:[address]-55) Nausea/Vomiting Dr ug Allergy Active Stadol itch Drug Allergy Active hydroxyzine HydrOXYzine HCl(ND Code:[address]-36) excessiv e yawning Drug Allergy Active ketorolac Ketorolac Tromethamine(ND Code:[address]-91) e xcessive yawning Drug Allergy Active ENCOUNTERS from 1960 to 2020-12-21 Encounter Location Date Provider Diagnosis [facility] [address] [phone] [place] [address] Nov, Tobi Trevino Spondylosis without myelopathy or radiculopathy, lumbar region M47.816 IMMUNIZATIONS No Information SOCIAL HISTORY Tobacco Use: Social History Observation Description Date Details (start date - stop date) Former Smoker Sex Assigned At : Social History Observation Description Sex Assigned At Unknown Language: Question Answer Notes Languages spoken: Syriac Worship: Question Answer Notes Worship 21 Uatsdin Alcohol Screening: Question Answer Notes Did you [...] 1 patch to skin Transdermal 1 patch [id number] (Workers Compensation) for 15 days Jun, Not-Ta pelon Hydrea 1000 mg 1 cap Orally Daily Ac tive Estradiol 0.5 MG 1 tablet Orally daily Active Flonase 1 spray in each nostril Nasally as directed Active Endocet 10-325 MG 1 tablet as needed Orally every 6 hrs prn mdd4 for 30 days Nov, Active Multivitamin 1 tab Orally daily Acti [...] Information RESULTS No Results REASON FOR VISIT refill Endocet MEDICAL (GENERAL) HISTORY Type Description Date Medical [...] uterine ablations Surgical History dorsal column stimulator 2018 Surgical History removal dorsal column stimulator 2019 Hospitalization History Kidney stones Hospitalization History surgeries Hospitalization History ER VISIT FOR BRONCHITIS 01/2019 Goals Section No Information Health Concerns No Information MEDICAL EQUIPMENT No Information MENTAL STATUS No Information FUNCTIONAL STATUS No Information ASSESSMENTS Encounter Date Diagnosis Assessment Notes Treatment Notes Treatm ent Clinical Notes Nov, Spondylosis without myelopat hy or radiculopathy, lumbar region (ICD-10 - M47.816) PLAN OF TREATMENT Medication Medication Name Sig Start Date Stop Date Endocet 10-325 MG 1 tablet as needed Orally every 6 hrs pr n mdd4 for 30 days Nov, Next Appt Details Provider Name:Tobi Trevino, 2021-01-20 11:15:00 AM, [address] [place] [address], , [place], [address], Provider Name:Tobi Trevino, 2021-01-30 08:30:00 AM, [address] [place] [address], , [place], [address], Provider Name:Tobi Trevino, 2021-03-03 09:15:00 AM, [address] [place] [address], , [place], [address], Insurance Providers Payer Name Payer Address Payer Phone Insured Name Patient Relati onship to Insured Coverage Start Date Coverage End Date STATE INSURANCE [facility] [id number] [place] [id number] [phone] MOO PEDROZA self 2006 [facility] [id number] [facility] [id number] MOO PEDROZA self
--- OUTSIDE RECORDS SUMMARY | 2021-01-31 12:19 | CCD | Continuity of Care Document ---
Author Author Marcela NOLASCO MD Organization Unknown Address [address] [place] [address] , [facility] [address] [place] [address] Phone [phone] Care Team Providers Care Plant And Maintenance Technician Name Role Phone AUTM Unavailable Joon Gayle M.D. AUTM [phone] No PCP AUTM Unavailable AUTM Unavailable Problems [...] 07/29/2020 Nalbuphine Unable to assess criticality 07/29/2020 Medications Description No Information Available Immunizations Description No Information Available Vital Signs Date Vital Result Comment 07/29/2020 9:33am BP Systolic 141 mmHg BP Diastolic 82 mmHg Heart Rate 72 /min O2 % BldC Oximetry 99 % Respiratory Rate 16 /min Body Temperature 98.2 F Height 69.5 inches 5'9.50" Weight 175.00 lb BMI (Body Mass Index) 25.5 kg/m2 [place] Body Weight 145 lb Weight 79.380 kg BSA (Body Surface Area) 1.96 m2 Results Description No Information Available Procedures Date Code Description Status 12/16/2020 96695 Office/Outpatient Established Mo d MDM 30-39 Min Completed 07/29/2020 43133 Office/Outpatient New Low MDM 30 -44 Minutes Completed 07/29/2020 00212 Inject Tendon/Ligament Completed Medical Devices Description No Information Available Encounters Type Date Location Provider Dx Diagnosis Office Visit 12/16/2020 2:00p [facility] Joaquin Nolasco MD M65.332 Trigger finger, left middle finger Office Visit 07/29/2020 10:30a [facility] Joaquin Nolasco MD M65.332 Trigger finger, left middle finger Assessments Date Code Description Provider 12/16/2020 M65.332 Trigger finger, left middle fing er Joaquin Nolasco MD 07/29/2020 M65.332 Trigger finger, left middle fing er Joaquin Nolasco MD Plan of Treatment Future Appointment(s):* 12/22/2020 2:50 pm - Rey Eden M.D. at [facility] 12/16/2020 - Joaquin Nolasco MD* M65.332 Trigger finger, left middle finger Functional Status Description No Information Available Mental Status Description No Information Available Referrals Description No Information Available
--- OUTSIDE RECORDS SUMMARY | 2021-01-31 12:19 | CCD | Continuity of Care Document ---
Author Author Marcela CARTER Organization Unknown Address [address], [address] [place] [address] Phone [phone] Care Team Providers Care Miner Name Role Phone Shereen Lemus AUTM [phone] Problems Description No Information Available Social History Type Date Description Comments Sex Unknown ETOH Use Denies alcohol use Tobacco Use Start: Unknown Patient has never smoked Sun Exposure moderate amount of sun exposure Sun Exposure Tanning bed - Has used in past. No longer using. Sun Exposure Has experienced blistering from sunburns Sun Exposure Uses > 30 SPF Allergies and adverse reactions Active Allergies Criticality Reaction | Severity Comments Date Codeine Unable to assess criticality 04/22/2019 Tramadol Unable to assess criticality 04/22/2019 Ketorolac Tromethamine Unable to assess criticality 04/22/2019 Nalbuphine Unable to assess criticality 04/22/2019 Butorphanol Unable to assess criticality 04/22/2019 Medications Active Medications SIG Qnty Indications Ordering Provide r Date Tretinoin: 0.1% Niacinamide: 2% Azelaic Acid: 8% apply pea sized amount to face once daily at bedtime. Script sent to [facility] 06-20-20 MICHEAL Alejandra 06/20/2020 Tretinoin 0.05% Gel apply topically to face daily at bedtime 45gm L70.0 MICHEAL Alejandra 05/30 Glycopyrrolate 1mg Tablets take 1 to 2 tablets by mouth up to three times daily maximum daily dose = 6 tablets 90tabs R61 HAYDEN Sullivan 05/20/2020 Qbrexza 2.4% Pads apply wipe to bilateral underarms every day 60units R61 HAYDEN Sullivan Ritalin [place] Unknown Effexor XR Unknown Ativan Unknown Immunizations Description No Information Available Vital Signs Date Vital Result Comment 12/23/2020 3:11pm BP Systolic 140 mmHg BP Diastolic 89 mmHg Heart Rate 89 /min Weight 165.00 lb 06/15/2020 4:40pm Weight 170.00 lb Body Temperature 96.9 F Respiratory Rate 18 /min Results Description No Information Available Procedures Date Code Description Status 12/23/2020 91174 Office/Outpatient Established Lo w MDM 20-29 Min Completed Medical Devices Description No Information Available Encounters Type Date Location Provider Dx Diagnosis Office Visit 12/23/2020 3:15p Main Office HAYDEN Sullivan R61 Generalized hyperhidrosis Assessments Date Code Description Provider 12/23/2020 R61 Generalized hyperhidrosis HAYDEN Sarah 11/09/2020 L98.8 Other specified disorders of the skin and subcutaneous tissue Cosmetic Consultation Plan of Treatment Future Appointment(s):* 06/22/2021 3:15 pm - HAYDEN Sullivan at Main Office 12/23/2020 - HAYDEN Sullivan* R61 Generalized hyperhidrosis* Comments: * Stable.Continue Qbrexza 2.4% wipes as needed throughout the day. Knows applying to clean, dry, intact skin.Continue Robinul 1-2 MG up to 3 times daily as needed throughout the day.Discussed Botox treatments for hyperhidrosis with Marcela. Our office will begin an insurance approval process for use of medical Botox. Will call when approval is received.Call with any problems. * Follow up:* 6 months - hyperhidrosis follow up Functional Status Description No Information Available Mental Status Description No Information Available Referrals Description No Information Available"
--- OUTSIDE RECORDS SUMMARY | 2021-01-31 12:19 | CCD ---
Author Author [facility] Organization [facility] Address Unknown Phone Unavailable Care Team Providers Care Contract Runner Name Role Phone Tobi Trevino Unavailable PROBLEMS Type Condition ICD9-CM Code [id number] Code Onset Dates Condition S tatus W/U Status Risk SNOMED Code Notes Problem Chronic midline low back pain with right-sided sciatica M54.41 Active confirmed 763715287 Problem Chronic prescription opiate use Z79.899 Active confirmed 050829261 Problem Chronic bilateral low back pain, with sciatica p resence unspecified M54.5 Active confirmed 354120297 Problem Sacroiliitis, not elsewhere classified M46.1 A ctive confirmed 61176489 Problem Other chronic pain G89.29 Active confirmed 8 6138494 Problem Chronic bilateral thoracic back pain M54.6 Act matthew confirmed [id number] Problem Myalgia M79.1 Active confirmed 47251965 Problem Chronic right-sided thoracic back pain M54.6 A ctive confirmed 256893973 Problem Other specified enthesopathies of right lower li mb, excluding foot M76.891 Active confirmed 340310695 Problem Spondylosis without myelopathy or radiculopathy, lumbosacral region M47.817 Active confirmed 12970967 Problem Intervertebral disc disorders with radiculopathy , lumbar region M51.16 Active confirmed 003747080311399 Problem Migraine syndrome G43.909 Active confirmed 3 4218003 Problem Intervertebral disc disorders with radiculopathy , lumbosacral region M51.17 Active confirmed 8028314 Problem Spinal enthesopathy, lumbar region M46.06 Activ e confirmed 70857520 Problem Chronic prescription opiate use Z79.891 Active confirmed 102900629 Problem Spondylosis of lumbosacral joint M47.817 Active confirmed 360051166 Problem Spondylosis without myelopathy or radiculopathy, lumbar region M47.816 Active confirmed 215759294 ALLERGIES Allergen (clinical drug ingredient) Drug/Non Drug Allergy do cumented on EMR Reaction Allergy Type Onset Date Status Latex (for allergy use only) Rash Drug Allergy Active Nubain reaction at site Drug Allergy Active tramadol Tramadol(ND Code:[address]-48) excessive yawning Drug Al lergy Active codeine Codeine Sulfate(ND Code:[address]-91) Nausea/Vomiting Dr ug Allergy Active Stadol itch Drug Allergy Active hydroxyzine HydrOXYzine HCl([facility] Code:[address]-60) excessiv e yawning Drug Allergy Active ketorolac Ketorolac Tromethamine(ND Code:[address]-48) e xcessive yawning Drug Allergy Active ENCOUNTERS from 1960 to 2020-11-16 Encounter Location Date Provider Diagnosis [facility] [address] [phone] [place] [address] Oct, Tobiselina BillyTrevino Spondylosis without myelopathy or radiculopathy, lumbar region M47.816 and Spondylosis of lumbosacral joint M47.817 IMMUNIZATIONS No Information SOCIAL HISTORY Tobacco Use: Social History Observation Description Date Details (start date - stop date) Former Smoker Sex Assigned At : Social History Observation Description Sex Assigned At Unknown Language: Question Answer Notes Languages spoken: Lithuanian Orthodoxy: Question Answer Notes Orthodoxy 21 Druze Alcohol Screening: Question Answer Notes Did you [...] Notes Start Da te End Date Status Effexor 75 MG 2 tablet with food Orally 150mg daily Active linzess 290 mcg one p.o. daily Not-T aking Endocet 10-325 MG 1 tablet as needed Orally every 6 hrs prn mdd4 for 30 days Oct, Active Trulance 3 MG 1 tablet Orally Once a day for 30 day(s) Active tiZANidine HCl 6 MG 1 tablet as needed Orally Three times a day COUPLE DAYS AGO Jun, Active Hydrea 500 mg Orally every other day Not-Taking Protonix 20 MG 1 tablet Orally Once a day Active fentaNYL 12 MCG/HR 1 patch to skin Transdermal 1 patch [id number] ([employer]) for 15 days Jun, Not-Ta pelon Ativan 0.5 0.5mg 0.25mg oral BID PRN Active Multivitamin 1 tab Orally daily Acti ve Flonase 1 spray in each nostril Nasally as directed Active Movantik 25 mg 1 tablet in the morning Oral ly Once a day ([employer]) for 30 Days Mar, Active cloNIDine HCl 0.1 MG 1 Orally q12h prn for withdrawal symptoms f or 5 day(s) Apr, Not-Taking atenolol 25 mg 1 tab Oral bid Active Seroquel 100 100 mg 400mg at hs oral Daily Active Zofran 8 MG 1 tablet Orally every 4 hours as needed Active Estradiol 0.5 MG 1 tablet Orally daily Active Alendronate Sodium 70 MG 1 tablet Orally weekly Active Docusate Sodium 100 mg 1 capsule as needed Orally t wice a day as needed for 30 Days Active Aspirin 325 MG 1 tablet Orally Once a day Active Hydrea 1000 mg 1 cap Orally Daily Ac tive Calcium 500 mg 1 tablet with meals Orally daily Active Methylphenidate 10 mg takes 20 mgs orally bid Active ZyrTEC 10 MG 1 tablet Orally Once a day Active Topamax 25 MG 1 tablet Orally bid for 30 Days May, Active PROCEDURES No Information RESULTS No Results REASON FOR VISIT ENDOCET, COLACE, MOVANTIK REFILL MEDICAL (GENERAL) HISTORY Type Description Date Medical [...] Notes Treatment Notes Treatm ent Clinical Notes Oct, Spondylosis without myelopat hy or radiculopathy, lumbar region (ICD-10 - M47.816) Oct, Spondylosis of lumbosacral joint (ICD-10 - M47.8 17) PLAN OF TREATMENT Medication Medication Name Sig Start Date Stop Date Docusate Sodium 100 mg 1 capsule as needed Orally t wice a day as needed for 30 Days Movantik 25 mg 1 tablet in the morning Oral ly Once a day ([employer]) for 30 Days Mar, Endocet 10-325 MG 1 tablet as needed Orally every 6 hrs pr n mdd4 for 30 days Oct, Next Appt Details Provider Name:Tobi Trevino, 2020-12-09 01:30:00 PM, [address] [place] [address], , [place], [address], Provider Name:Tobi Trevino, 2021-01-20 11:15:00 AM, [address] [place] [address], , [place], [address], Insurance Providers Payer Name Payer Address Payer Phone Insured Name Patient Relati onship to Insured Coverage Start Date Coverage End Date [id number] [facility] [id number] [employer] [address] [place] [id number] [employer] 2006
--- OUTSIDE RECORDS SUMMARY | 2021-01-31 12:20 | CCD ---
Author Author [facility] Organization [facility] Address Unknown Phone Unavailable Care Team Providers Care Special Education Preschool Teacher Name Role Phone NO, PCP Unavailable Unavailable Lisseth LOPEZ MD Unavailable Unavailable Lisseth LOPEZ MD Unavailable Unavailable Lisseth LOPEZ MD Unavailable Unavailable Lisseth LOPEZ MD Unavailable Unavailable Lisseth LOPEZ MD Unavailable Unavailable Lisseth LOPEZ MD Unavailable Unavailable Lisseth LOPEZ MD Unavailable Unavailable Lisseth LOPEZ MD Unavailable Unavailable Lisseth LOPEZ MD Unavailable Unavailable Lisseth LOPEZ MD Unavailable Unavailable Lisseth LOPEZ MD Unavailable Unavailable Lisseth LOPEZ MD Unavailable Unavailable Lisseth LOPEZ MD Unavailable Unavailable Lisseth LOPEZ MD Unavailable Unavailable Lisseth LOPEZ MD Unavailable Unavailable Lisseth Ferreira MD Unavailable Unavailable Lisseth Ferreira MD Unavailable Unavailable Lisseth Ferreira MD Unavailable Unavailable Lisseth Ferreira MD Unavailable Unavailable Lisseth Ferreira MD Unavailable Unavailable Lisseth Ferreira MD Unavailable Unavailable Lisseth Ferreira MD Unavailable Unavailable Lisseth Ferreira MD Unavailable Unavailable Lisseth Ferreira MD Unavailable Unavailable Lisseth Ferreira MD Unavailable Unavailable Lisseth Ferreira MD Unavailable Unavailable Lisseth eFrreira MD Unavailable Unavailable Lisseth Ferreira MD Unavailable Unavailable Lisseth Ferreira MD Unavailable Unavailable Lisseth Ferreira MD Unavailable Unavailable Lisseth Ferreira MD Unavailable Unavailable Lisseth Ferreira MD Unavailable Unavailable Lisseth Ferreira MD Unavailable Unavailable Lisseth Ferreira MD Unavailable Unavailable Lisseth Ferreira MD Unavailable Unavailable Lisseth Ferreira MD Unavailable Unavailable Lisseth Ferreira MD Unavailable Unavailable Lisseth Ferreira MD Unavailable Unavailable Lisseth Ferreira MD Unavailable Unavailable Lisseth Ferreira MD Unavailable Unavailable Lisesth Ferreira MD Unavailable Unavailable Lisseth Ferreira MD Unavailable Unavailable Lisseth Ferreira MD Unavailable Unavailable Lisseth Ferreira MD Unavailable Unavailable Lisseth Ferreira MD Unavailable Unavailable Lisseth Ferreira MD Unavailable Unavailable Lisseth Ferreira MD Unavailable Unavailable Lisseth Ferreira MD Unavailable Unavailable Lisseth Ferreira MD Unavailable Unavailable Lisseth Ferreira MD Unavailable Unavailable Lisseth Ferreira MD Unavailable Unavailable Lisseth Ferreira MD Unavailable Unavailable Lisseth Ferreira MD Unavailable Unavailable Lisseth Ferreira MD Unavailable Unavailable Lisseth Ferreira MD Unavailable Unavailable Lisseth Ferreira MD Unavailable Unavailable Lisseth Ferreira MD Unavailable Unavailable Lisseth Ferreira MD Unavailable Unavailable Lisseth Ferreira MD Unavailable Unavailable Lisseth Ferreira MD Unavailable Unavailable Lisseth Ferreira MD Unavailable Unavailable Lisseth Ferreira MD Unavailable Unavailable Lisseth Ferreira MD Unavailable Unavailable Lisseth Ferreira MD Unavailable Unavailable Lisseth Ferreira MD Unavailable Unavailable Lisseth Ferreira MD Unavailable Unavailable Lisseth Ferreira MD Unavailable Unavailable Lisseth Ferreira MD Unavailable Unavailable Lisseth Ferreira MD Unavailable Unavailable Lisseth Ferreira MD Unavailable Unavailable Lisseth Ferreira MD Unavailable Unavailable Lisseth Ferreira MD Unavailable Unavailable Lisseth Ferreira MD Unavailable Unavailable Lisseth Ferreira MD Unavailable Unavailable Lisseth Ferreira MD Unavailable Unavailable Lisseth Ferreira MD Unavailable Unavailable Lisseth Ferreira MD Unavailable Unavailable Lisseth Ferreira MD Unavailable Unavailable Lisseth Ferreira MD Unavailable Unavailable Lisseth Ferreira MD Unavailable Unavailable Lisseth Ferreira MD Unavailable Unavailable Lisseth Ferreira MD Unavailable Unavailable Lisseth Ferreira MD Unavailable Unavailable Lisseth Ferreira MD Unavailable Unavailable Lisseth Ferreira MD Unavailable Unavailable Lisseth Ferreira MD Unavailable Unavailable Lisseth Ferreira MD Unavailable Unavailable Lisseth Ferreira MD Unavailable Unavailable Lisseth Ferreira MD Unavailable Unavailable Lisseth Ferreira MD Unavailable Unavailable Lisseth Ferreira MD Unavailable Unavailable Lisseth Ferreira MD Unavailable Unavailable Lisseth Ferreira MD Unavailable Unavailable Lisseth Ferreira MD Unavailable Unavailable Lisseth Ferreira MD Unavailable Unavailable Lisseth Ferreira MD Unavailable Unavailable Lisseth Ferreira MD Unavailable Unavailable Lisseth Ferreira MD Unavailable Unavailable Lisseth Ferreira MD Unavailable Unavailable Lisseth Ferreira MD Unavailable Unavailable Lisseth Ferreira MD Unavailable Unavailable Lisseth Ferreira MD Unavailable Unavailable Lisseth Ferreira MD Unavailable Unavailable Lisseth Ferreira MD Unavailable Unavailable Lisseth Ferreira MD Unavailable Unavailable Lisseth Ferreira MD Unavailable Unavailable Lisseth Ferreira MD Unavailable Unavailable Lisseth Ferreira MD Unavailable Unavailable MollWilberto bridges MD Unavailable Unavailable MollWilberto bridges MD Unavailable Unavailable MollWilberto bridges MD Unavailable Unavailable Wilberto Salazar MD Unavailable Unavailable MollWilberto bridges MD Unavailable Unavailable MollWilberto bridges MD Unavailable Unavailable MollWilberto bridges MD Unavailable Unavailable Wilberto Salazar MD Unavailable Unavailable Wilberto Salazar MD Unavailable Unavailable Wilberto Salazar MD Unavailable Unavailable Wilberto Salazar MD Unavailable Unavailable MollWilberto bridges MD Unavailable Unavailable MollisonWilberto MD Unavailable Unavailable MollisonWilberto MD Unavailable Unavailable Wilberto Salazar MD Unavailable Unavailable Wilberto Salazar MD Unavailable Unavailable Wilberto Salazar MD Unavailable Unavailable Wilberto Salazar MD Unavailable Unavailable Wilberto Salazar MD Unavailable Unavailable Wilberto Salazar MD Unavailable Unavailable Wilberto Salazar MD Unavailable Unavailable Wilberto Salazar MD Unavailable Unavailable Wilberto Salazar MD Unavailable Unavailable Wilberto Salazar MD Unavailable Unavailable Wilberto Salazar MD Unavailable Unavailable Wilberto Salazar MD Unavailable Unavailable Wilberto Salazar MD Unavailable Unavailable Wilberto Salazar MD Unavailable Unavailable Wilberto Salazar MD Unavailable Unavailable MollWilberto bridges MD Unavailable Unavailable Alexy HAMMOND DPM Unavailable Unavailable Alexy HAMMOND DPM Unavailable Unavailable Alexy HAMMOND DPM Unavailable Unavailable MAJTERRA R NAIF DPM Unavailable Unavailable MAJTERRA R NAIF DPM Unavailable Unavailable MAJTERRA R NAIF DPM Unavailable Unavailable MAJAK, R NAIF DPM Unavailable Unavailable MAJAK, R NAIF DPM Unavailable Unavailable MAJAK, R NAIF DPM Unavailable Unavailable MAJAK, R NAIF DPM Unavailable Unavailable MAJAK, R NAIF DPM Unavailable Unavailable MAJAK, R NAIF DPM Unavailable Unavailable MAJAK, R NAIF DPM Unavailable Unavailable MAJAK, R NAIF DPM Unavailable Unavailable MAJAK, R NAIF DPM Unavailable Unavailable MAJAK, R NAIF DPM Unavailable Unavailable MAJAK, R NAIF DPM Unavailable Unavailable MAJAK, R NAIF DPM Unavailable Unavailable MAJAK, R NAIF DPM Unavailable Unavailable MAJAK, R NAIF DPM Unavailable Unavailable MAJAK, R NAIF DPM Unavailable Unavailable MAJAK, R NAIF DPM Unavailable Unavailable MAJAK, R NAIF DPM Unavailable Unavailable MAJAK, R NAIF DPM Unavailable Unavailable MAJAK, R NAIF DPM Unavailable Unavailable MAJAK, R NAIF DPM Unavailable Unavailable MAJAK, R NAIF DPM Unavailable Unavailable MAJAK, R NAIF DPM Unavailable Unavailable MAJAK, R NAIF DPM Unavailable Unavailable MAJAK, R NAIF DPM Unavailable Unavailable MAJAK, R NAIF DPM Unavailable Unavailable DR [facility] Unavailable Unavailable Clarke WILKINSON MD Unavailable Unavailable Clarke WILKINSON MD Unavailable Unavailable Clarke WILKINSON MD Unavailable Unavailable Clarke WILKINSON MD Unavailable Unavailable Clarke WILKINSON MD Unavailable Unavailable Clarke WILKINSON MD Unavailable Unavailable Clarke WILKINSON MD Unavailable Unavailable Clarke WILKINSON MD Unavailable Unavailable Clarke WILKINSON MD Unavailable Unavailable Clarke WILKINSON MD Unavailable Unavailable Clarke WILKINSON MD Unavailable Unavailable Clarke WILKINSON MD Unavailable Unavailable Clarke WILKINSON MD Unavailable Unavailable Clarke WILKINSON MD Unavailable Unavailable Clarke WILKINSON MD Unavailable Unavailable Clarke WILKINSON MD Unavailable Unavailable Clarke WILKINSON MD Unavailable Unavailable Clarke WILKINSON MD Unavailable Unavailable Clarke WILKINSON MD Unavailable Unavailable Clarke WILKINSON MD Unavailable Unavailable Clarke WILKINSON MD Unavailable Unavailable Clarke WILKINSON MD Unavailable Unavailable Clarke WILKINSON MD Unavailable Unavailable Clarke WILKINSON MD Unavailable Unavailable Clarke WILKINSON MD Unavailable Unavailable Clarke WILKINSON MD Unavailable Unavailable Clarke WILKINSON MD Unavailable Unavailable Clarke IWLKINSON MD Unavailable Unavailable Clarke WILKINSON MD Unavailable Unavailable Clarke WILKINSON MD Unavailable Unavailable Clarke WILKINSON MD Unavailable Unavailable Clarke WILKINSON MD Unavailable Unavailable Clarke WILKINSON MD Unavailable Unavailable Miguel, Stephanie SANE RN Unavailable Unavailable Miguel, Stephanie SANE RN Unavailable Unavailable Miguel, Stephanie SANE RN Unavailable Unavailable Miguel, Stephanie SANE RN Unavailable Unavailable Miguel, Stephanie SANE RN Unavailable Unavailable Miguel, Stephanie SANE RN Unavailable Unavailable Miguel, Stephanie SANE RN Unavailable Unavailable Miguel, Stephanie SANE RN Unavailable Unavailable Miguel, Stephanie SANE RN Unavailable Unavailable Miguel, Stephanie SANE RN Unavailable Unavailable Miguel, Stephanie SANE RN Unavailable Unavailable Miguel, Stephanie SANE RN Unavailable Unavailable Miguel, Stephanie SANE RN Unavailable Unavailable Jovel, Daan Unavailable Unavailable Migdalia SWEENEY MD Unavailable Unavailable Migdalia SWEENEY MD Unavailable Unavailable Migdalia SWEENEY MD Unavailable Unavailable Migdalia SWEENEY MD Unavailable Unavailable Migdalia SWEENEY MD Unavailable Unavailable Migdalia SWEENEY MD Unavailable Unavailable Migdalia SWEENEY MD Unavailable Unavailable Migdalia SWEENEY MD Unavailable Unavailable Migdalia SWEENEY MD Unavailable Unavailable Migdalia SWEENEY MD Unavailable Unavailable Migdalia SWEENEY MD Unavailable Unavailable Brain Lazaro MD Unavailable Unavailable Brain Lazaro MD Unavailable Unavailable Brain Lazaro MD Unavailable Unavailable Brain Lazaro MD Unavailable Unavailable Brain Lazaro MD Unavailable Unavailable Brain Lazaro MD Unavailable Unavailable Brain Lazaro MD Unavailable Unavailable Brain Lazaro MD Unavailable Unavailable Brain Lazaro MD Unavailable Unavailable Brain Lazaro MD Unavailable Unavailable Brain Lazaro MD Unavailable Unavailable Brain Lazaro MD Unavailable Unavailable Brain Lazaro MD Unavailable Unavailable Brain Lazaro MD Unavailable Unavailable Brain Lazaro MD Unavailable Unavailable Brain Lazaro MD Unavailable Unavailable Brain Lazaro MD Unavailable Unavailable Brain Lazaro MD Unavailable Unavailable Brain Lazaro MD Unavailable Unavailable Brain Lazaro MD Unavailable Unavailable Brain Lazaro MD Unavailable Unavailable Brain Lazaro MD Unavailable Unavailable Brain Lazaro MD Unavailable Unavailable Brain Lazaro MD Unavailable Unavailable Brain Lazaro MD Unavailable Unavailable Brain Lazaro MD Unavailable Unavailable Brain Lazaro MD Unavailable Unavailable Brain Lazaro MD Unavailable Unavailable Brain Lazaro MD Unavailable Unavailable Brain Lazaro MD Unavailable Unavailable Brain Lazaro MD Unavailable Unavailable Brain Lazaro MD Unavailable Unavailable Brain Lazaro MD Unavailable Unavailable Brain Lazaro MD Unavailable Unavailable Brain Lazaro MD Unavailable Unavailable Dille, E Ellie DDS Unavailable Unavailable Dille, E Ellie DDS Unavailable Unavailable Dille, E Ellie DDS Unavailable Unavailable Dille, E Ellie DDS Unavailable Unavailable Panfilo Charis, SIENE MAKER Unavailable Unavailable Panfilo Charis, SIENE MAKER Unavailable Unavailable DUQUE, G EDWARD RPA Unavailable Unavailable DUQUE, G EDWARD RPA Unavailable Unavailable DUQUE, G EDWARD RPA Unavailable Unavailable DUQUE, G EDWARD RPA Unavailable Unavailable DUQUE, G EDWARD RPA Unavailable Unavailable DUQUE, G EDWARD RPA Unavailable Unavailable DUQUE, G EDWARD RPA Unavailable Unavailable DUQUE, G EDWARD RPA Unavailable Unavailable DUQUE, G EDWARD RPA Unavailable Unavailable DUQUE, G EDWARD RPA Unavailable Unavailable DUQUE, G EDWARD RPA Unavailable Unavailable DUQUE, G EDWARD RPA Unavailable Unavailable DUQUE, G EDWARD RPA Unavailable Unavailable DUQUE, G EDWARD RPA Unavailable Unavailable DUQUE, G EDWARD RPA Unavailable Unavailable DUQUE, G EDWARD RPA Unavailable Unavailable DUQUE, G EDWARD RPA Unavailable Unavailable DUQUE, G EDWARD RPA Unavailable Unavailable DUQUE, G EDWARD RPA Unavailable Unavailable DUQUE, G EDWARD RPA Unavailable Unavailable DUQUE, G EDWARD RPA Unavailable Unavailable DUQUE, G EDWARD RPA Unavailable Unavailable DUQUE, G EDWARD RPA Unavailable Unavailable DUQUE, G EDWARD RPA Unavailable Unavailable DUQUE, G EDWARD RPA Unavailable Unavailable DUQUE, G EDWARD RPA Unavailable Unavailable DUQUE, G EDWARD RPA Unavailable Unavailable DUQUE, G EDWARD RPA Unavailable Unavailable DUQUE, G EDWARD RPA Unavailable Unavailable DUQUE, G EDWARD RPA Unavailable Unavailable DUQUE, G EDWARD RPA Unavailable Unavailable DUQUE, G EDWARD RPA Unavailable Unavailable DUQUE, G EDWARD RPA Unavailable Unavailable DUQUE, G EDWARD RPA Unavailable Unavailable DUQUE, G EDWARD RPA Unavailable Unavailable DUQUE, G EDWARD RPA Unavailable Unavailable DUQUE, G EDWARD RPA Unavailable Unavailable Hegard, Loni BODY AND FENDER MECHANIC APPRENTICE Unavailable Unavailable Hegard, Loni BODY AND FENDER MECHANIC APPRENTICE Unavailable Unavailable Hegard, Loni BODY AND FENDER MECHANIC APPRENTICE Unavailable Unavailable Hegard, Loni BODY AND FENDER MECHANIC APPRENTICE Unavailable Unavailable Hegard, Loni BODY AND FENDER MECHANIC APPRENTICE Unavailable Unavailable Hegard, Loni BODY AND FENDER MECHANIC APPRENTICE Unavailable Unavailable Hegard, Loni BODY AND FENDER MECHANIC APPRENTICE Unavailable Unavailable Hegard, Loni BODY AND FENDER MECHANIC APPRENTICE Unavailable Unavailable Hegard, Loni BODY AND FENDER MECHANIC APPRENTICE Unavailable Unavailable Hegard, Loni BODY AND FENDER MECHANIC APPRENTICE Unavailable Unavailable Hegard, Loni BODY AND FENDER MECHANIC APPRENTICE Unavailable Unavailable Hegard, Loni BODY AND FENDER MECHANIC APPRENTICE Unavailable Unavailable Hegard, Loni BODY AND FENDER MECHANIC APPRENTICE Unavailable Unavailable Hegard, Loni BODY AND FENDER MECHANIC APPRENTICE Unavailable Unavailable Hegard, Loni BODY AND FENDER MECHANIC APPRENTICE Unavailable Unavailable Hegard, Loni BODY AND FENDER MECHANIC APPRENTICE Unavailable Unavailable Hegard, Loni BODY AND FENDER MECHANIC APPRENTICE Unavailable Unavailable NON, PHYSICIAN STAFF Unavailable Unavailable Re-disclosure Warning The records that you are about to access may contain information from federally-assisted alcohol or drug abuse programs. If such information is present, then the following federally mandated warning applies: This information has been disclosed to you from records protected by federal confidentiality rules (42 CFR part 2). The federal rules prohibit you from making any further disclosure of this information unless further disclosure is expressly permitted by the written consent of the person to whom it pertains or as otherwise permitted by 42 CFR part 2. A general authorization for the release of medical or other information is NOT sufficient for this purpose. The Federal rules restrict any use of the information to criminally investigate or prosecute any alcohol or drug abuse patient.The records that you are about to access may contain highly sensitive health information, the redisclosure of which is protected by Article 27-F of the [facility] Public Health law. If you continue you may have access to information: Regarding HIV / AIDS; Provided by facilities licensed or operated by the [facility] Office of Mental Health; or Provided by the [facility] Office for People With Developmental Disabilities. If such information is present, then the following [facility] mandated warning applies: This information has been disclosed to you from confidential records which are protected by state law. State law prohibits you from making any further disclosure of this information without the specific written consent of the person to whom it pertains, or as otherwise permitted by law. Any unauthorized further disclosure in violation of state law may result in a fine or intermediate sentence or both. A general authorization for the release of medical or other information is NOT sufficient authorization for further disc losure. Allergies and Adverse Reactions Type Description Substance Reaction Status Data Source(s ) pollen pollen Sinusitis.No hx of inspissated mucus in paranasal sinuses. Mild MHARS ([facility]) Latex Latex MHARS ([facility]) Tramadol Tramadol MHARS ([facility]) Codeine, Stadol, Toradol, Hydroxyzine, N ubain Codeine, Stadol, Toradol, Hydroxyzine, Nubain MHARS ([facility]) Miscellaneous allergy No Known Environmental Allergies No Kn own Environmental Allergies [facility] l Miscellaneous allergy No Known Food Allergies No Known Food Allergies [facility] Drug allergy TORADOL TORADOL [facility] Drug allergy STADOL STADOL [facility] Drug allergy PHENERGAN PHENERGAN [facility] Drug allergy NUBAIN NUBAIN [facility] Drug allergy ENDOCET ENDOCET [facility] Drug allergy TRAMADOL TRAMADOL [facility] Drug allergy HYDROXYZINE HYDROXYZINE [facility] Drug allergy CODEINE CODEINE [facility] Family History Family Member Name Family Member Gender Family Member Status Date o f Status Description Data Source(s) Unknown Unknown Problem MEDENT ([facility]) Unknown Male Problem MEDENT ([facility]) Encounters Encounter Providers Location Date Indications Data Source(s ) [place] [address] [address] 01/27/2021 12:00:00 AM EDT eCW1 ([facility]) [place] [address] [address] 01/25/2021 12:00:00 AM EDT eCW1 ([facility]) Outpatient Attender: NAIF HAMMOND [facility] Office 12/30 03:30:00 PM EDT MEDENT ([facility] Outpatient Attender: Loni Campa [facility] Main Office 0 12/23/2020 03:15:00 PM EDT [facility] Out[facility] Attender: SAEED Parks/Nicky/Rayshawn esparza/Reindl 12/22/2020 02:50:00 PM EDT MEDENT [facility] [place] [address] [address] 12/20/2020 12:00:00 AM EDT eCW1 ([facility]) Outpatient Attender: Joaquin Parks/Nicky/Missael/Re indl 12/16/2020 02:00:00 PM EDT MEDENT ([facility] Outpatient Attender: [facility]16 09:00:00 AM EDT - 12/16/2020 09:01:00 AM EDT [facility] Patient discharged. [place] [address] [address] 12/09/2020 12:00:00 AM EDT eCW1 ([facility]) Outpatient Attender: OSCAR DUQUE RPA 11/23 05:34:50 PM EDT - 11/23/2020 07:19:12 PM EDT [facility] ([facility] ) [place] [address] [address] 11/15/2020 12:00:00 AM EDT eCW1 ([facility]) Outpatient Attender: DIDIER [facility]ion [facility] 11/11 09:30:00 AM EDT - 11/11/2020 09:31:00 AM EDT [facility] Patient discharged. Outpatient Attender: Brain Lazaro MDConsultant: PCP NO 10/07/2020 01:40:27 PM EDT - 10/26/2020 01:31:00 PM EDT [facility] Patient discharged. Outpatient Attender: Brain Lazaro MDConsultant: PCP AJAY 10/07/2020 01:38:59 PM EDT - 10/26/2020 01:32:[address] [facility] Patient [facility]. [place] [address] [address] 09/30/2020 12:00:00 AM EDT [facility] [place] [address] [address] 09/30/2020 12:00:00 AM EDT [facility]CW1 [facility]) Outpatient Attender: JAMES LOPEZ MD [facility] 08/30 09:10:00 AM EDT - 09/16/2020 09:11:00 AM EDT [facility] [place] [address] [address] 09/09/2020 12:00:00 AM EDT eCW1 ([facility] [place] [address] [address] 09/06/2020 12:00:00 AM EDT eCW1 ([facility]) [place] [address] [address] 09/05/2020 12:00:00 AM EDT eCW1 ([facility]) [place] [address] [address] 09/02/2020 12:00:00 AM EDT eCW1 ([facility]) (PN WCPRO) W/C Procedure [address] [place] [address] 08/11/2020 12:00:00 AM EDT eCW1 ([facility]) Outpatient Attender: Brain Lazaro MDConsultant: STAFF NON 08/08/2020 12:46:56 PM EDT - 08/09/2020 07:48:[address] [facility] Patient discharged. Outpatient Attender: Brain Lazaro MDConsultant: STAFF NON 08/08/2020 12:44:59 PM EDT - 08/09/2020 07:49:[address] [facility] Patient discharged. Outpatient Attender: Joaquin Parks/Nicky/Missael/Shelly mccarthy 07/29/2020 10:30:00 AM EDT MEDENT ([facility]) Outpatient Attender: Stephanie sheffield 07/20/2020 03:30:00 PM EDT MEDENT ([facility]) Outpatient Attender: Adan Terrelldmitter: Adan Bassett lmer [address] [facility] [place] [address] 07/08/2020 03:31:42 PM EDT MHARS ([facility]) Unknown [address] [facility] [address] 07/08/2020 12:00:00 AM EDT eCW1 ([facility]) Outpatient [address] [facility] [address] 07/08/2020 12:00:00 AM EDT eCW1 ([facility]) (PN WCPROC) W/C Procedure [address] [place] [address] 06/29/2020 12:00:00 AM EDT eCW1 ([facility]) Unknown [address] [place] [address] 06/29/2020 12:00:00 AM EDT eCW1 ([facility]) Outpatient [address] [facility] [address] 06/13/2020 12:00:00 AM EDT eCW1 ([facility]) Unknown [address] [place] [address] 06/10/2020 12:00:00 AM EST eCW1 ([facility]) Outpatient [address] [place] [address] 06/10/2020 12:00:00 AM EST eCW1 ([facility]) (PN WCPROC) W/C Procedure [address] [place] [address] 05/16/2020 12:00:00 AM EST eCW1 ([facility]) [place] [address] [facility] [address] 05/13/2020 12:00:00 AM EST eCW1 ([facility]) Unknown [address] [facility] [place] [address] 05/11/2020 12:00:00 AM EST eCW1 ([facility]) Outpatient [address] [facility] [place] [address] 04/29/2020 12:00:00 AM EST eCW1 ([facility]) Unknown [address] [facility] [place] [address] 04/25/2020 12:00:00 AM EST eCW1 ([facility]) ([facility]) W/C Procedure [address] [place] [address] 04/07/2020 12:00:00 AM EST eCW1 ([facility]) Unknown [address] [facility] [address] 04/07/2020 12:00:00 AM EST eCW1 [facility] Joaquin Ferreira MD: [address] [place] [phone], Ph. Attender: Joaquin Ferreira MD [facility] Medical 04/04/2020 12:00:00 AM EST HENOK ([facility]) Joaquin Ferreira MD: [address] [place] [address], Ph. Attender: Joaquin Ferreira MD [facility] Medical 04/04/2020 12:00:00 AM EST HENOK ([facility]) Unknown [address] [facility] [address] 03/30/2020 12:00:00 AM EST eCW1 [facility] Unknown [address] [facility] [facility] [address] 03/15/2020 12:00:00 AM EST eCW1 ([facility]) Outpatient Attender: DR ROSALIO Hernandez er: DR ROSALIO WATSONReferrer: DR ROSALIO WATSONConsultant: DR ROSALIO WATSON 01/22/2020 01:26:00 PM ED T - 01/22/2020 02:00:00 PM EDT Current use of medication [facility] Current use of medication Patient discharged. [place] [address] [facility] [address] 01/08/2020 12:00:00 AM EDT eCW1 ([facility]) [place] [address] [facility] [address] 01/08/2020 12:00:00 AM EDT eCW1 ([facility]) Outpatient Attender: Ellie DICKINSON 12/23/2019 11:33:01 A M EDT [facility] Outpatient Attender: DANGELO SWEENEY MD ED-IMAG 018 02:30:00 PM EDT - 01/03/2018 02:31:00 PM EDT Z12.31 [facility] Z12.31 Immunizations Vaccine Date Status Description Data Source(s) VARICELLA-ZOSTER GE/AS01B/PF 11/30/2020 12:00:00 AM EDT completed [facility] VARICELLA-ZOSTER GE/AS01B/PF 09/05/2020 12:00:00 AM EDT completed [facility] COVID-19 VACCINE Moderna 05/05/2020 12:00:00 AM EST completed [facility] Vaccine Series Complete: YESThis Data wa s Submitted to [facility] Via [facility]. COVID-19, mRNA, LNP-S, PF, 100 mcg/0.5 mL dose 04/05/2020 10 :29:36 AM EST completed .5 mL HENOK ([facility]) COVID-19, mRNA, LNP-S, PF, 100 mcg/0.5 mL dose 04/05/2020 10 :29:36 AM EST completed .5 mL [facility]ENOK ([facility]) COVID-19 VACCINE Moderna 04/05/2020 12:00:00 AM EST completed [facility] Vaccine Series Complete: NOThis Data was Submitted to [facility] Via Needl. New in 2011. IIV4 12/30/2019 12:00:00 AM EDT completed <t d>influenza, injectable, quadrivalent, preservative free</td><td>influenza, injectable, quadrivalent, preservative free</td><td>12/30/2019</td><td>Completed</td><td></td><td>150</td><td>CVX</td> [facility] Medications Medication Brand Name Start Date Product Form Dose Route Admi nistrative Instructions Pharmacy Instructions Status Indications Reaction Description Data Source(s) Acetaminophen 325 MG / Oxycodone Hydroch loride 10 MG Oral Tablet [Endocet] Endocet 10-325 MG Endocet 10-325 MG 01/25/2021 12:00:00 AM EDT 1 .0 {tablet_as_needed} active Endocet 10-32 5 MG eCW1 (Counts Include [facility]) Acetaminophen 325 MG / Oxycodone Hydroch loride 10 MG Oral Tablet [Endocet] Endocet 10-325 MG Endocet 10-325 MG 01/25/2021 12:00:00 AM EDT 1 .0 {tablet_as_needed} active Endocet 10-32 5 MG eCW1 (Counts Include [facility]) Inject Dexamthosone Phosphate 86659-867-12 01/16/2021 12:00:00 A M EDT completed [facility] ([facility] Medication administered onsite Inject Triamcinolone Acetonide 10 ML, [facility] 9694-6288-50 01/16/2021 12:00:00 AM EDT completed [facility] ([facility] Medication administered onsite Urea 400 MG/ML Topical Cream Urea 01/16/2021 12:00:00 AM EDT active [facility] ([facility] Bisacodyl 5 MG Delayed Release Oral Tablet [Dulcolax] Dulcol ax 01/13/2021 12:00:00 AM EDT active M EDENT ([facility] ) Clenpiq Clenpiq 01/13/2021 12:00:00 AM EDT active [facility] ([facility], ) Sutab Sutab 01/13/2021 12:00:00 AM EDT active [facility] ([facility], ) Acetaminophen 325 MG / Oxycodone Hydroch loride 10 MG Oral Tablet [Endocet] Endocet 10-325 MG Endocet 10-325 MG 12/20/2020 12:00:00 AM EDT 1 .0 {tablet_as_needed} active Endocet 10-32 5 MG eCW1 (Counts Include [facility]) Acetaminophen 325 MG / Oxycodone Hydroch loride 10 MG Oral Tablet [Endocet] Endocet 10-325 MG Endocet 10-325 MG 11/15/2020 12:00:00 AM EDT 1 .0 {tablet_as_needed} active Endocet 10-32 5 MG eCW1 (Counts Include [facility]) Acetaminophen 325 MG / Oxycodone Hydroch loride 10 MG Oral Tablet [Endocet] Endocet 10-325 MG Endocet 10-325 MG 11/15/2020 12:00:00 AM EDT 1 .0 {tablet_as_needed} active Endocet 10-32 5 MG eCW1 (Counts Include [facility]) Acetaminophen 325 MG / Oxycodone Hydroch loride 10 MG Oral Tablet [Endocet] Endocet 10-325 MG Endocet 10-325 MG 09/30/2020 12:00:00 AM EDT 1 .0 {tablet_as_needed} active Endocet 10-32 5 MG eCW1 (Counts Include [facility]) Acetaminophen 325 MG / Oxycodone Hydroch loride 10 MG Oral Tablet [Endocet] Endocet 10-325 MG Endocet 10-325 MG 09/30/2020 12:00:00 AM EDT 1 .0 {tablet_as_needed} active Endocet 10-32 5 MG eCW1 (Counts Include [facility]) Tretinoin: 0.1% Niacinamide: 2% Azelaic Acid: 8% 06/20 12:00:00 AM EDT active [facility] ([facility]) Tretinoin 0.0005 MG/MG Topical Gel Tretinoin 06/15/2020 12:00:00 AM EDT active [facility] ([facility]) topiramate 25 MG Oral Tablet [Topamax] Topamax 25 MG Topamax 25 MG 06/13/2020 12:00:00 AM EDT 1.0 {tablet} active To pamax 25 MG eCW1 (Counts Include [facility]) topiramate 25 MG Oral Tablet [Topamax] Topamax 25 MG Topamax 25 MG 06/13/2020 12:00:00 AM EDT 1.0 {tablet} active To pamax 25 MG eCW1 (Counts Include [facility]) topiramate 25 MG Oral Tablet [Topamax] Topamax 25 MG Topamax 25 MG 06/13/2020 12:00:00 AM EDT 1.0 {tablet} active To pamax 25 MG eCW1 (Counts Include [facility]) topiramate 25 MG Oral Tablet [Topamax] Topamax 25 MG Topamax 25 MG 06/13/2020 12:00:00 AM EDT 1.0 {tablet} active To pamax 25 MG eCW1 (Counts Include [facility]) topiramate 25 MG Oral Tablet [Topamax] Topamax 25 MG Topamax 25 MG 06/13/2020 12:00:00 AM EDT 1.0 {tablet} active To pamax 25 MG eCW1 (Counts Include [facility]) topiramate 25 MG Oral Tablet [Topamax] Topamax 25 MG Topamax 25 MG 06/13/2020 12:00:00 AM EDT 1.0 {tablet} active To pamax 25 MG eCW1 (Counts Include [facility]) topiramate 25 MG Oral Tablet [Topamax] Topamax 25 MG Topamax 25 MG 06/13/2020 12:00:00 AM EDT 1.0 {tablet} active To pamax 25 MG eCW1 (Counts Include [facility]) topiramate 25 MG Oral Tablet [Topamax] Topamax 25 MG Topamax 25 MG 06/13/2020 12:00:00 AM EDT 1.0 {tablet} active To pamax 25 MG eCW1 (Counts Include [facility]) topiramate 25 MG Oral Tablet [Topamax] Topamax 25 MG Topamax 25 MG 06/13/2020 12:00:00 AM EDT 1.0 {tablet} active To pamax 25 MG eCW1 (Counts Include [facility]) topiramate 25 MG Oral Tablet [Topamax] Topamax 25 MG Topamax 25 MG 06/13/2020 12:00:00 AM EDT 1.0 {tablet} active To pamax 25 MG eCW1 (Counts Include [facility]) topiramate 25 MG Oral Tablet [Topamax] Topamax 25 MG Topamax 25 MG 06/13/2020 12:00:00 AM EDT 1.0 {tablet} active To pamax 25 MG eCW1 (Counts Include [facility]) topiramate 25 MG Oral Tablet [Topamax] Topamax 25 MG Topamax 25 MG 06/13/2020 12:00:00 AM EDT 1.0 {tablet} active To pamax 25 MG eCW1 (Counts Include [facility]) topiramate 25 MG Oral Tablet [Topamax] Topamax 25 MG Topamax 25 MG 06/13/2020 12:00:00 AM EDT 1.0 {tablet} active To pamax 25 MG eCW1 (Counts Include [facility]) topiramate 25 MG Oral Tablet [Topamax] Topamax 25 MG Topamax 25 MG 06/13/2020 12:00:00 AM EDT 1.0 {tablet} active To pamax 25 MG eCW1 (Counts Include [facility]) topiramate 25 MG Oral Tablet [Topamax] Topamax 25 MG Topamax 25 MG 06/13/2020 12:00:00 AM EDT 1.0 {tablet} active To pamax 25 MG eCW1 (Counts Include [facility]) topiramate 25 MG Oral Tablet [Topamax] Topamax 25 MG Topamax 25 MG 06/13/2020 12:00:00 AM EDT 1.0 {tablet} active To pamax 25 MG eCW1 (Counts Include [facility]) topiramate 25 MG Oral Tablet [Topamax] Topamax 25 MG Topamax 25 MG 06/13/2020 12:00:00 AM EDT 1.0 {tablet} active To pamax 25 MG eCW1 (Counts Include [facility]) Acetaminophen 325 MG / Oxycodone Hydroch loride 10 MG Oral Tablet [Endocet] Endocet 10-325 MG Endocet 10-325 MG 06/10/2020 12:00:00 AM EST 1 .0 {tablet_as_needed} active Endocet 10-32 5 MG eCW1 (Counts Include [facility]) Acetaminophen 325 MG / Oxycodone Hydroch loride 10 MG Oral Tablet [Endocet] Endocet 10-325 MG Endocet 10-325 MG 06/10/2020 12:00:00 AM EST 1 .0 {tablet_as_needed} active Endocet 10-32 5 MG eCW1 (Counts Include [facility]) Acetaminophen 325 MG / Oxycodone Hydroch loride 10 MG Oral Tablet [Endocet] Endocet 10-325 MG Endocet 10-325 MG 06/10/2020 12:00:00 AM EST 1 .0 {tablet_as_needed} active Endocet 10-32 5 MG eCW1 (Counts Include [facility]) Acetaminophen 325 MG / Oxycodone Hydroch loride 10 MG Oral Tablet [Endocet] Endocet 10-325 MG Endocet 10-325 MG 06/10/2020 12:00:00 AM EST 1 .0 {tablet_as_needed} active Endocet 10-32 5 MG eCW1 (Counts Include [facility]) Acetaminophen 325 MG / Oxycodone Hydroch loride 10 MG Oral Tablet [Endocet] Endocet 10-325 MG Endocet 10-325 MG 06/10/2020 12:00:00 AM EST 1 .0 {tablet_as_needed} active Endocet 10-32 5 MG eCW1 (Counts Include [facility]) Acetaminophen 325 MG / Oxycodone Hydroch loride 10 MG Oral Tablet [Endocet] Endocet 10-325 MG Endocet 10-325 MG 06/10/2020 12:00:00 AM EST 1 .0 {tablet_as_needed} active Endocet 10-32 5 MG eCW1 (Counts Include [facility]) Acetaminophen 325 MG / Oxycodone Hydroch loride 10 MG Oral Tablet [Endocet] Endocet 10-325 MG Endocet 10-325 MG 06/10/2020 12:00:00 AM EST 1 .0 {tablet_as_needed} active Endocet 10-32 5 MG eCW1 (Counts Include [facility]) Acetaminophen 325 MG / Oxycodone Hydroch loride 10 MG Oral Tablet [Endocet] Endocet 10-325 MG Endocet 10-325 MG 06/10/2020 12:00:00 AM EST 1 .0 {tablet_as_needed} active Endocet 10-32 5 MG eCW1 (Counts Include [facility]) Acetaminophen 325 MG / Oxycodone Hydroch loride 10 MG Oral Tablet [Endocet] Endocet 10-325 MG Endocet 10-325 MG 06/10/2020 12:00:00 AM EST 1 .0 {tablet_as_needed} active Endocet 10-32 5 MG eCW1 (Counts Include [facility]) Acetaminophen 325 MG / Oxycodone Hydroch loride 10 MG Oral Tablet [Endocet] Endocet 10-325 MG Endocet 10-325 MG 06/10/2020 12:00:00 AM EST 1 .0 {tablet_as_needed} active Endocet 10-32 5 MG eCW1 (Counts Include [facility]) Acetaminophen 325 MG / Oxycodone Hydroch loride 10 MG Oral Tablet [Endocet] Endocet 10-325 MG Endocet 10-325 MG 06/10/2020 12:00:00 AM EST 1 .0 {tablet_as_needed} active Endocet 10-32 5 MG eCW1 (Counts Include [facility]) Acetaminophen 325 MG / Oxycodone Hydroch loride 10 MG Oral Tablet [Endocet] Endocet 10-325 MG Endocet 10-325 MG 06/10/2020 12:00:00 AM EST 1 .0 {tablet_as_needed} active Endocet 10-32 5 MG eCW1 (Counts Include [facility]) Glycopyrrolate 1 MG Oral Tablet Glycopyrrolate 05/20/2020 12:00:00 AM EST ORAL active [facility] ([facility]) Acetaminophen 325 MG / Oxycodone Hydroch loride 10 MG Oral Tablet [Endocet] Endocet 10-325 MG Endocet 10-325 MG 04/26/2020 12:00:00 AM EST 1 .0 {tablet_as_needed} active Endocet 10-32 5 MG eCW1 (Counts Include [facility]) Acetaminophen 325 MG / Oxycodone Hydroch loride 10 MG Oral Tablet [Endocet] Endocet 10-325 MG Endocet 10-325 MG 04/26/2020 12:00:00 AM EST 1 .0 {tablet_as_needed} active Endocet 10-32 5 MG eCW1 (Counts Include [facility]) Acetaminophen 325 MG / Oxycodone Hydroch loride 10 MG Oral Tablet [Endocet] Endocet 10-325 MG Endocet 10-325 MG 04/26/2020 12:00:00 AM EST 1 .0 {tablet_as_needed} active Endocet 10-32 5 MG eCW1 (Counts Include [facility]) Acetaminophen 325 MG / Oxycodone Hydroch loride 10 MG Oral Tablet [Endocet] Endocet 10-325 MG Endocet 10-325 MG 04/26/2020 12:00:00 AM EST 1 .0 {tablet_as_needed} active Endocet 10-32 5 MG eCW1 (Counts Include [address] [facility]) Acetaminophen 325 MG / Oxycodone Hydroch loride 10 MG Oral Tablet [Endocet] Endocet 10-325 MG Endocet 10-325 MG 04/26/2020 12:00:00 AM EST 1 .0 {tablet_as_needed} active Endocet 10-32 5 MG eCW1 (Counts Include [facility]) Acetaminophen 325 MG / Oxycodone Hydroch loride 10 MG Oral Tablet [Endocet] Endocet 10-325 MG Endocet 10-325 MG 03/15/2020 12:00:00 AM EST 1 .0 {tablet_as_needed} active Endocet 10-32 5 MG eCW1 (Counts Include [facility]) Acetaminophen 325 MG / Oxycodone Hydroch loride 10 MG Oral Tablet [Endocet] Endocet 10-325 MG Endocet 10-325 MG 03/15/2020 12:00:00 AM EST 1 .0 {tablet_as_needed} active Endocet 10-32 5 MG eCW1 (Counts Include [facility]) Acetaminophen 325 MG / Oxycodone Hydroch loride 10 MG Oral Tablet [Endocet] Endocet 10-325 MG Endocet 10-325 MG 03/15/2020 12:00:00 AM EST 1 .0 {tablet_as_needed} active Endocet 10-32 5 MG eCW1 (Counts Include [facility]) Acetaminophen 325 MG / Oxycodone Hydroch loride 10 MG Oral Tablet [Endocet] Endocet 10-325 MG Endocet 10-325 MG 03/15/2020 12:00:00 AM EST 1 .0 {tablet_as_needed} active Endocet 10-32 5 MG eCW1 (Counts Include [facility]) Acetaminophen 325 MG / Oxycodone Hydroch loride 10 MG Oral Tablet [Endocet] Endocet 10-325 MG Endocet 10-325 MG 01/08/2020 12:00:00 AM EDT 1 .0 {tablet_as_needed} active Endocet 10-32 5 MG eCW1 (Counts Include [facility]) Acetaminophen 325 MG / Oxycodone Hydroch loride 10 MG Oral Tablet [Endocet] Endocet 10-325 MG Endocet 10-325 MG 01/08/2020 12:00:00 AM EDT 1 .0 {tablet_as_needed} active Endocet 10-32 5 MG eCW1 (Counts Include [facility]) Insurance Providers Payer name Policy type / Coverage type Policy ID Covered alliance party ID Covered alliance party's relationship to wall Policy Wall Plan Information [facility] [id number] 100 [place] Medicaid/[facility] Commercial [id number] [facility] [id number] [employer] [place] [id number] Unemployed [id number] [employer] [place] [id number] S [id number] [employer] Blue Cross and Blue Shield [place] Blue Cross/B lue Shield [id number] Self [id number] [place] PPO 302/307 [id number] SP [id number] [facility] COMMUNITY PLAN [facility] [id number] SP [id number] MEDICAID [id number] S [id number] [employer] [place] [id number] S [id number] [facility] [id number] S [id number] BLUE CROSS BLUE SHIELD -O/P [id number] 18 [id number] UN COMMUNITY PLAN MCDO [id number] SP [id number] [facility] [id number] Unemployed [id number] STATE INSURANCE FUND [id number] SP [id number] EMEDNY [id number] [employer] [id number] [id number] STATE INSURANCE FUND [id number] SP [id number] SELF PAY SP [facility] Plan MMC [id number] und efined [id number] [employer] BLUECROSS/[place]-CLINIC [id number] undefined [id number] [facility] MMC [id number] und efined [id number] Self Pay P UNAVAILABLE S UNAVAILA BLE [employer] BLUECROSS/BLUES[place]ELD-OP BC [id number] unde fined [id number] STATE INSURANCE FUND-CLINIC [id number] undefined [id number] STATE INSURANCE FUND-OP [id number] undefined [id number] STATE INSURANCE FUND WCB# [id number] SP WCB# [id number] [facility] COMMUNITY PLAN [id number] undefin ed [id number] [facility] [id number] undef ined [id number] ANSI-Commercial [id number] ANSI-Commercial [id number] ANSI-Commercial [id number] ANSI-Commercial [id number] ANSI-Commercial [id number] [facility] [id number] und efined [id number] [facility] MEDICAID MANAGED CARE - OP [id number] und efined [id number] MEDICAID [id number] SP [id number] [facility] Maintenance [facility] ([employer]) [id number] Self [id number] ANSI-Commercial [id number] ANSI-Commercial [id number] ANSI-Commercial [id number] [facility] [id number] Unemploy d [id number] ANSI-Commercial [id number] [facility] Maintenance [facility] ([employer]) [id number] [facility] [id number] ANSI-Commercial [id number] ANSI-Commercial [id number] [facility] [id number] undefined [id number] ANSI-Commercial [id number] ANSI-Commercial [id number] ANSI-Commercial [id number] ANSI-Commercial [id number] [place] MEDICAID MANAGED CARE [facility] [id number] [facility] [id number] [facility] [id number] [facility] [id number] STATE INSURANCE FUND [id number] SP [id number] STATE INSURANCE FUND [id number] SP [id number] STATE INSURANCE FUND WCB# [id number] SP WCB# [id number] [facility] [id number] SP [id number] STATE INSURANCE FUND [id number] SP [id number] ONE CALL CARE MANAGEMENT O [id number] S [id number] STATE INSURANCE FUND O [id number] S WCB#[id number] STATE INSURANCE FUND [id number] SP [id number] STATE INSURANCE FUND [id number] CC# SP [id number] CC# STATE INSURANCE FUND [id number] SP [id number] STATE INSURANCE FUND O [id number] S [id number] [facility] P UNAVAILABLE [id number] C UNAVAILABLE STATE INSURANCE FUND P [id number] S [id number] STATE INSURANCE FUND P [id number] S [id number] [facility] INSURANCE [facility] UNK SP UNK NICOLASA [id number] SP [id number] BLUE CROSS ROJAS PLAN [id number] SP [id number] EXCE[employer] BCBS P [id number] C VYT [id number] HMO BLUE [id number] SP [id number] [place]BS [place] PPO 302/307 [id number] SP [id number] [place] [id number] SP [id number] BCBS OF [place] 306/806 [id number] SP [id number] STATE INSURANCE FUND WCB# [id number] SP B# [id number] [place] PPO 302/307 [id number] SP [id number] Problems, Conditions, and Diagnoses Code Display Name Description Problem Type Effective Dates Data Source(s) F41.1 Generalized anxiety disorder GENERALIZED ANXIETY DISOR VINNY Diagnosis 11/11/2020 09:30:00 AM [facility] F31.81 Bipolar II disorder BIPOLAR II DISORDER Diagnosis 0 11/11/2020 09:30:00 AM [facility] Z5321 Procedure and treatment not carried out due to patient leaving prior to being seen by health care provider Procedure and treatment not carried out due to patient leaving prior to being seen by health care provider Diagnosis 10/26/2020 01:31:00 PM EDT [facility] R99 Ill-defined and unknown cause of mortali ty Ill-defined and unknown cause of mortality Diagnosis 08/09/2020 07:48:00 AM EDT [facility] D47.3 Essential (hemorrhagic) thrombocythemia Essential (hemorrhagic) thrombocythemia Diagnosis 01/27/2020 12:00:[address] [facility] ([facility]) I47.9 Paroxysmal tachycardia, unspecified Paroxysmal t achycardia, unspecified Diagnosis 01/27/2020 12:00:[address] [facility] ([facility]) K58.0 Irritable bowel syndrome with diarrhea I rritable bowel syndrome with diarrhea Diagnosis 01/27/2020 12:00:[address] [facility] ([facility]) F31.81 Bipolar II disorder Bipolar II disorder Diagnosis 1 12:00:[address] [facility] ([facility]) F41.0 Panic disorder [episodic paroxysmal anxiety] Panic dis order Diagnosis 01/27/2020 12:00:[address] [facility] ([facility]) F40.00 Agoraphobia, unspecified Agoraphobia Diagnosis 12:00:[address] [facility] ([facility]) F40.10 Social phobia, unspecified Social anxiety disord er (social phobia) Diagnosis 01/27/2020 12:00:[address] [facility] ([facility] D696 D696 Diagnosis 01/22/2020 01:26:00 PM ED T [facility] [id number] Encounter for screening for other disord er Encounter for screening for other disorder Diagnosis 01/22/2020 01:26:00 PM EDT [facility] F341 Dysthymic disorder Dysthymic disorder Diagnosis 0 01:26:00 PM EDT [facility] F909 Attention-deficit hyperactivity disorder , unspecified type Attention- deficit hyperactivity disorder, unspecified type Diagnosis 01/21 01:26:00 PM EDT [facility] F319 Bipolar disorder, unspecified Bipolar disorder, unspec ified Diagnosis 01/22/2020 01:26:00 PM T [facility] K219 Gastro-esophageal reflux disease without esophagitis Gastro-esophageal reflux disease without esophagitis Diagnosis 01/22/2020 01:26:00 PM ED T [facility] R000 Tachycardia, unspecified Tachycardia, unspecified Diag nosis 01/22/2020 01:26:00 PM EDT [facility] D696 Thrombocytopenia, unspecified Thrombocytopenia, unspec ified Diagnosis 01/22/2020 01:26:00 PM EDT [facility] G43.909 [id number] Migraine syndrome Problem 06/13/2020 12:00:0 0 AM EDT [facility] ([facility]) M47.817 [id number] Spondylosis without myelopathy or radiculopathy, lumbosacral region Problem 05/16/2020 12:00:00 AM EST [facility] ([facility]) M47.816 [id number] Spondylosis without myelopathy or radiculopathy, lumbar region Problem 04/07/2020 12:00:00 AM EST [facility]1 ([facility]) M47.817 [id number] Spondylosis of lumbosacral joint Problem 01/08/2020 12:00:00 AM EDT eCW1 ([facility]) Surgeries/Procedures Procedure Description Date Indications Data Source(s) ARTHROCENTESIS ASPIR&/INJECTION INTERM JT/BURSA 2020 12:00:00 AM EDT [facility] ([facility] OFFICE OUTPATIENT NEW 30 MINUTES 01/16/2021 12:00:00 A M EDT MEDENT ([facility] OFFICE OUTPATIENT VISIT 15 MINUTES 12/23/2020 12:00:00 AM EDT MEDENT ([facility]) OFFICE OUTPATIENT NEW 45 MINUTES 12/22/2020 12:00:00 A M EDT MEDENT ([facility], ) INJECTION 1 TENDON SHEATH/LIGAMENT APONEUROSIS 021 12:00:00 AM EDT [facility], [facility] [address] PSYTX W PT 30 MINUTES 12/16/2020 12:00:00 AM [facility] OFFICE OUTPATIENT VISIT 25 MINUTES 12/16/2020 12:00:00 AM EDT MEDERIN ([facility], ) [address] PSYCH DIAGNOSTIC EVALUATION 11/11/2020 12:00:00 AM [facility] Pain Procedure Log 09/09/2020 12:00:00 AM EDT eCW1 ([facility]s Include [facility]) Unclassified drugs 08/11/2020 12:00:00 AM EDT eCW1 (Counts Include [facility]) Completion of procedural visit when meets criteria 08/11/2020 12:00:00 AM EDT eCW1 (Counts Include [facility]) INJECTION 1 TENDON SHEATH/LIGAMENT APONEUROSIS 021 12:00:00 AM EDT MEDENT ([facility], ) OFFICE OUTPATIENT NEW 30 MINUTES 07/29/2020 12:00:00 A M EDT MEDENT ([facility], ) Pain Procedure Log 07/08/2020 12:00:00 AM EDT eCW1 ([facility]s [facility]) Completion of procedural visit when meets criteria 06/29/2020 12:00:00 AM EDT eCW1 (Counts Include [facility]) Pain Procedure Log 06/10/2020 12:00:00 AM EST eCW1 (Counts Include [facility]) Completion of procedural visit when meets criteria 05/16/2020 12:00:00 AM EST eCW1 (Counts Include [facility]) Pain Procedure Log 04/29/2020 12:00:00 AM EST eCW1 (Counts Include [facility]) Results ID Date Data Source [id number] 01/25/2021 10:20:00 AM EDT [facility] Name Value Range Interpretation Code Description Data Aide rce(s) Supporting Document(s) SARS-CoV-2 (COVID-19) RNA [Presence] in Respiratory specimen by DAYAN with probe detection Not Detected [facility] This lab was ordered by [facility] and reported by [employer] ID Date Data Source [id number] 08/06/2020 08:15:00 AM EDT [facility] Name Value Range Interpretation Code Description Data Aide rce(s) Supporting Document(s) SARS-CoV-2 (COVID-19) RNA [Presence] in Respiratory specimen by DAYAN with probe detection Not Detected [facility] This lab was ordered by [facility] and reported by [employer] ID Date Data Source [id number] 06/24/2020 10:00:00 AM EDT [facility] Name Value Range Interpretation Code Description Data Aide rce(s) Supporting Document(s) SARS coronavirus 2 RNA Not Detected [facility] This lab was ordered by [facility] and reported by [facility]. ID Date Data Source [id number] 05/11/2020 12:00:00 PM EST [facility] Name Value Range Interpretation Code Description Data Aide rce(s) Supporting Document(s) SARS coronavirus 2 RNA Not Detected [facility] [place] This lab was ordered by [facility] and reported by [facility]. ID Date Data Source [id number] 04/02/2020 09:00:00 AM EST [facility] Name Value Range Interpretation Code Description Data Aide rce(s) Supporting Document(s) SARS coronavirus 2 RNA [facility] This lab was ordered by [facility] and reported by [facility]. ID Date Data Source [id number] 02/24/2020 12:00:00 AM EST [facility] Name Value Range Interpretation Code Description Data Aide rce(s) Supporting Document(s) SARS-CoV2 Rapid Antigen [facility] This lab was ordered by [facility] and reported by [facility]. Procedure Social History Code Duration Value Status Description Data Source(s ) Smoking 01/27/2021 12:00:00 AM EDT Former Smoker completed Former Smoker eCW1 ([facility]s [facility]) Smoking 01/15/2021 12:00:00 AM EDT Former Smoker completed Former Smoker eCW1 (Counts Include [facility]) Smoking 12/09/2020 12:00:00 AM EDT Former Smoker completed Former Smoker eCW1 (Counts Include [facility]) Smoking 12/09/2020 12:00:00 AM EDT Former Smoker completed Former Smoker eCW1 (Counts Include [facility]) Smoking 09/09/2020 12:00:00 AM EDT Former Smoker completed Former Smoker eCW1 (Counts Include [facility]) Smoking 09/09/2020 12:00:00 AM EDT Former Smoker completed Former Smoker eCW1 (Counts Include [facility]) Smoking 09/09/2020 12:00:00 AM EDT Former Smoker completed Former Smoker eCW1 (Counts Include [facility]) Smoking 09/09/2020 12:00:00 AM EDT Former Smoker completed Former Smoker eCW1 (Counts Include [facility]) Smoking 09/05/2020 12:00:00 AM EDT Former Smoker completed Former Smoker eCW1 (Counts Include [facility]) Smoking 09/05/2020 12:00:00 AM EDT Former Smoker completed Former Smoker eCW1 (Counts Include [facility]) Smoking 08/11/2020 12:00:00 AM EDT Former Smoker completed Former Smoker eCW1 (Counts Include [facility]) Smoking 08/11/2020 12:00:00 AM EDT Former Smoker completed Former Smoker eCW1 (Counts Include [facility]) Smoking 07/20/2020 12:00:00 AM EDT Patient is a former smoker completed Patient is a former smoker MEDENT ([facility], [facility]) Smoking 07/08/2020 12:00:00 AM EDT Former Smoker completed Former Smoker eCW1 (Counts Include [facility]) Smoking 07/08/2020 12:00:00 AM EDT Former Smoker completed Former Smoker eCW1 (Counts Include [facility]) Smoking 06/29/2020 12:00:00 AM EDT Former Smoker completed Former Smoker eCW1 (Counts Include [facility]) Smoking 06/29/2020 12:00:00 AM EDT Former Smoker completed Former Smoker eCW1 (Counts Include [facility]) Smoking 06/13/2020 12:00:00 AM EDT Former Smoker completed Former Smoker eCW1 (Counts Include [facility]) Smoking 06/10/2020 12:00:00 AM EST Former Smoker completed Former Smoker eCW1 (Counts Include [facility]) Smoking 06/10/2020 12:00:00 AM EST Former Smoker completed Former Smoker eCW1 (Counts Include [facility]) Smoking 05/26/2020 12:00:00 AM EST Former Smoker completed Former Smoker eCW1 (Counts Include [facility]) Smoking 05/13/2020 12:00:00 AM EST Former Smoker completed Former Smoker eCW1 (Counts Include [facility]) Smoking 05/13/2020 12:00:00 AM EST Former Smoker completed Former Smoker eCW1 (Counts Include [facility]) Smoking 04/29/2020 12:00:00 AM EST Former Smoker completed Former Smoker eCW1 (Counts Include [facility]) Smoking 04/07/2020 12:00:00 AM EST Former Smoker completed Former Smoker eCW1 (Counts Include [facility]) Smoking 04/07/2020 12:00:00 AM EST Former Smoker completed Former Smoker eCW1 (Counts Include [facility]) Smoking 04/07/2020 12:00:00 AM EST Former Smoker completed Former Smoker eCW1 (Counts Include [facility]) Smoking 01/08/2020 12:00:00 AM EDT Former Smoker completed Former Smoker eCW1 (Counts Include [facility]) Smoking 01/08/2020 12:00:00 AM EDT Former Smoker completed Former Smoker eCW1 (Counts Include [facility]) Smoking 01/08/2020 12:00:00 AM EDT Former Smoker completed Former Smoker eCW1 (Counts Include [facility]) Smoking 01/08/2020 12:00:00 AM EDT Former Smoker completed Former Smoker eCW1 (Counts Include [facility]) Vital Signs ID Date Data Source UNK Name Value Range Interpretation Code Description Data Source(s) Body height 69 [in_i] 69 [in_i] [facility]ENT ([facility] 5'9" Body weight 165.00 [lb_av] 165.00 [lb_av] MEDEN T ([facility] Systolic blood pressure 108 mm[Hg] 108 mm[Hg] M EDENT ([facility] Diastolic blood pressure 72 mm[Hg] 72 mm[Hg] [facility] ([facility] Heart rate 72 /min 72 /min [facility] ([facility] Body mass index (BMI) [Ratio] 24.4 kg/m2 24.4 k g/m2 [facility] ([facility] Systolic blood pressure 140 mm[Hg] 140 mm[Hg] M EDENT ([facility]) Diastolic blood pressure 89 mm[Hg] 89 mm[Hg] [facility] ([facility]) Heart rate 89 /min 89 /min MEDENT ([facility]) Body weight 165.00 [lb_av] 165.00 [lb_av] MEDEN T ([facility]) Body weight 165.00 [lb_av] 165.00 [lb_av] MEDEN T ([facility], ) Body height 69 [in_i] 69 [in_i] MEDENT ([facility], ) 5'9" Body mass index (BMI) [Ratio] 24.4 kg/m2 24.4 k g/m2 MEDENT ([facility]) Golden body weight 145 [lb_av] 145 [lb_av] MEDEN T ([facility]) Body weight 74.844 kg 74.844 kg MEDENT ([facility]) Body surface area Derived from formula 1.90 m2 1.90 m2 MEDENT ([facility]) Systolic blood pressure 146 mm[Hg] 146 mm[Hg] M EDENT ([facility]) Diastolic blood pressure 76 mm[Hg] 76 mm[Hg] MEDENT ([facility]) Body weight 166.6 [lb_av] 166.6 [lb_av] eCW1 ([facility]) Body weight 75.57 kg 75.57 kg W1 ([facility]) Heart rate 63 /min 63 /min eCW1 ([facility]) Respiratory rate 18 /min 18 /min eCW1 ([facility]) Body temperature 98.0 [degF] 98.0 [degF] eCW1 ( Counts Include [facility]) Body mass index (BMI) [Ratio] 24.60 kg/m2 24.60 kg/m2 W1 (Counts Include [facility]) Body height 69 [in_i] 69 [in_i] eCW1 ([facility]) Systolic blood pressure 119 mm[Hg] 119 mm[Hg] e CW1 (Counts Include [facility]) Diastolic blood pressure 69 mm[Hg] 69 mm[Hg] eCW1 (Counts Include [address] [facility]) Body weight 168 [lb_av] 168 [lb_av] eCW1 ([facility]) Body height 69 [in_i] 69 [in_i] eCW1 ([facility]) Body mass index (BMI) [Ratio] 24.81 kg/m2 24.81 kg/m2 W1 (Counts Include [facility]) Heart rate 72 /min 72 /min eCW1 ([facility]) Respiratory rate 16 /min 16 /min eCW1 ([facility]) Body temperature 97.3 [degF] 97.3 [degF] eCW1 ( Counts Include [facility]) Systolic blood pressure 127 mm[Hg] 127 mm[Hg] e CW1 (Counts Include [facility]) Diastolic blood pressure 81 mm[Hg] 81 mm[Hg] eCW1 (Counts Include [address] [facility]) Body weight 169.6 [lb_av] 169.6 [lb_av] eCW1 ([facility]) Body height 69 [in_i] 69 [in_i] eCW1 ([facility]) Body mass index (BMI) [Ratio] 25.04 kg/m2 25.04 kg/m2 eCW1 (Counts Include [address] [facility]) Heart rate 107 /min 107 /min eCW1 ([facility]) Respiratory rate 18 /min 18 /min eCW1 ([facility]) Body temperature 98.3 [degF] 98.3 [degF] eCW1 ( Counts Include [address] [facility]) Systolic blood pressure 148 mm[Hg] 148 mm[Hg] e CW1 (Counts Include [facility]) Diastolic blood pressure 72 mm[Hg] 72 mm[Hg] eCW1 (Counts Include [address] [facility]) Body weight 170.8 [lb_av] 170.8 [lb_av] eCW1 ([facility]) Body height 69 [in_i] 69 [in_i] eCW1 ([facility]) Body mass index (BMI) [Ratio] 25.22 kg/m2 25.22 kg/m2 eCW1 (Counts Include [address] [facility]) Heart rate 66 /min 66 /min eCW1 ([facility]) Respiratory rate 18 /min 18 /min eCW1 ([facility]) Body temperature 98.0 [degF] 98.0 [degF] eCW1 ( Counts Include [facility]) Systolic blood pressure 117 mm[Hg] 117 mm[Hg] e CW1 (Counts Include [address] [facility]) Diastolic blood pressure 77 mm[Hg] 77 mm[Hg] eCW1 (Counts Include [address] [facility]) Golden body weight 145 [lb_av] 145 [lb_av] MEDEN T ([facility]) Body weight 79.380 kg 79.380 kg MEDENT ([facility]) Body surface area Derived from formula 1.96 m2 1.96 m2 [facility] Oxygen saturation in Arterial blood by Pulse oximetry 99 % 99 % MEDENT ([facility]) Respiratory rate 16 /min 16 /min MEDENT ( [facility]) Body temperature 98.2 [degF] 98.2 [degF] [facility] Body mass index (BMI) [Ratio] 25.5 kg/m2 25.5 k g/m2 [facility] Systolic blood pressure 141 mm[Hg] 141 mm[Hg] EDENT ([facility]) Diastolic blood pressure 82 mm[Hg] 82 mm[Hg] [facility] ([facility]) Body mass index (BMI) [Ratio] 25.5 kg/m2 25.5 k g/m2 [facility] ([facility]) Oxygen saturation in Arterial blood by Pulse oximetry 99 % 99 % [facility] ([facility]) Respiratory rate 16 /min 16 /min MEDENT ( [facility]) Body temperature 98.2 [degF] 98.2 [degF] [facility] ([facility]) Body height 69.5 [in_i] 69.5 [in_i] [facility] ([facility]) 5'9.50" Body weight 175.00 [lb_av] 175.00 [lb_av] MEDEN T ([facility]) Golden body weight 145 [lb_av] 145 [lb_av] MEDEN T ([facility]) Body weight 79.380 kg 79.380 kg [facility] Body surface area Derived from formula 1.96 m2 1.96 m2 [facility] ([facility]) Heart rate 72 /min 72 /min [facility] ([facility]) Body height 69.5 [in_i] 69.5 [in_i] [facility] ([facility]) 5'9.50" Body weight 175.00 [lb_av] 175.00 [lb_av] MEDEN T ([facility], ) Systolic blood pressure 126 mm[Hg] 126 mm[Hg] M EDENT ([facility], [facility]) Diastolic blood pressure 85 mm[Hg] 85 mm[Hg] MEDENT ([facility], [facility]) Heart rate 62 /min 62 /min MEDENT ([facility], [facility]) Respiratory rate 12 /min 12 /min [facility] ( [facility]) Oxygen saturation in Arterial blood by Pulse oximetry 98 % 98 % MEDENT ([facility], [facility]) Body temperature 97.9 [degF] 97.9 [degF] MEDENT ([facility], [facility]) Body weight 170.00 [lb_av] 170.00 [lb_av] MEDEN T ([facility], [facility]) Body height 69 [in_i] 69 [in_i] MEDENT ([facility], [facility]) 5'9" Body mass index (BMI) [Ratio] 25.1 kg/m2 25.1 k g/m2 [facility] ([facility]) Body weight 173 [lb_av] 173 [lb_av] eCW1 ([facility]) Body height 69 [in_i] 69 [in_i] eCW1 ([facility]) Body mass index (BMI) [Ratio] 25.54 kg/m2 25.54 kg/m2 eCW1 ([facility]) Heart rate 83 /min 83 /min eCW1 ([facility]) Respiratory rate 18 /min 18 /min eCW1 ([facility]) Body temperature 97.1 [degF] 97.1 [degF] eCW1 ( Counts Include [address] [facility]) Systolic blood pressure 151 mm[Hg] 151 mm[Hg] e CW1 (Counts Include [address] [facility]) Diastolic blood pressure 83 mm[Hg] 83 mm[Hg] eCW1 (Counts Include [address] [facility]) Body weight 173 [lb_av] 173 [lb_av] eCW1 ([facility]) Body height 69 [in_i] 69 [in_i] eCW1 ([facility]) Body mass index (BMI) [Ratio] 25.54 kg/m2 25.54 kg/m2 eCW1 (Counts Include [address] [facility]) Heart rate 71 /min 71 /min eCW1 ([facility]) Respiratory rate 18 /min 18 /min eCW1 ([facility]) Body temperature 97.9 [degF] 97.9 [degF] eCW1 ( Counts Include [address] [facility]) Systolic blood pressure 115 mm[Hg] 115 mm[Hg] e CW1 (Counts Include [address] [facility]) Diastolic blood pressure 73 mm[Hg] 73 mm[Hg] eCW1 (Counts Include [address] [facility]) Respiratory rate 18 /min 18 /min MEDENT ( [facility]) Body weight 170.00 [lb_av] 170.00 [lb_av] MEDEN T ([facility]) Body temperature 96.9 [degF] 96.9 [degF] MEDENT ([facility]) Body weight 170.8 [lb_av] 170.8 [lb_av] eCW1 ([facility]) Body height 69 [in_i] 69 [in_i] eCW1 ([facility]) Body mass index (BMI) [Ratio] 25.22 kg/m2 25.22 kg/m2 eCW1 (Counts Include [address] [facility]) Heart rate 77 /min 77 /min eCW1 ([facility]) Respiratory rate 18 /min 18 /min eCW1 ([facility]) Body temperature 96.3 [degF] 96.3 [degF] eCW1 ( Counts Include [address] [facility]) Systolic blood pressure 110 mm[Hg] 110 mm[Hg] e CW1 (Counts Include [address] [facility]) Diastolic blood pressure 62 mm[Hg] 62 mm[Hg] eCW1 (Counts Include [address] [facility]) Body weight 171.6 [lb_av] 171.6 [lb_av] eCW1 ([facility]) Body height 69 [in_i] 69 [in_i] eCW1 ([facility]) Body mass index (BMI) [Ratio] 25.34 kg/m2 25.34 kg/m2 eCW1 (Counts Include [address] [facility]) Heart rate 93 /min 93 /min eCW1 ([facility]) Respiratory rate 18 /min 18 /min eCW1 ([facility]) Body temperature 97.2 [degF] 97.2 [degF] eCW1 ( Counts Include [address] [facility]) Systolic blood pressure 161 mm[Hg] 161 mm[Hg] e CW1 (Counts Include [address] [facility]) Diastolic blood pressure 87 mm[Hg] 87 mm[Hg] eCW1 (Counts Include [address] [facility]) Body weight 171.6 [lb_av] 171.6 [lb_av] eCW1 ([facility]) Body height 69 [in_i] 69 [in_i] eCW1 ([facility]) Body mass index (BMI) [Ratio] 25.34 kg/m2 25.34 kg/m2 eCW1 (Counts Include [address] [facility]) Heart rate 67 /min 67 /min eCW1 ([facility]) Respiratory rate 18 /min 18 /min eCW1 ([facility]) Body temperature 98.2 [degF] 98.2 [degF] eCW1 ( Counts Include [facility]) Systolic blood pressure 111 mm[Hg] 111 mm[Hg] e CW1 (Counts Include [address] [facility]) Diastolic blood pressure 67 mm[Hg] 67 mm[Hg] eCW1 (Counts Include [address] [facility]) Body mass index (BMI) [Ratio] 25.54 kg/m2 25.54 kg/m2 eCW1 (Counts Include [address] [facility]) Body weight 173 [lb_av] 173 [lb_av] eCW1 ([facility]) Respiratory rate 16 /min 16 /min eCW1 ([facility]) Body temperature 97.2 [degF] 97.2 [degF] eCW1 ( Counts Include [address] [facility]) Systolic blood pressure 159 mm[Hg] 159 mm[Hg] e CW1 (Counts Include [address] [facility]) Diastolic blood pressure 83 mm[Hg] 83 mm[Hg] eCW1 (Counts Include [address] [facility]) Body height 69 [in_i] 69 [in_i] eCW1 ([facility]) Heart rate 63 /min 63 /min eCW1 ([facility]) Heart rate 94 /min 94 /min eCW1 ([facility]) Respiratory rate 18 /min 18 /min eCW1 ([facility]) Body temperature 97.4 [degF] 97.4 [degF] eCW1 ( Counts Include [facility]) Systolic blood pressure 112 mm[Hg] 112 mm[Hg] e CW1 (Counts Include [address] [facility]) Diastolic blood pressure 74 mm[Hg] 74 mm[Hg] eCW1 (Counts Include [address] [facility]) Body weight 176 [lb_av] 176 [lb_av] eCW1 ([facility]) Body height 69 [in_i] 69 [in_i] eCW1 ([facility]) Body mass index (BMI) [Ratio] 25.99 kg/m2 25.99 kg/m2 W1 (Counts Include [facility]) Body height 175.2600 cm 175.2600 cm [facility] Body mass index (BMI) [Ratio] 25.10 kg/m2 25.10 kg/m2 [facility] Systolic blood pressure 136 mm[Hg] 136 mm[Hg] [facility] Oxygen saturation in Arterial blood by Pulse oximetry 100 % 100 % [facility] Diastolic blood pressure 81 mm[Hg] 81 mm[Hg] [facility] Body surface area Derived from formula 1.94 m2 1.94 m2 [facility] Heart rate 63.0 /min 63.0 /min [facility] Respiratory rate 18 /min 18 /min [facility] Body temperature 36.6 Sandra 36.6 Sandra [facility] Body weight 77.11 kg 77.11 kg [facility] Body weight 174.6 [lb_av] 174.6 [lb_av] eCW1 ([facility]) Body height 69 [in_i] 69 [in_i] eCW1 ([facility]) Body mass index (BMI) [Ratio] 25.78 kg/m2 25.78 kg/m2 W1 (Counts Include [facility]) Heart rate 67 /min 67 /min eCW1 ([facility]) Respiratory rate 18 /min 18 /min eCW1 ([facility]) Body temperature 97.0 [degF] 97.0 [degF] eCW1 ( Counts Include [facility]) Systolic blood pressure 144 mm[Hg] 144 mm[Hg] e CW1 (Counts Include [facility]) Diastolic blood pressure 93 mm[Hg] 93 mm[Hg] eCW1 (Counts Include [facility]) ID Date Data Source [id number] 07/08/2020 03:31:[address] [facility] ([facility]) Name Value Range Interpretation Code Description Data Source(s) Diastolic blood pressure 86 mm[Hg] 86 mm[Hg] [facility] ([facility]) Systolic blood pressure 137 mm[Hg] 137 mm[Hg] M HARS ([facility]) Body weight 170 [lb_av] 170 [lb_av] [facility] ([facility]) Body height 69.5 [in_i] 69.5 [in_i] [facility] ([facility]) Patient Treatment Plan of Care Planned Activity Planned Date Details Description Data Source (s) Acetaminophen 325 MG / Oxycodone Hydrochloride 10 MG O ral Tablet [Endocet] 01/25/2021 12:00:00 AM EDT eCW1 ([facility]) Acetaminophen 325 MG / Oxycodone Hydrochloride 10 MG O ral Tablet [Endocet] 12/20/2020 12:00:00 AM EDT eCW1 ([facility]) Acetaminophen 325 MG / Oxycodone Hydrochloride 10 MG O ral Tablet [Endocet] 11/15/2020 12:00:00 AM EDT eCW1 ([facility]) Acetaminophen 325 MG / Oxycodone Hydrochloride 10 MG O ral Tablet [Endocet] 09/30/2020 12:00:00 AM EDT eCW1 ([facility]) Acetaminophen 325 MG / Oxycodone Hydrochloride 10 MG O ral Tablet [Endocet] 09/30/2020 12:00:00 AM EDT eCW1 ([facility]) topiramate 25 MG Oral Tablet [Topamax] 06/13/2020 12:00:00 AM EDT eCW1 ([facility]) topiramate 25 MG Oral Tablet [Topamax] 06/13/2020 12:00:00 AM EDT eCW1 (Counts Include [facility]) topiramate 25 MG Oral Tablet [Topamax] 06/13/2020 12:00:00 AM EDT eCW1 (Counts Include [facility]) topiramate 25 MG Oral Tablet [Topamax] 06/13/2020 12:00:00 AM EDT eCW1 (Counts Include [facility]) topiramate 25 MG Oral Tablet [Topamax] 06/13/2020 12:00:00 AM EDT eCW1 (Counts Include [facility]) Acetaminophen 325 MG / Oxycodone Hydrochloride 10 MG O ral Tablet [Endocet] 06/10/2020 12:00:00 AM EST eCW1 ([facility]) Acetaminophen 325 MG / Oxycodone Hydrochloride 10 MG O ral Tablet [Endocet] 06/10/2020 12:00:00 AM EST eCW1 ([facility]) Acetaminophen 325 MG / Oxycodone Hydrochloride 10 MG O ral Tablet [Endocet] 06/10/2020 12:00:00 AM EST eCW1 ([facility]) Acetaminophen 325 MG / Oxycodone Hydrochloride 10 MG O ral Tablet [Endocet] 06/10/2020 12:00:00 AM EST eCW1 ([facility]) Acetaminophen 325 MG / Oxycodone Hydrochloride 10 MG O ral Tablet [Endocet] 04/26/2020 12:00:00 AM EST eCW1 ([facility]) Acetaminophen 325 MG / Oxycodone Hydrochloride 10 MG O ral Tablet [Endocet] 03/15/2020 12:00:00 AM EST eCW1 ([facility]) Acetaminophen 325 MG / Oxycodone Hydrochloride 10 MG O ral Tablet [Endocet] 03/15/2020 12:00:00 AM EST eCW1 ([facility]) Acetaminophen 325 MG / Oxycodone Hydrochloride 10 MG O ral Tablet [Endocet] 01/08/2020 12:00:00 AM EDT eCW1 ([facility]) Acetaminophen 325 MG / Oxycodone Hydrochloride 10 MG O ral Tablet [Endocet] 01/08/2020 12:00:00 AM EDT eCW1 ([facility])
[2021-01-31] MEDS ORDERED: LIDOCAINE 2% 100MG/5ML SDV (FOR ANES.) As Ordered ONE (13:43)
[2021-01-31] MEDS ORDERED: ONDANSETRON 4MG/2ML VIAL As Ordered ONE (13:43)
[2021-01-31] MEDS ORDERED: propofoL 200 MG/20 ML VIAL As Ordered ONE ×2 (13:58→14:11)
--- NOTE | 2021-01-31 14:48 | ROOR ---
Patient Name: Marcela Mcrae Procedure Date: 01/31/2021 2:00 PM Date of : 1960 Age: 60 Room: [facility] Gender: Female Note Status: Finalized Procedure: Colonoscopy Indications: Screening for colorectal malignant neoplasm Providers: Rey Eden MD Referring MD: Berenice KHOURY MD Requesting Provider: Medicines: Monitored Anesthesia Care Complications: No immediate complications. Procedure: Pre-Anesthesia Assessment: - Prior to the procedure, a History and Physical was performed, and patient medications and allergies were reviewed. The patient is competent. The risks and benefits of the procedure and the sedation options and risks were discussed with the patient. All questions were answered and informed consent was obtained. Patient identification and proposed procedure were verified by the physician, the nurse and the anesthesiologist in the procedure room. Mental Status Examination: alert and oriented. Airway Examination: normal oropharyngeal airway and neck mobility. Respiratory Examination: clear to auscultation. CV Examination: normal. Prophylactic Antibiotics: The patient does not require prophylactic antibiotics. Prior Anticoagulants: The patient has taken no previous anticoagulant or antiplatelet agents. ASA Grade Assessment: II - A patient with mild systemic disease. After reviewing the risks and benefits, the patient was deemed in satisfactory condition to undergo the procedure. The anesthesia plan was to use monitored anesthesia care (MAC). Immediately prior to administration of medications, the patient was re-assessed for adequacy to receive sedatives. The heart rate, respiratory rate, oxygen saturations, blood pressure, adequacy of pulmonary ventilation, and response to care were monitored throughout the procedure. The physical status of the patient was re-assessed after the procedure. The Colonoscope was introduced through the anus and advanced to the terminal ileum, with identification of the appendiceal orifice and IC valve. The colonoscopy was performed without difficulty. The patient tolerated the procedure well. The quality of the bowel preparation was good. The terminal ileum, ileocecal valve, appendiceal orifice, and rectum were photographed. Scope insertion time was 2 minutes. Scope withdrawal time was 9 minutes. The total duration of the procedure was 12 minutes. Findings: The perianal and digital rectal examinations were normal. The terminal ileum appeared normal. A 12 mm polyp was found in the ascending colon. The polyp was sessile. The polyp was removed with a hot snare. Resection and retrieval were complete. Verification of patient identification for the specimen was done by the physician and nurse using the patient's name, date and medical record number. Estimated blood loss was minimal. Non-bleeding external and internal hemorrhoids were found during retroflexion. The hemorrhoids were medium-sized. Impression: - The examined portion of the ileum was normal. - One 12 mm polyp in the ascending colon, removed with a hot snare. Resected and retrieved. - Non-bleeding external and internal hemorrhoids. Recommendation: - Patient has a contact number available for emergencies. The signs and symptoms of potential delayed complications were discussed with the patient. Return to normal activities tomorrow. Written discharge instructions were provided to the patient. - High fiber diet. - Continue present medications. - Use fiber, for example Citrucel, Fibercon, Konsyl or Metamucil. - Await pathology results. - Repeat colonoscopy in 3 years for surveillance based on pathology results. - Telephone GI clinic for pathology results in 2 weeks. - Miralax 1 capful (17 grams) in 8 ounces of water PO daily for atleast 7 days and then adjust dose to have one to two soft bowel movements daily. - Telephone GI clinic for pathology results in 2 weeks. - Return to primary care physician. Procedure Code(s): --- Professional --- 88963, Colonoscopy, flexible; with removal of tumor(s), polyp(s), or other lesion(s) by snare technique Diagnosis Code(s): --- Professional --- Z12.11, Encounter for screening for malignant neoplasm of colon K64.8, Other hemorrhoids K63.5, Polyp of colon CPT copyright 2019 [employer]. All rights reserved. The codes documented in this report are preliminary and upon orthopedic coder review may be revised to meet current compliance requirements. Rey Eden MD Rey Eden MD 01/31/2021 2:48:07 PM Electronically signed by Rey Eden MD Number of Addenda: 0 Note Initiated On: 01/31/2021 2:00 PM Estimated Blood Loss: Estimated blood loss was minimal.
[2021-01-31 15:11] VITALS: BP 104/56
== END 2021-01-31 15:05 | disposition home or self-care (01) ==
LOC: M OPP 12:13
PROVIDERS: ATTEND Internal Medicine Gastroenterology
DX: Z12.11 Encounter for screening for malignant neoplasm of colon (principal); Z86.010 Personal history of colon polyps; D12.2 Benign neoplasm of ascending colon; K64.8 Other hemorrhoids; Z79.82 Long term (current) use of aspirin; Z79.899 Other long term (current) drug therapy; Z88.5 Allergy status to narcotic agent; Z88.8 Allergy status to other drugs, medicaments and biological substances; Z91.040 Latex allergy status; Z87.891 Personal history of nicotine dependence
CPT/HCPCS: 45385; 88305; J2405

== ENCOUNTER → 2021-02-10 | Outpatient (CLI) | payer BC ==
[~2021-02-10] MED LIST changes: -NS 1,000 ML IV ONE
== END ==
LOC: M PAIN 09:00
PROVIDERS: ATTEND Nurse Practitioner Family
DX: G43.709 Chronic migraine without aura, not intractable, without status migrainosus (principal); K21.9 Gastro-esophageal reflux disease without esophagitis; Z86.59 Personal history of other mental and behavioral disorders; Z88.5 Allergy status to narcotic agent; Z88.6 Allergy status to analgesic agent; Z88.8 Allergy status to other drugs, medicaments and biological substances; Z91.040 Latex allergy status; Z79.82 Long term (current) use of aspirin; Z79.899 Other long term (current) drug therapy

== ENCOUNTER → 2021-02-15 | Outpatient (CLI) | payer OTHER | LOC: M PAIN 08:30 | PROVIDERS: ATTEND Nurse Practitioner Family | DX: M47.816 Spondylosis without myelopathy or radiculopathy, lumbar region (principal); G89.29 Other chronic pain; K21.9 Gastro-esophageal reflux disease without esophagitis; G43.909 Migraine, unspecified, not intractable, without status migrainosus; Z86.59 Personal history of other mental and behavioral disorders; Z87.891 Personal history of nicotine dependence; Z88.5 Allergy status to narcotic agent; Z88.6 Allergy status to analgesic agent; Z88.8 Allergy status to other drugs, medicaments and biological substances; Z91.040 Latex allergy status; Z79.82 Long term (current) use of aspirin; Z79.899 Other long term (current) drug therapy ==

== ENCOUNTER → 2021-03-03 | Outpatient (CLI) | payer OTHER | LOC: M PAIN 09:15 | PROVIDERS: ATTEND Anesthesiology | DX: G89.29 Other chronic pain (principal); M47.816 Spondylosis without myelopathy or radiculopathy, lumbar region; K21.9 Gastro-esophageal reflux disease without esophagitis; G43.909 Migraine, unspecified, not intractable, without status migrainosus; Z86.59 Personal history of other mental and behavioral disorders; Z87.891 Personal history of nicotine dependence; Z88.5 Allergy status to narcotic agent; Z88.6 Allergy status to analgesic agent; Z88.8 Allergy status to other drugs, medicaments and biological substances; Z91.040 Latex allergy status; Z79.82 Long term (current) use of aspirin; Z79.899 Other long term (current) drug therapy ==

== ENCOUNTER → 2021-05-27 | Outpatient (CLI) | payer BC, MEDICAID, OTHER ==
[~2021-05-27] MED LIST changes: +ONDA-84 PO; -ONDA8TAB10 PO
== END ==
LOC: M LABSMTC 13:00
PROVIDERS: ATTEND Anesthesiology
DX: Z01.812 Encounter for preprocedural laboratory examination (principal); Z20.822 Contact with and (suspected) exposure to COVID-19

== ENCOUNTER → 2021-07-26 | Outpatient (CLI) | payer BC, OTHER, MEDICAID | LOC: M LABSMTC 09:11 | PROVIDERS: ATTEND Anesthesiology | DX: Z01.818 Encounter for other preprocedural examination (principal); Z11.52 Encounter for screening for COVID-19 ==